=== PATIENT | male | born 1975 | race Two or more races ===

== ENCOUNTER 2017-07-13 10:05 | Inpatient (IN) | payer OTHER ==
[~2017-07-13] VITALS: Ht 182.9 cm; Wt 109.8 kg
[~2017-07-13 10:05] MED LIST: ATOR20TA58 PO; HYDR-2758 PO; ONDA4TAB10 SL; OXYC1TAB7 PO
[2017-07-13] MEDS ORDERED: IV NORMAL SALINE 1000ML BAG 1,000 ML IV SCH (10:24)
[2017-07-13] MEDS ORDERED: IBUPROFEN 800 MG TABLET. PO ONE (10:30)
[2017-07-13] MEDS ORDERED: ONDANSETRON PF 4 MG/2 ML VIAL. IV ONE (10:30)
[2017-07-13] MEDS ORDERED: MORPHINE SULFATE 10 MG/ML VIAL. IV ONE (10:30)
[2017-07-13] MEDS: IV NORMAL SALINE 500ML BAG 500 ML IV PRN (10:54)
[2017-07-13 11:06] LABS: BASO # 0.1 x10^3/uL (0.0-0.2); BASO % 1 % (0-3); EOS % 0 % (0-3); HEMATOCRIT 33.3 % (39.0-53.0); HEMOGLOBIN 11.8 g/dL (13.0-17.5); LYMPH # 3.3 x10^3/uL (1.0-4.8); LYMPH % 17 % (24-48); MEAN CORPUSCULAR HEMOGLOBIN 31 pg (25-35); MEAN CORPUSCULAR HGB CONC 36 g/dL (31-37); MEAN CORPUSCULAR VOLUME 86 fL (79-100); MONO % 12 % (0-9); NEUT % 71 % (31-73); PLATELET COUNT 312 x10^3/uL (140-400); RED BLOOD COUNT 3.88 x10^6/uL (4.30-5.70); RED CELL DISTRIBUTION WIDTH 12.8 % (11.5-14.5); WHITE BLOOD COUNT 19.6 x10^3/uL (4.0-11.0)
--- NOTE | 2017-07-13 11:09 | PHYS DOC ---
Past Medical History Past Medical History: High Cholesterol Past Surgical History: Appendectomy Additional Information: 3 CIGS/ DAY Alcohol Use: Occasionally Drug Use: None Adult General Chief Complaint Chief Complaint: ABDOMINAL PAIN HPI HPI Patient is a 41 year old male with history of high cholesterol who presents today complaining of a fever and increased abdominal pain since his appendectomy on Sunday this week. Patient state he was discharged from the hospital on Sunday with Oxycodone. He states since yesterday which is he has had increased RLQ abdominal pain with nothing exacerbating or making the pain better. Patient states he also started having a fever of 101 yesterday. states they called the PCP as well as the general surgeon who did the procedure and they were told come to the ED today. Patient denies any vomiting. PCP Dr. Meade Surgeon: Dr. Mcintosh Review of Systems Review of Systems Constitutional: fever Eyes: Denies change in visual acuity, redness, or eye pain [] HENT: Denies nasal congestion or sore throat [] Respiratory: Denies cough or shortness of breath [] Cardiovascular: No additional information not addressed in HPI [] GI: RLQ abdominal pain, denies nausea, vomiting, bloody stools or diarrhea [] : Denies dysuria or hematuria [] Musculoskeletal: Denies back pain or joint pain [] Integument: Denies rash or skin lesions [] Neurologic: Denies headache, focal weakness or sensory changes [] Endocrine: Denies polyuria or polydipsia [] Current Medications Current Medications Current Medications Medications (Trade) Dose Ordered Sig/Lana Start Time Stop Time Status Last Admin Dose Admin Acetaminophen (Tylenol) 1,000 mg 1X ONCE 07/13/17 12:30 07/13/17 12:31 DC 07/13/17 12:27 1,000 MG Fentanyl Citrate (Fentanyl 2ml Vial) 50 mcg 1X ONCE 07/13/17 11:30 07/13/17 11:31 DC 07/13/17 11:27 50 MCG Ibuprofen (Motrin) 800 mg 1X ONCE 07/13/17 10:30 07/13/17 10:31 DC 07/13/17 10:54 800 MG Info (Do NOT chart on this entry -- for MONITORING) 1 each PRN DAILY PRN 07/13/17 13:15 07/15/17 13:14 Morphine Sulfate 5 mg 1X ONCE 07/13/17 10:30 07/13/17 10:59 DC Ondansetron HCl (Zofran) 4 mg 1X ONCE 07/13/17 10:30 07/13/17 10:31 DC 07/13/17 10:54 4 MG Sodium Chloride 500 ml @ 1,000 mls/hr PRN Q30MIN PRN 07/13/17 10:30 07/13/17 10:54 1,000 MLS/HR Allergies Allergies Allergies Coded Allergies Type Severity Reaction Last Updated Verified No Known Drug Allergies 07/09/17 No Physical Exam Physical Exam Constitutional: Well developed, well nourished, no acute distress, non-toxic appearance. [] HENT: Normocephalic, atraumatic, bilateral external ears normal, oropharynx moist, no oral exudates, nose normal. [] Eyes: PERRLA, EOMI, conjunctiva normal, no discharge. [] Neck: Normal range of motion, no tenderness, supple, no stridor. [] Cardiovascular:Heart rate regular rhythm, no murmur [] Lungs & Thorax: Bilateral breath sounds clear to auscultation [] Abdomen: Surgical incisions noted on the umbilicus, mid lower abdomen, and right lower quadrant with the bruises consistent with laparoscopy appendectomy. No signs of infection over incision sites, tenderness on palpation of the right lower quadrant. Bowel sounds normal, soft, no masses, no pulsatile masses. [] Skin: Warm, dry, no erythema, no rash. [] Back: No tenderness, no CVA tenderness. [] Extremities: No tenderness, no cyanosis, no clubbing, ROM intact, no edema. [] Neurologic: Alert and oriented X 3, normal motor function, normal sensory function, no focal deficits noted. [] Psychologic: Affect normal, judgement normal, mood normal. [] Current Patient Data Vital Signs Vital Signs Date Time Temp Pulse Resp B/P (MAP) Pulse Ox O2 Delivery O2 Flow Rate FiO2 07/13/17 13:00 98.6 88 20 123/75 (91) 98 Room Air 98.6 Lab Values Laboratory Tests Test 07/13/17 10:34 07/13/17 10:48 Urine Collection Type Unknown Urine Color Yellow Urine Clarity Clear Urine pH 6.0 Urine Specific [place] 1.020 Urine Protein Negative mg/dL (NEG-TRACE) Urine Glucose (UA) Negative mg/dL (NEG) Urine Ketones (Stick) Negative mg/dL (NEG) Urine Blood Negative (NEG) Urine Nitrite Negative (NEG) Urine Bilirubin Negative (NEG) Urine Urobilinogen Dipstick 0.2 mg/dL (0.2 mg/dL) Urine Leukocyte Esterase Negative (NEG) Urine RBC Rare /HPF (0-2) Urine WBC Rare /HPF (0-4) Urine Squamous Epithelial Cells None /LPF Urine Bacteria Few /HPF (0-FEW) Urine Mucus Slight /LPF Urine Opiates Screen Pos (NEG) Urine Methadone Screen Neg (NEG) Urine Barbiturates Neg (NEG) Urine Phencyclidine Screen Neg (NEG) Urine Amphetamine/Methamphetamine Neg (NEG) Urine Benzodiazepines Screen Neg (NEG) Urine Cocaine Screen Neg (NEG) Urine Cannabinoids Screen Neg (NEG) Urine Ethyl Alcohol Neg (NEG) White Blood Count 19.6 x10^3/uL (4.0-11.0) H Red Blood Count 3.88 x10^6/uL (4.30-5.70) L Hemoglobin 11.8 g/dL (13.0-17.5) L Hematocrit 33.3 % (39.0-53.0) L Mean Corpuscular Volume 86 fL (79-100) Mean Corpuscular Hemoglobin 31 pg (25-35) Mean Corpuscular Hemoglobin Concent 36 g/dL (31-37) Red Cell Distribution Width 12.8 % (11.5-14.5) Platelet Count 312 x10^3/uL (140-400) Neutrophils (%) (Auto) 71 % (31-73) Lymphocytes (%) (Auto) 17 % (24-48) L Monocytes (%) (Auto) 12 % (0-9) H Eosinophils (%) (Auto) 0 % (0-3) Basophils (%) (Auto) 1 % (0-3) Neutrophils # (Auto) 13.9 x10^3uL (1.8-7.7) H Lymphocytes # (Auto) 3.3 x10^3/uL (1.0-4.8) Monocytes # (Auto) 2.3 x10^3/uL (0.0-1.1) H Eosinophils # (Auto) 0.1 x10^3/uL (0.0-0.7) Basophils # (Auto) 0.1 x10^3/uL (0.0-0.2) Prothrombin Time 15.0 SEC (11.7-14.0) H Prothrombin Time INR 1.3 (0.8-1.1) H PTT 37 SEC (24-38) Sodium Level 135 mmol/L (136-145) L Potassium Level 3.8 mmol/L (3.5-5.1) Chloride Level 96 mmol/L (98-107) L Carbon Dioxide Level 25 mmol/L (21-32) Anion Gap 14 (6-14) Blood Urea Nitrogen 13 mg/dL (8-26) Creatinine 1.0 mg/dL (0.7-1.3) Estimated GFR (Cockcroft-Gault) 82.8 BUN/Creatinine Ratio 13 (6-20) Glucose Level 127 mg/dL (70-99) H Lactic Acid Level 1.5 mmol/L (0.4-2.0) Calcium Level 8.6 mg/dL (8.5-10.1) Total Bilirubin 0.9 mg/dL (0.2-1.0) Aspartate Amino Transferase (AST) 30 U/L (15-37) Alanine Aminotransferase (ALT) 65 U/L (16-63) H Alkaline Phosphatase 51 U/L (46-116) Total Protein 7.3 g/dL (6.4-8.2) Albumin 3.6 g/dL (3.4-5.0) Albumin/Globulin Ratio 1.0 (1.0-1.7) Procalcitonin 0.66 ng/mL (0.00-0.10) H Ethyl Alcohol Level < 10 mg/dL (0-10) Laboratory Tests 07/13/17 10:48 Laboratory Tests 07/13/17 10:48 EKG EKG [] Radiology/Procedures Radiology/Procedures PROCEDURE: CHEST AP ONLY Chest radiograph 07/13/2017 12:59 PM Indication: Fever, postop appendectomy Comparison: None available Technique: Single portable upright frontal view of the chest is provided. Findings: Cardiomediastinal silhouette is within normal limits. Bandlike density in the left and right midlung is felt to represent subsegmental atelectasis. No pulmonary vascular congestion. No pleural effusions or pneumothorax. The lungs are clear. Osseous structures are normal. Impression: Bilateral midlung bandlike densities are favored to represent subsegmental atelectasis and/or scarring. DICTATED and SIGNED BY: AURORA REES MD DATE: 07/13/17 1113 CC: JUAN A MEADE MD; AJITH CRUZ APRN ~ []PROCEDURE: CT ABD PELV W/ IV CONTRST ONLY CT abdomen/pelvis with contrast 07/13/2017 Indication: Recent appendectomy with abdominal pain and fever Comparison: CT abdomen/pelvis 07/09/2017 Technique: Multiple axial CT images of the abdomen and pelvis were obtained after the administration of 75 mL of Omnipaque 300 intravenously. Coronal and sagittal reformats are provided. Findings: There is right basilar subsegmental atelectasis left greater than right. Heart size is within normal limits. Diffuse hypoattenuation of the hepatic parenchyma suggestive of hepatic steatosis. Spleen, bilateral adrenal glands, gallbladder, pancreas and kidneys are within normal limits. Abdominal aorta is normal in course and caliber. There are no enlarged lymph nodes in the abdomen or pelvis. Small and large bowel are normal in caliber. There is moderate amount of complex hyperdense fluid identified in the right paracolic gutter as well as in the dependent portions of the pelvis suspicious for blood products. There is no free intraperitoneal air. The urinary bladder is within normal limits. Impression: Status post appendectomy with moderate complex fluid within the right paracolic gutter and dependent portions of the pelvis which likely represent blood products given the high attenuation. Findings were discussed with Dr. Cruz on 07/13/2017 at 1:[address] Rees. PQRS Compliance Statement: One or more of the following individualized dose reduction techniques were utilized for this examination: 1. Automated exposure control 2. Adjustment of the mA and/or kV according to patient size 3. Use of iterative reconstruction technique DICTATED and SIGNED BY: AURORA REES MD DATE: 07/13/17 1338 CC: JUAN A MEADE MD; AJITH CRUZ APRN ~ Course & Med Decision Making Course & Med Decision Making Pertinent Labs and Imaging studies reviewed. (See chart for details) This is a 41-year-old male patient presenting to the ED today for fever and increased right lower quadrant abdominal pain post appendectomy 5 days ago. Patient was discharged from the hospital 2 days ago. Temperature on arrival to the ED was 99.8, heart rate 117, respiration 20, blood pressure 153/75, O2 sats 98% on room air. We started him on the sepsis protocol. CBC with a WBC of 19.6 with a left shift. Normal lactate, procalcitonin was 0.66. Patient's temperature actually went up after receiving Motrin in the ED. Temperature was 101.3. Blood pressure went down to 112/59. He continued to receive IV fluids per sepsis protocol. 13:[address] Meade who accepted patient for admission. He requested I&D consult. Start patient on Zosyn and get CT of abdomen which was already ordered. 13:[address] Mcintosh who will f/u with patient Spoke with Dr. Connors who will F/u with patient and start him on Fluconazole. Spoke with Dr. Mcintosh after CT results were back and he requested IR radiologist consult 14:26 Spoke with IR and he will put a drain in. Patient was started on Zosyn, fluconazole, and Flagyl in the ED. He was admitted in stable condition. Dragon Disclaimer Dragon Disclaimer This electronic medical record was generated, in whole or in part, using a voice recognition dictation system. Departure Departure Impression: Primary Impression: Fever Additional Impressions: Right lower quadrant abdominal pain Tachycardia Disposition: 09 ADMITTED INPATIENT Condition: STABLE Referrals: JUAN A MEADE MD (PCP) Problem Qualifiers Primary Impression: Fever Fever type: unspecified Qualified Codes: R50.9 - Fever, unspecified MUTUNGA,AJITH TYP[employer]ETTERS PRINTER Jul 13, 2017 11:09
[2017-07-13 11:16] LABS: BARBITURATES NEG (NEG); BENZODIAZEPINES NEG (NEG); CANNABINOIDS NEG (NEG); COCAINE NEG (NEG); METHADONE NEG (NEG); OPIATES POS (NEG); PHENCYCLIDINE NEG (NEG)
[2017-07-13 11:16] LABS: INR 1.3 (0.8-1.1)
--- NOTE | 2017-07-13 11:17 | RAD ---
Chest radiograph 07/13/2017 12:59 PM Indication: Fever, postop appendectomy Comparison: None available Technique: Single portable upright frontal view of the chest is provided. Findings: Cardiomediastinal silhouette is within normal limits. Bandlike density in the left and right midlung is felt to represent subsegmental atelectasis. No pulmonary vascular congestion. No pleural effusions or pneumothorax. The lungs are clear. Osseous structures are normal. Impression: Bilateral midlung bandlike densities are favored to represent subsegmental atelectasis and/or scarring.
[2017-07-13 11:30] LABS: CALCIUM 8.6 mg/dL (8.5-10.1); GFR 82.8; POTASSIUM 3.8 mmol/L (3.5-5.1)
[2017-07-13] MEDS ORDERED: fentaNYL PF VIAL 100 MCG/2 ML VIAL IV ONE (11:30)
[2017-07-13 11:31] LABS: ALBUMIN 3.6 g/dL (3.4-5.0); TOTAL BILIRUBIN 0.9 mg/dL (0.2-1.0); TOTAL PROTEIN 7.3 g/dL (6.4-8.2)
[2017-07-13 11:46] LABS: BILIRUBIN,URINE NEGATIVE (NEG); GLUCOSE,URINE NEGATIVE (NEG); NITRITE,URINE NEGATIVE (NEG); PROTEIN,URINE NEGATIVE (NEG-TRACE); UROBILINOGEN,URINE 0.2 mg/dL (0.2 mg/dL)
[2017-07-13 11:47] LABS: BACTERIA,URINE FEW /HPF (0-FEW); RBC,URINE RARE /HPF (0-2); WBC,URINE RARE /HPF (0-4)
[2017-07-13] MEDS ORDERED: ACETAMINOPHEN 500 MG TABLET PO ONE ×2 (12:30→12:45)
[2017-07-13] MEDS ORDERED: CONTRAST GIVEN MC PRN (13:15)
[2017-07-13] MEDS ORDERED: IOHEXOL 300 MG/ML 75 ML VIAL IV ONE (13:30)
--- NOTE | 2017-07-13 13:50 | RAD ---
CT abdomen/pelvis with contrast 07/13/2017 Indication: Recent appendectomy with abdominal pain and fever Comparison: CT abdomen/pelvis 07/09/2017 Technique: Multiple axial CT images of the abdomen and pelvis were obtained after the administration of 75 mL of Omnipaque 300 intravenously. Coronal and sagittal reformats are provided. Findings: There is right basilar subsegmental atelectasis left greater than right. Heart size is within normal limits. Diffuse hypoattenuation of the hepatic parenchyma suggestive of hepatic steatosis. Spleen, bilateral adrenal glands, gallbladder, pancreas and kidneys are within normal limits. Abdominal aorta is normal in course and caliber. There are no enlarged lymph nodes in the abdomen or pelvis. Small and large bowel are normal in caliber. There is moderate amount of complex hyperdense fluid identified in the right paracolic gutter as well as in the dependent portions of the pelvis suspicious for blood products. There is no free intraperitoneal air. The urinary bladder is within normal limits. Impression: Status post appendectomy with moderate complex fluid within the right paracolic gutter and dependent portions of the pelvis which likely represent blood products given the high attenuation. Findings were discussed with Dr. Rothman on 07/13/2017 at 1:[address] Acosta. PQRS Compliance Statement: One or more of the following individualized dose reduction techniques were utilized for this examination: 1. Automated exposure control 2. Adjustment of the mA and/or kV according to patient size 3. Use of iterative reconstruction technique
[2017-07-13] MEDS ORDERED: PIPERACILLIN/TAZOBACTAM 4.5 GM in IV NORMAL SALINE 100ML 100 ML IV ONE (15:00)
[2017-07-13] MEDS ORDERED: IV NORMAL SALINE 1000ML BAG 1,000 ML IV ONE (15:15)
[2017-07-13] MEDS ORDERED: IBUPROFEN 800 MG TABLET. PO PRN (15:15)
[2017-07-13] MEDS: fentaNYL PF VIAL 100 MCG/2 ML VIAL IV PRN ×2 (15:20→17:25)
[2017-07-13] MEDS: ONDANSETRON PF 4 MG/2 ML VIAL. IV PRN ×2 (15:20→19:39)
[2017-07-13] MEDS ORDERED: LIDOCAINE 1% / SOD BICARB 8.4% 20 ML VIAL. IJ ONE ×2 (15:21→16:30)
[2017-07-13] MEDS ORDERED: MIDAZOLAM HCL/PF 2 MG/2 ML VIAL. ONE (15:36)
[2017-07-13 15:45] VITALS: BP 136/79
--- NOTE | 2017-07-13 15:56 | PDOC ---
BRIEF OPERATIVE NOTE Pre-Op Diagnosis Fever, abdominal pain s/p appendectomy Post-Op Diagnosis RLQ hematoma Procedure Performed CT aspiration of intraperitoneal periappendiceal fluid collection Surgeon Kelley Anesthesia Type: Conscious Sedation Specimens Obtained 1cc coagulated blood with no néstor infection Findings Coagulated post-operative periappendiceal hematoma Complications No immediate Additional Remarks Specimen sent for microbiological analysis VIKA QUINTANILLA MD Jul 13, 2017 15:56
--- NOTE | 2017-07-13 15:56 | PDOC ---
MODERATE SEDATION ASSESSMENT RISKS/ALTERNATIVES Risks/Alternatives Risks and alternatives of this type of sedation and procedure discussed with: RISK/ALTERNATIVES: Patient H & P ON CHART H & P H & P on chart and reviewed for co-morbid conditions and appropriate labs. H&P ON CHART: Yes STATUS PREG STATUS ASSESSED: Yes MEDS/ALLERGIES REVIEWED Meds/Allergies Reviewed Medications and Allergies including time and route of recently administered narcotics and sedatives. MEDS/ALLERGIES REVIEWED: Yes ASA RATING ASA RATING: II AIRWAY ASSESSMENT Airway Assessment Airway patency, oral function limitations, presence of caps, crowns, dentures, partials, and ability to extend neck assessed. AIRWAY ASSESSMENT: Yes MALLAMPATI SCORE MALLAMPATI SCORE: II PRE-SEDATION ASSESSMENT PRE-SEDATION ASSESSMENT: Yes VIKA QUINTANILLA MD Jul 13, 2017 15:56
[2017-07-13 16:10] VITALS: BP 140/85
--- NOTE | 2017-07-13 16:58 | RAD ---
Procedure: CT-guided aspiration of a right lower quadrant abdominal fluid collection Clinical Indication: 41-year-old male status post appendectomy, with periappendiceal fluid collection. This collection is not organized, and is hyperdense suggestive of postoperative hematoma. Sedation: Conscious sedation was administered for 7 minutes. The patient was monitored by a qualified independent observer throughout the time of sedation. Please refer to the medical record for exact doses of medications utilized to achieve moderate sedation. Antibiotics: None Contrast: None Sterility: The procedure was performed in its entirety using appropriate elements of sterile technique. Consent: The procedure was explained in its entirety to the patient or the patients designated marketing sales representative by a member of the treatment team, including a discussion of the risks, benefits and commonly accepted alternatives to the procedure, as well as the expected consequences of no therapy whatsoever. Discussion of the risks included, but was not limited to, those that are most frequent and those that are rare but possibly severe or life-threatening, as well as the possibility of unforeseen complications. Technique and Findings: Following informed consent, the patient was prepped and draped in usual sterile fashion. Preliminary CT scan of the area of interest was performed. 1% lidocaine was used to achieve local anesthesia over the area of interest. A small dermatotomy was made. Under periodic CT surveillance, an 18-gauge needle was advanced into the fluid collection and no aspirate could be achieved. The needle was then manipulated under suction into several areas within the fluid collection, and eventually 1 cc of coagulated bloody fluid was aspirated. This was sent for microbiologic analysis. No gross infection was evident. Hemostasis was achieved with manual compression following removal of the needle. Complications: No immediate Impression: 1. CT-guided aspiration of the right lower quadrant yielding 1 cc of coagulated blood. Imaging findings and aspiration findings are grossly consistent with bland postoperative hematoma. Drain placement is not indicated. Specimen was sent for microbiologic analysis however. PQRS Compliance Statement: One or more of the following individualized dose reduction techniques were utilized for this examination: 1. Automated exposure control 2. Adjustment of the mA and/or kV according to patient size 3. Use of iterative reconstruction technique
[2017-07-13] MEDS: FLUCONAZOLE 400MG/200ML PREMIX 200 ML IV SCH (17:26)
[2017-07-13] MEDS ORDERED: DOCU-109 PO (18:38)
[2017-07-13] MEDS ORDERED: POLY255P PO (18:38)
[2017-07-13 19:30] VITALS: BP 150/85
[2017-07-13] MEDS ORDERED: HYDROmorphone 2 MG/ML VIAL IV PRN (19:30)
[2017-07-13] MEDS: HYDROmorphone 2 MG/ML VIAL IV PRN ×2 (19:33→21:37)
[2017-07-13] MEDS: ACETAMINOPHEN 325 MG TABLET. PO PRN (21:33)
[2017-07-13] MEDS: PIPERACILLIN/TAZOBACTAM 4.5 GM in IV NORMAL SALINE 100ML 100 ML IV SCH (21:33)
[2017-07-13 23:30] VITALS: BP 127/81
[2017-07-14] VITALS (11 sets, daily range): BP systolic 101–184; BP diastolic 60–89
--- NOTE | 2017-07-14 00:37 | ACF ---
Admission Forms Criteria ABDOMINAL PAIN Clinical Indications for Admission to Inpatient Care ( upper [place]/check or initial the applicable condition/criteria): Admission is indicated for ANY ONE of the following (1)(2)(3)(4)(5)(6): [ ]I. Surgery needed that cannot be performed on ambulatory basis [ ]II. Peritoneal signs present (eg, rebound tenderness, rigidity) [ ]III. Evaluation requires patient to not eat or drink for extended period ( eg, more than 24 hours). [X]IV. Inpatient admission required[B] rather than observation care (see Abdominal Pain: Observation Care guideline as appropriate) because of ANY ONE of the following(7)(8)(9): [ ] a) Hemodynamic instability [X]b) Severe pain requiring acute inpatient management [ ]c) Identification of etiology or finding that requires inpatient care (eg, aortic dissection, free air,bowel ischemia)(10) [ ]d) Absent bowel sounds with complete ileus (11) [ ]e) Signs of intestinal obstruction[C] [ ]f) Suspected toxic megacolon [ ]g) Severe electrolyte abnormalities requiring inpatient care [ ]h) High fever or infection requiring inpatient admission as indicated by ANY ONE of the following (12)(13): [ ]i) Appropriate outpatient or observation care antimicrobial treatment unavailable, not effective, or not feasible [ ]ii) Documented bacteremia [ ]iii) Temperature greater than 104.9 degrees F (40.5 degrees C) (oral) [ ]iv) Temperature greater than 103.1 degrees F (39.5 degrees C) ( oral) or less than 96.8 degrees F (36 degrees C) (rectal) that does not respond to all emergency treatment measures [ ]i) IV fluid required rather than oral rehydration to replace significant ongoing (eg, for greater than 24 hours) losses (greater than 3 L/m2 per day)(14)(15) [ ]j) Percutaneous or open drainage (eg, abscess, biliary tract) procedures [ ]k) Parenteral nutrition regimen that must be implemented on inpatient basis [ ]l) Other condition, treatment, or monitoring requiring inpatient admission Extended stay beyond goal length of stay may be needed for (1)(3)(4)(10)(16): [ ]a) Surgery (e.g., colectomy, revascularization procedure) [ ]b) Persistent abdominal pain with suspected intra-abdominal process [ ]c) Diagnosed condition requiring continued stay (e.g., pancreatitis, complicated diverticulitis) The original [facility] content created by [facility] has been revised. The portions of the content which have been revised are identified through the use of italic text, and [facility] has neither reviewed nor approved the modified material.All other unmodified content is copyright [facility]. Please see references footnoted in the original [facility] edition 2015 Admission Criteria Met?: Yes DIMITRIS MOURA Jul 14, 2017 00:37
[2017-07-14] MEDS: HYDROmorphone 2 MG/ML VIAL IV PRN ×4 (00:48→12:41)
[2017-07-14] MEDS: ACETAMINOPHEN 325 MG TABLET. PO PRN (04:01)
[2017-07-14 04:19] LABS: BASO # 0.1 x10^3/uL (0.0-0.2); BASO % 0 % (0-3); EOS % 0 % (0-3); HEMATOCRIT 33.1 % (39.0-53.0); LYMPH # 2.3 x10^3/uL (1.0-4.8); LYMPH % 8 % (24-48); MEAN CORPUSCULAR HEMOGLOBIN 29 pg (25-35); MEAN CORPUSCULAR HGB CONC 33 g/dL (31-37); MEAN CORPUSCULAR VOLUME 89 fL (79-100); MONO % 8 % (0-9); NEUT % 83 % (31-73); PLATELET COUNT 273 x10^3/uL (140-400); RED BLOOD COUNT 3.74 x10^6/uL (4.30-5.70); RED CELL DISTRIBUTION WIDTH 13.1 % (11.5-14.5); WHITE BLOOD COUNT 27.3 x10^3/uL (4.0-11.0)
[2017-07-14 05:04] LABS: CALCIUM 8.4 mg/dL (8.5-10.1); CREATININE 1.2 mg/dL (0.7-1.3); GFR 67.1; POTASSIUM 4.1 mmol/L (3.5-5.1)
[2017-07-14] MEDS: PIPERACILLIN/TAZOBACTAM 4.5 GM in IV NORMAL SALINE 100ML 100 ML IV SCH ×2 (08:09→12:41)
[2017-07-14] MEDS: ONDANSETRON PF 4 MG/2 ML VIAL. IV PRN ×3 (08:21→18:25)
--- NOTE | 2017-07-14 08:28 | PDOC ---
SURGICAL PROGRESS NOTE Subjective Patient complains of lower pelvic pressure and difficulty urinating. Vital Signs Vital Signs Date Time Temp Pulse Resp B/P (MAP) Pulse Ox O2 Delivery O2 Flow Rate FiO2 07/14/17 08:09 18 94 07/14/17 07:00 99.5 147 134/89 (104) Room Air 99.5 I&O Intake and Output 07/14/17 07:00 Intake Total 1800 ml Output Total 0 ml Balance 1800 ml Intake Oral 700 ml IV Total 1100 ml Output Urine Total 0 ml # Voids 1 PATIENT HAS A GIVENS: No General: Alert, Oriented X3, Cooperative, moderate distress Lungs: Clear to auscultation Abdomen: Soft, Other (TTP lower abd, several areas of eccymosis of the abdomen and left arm) Labs Laboratory Tests Test 07/13/17 10:34 07/13/17 10:48 07/13/17 17:20 07/14/17 03:34 Urine Collection Type Unknown Urine Color Yellow Urine Clarity Clear Urine pH 6.0 Urine Specific [place] 1.020 Urine Protein Negative mg/dL (NEG-TRACE) Urine Glucose (UA) Negative mg/dL (NEG) Urine Ketones (Stick) Negative mg/dL (NEG) Urine Blood Negative (NEG) Urine Nitrite Negative (NEG) Urine Bilirubin Negative (NEG) Urine Urobilinogen Dipstick 0.2 mg/dL (0.2 mg/dL) Urine Leukocyte Esterase Negative (NEG) Urine RBC Rare /HPF (0-2) Urine WBC Rare /HPF (0-4) Urine Squamous Epithelial Cells None /LPF Urine Bacteria Few /HPF (0-FEW) Urine Mucus Slight /LPF Urine Opiates Screen Pos (NEG) Urine Methadone Screen Neg (NEG) Urine Barbiturates Neg (NEG) Urine Phencyclidine Screen Neg (NEG) Urine Amphetamine/Methamphetamine Neg (NEG) Urine Benzodiazepines Screen Neg (NEG) Urine Cocaine Screen Neg (NEG) Urine Cannabinoids Screen Neg (NEG) Urine Ethyl Alcohol Neg (NEG) White Blood Count 19.6 x10^3/uL (4.0-11.0) 27.3 x10^3/uL (4.0-11.0) Red Blood Count 3.88 x10^6/uL (4.30-5.70) 3.74 x10^6/uL (4.30-5.70) Hemoglobin 11.8 g/dL (13.0-17.5) 11.0 g/dL (13.0-17.5) Hematocrit 33.3 % (39.0-53.0) 33.1 % (39.0-53.0) Mean Corpuscular Volume 86 fL (79-100) 89 fL (79-100) Mean Corpuscular Hemoglobin 31 pg (25-35) 29 pg (25-35) Mean Corpuscular Hemoglobin Concent 36 g/dL (31-37) 33 g/dL (31-37) Red Cell Distribution Width 12.8 % (11.5-14.5) 13.1 % (11.5-14.5) Platelet Count 312 x10^3/uL (140-400) 273 x10^3/uL (140-400) Neutrophils (%) (Auto) 71 % (31-73) 83 % (31-73) Lymphocytes (%) (Auto) 17 % (24-48) 8 % (24-48) Monocytes (%) (Auto) 12 % (0-9) 8 % (0-9) Eosinophils (%) (Auto) 0 % (0-3) 0 % (0-3) Basophils (%) (Auto) 1 % (0-3) 0 % (0-3) Neutrophils # (Auto) 13.9 x10^3uL (1.8-7.7) 22.6 x10^3uL (1.8-7.7) Lymphocytes # (Auto) 3.3 x10^3/uL (1.0-4.8) 2.3 x10^3/uL (1.0-4.8) Monocytes # (Auto) 2.3 x10^3/uL (0.0-1.1) 2.3 x10^3/uL (0.0-1.1) Eosinophils # (Auto) 0.1 x10^3/uL (0.0-0.7) 0.1 x10^3/uL (0.0-0.7) Basophils # (Auto) 0.1 x10^3/uL (0.0-0.2) 0.1 x10^3/uL (0.0-0.2) Prothrombin Time 15.0 SEC (11.7-14.0) Prothromb Time International Ratio 1.3 (0.8-1.1) Activated Partial Thromboplast Time 37 SEC (24-38) Sodium Level 135 mmol/L (136-145) 133 mmol/L (136-145) Potassium Level 3.8 mmol/L (3.5-5.1) 4.1 mmol/L (3.5-5.1) Chloride Level 96 mmol/L (98-107) 97 mmol/L (98-107) Carbon Dioxide Level 25 mmol/L (21-32) 28 mmol/L (21-32) Anion Gap 14 (6-14) 8 (6-14) Blood Urea Nitrogen 13 mg/dL (8-26) 12 mg/dL (8-26) Creatinine 1.0 mg/dL (0.7-1.3) 1.2 mg/dL (0.7-1.3) Estimated GFR (Cockcroft-Gault) 82.8 67.1 BUN/Creatinine Ratio 13 (6-20) Glucose Level 127 mg/dL (70-99) 144 mg/dL (70-99) Lactic Acid Level 1.5 mmol/L (0.4-2.0) 1.6 mmol/L (0.4-2.0) Calcium Level 8.6 mg/dL (8.5-10.1) 8.4 mg/dL (8.5-10.1) Total Bilirubin 0.9 mg/dL (0.2-1.0) Aspartate Amino Transf (AST/SGOT) 30 U/L (15-37) Alanine Aminotransferase (ALT/SGPT) 65 U/L (16-63) Alkaline Phosphatase 51 U/L (46-116) Total Protein 7.3 g/dL (6.4-8.2) Albumin 3.6 g/dL (3.4-5.0) Albumin/Globulin Ratio 1.0 (1.0-1.7) Procalcitonin 0.66 ng/mL (0.00-0.10) Ethyl Alcohol Level < 10 mg/dL (0-10) Laboratory Tests Test 07/13/17 10:34 07/13/17 10:48 07/13/17 17:20 07/14/17 03:34 Urine Collection Type Unknown Urine Color Yellow Urine Clarity Clear Urine pH 6.0 Urine Specific [place] 1.020 Urine Protein Negative mg/dL (NEG-TRACE) Urine Glucose (UA) Negative mg/dL (NEG) Urine Ketones (Stick) Negative mg/dL (NEG) Urine Blood Negative (NEG) Urine Nitrite Negative (NEG) Urine Bilirubin Negative (NEG) Urine Urobilinogen Dipstick 0.2 mg/dL (0.2 mg/dL) Urine Leukocyte Esterase Negative (NEG) Urine RBC Rare /HPF (0-2) Urine WBC Rare /HPF (0-4) Urine Squamous Epithelial Cells None /LPF Urine Bacteria Few /HPF (0-FEW) Urine Mucus Slight /LPF Urine Opiates Screen Pos (NEG) Urine Methadone Screen Neg (NEG) Urine Barbiturates Neg (NEG) Urine Phencyclidine Screen Neg (NEG) Urine Amphetamine/Methamphetamine Neg (NEG) Urine Benzodiazepines Screen Neg (NEG) Urine Cocaine Screen Neg (NEG) Urine Cannabinoids Screen Neg (NEG) Urine Ethyl Alcohol Neg (NEG) White Blood Count 19.6 x10^3/uL (4.0-11.0) 27.3 x10^3/uL (4.0-11.0) Red Blood Count 3.88 x10^6/uL (4.30-5.70) 3.74 x10^6/uL (4.30-5.70) Hemoglobin 11.8 g/dL (13.0-17.5) 11.0 g/dL (13.0-17.5) Hematocrit 33.3 % (39.0-53.0) 33.1 % (39.0-53.0) Mean Corpuscular Volume 86 fL (79-100) 89 fL (79-100) Mean Corpuscular Hemoglobin 31 pg (25-35) 29 pg (25-35) Mean Corpuscular Hemoglobin Concent 36 g/dL (31-37) 33 g/dL (31-37) Red Cell Distribution Width 12.8 % (11.5-14.5) 13.1 % (11.5-14.5) Platelet Count 312 x10^3/uL (140-400) 273 x10^3/uL (140-400) Neutrophils (%) (Auto) 71 % (31-73) 83 % (31-73) Lymphocytes (%) (Auto) 17 % (24-48) 8 % (24-48) Monocytes (%) (Auto) 12 % (0-9) 8 % (0-9) Eosinophils (%) (Auto) 0 % (0-3) 0 % (0-3) Basophils (%) (Auto) 1 % (0-3) 0 % (0-3) Neutrophils # (Auto) 13.9 x10^3uL (1.8-7.7) 22.6 x10^3uL (1.8-7.7) Lymphocytes # (Auto) 3.3 x10^3/uL (1.0-4.8) 2.3 x10^3/uL (1.0-4.8) Monocytes # (Auto) 2.3 x10^3/uL (0.0-1.1) 2.3 x10^3/uL (0.0-1.1) Eosinophils # (Auto) 0.1 x10^3/uL (0.0-0.7) 0.1 x10^3/uL (0.0-0.7) Basophils # (Auto) 0.1 x10^3/uL (0.0-0.2) 0.1 x10^3/uL (0.0-0.2) Prothrombin Time 15.0 SEC (11.7-14.0) Prothromb Time International Ratio 1.3 (0.8-1.1) Activated Partial Thromboplast Time 37 SEC (24-38) Sodium Level 135 mmol/L (136-145) 133 mmol/L (136-145) Potassium Level 3.8 mmol/L (3.5-5.1) 4.1 mmol/L (3.5-5.1) Chloride Level 96 mmol/L (98-107) 97 mmol/L (98-107) Carbon Dioxide Level 25 mmol/L (21-32) 28 mmol/L (21-32) Anion Gap 14 (6-14) 8 (6-14) Blood Urea Nitrogen 13 mg/dL (8-26) 12 mg/dL (8-26) Creatinine 1.0 mg/dL (0.7-1.3) 1.2 mg/dL (0.7-1.3) Estimated GFR (Cockcroft-Gault) 82.8 67.1 BUN/Creatinine Ratio 13 (6-20) Glucose Level 127 mg/dL (70-99) 144 mg/dL (70-99) Lactic Acid Level 1.5 mmol/L (0.4-2.0) 1.6 mmol/L (0.4-2.0) Calcium Level 8.6 mg/dL (8.5-10.1) 8.4 mg/dL (8.5-10.1) Total Bilirubin 0.9 mg/dL (0.2-1.0) Aspartate Amino Transf (AST/SGOT) 30 U/L (15-37) Alanine Aminotransferase (ALT/SGPT) 65 U/L (16-63) Alkaline Phosphatase 51 U/L (46-116) Total Protein 7.3 g/dL (6.4-8.2) Albumin 3.6 g/dL (3.4-5.0) Albumin/Globulin Ratio 1.0 (1.0-1.7) Procalcitonin 0.66 ng/mL (0.00-0.10) Ethyl Alcohol Level < 10 mg/dL (0-10) Problem List Problems Medical Problems: (1) Fever Status: Acute (2) Right lower quadrant abdominal pain Status: Acute Assessment/Plan S/P L/S Appendectomy returned with fever and elevated wbc s/p aspiration of abdominal fluid Urinary retention-givens cath. Excessive bruising will check coags, Hgb stable Increase IVF Elevated wbc continue abx if not improving by tomorrow repeat CT Problems: JO ANN JUAREZ MD Jul 14, 2017 08:28
[2017-07-14] MEDS: IV DEXTROSE 5%-LACT RINGERS 1,000 ML IV SCH ×3 (09:46→22:08)
[2017-07-14 09:51] LABS: INR 1.6 (0.8-1.1); PROTHROMBIN TIME PATIENT 17.8 SEC (11.7-14.0)
--- NOTE | 2017-07-14 10:54 | PDOC ---
Infectious Disease Note ROS ROS Vital Sign Vital Signs Vital Signs Date Time Temp Pulse Resp B/P (MAP) Pulse Ox O2 Delivery O2 Flow Rate FiO2 07/14/17 08:39 16 94 07/14/17 07:00 99.5 147 134/89 (104) Room Air 99.5 Labs Lab Laboratory Tests Test 07/13/17 10:34 07/13/17 10:48 07/13/17 17:20 07/14/17 03:34 Urine Collection Type Unknown Urine Color Yellow Urine Clarity Clear Urine pH 6.0 Urine Specific [place] 1.020 Urine Protein Negative mg/dL (NEG-TRACE) Urine Glucose (UA) Negative mg/dL (NEG) Urine Ketones (Stick) Negative mg/dL (NEG) Urine Blood Negative (NEG) Urine Nitrite Negative (NEG) Urine Bilirubin Negative (NEG) Urine Urobilinogen Dipstick 0.2 mg/dL (0.2 mg/dL) Urine Leukocyte Esterase Negative (NEG) Urine RBC Rare /HPF (0-2) Urine WBC Rare /HPF (0-4) Urine Squamous Epithelial Cells None /LPF Urine Bacteria Few /HPF (0-FEW) Urine Mucus Slight /LPF Urine Opiates Screen Pos (NEG) Urine Methadone Screen Neg (NEG) Urine Barbiturates Neg (NEG) Urine Phencyclidine Screen Neg (NEG) Urine Amphetamine/Methamphetamine Neg (NEG) Urine Benzodiazepines Screen Neg (NEG) Urine Cocaine Screen Neg (NEG) Urine Cannabinoids Screen Neg (NEG) Urine Ethyl Alcohol Neg (NEG) White Blood Count 19.6 x10^3/uL (4.0-11.0) 27.3 x10^3/uL (4.0-11.0) Red Blood Count 3.88 x10^6/uL (4.30-5.70) 3.74 x10^6/uL (4.30-5.70) Hemoglobin 11.8 g/dL (13.0-17.5) 11.0 g/dL (13.0-17.5) Hematocrit 33.3 % (39.0-53.0) 33.1 % (39.0-53.0) Mean Corpuscular Volume 86 fL (79-100) 89 fL (79-100) Mean Corpuscular Hemoglobin 31 pg (25-35) 29 pg (25-35) Mean Corpuscular Hemoglobin Concent 36 g/dL (31-37) 33 g/dL (31-37) Red Cell Distribution Width 12.8 % (11.5-14.5) 13.1 % (11.5-14.5) Platelet Count 312 x10^3/uL (140-400) 273 x10^3/uL (140-400) Neutrophils (%) (Auto) 71 % (31-73) 83 % (31-73) Lymphocytes (%) (Auto) 17 % (24-48) 8 % (24-48) Monocytes (%) (Auto) 12 % (0-9) 8 % (0-9) Eosinophils (%) (Auto) 0 % (0-3) 0 % (0-3) Basophils (%) (Auto) 1 % (0-3) 0 % (0-3) Neutrophils # (Auto) 13.9 x10^3uL (1.8-7.7) 22.6 x10^3uL (1.8-7.7) Lymphocytes # (Auto) 3.3 x10^3/uL (1.0-4.8) 2.3 x10^3/uL (1.0-4.8) Monocytes # (Auto) 2.3 x10^3/uL (0.0-1.1) 2.3 x10^3/uL (0.0-1.1) Eosinophils # (Auto) 0.1 x10^3/uL (0.0-0.7) 0.1 x10^3/uL (0.0-0.7) Basophils # (Auto) 0.1 x10^3/uL (0.0-0.2) 0.1 x10^3/uL (0.0-0.2) Prothrombin Time 15.0 SEC (11.7-14.0) Prothromb Time International Ratio 1.3 (0.8-1.1) Activated Partial Thromboplast Time 37 SEC (24-38) Sodium Level 135 mmol/L (136-145) 133 mmol/L (136-145) Potassium Level 3.8 mmol/L (3.5-5.1) 4.1 mmol/L (3.5-5.1) Chloride Level 96 mmol/L (98-107) 97 mmol/L (98-107) Carbon Dioxide Level 25 mmol/L (21-32) 28 mmol/L (21-32) Anion Gap 14 (6-14) 8 (6-14) Blood Urea Nitrogen 13 mg/dL (8-26) 12 mg/dL (8-26) Creatinine 1.0 mg/dL (0.7-1.3) 1.2 mg/dL (0.7-1.3) Estimated GFR (Cockcroft-Gault) 82.8 67.1 BUN/Creatinine Ratio 13 (6-20) Glucose Level 127 mg/dL (70-99) 144 mg/dL (70-99) Lactic Acid Level 1.5 mmol/L (0.4-2.0) 1.6 mmol/L (0.4-2.0) Calcium Level 8.6 mg/dL (8.5-10.1) 8.4 mg/dL (8.5-10.1) Total Bilirubin 0.9 mg/dL (0.2-1.0) Aspartate Amino Transf (AST/SGOT) 30 U/L (15-37) Alanine Aminotransferase (ALT/SGPT) 65 U/L (16-63) Alkaline Phosphatase 51 U/L (46-116) Total Protein 7.3 g/dL (6.4-8.2) Albumin 3.6 g/dL (3.4-5.0) Albumin/Globulin Ratio 1.0 (1.0-1.7) Procalcitonin 0.66 ng/mL (0.00-0.10) Ethyl Alcohol Level < 10 mg/dL (0-10) Test 07/14/17 09:35 Prothrombin Time 17.8 SEC (11.7-14.0) Prothromb Time International Ratio 1.6 (0.8-1.1) Activated Partial Thromboplast Time 44 SEC (24-38) Objective Assessment Fever Leukocytosis RLQ complex fluid collection, s/p aspiration, coag blood, 07/13. s/p lap appy, 07/09 Urinary retention Plan Plan of Care Zosyn, Flagyl and fluconazole added per Dr. Connors, 07/13 f/u cultures Monitor labs May need repeat CT abd/pelvis with increasing WBCs, surgery following Thank you [id number] Attending Co-Sign The patient was seen and interviewed as well as examined at the bedside. The chart was reviewed. The case was discussed. Agree with the plan of care. CAROL PEARSON APRN Jul 14, 2017 10:54 ZHANG MORALES MD Jul 14, 2017 10:58
--- NOTE | 2017-07-14 12:15 | PDOC ---
Provider Note Provider Note Pt seen.H&P dictated. #[id number] JUAN A MEADE MD Jul 14, 2017 12:15
--- NOTE | 2017-07-14 12:52 | HP ---
ADMIT DATE: 07/13/2017 PATIENT LOCATION: [facility]. REASON FOR ADMISSION TO THE HOSPITAL: Abdominal pain, fever, leukocytosis, recent laparoscopic appendectomy for acute appendicitis 5 days ago. HISTORY OF PRESENT ILLNESS: The patient is a 41-year-old male. The patient was admitted 5 days ago for abdominal pain, was found to have acute appendicitis. The patient underwent laparoscopic appendectomy and his white count was elevated at that time after he went home on Sunday. His white count was coming down and he was able to tolerate diet, was discharged. He was having fever yesterday, was recommended to come to the hospital. His white count was elevated to 19,000. CT scan of the abdomen and pelvis shows fluid in the pelvic gutter and the patient was admitted for antibiotics. For further investigation, surgery and ID was consulted. PAST MEDICAL HISTORY: History of hypertension, as mentioned was admitted 5 days ago with acute appendicitis, had laparoscopic appendectomy, was on IV antibiotics for 48 hours. PERSONAL HISTORY: Cigars 3 a day. Social alcohol. Denies any street drugs. FAMILY HISTORY: Hypertension. Allergies :noted Meds : reviewed REVIEW OF SYMPTOMS: Complains of abdominal discomfort and fever. Denies nausea. Denies any diarrhea or blood in the stool. Rest of the 14-system was reviewed and negative. PHYSICAL EXAMINATION: VITAL SIGNS: The patient has a fever of 102 at admission, pulse 95, respirations 18, oxygen 97 on room air. HEENT: Head is atraumatic. Pupils equal. Oral cavity: No congestion. NECK: Supple. Thyroid not enlarged. JVD not elevated. CHEST: Symmetrical. ABDOMEN: There are scars of recent laparoscopic surgery, soft, nontender. EXTERNAL GENITALIA: No Reyes. RECTAL: Deferred. EXTREMITIES: No calf tenderness or edema. LABORATORY DATA: Shows a white count of 19, went up to 27; hemoglobin 12, platelets 312. INR is 1.6. Electrolytes show sodium 135, potassium 3.8, chloride 96, bicarbonate 25, BUN 13, creatinine 1.0. Glucose 127. Lactic acid 1.5. LFTs were normal. Urine was negative. Blood cultures were done. Had a CT scan of the abdomen and pelvis, which shows moderate complex fluid in the right paracolic gutter and interventional radiology was consulted. They had aspirated 1 mL of coagulated bloody fluid. Did not notice any abscess. FINAL IMPRESSION: 1. Fever. 2. Free fluid in the paracolic gutter. 3. Status post recent laparoscopic appendectomy 5 days ago. PLAN: At this time, was admitted to the hospital, hydrate with IV fluids. Cultures, IV antibiotics. The patient had a CT-guided aspiration of the fluid, sent for cultures. ID was consulted, was started on Diflucan, Flagyl and Zosyn and see how the patient's condition improves and surgery was consulted. DVT prophylaxis with SCDs. Hold off on Lovenox. The patient may need laparotomy down the road. JUAN A MEADE MD DR: JOSUE/nato JOB#: [id number] / [id number] NEREYDA
[2017-07-14] MEDS ORDERED: BISACODYL 10 MG SUPP.RECT. PR PRN (13:00)
[2017-07-14] MEDS ORDERED: CONTRAST GIVEN MC PRN (14:45)
[2017-07-14] MEDS ORDERED: IOHEXOL 240 MG/ML 50ML VIAL. PO ONE (14:45)
[2017-07-14] MEDS ORDERED: IOHEXOL 300 MG/ML 75 ML VIAL IV ONE (14:45)
[2017-07-14] MEDS: POLYETHYLENE GLYCOL 3350 17 GM PACKET. PO SCH (16:48)
--- NOTE | 2017-07-14 16:48 | RAD ---
Indication: Chronic abdominal pain. Recent appendectomy. Abdominal pain and fever. Technique: Axial images and coronal and sagittal reformatted images are provided. 75 mL of intravenous Omnipaque 300 was administered without complication. Small amount of oral contrast was ingested, total dose could not be ingested. Comparison is from one day earlier. One or more of the following individualized dose reduction techniques were utilized for this examination: 1. Automated exposure control 2. Adjustment of the mA and/or kV according to patient size 3. Use of iterative reconstruction technique Findings: There is atelectasis or less likely infiltrate in the lung bases bilaterally. There is no pleural effusion. The heart is not enlarged. There is fatty infiltration of the liver. Gallbladder is unremarkable. Spleen is not enlarged. Pancreas is fatty replaced. There is no adrenal mass. Kidneys are symmetrically perfused. Aorta is normal caliber. Kidneys are symmetrically perfused. Since the prior study the patient has developed dilated small bowel loops with air-fluid levels. There is also fluid in the proximal colon. Colon is not dilated. There are clips in the right lower quadrant. There is hyperdense apparent organized fluid in the right lower quadrant extending down into the pelvis. This is likely a postoperative hematoma. It has increased in size from prior study, 9.5 x 7.0 cm compared to 8.0 x 6.0 cm on prior. It is more heterogeneous appearance on today's exam. The amount of free fluid down in the pelvis is probably stable. Reyes catheter is noted in the bladder. Hyperdense pelvic fluid is noted. Bony structures are intact. Impression: 1. Increased size of the right lower quadrant presumed hematoma secondary to recent appendectomy. 2. Free fluid in the pelvis likely representing hemoperitoneum is similar to prior. 3. Interval development of dilated small bowel loops with air-fluid levels. Air-fluid levels and fluid noted in the proximal colon as well, proximal colon is not dilated. Ileus is favored over an obstruction.
[2017-07-14] MEDS: IV NORMAL SALINE 500ML BAG 500 ML IV PRN (16:51)
[2017-07-14] MEDS: FLUCONAZOLE 400MG/200ML PREMIX 200 ML IV SCH (17:01)
[2017-07-14] MEDS ORDERED: PHYTONADIONE (VIT K1) IV 10 MG in IV NORMAL SALINE 50ML 50 ML IV ONE (18:15)
--- NOTE | 2017-07-14 18:25 | PDOC ---
SURGICAL PROGRESS NOTE Subjective Patient transfered to ICU due to increased pain and fevers with tachycardia. He complains of nausea and abdominal distention. He has passed some flatus and small bm. Vital Signs Vital Signs Date Time Temp Pulse Resp B/P (MAP) Pulse Ox O2 Delivery O2 Flow Rate FiO2 07/14/17 17:00 119 16 152/73 (99) 93 Room Air 07/14/17 16:15 100.8 100.8 I&O Intake and Output 07/14/17 07:00 Intake Total 1800 ml Output Total 0 ml Balance 1800 ml Intake Oral 700 ml IV Total 1100 ml Output Urine Total 0 ml # Voids 1 PATIENT HAS A ELAM: Yes General: Alert, Oriented X3, Cooperative, moderate distress Lungs: Clear to auscultation Heart: Other (tachy rate 110's) Abdomen: Other (hypoactive bs mildly distended diffusley tender) Extremities: No edema Neuro: Normal speech Psych/Mental Status: Mental status NL Labs Laboratory Tests Test 07/13/17 10:34 07/13/17 10:48 07/13/17 17:20 07/14/17 03:34 Urine Collection Type Unknown Urine Color Yellow Urine Clarity Clear Urine pH 6.0 Urine Specific [place] 1.020 Urine Protein Negative mg/dL (NEG-TRACE) Urine Glucose (UA) Negative mg/dL (NEG) Urine Ketones (Stick) Negative mg/dL (NEG) Urine Blood Negative (NEG) Urine Nitrite Negative (NEG) Urine Bilirubin Negative (NEG) Urine Urobilinogen Dipstick 0.2 mg/dL (0.2 mg/dL) Urine Leukocyte Esterase Negative (NEG) Urine RBC Rare /HPF (0-2) Urine WBC Rare /HPF (0-4) Urine Squamous Epithelial Cells None /LPF Urine Bacteria Few /HPF (0-FEW) Urine Mucus Slight /LPF Urine Opiates Screen Pos (NEG) Urine Methadone Screen Neg (NEG) Urine Barbiturates Neg (NEG) Urine Phencyclidine Screen Neg (NEG) Urine Amphetamine/Methamphetamine Neg (NEG) Urine Benzodiazepines Screen Neg (NEG) Urine Cocaine Screen Neg (NEG) Urine Cannabinoids Screen Neg (NEG) Urine Ethyl Alcohol Neg (NEG) White Blood Count 19.6 x10^3/uL (4.0-11.0) 27.3 x10^3/uL (4.0-11.0) Red Blood Count 3.88 x10^6/uL (4.30-5.70) 3.74 x10^6/uL (4.30-5.70) Hemoglobin 11.8 g/dL (13.0-17.5) 11.0 g/dL (13.0-17.5) Hematocrit 33.3 % (39.0-53.0) 33.1 % (39.0-53.0) Mean Corpuscular Volume 86 fL (79-100) 89 fL (79-100) Mean Corpuscular Hemoglobin 31 pg (25-35) 29 pg (25-35) Mean Corpuscular Hemoglobin Concent 36 g/dL (31-37) 33 g/dL (31-37) Red Cell Distribution Width 12.8 % (11.5-14.5) 13.1 % (11.5-14.5) Platelet Count 312 x10^3/uL (140-400) 273 x10^3/uL (140-400) Neutrophils (%) (Auto) 71 % (31-73) 83 % (31-73) Lymphocytes (%) (Auto) 17 % (24-48) 8 % (24-48) Monocytes (%) (Auto) 12 % (0-9) 8 % (0-9) Eosinophils (%) (Auto) 0 % (0-3) 0 % (0-3) Basophils (%) (Auto) 1 % (0-3) 0 % (0-3) Neutrophils # (Auto) 13.9 x10^3uL (1.8-7.7) 22.6 x10^3uL (1.8-7.7) Lymphocytes # (Auto) 3.3 x10^3/uL (1.0-4.8) 2.3 x10^3/uL (1.0-4.8) Monocytes # (Auto) 2.3 x10^3/uL (0.0-1.1) 2.3 x10^3/uL (0.0-1.1) Eosinophils # (Auto) 0.1 x10^3/uL (0.0-0.7) 0.1 x10^3/uL (0.0-0.7) Basophils # (Auto) 0.1 x10^3/uL (0.0-0.2) 0.1 x10^3/uL (0.0-0.2) Prothrombin Time 15.0 SEC (11.7-14.0) Prothromb Time International Ratio 1.3 (0.8-1.1) Activated Partial Thromboplast Time 37 SEC (24-38) Sodium Level 135 mmol/L (136-145) 133 mmol/L (136-145) Potassium Level 3.8 mmol/L (3.5-5.1) 4.1 mmol/L (3.5-5.1) Chloride Level 96 mmol/L (98-107) 97 mmol/L (98-107) Carbon Dioxide Level 25 mmol/L (21-32) 28 mmol/L (21-32) Anion Gap 14 (6-14) 8 (6-14) Blood Urea Nitrogen 13 mg/dL (8-26) 12 mg/dL (8-26) Creatinine 1.0 mg/dL (0.7-1.3) 1.2 mg/dL (0.7-1.3) Estimated GFR (Cockcroft-Gault) 82.8 67.1 BUN/Creatinine Ratio 13 (6-20) Glucose Level 127 mg/dL (70-99) 144 mg/dL (70-99) Lactic Acid Level 1.5 mmol/L (0.4-2.0) 1.6 mmol/L (0.4-2.0) Calcium Level 8.6 mg/dL (8.5-10.1) 8.4 mg/dL (8.5-10.1) Total Bilirubin 0.9 mg/dL (0.2-1.0) Aspartate Amino Transf (AST/SGOT) 30 U/L (15-37) Alanine Aminotransferase (ALT/SGPT) 65 U/L (16-63) Alkaline Phosphatase 51 U/L (46-116) Total Protein 7.3 g/dL (6.4-8.2) Albumin 3.6 g/dL (3.4-5.0) Albumin/Globulin Ratio 1.0 (1.0-1.7) Procalcitonin 0.66 ng/mL (0.00-0.10) Ethyl Alcohol Level < 10 mg/dL (0-10) Test 07/14/17 09:35 07/14/17 17:00 Prothrombin Time 17.8 SEC (11.7-14.0) Prothromb Time International Ratio 1.6 (0.8-1.1) Activated Partial Thromboplast Time 44 SEC (24-38) Lactic Acid Level 1.6 mmol/L (0.4-2.0) Laboratory Tests Test 07/14/17 03:34 07/14/17 09:35 07/14/17 17:00 White Blood Count 27.3 x10^3/uL (4.0-11.0) Red Blood Count 3.74 x10^6/uL (4.30-5.70) Hemoglobin 11.0 g/dL (13.0-17.5) Hematocrit 33.1 % (39.0-53.0) Mean Corpuscular Volume 89 fL (79-100) Mean Corpuscular Hemoglobin 29 pg (25-35) Mean Corpuscular Hemoglobin Concent 33 g/dL (31-37) Red Cell Distribution Width 13.1 % (11.5-14.5) Platelet Count 273 x10^3/uL (140-400) Neutrophils (%) (Auto) 83 % (31-73) Lymphocytes (%) (Auto) 8 % (24-48) Monocytes (%) (Auto) 8 % (0-9) Eosinophils (%) (Auto) 0 % (0-3) Basophils (%) (Auto) 0 % (0-3) Neutrophils # (Auto) 22.6 x10^3uL (1.8-7.7) Lymphocytes # (Auto) 2.3 x10^3/uL (1.0-4.8) Monocytes # (Auto) 2.3 x10^3/uL (0.0-1.1) Eosinophils # (Auto) 0.1 x10^3/uL (0.0-0.7) Basophils # (Auto) 0.1 x10^3/uL (0.0-0.2) Sodium Level 133 mmol/L (136-145) Potassium Level 4.1 mmol/L (3.5-5.1) Chloride Level 97 mmol/L (98-107) Carbon Dioxide Level 28 mmol/L (21-32) Anion Gap 8 (6-14) Blood Urea Nitrogen 12 mg/dL (8-26) Creatinine 1.2 mg/dL (0.7-1.3) Estimated GFR (Cockcroft-Gault) 67.1 Glucose Level 144 mg/dL (70-99) Calcium Level 8.4 mg/dL (8.5-10.1) Prothrombin Time 17.8 SEC (11.7-14.0) Prothromb Time International Ratio 1.6 (0.8-1.1) Activated Partial Thromboplast Time 44 SEC (24-38) Lactic Acid Level 1.6 mmol/L (0.4-2.0) Problem List Problems Medical Problems: (1) Fever Status: Acute (2) Right lower quadrant abdominal pain Status: Acute Assessment/Plan CT of the abd showing continued hematoma RLQ slightly larger then yesterday, small amount of pelvic fluid Elevated wbc and INR 1.6, unknown coagulopathy Hgb stable 11 Patient to receive Vit K cross for FFP Plan DX L/S with evacuation of hematoma and drain placement Discussed plan with patient and his who are agreeable to proceed with surgery. Problems: JO ANN JUAREZ MD Jul 14, 2017 18:25
[2017-07-14] MEDS ORDERED: ONDANSETRON PF 4 MG/2 ML VIAL. ONE (19:13)
[2017-07-14] MEDS ORDERED: MIDAZOLAM HCL/PF 2 MG/2 ML VIAL. ONE (19:13)
[2017-07-14] MEDS ORDERED: DEXAMETHASONE SOD PHOS 20 MG/5 ML VIAL. ONE (19:13)
[2017-07-14] MEDS ORDERED: LIDOCAINE 2% PF Vial for OR 5 ML VIAL. ONE (19:13)
[2017-07-14] MEDS ORDERED: fentaNYL PF VIAL 100 MCG/2 ML VIAL ONE ×2 (19:13→20:27)
[2017-07-14] MEDS ORDERED: PROPOFOL 20 ML IV ONE (19:13)
[2017-07-14 19:18] LABS: BASO % 0 % (0-3); EOS % 0 % (0-3); HEMATOCRIT 32.5 % (39.0-53.0); HEMOGLOBIN 10.8 g/dL (13.0-17.5); LYMPH # 1.1 x10^3/uL (1.0-4.8); LYMPH % 4 % (24-48); MEAN CORPUSCULAR HEMOGLOBIN 29 pg (25-35); MEAN CORPUSCULAR HGB CONC 33 g/dL (31-37); MEAN CORPUSCULAR VOLUME 88 fL (79-100); MONO % 9 % (0-9); NEUT % 87 % (31-73); PLATELET COUNT 277 x10^3/uL (140-400); RED BLOOD COUNT 3.69 x10^6/uL (4.30-5.70); RED CELL DISTRIBUTION WIDTH 12.9 % (11.5-14.5); WHITE BLOOD COUNT 27.9 x10^3/uL (4.0-11.0)
[2017-07-14 19:29] LABS: CALCIUM 8.4 mg/dL (8.5-10.1); GFR 82.8; POTASSIUM 3.4 mmol/L (3.5-5.1)
[2017-07-14 19:30] LABS: INR 1.5 (0.8-1.1); PROTHROMBIN TIME PATIENT 17.5 SEC (11.7-14.0)
[2017-07-14] MEDS ORDERED: BUPIVAC MPF-EPI 0.5%-1:200000 30 ML VIAL. ONE (19:32)
[2017-07-14 19:33] LABS: ALBUMIN 2.7 g/dL (3.4-5.0); DIRECT BILIRUBIN 0.6 mg/dL (0.0-0.2); TOTAL BILIRUBIN 1.6 mg/dL (0.2-1.0); TOTAL PROTEIN 6.3 g/dL (6.4-8.2)
--- NOTE | 2017-07-14 20:08 | CONS ---
DATE OF CONSULTATION: 07/13/2017 This is Nghia Luna, nurse practitioner, dictating for Dr. Broderick Toledo, infectious disease. REFERRED BY: Jessica Rothman APRN. REASON FOR CONSULTATION: Fever, status post appendectomy. HISTORY OF PRESENT ILLNESS: This patient is a 41-year-old male who presented to the emergency room with worsening right lower quadrant pain following a laparoscopic appendectomy on 07/09/2017, performed by Dr. Mcintosh. Symptoms worsened 24 hours after discharge home and relieved by pain medication. He experienced fevers, chills, sweats and nausea. His initial white blood cell count was 19,600 and now is up to 27,300. Procalcitonin level 0.66 and lactic acid was 1.5. A CT scan of the abdomen and pelvis with contrast showed moderate complex fluid within the right paracolic gutter and dependent portions of the pelvis, likely representing blood products given the high attenuation. No free intraperitoneal air noted. The patient underwent a CT-guided aspiration, which yielded 1 mL of coagulated blood. Culture pending. He was started on piperacillin/tazobactam and metronidazole in the ER. Dr. Connors was notified and added fluconazole. The patient continues to complain of right lower quadrant pain as well as nausea off and on and fevers. He has not had a bowel movement since prior to surgery more than 5 days ago. He reports having difficulty urinating. He feels the need to urinate, but cannot. Denies headache, nasal/sinus congestion or sore throat. Denies cough, shortness of air or chest discomfort. Denies muscle aches, joint pains or rash. PAST MEDICAL HISTORY: High cholesterol. PAST SURGICAL HISTORY: Laparoscopic appendectomy on 07/09/2017. FAMILY HISTORY: Positive for hypertension. SOCIAL HISTORY: The patient is . He is a smoker. He drinks alcohol on occasion. ALLERGIES: No known drug allergies. MEDICATIONS: Piperacillin/tazobactam, metronidazole, fluconazole. Other medications are available and have been reviewed on the JAN. REVIEW OF SYSTEMS: Per HPI. Otherwise, all other review of systems are negative. PHYSICAL EXAMINATION: GENERAL: male, propped up in bed, somewhat tense. VITAL SIGNS: Temperature is 99.5, T-max 102.4, blood pressure 134/89, heart rate 147, respiratory rate 16, pulse oximetry is 94% on room air. Weight is 245 pounds, BMI 33.2. HEENT: Pupils equally round. Normal conjunctivae. Oral mucosa is pink and dry. NECK: Supple. LUNGS: Clear. HEART: Normal S1 and S2. ABDOMEN: Mildly distended. Bowel sounds present, soft, mild diffuse tenderness. Localized right sided bruising noted. EXTREMITIES: No gross edema or cyanosis. SKIN: Without rash. NEUROLOGIC: Alert and oriented times 3. No focal deficits appreciated. LABORATORY DATA: Today's WBC 27,300; hemoglobin 11; platelet count 273,000. Sodium 133, potassium 4.1, creatinine 1.2, BUN 12, glucose 144. Repeat lactic acid 1.6. Total bilirubin 0.9, AST 30, ALT 65, albumin . Procalcitonin 0.66. Urine toxicology positive for opiates. Urinalysis unremarkable for infection. INR 1.6. IMAGING STUDIES: Abdominal/pelvis CT per HPI. Chest x-ray shows bilateral mid lung band-like densities favoring subsegmental atelectasis and/or scarring. IMPRESSION: 1. Fever. 2. Leukocytosis. 3. Right lower quadrant complex fluid collection representing hematoma, status post aspiration on July 13 following laparoscopic appendectomy. 4. Urinary retention. PLAN: Continue piperacillin/tazobactam, metronidazole, and fluconazole. An indwelling Reyes catheter has been ordered. Monitor laboratory values. We will follow up on cultures. The patient may need repeat abdominal/pelvis CT scan with increasing white blood cell count. Thank you, Jessica Rothman APRN, for asking us to participate in this patient's care. Should you have further questions or concerns, please call. BRODERICK TOLEDO MD DR: NOHEMI/nato JOB#: [id number] / [id number]
[2017-07-14 20:17] LABS: PLT ESTIMATE ADEQUATE (ADEQUATE)
[2017-07-14] MEDS ORDERED: GLYCOPYRROLATE 1 MG/5 ML VIAL. ONE (20:22)
[2017-07-14] MEDS ORDERED: NEOSTIGMINE METHYLSULFATE 5 MG/5 ML SYRINGE. ONE (20:22)
[2017-07-14] MEDS ORDERED: NALOXONE 0.4 MG/ML VIAL. IV PRN (20:45)
--- NOTE | 2017-07-14 20:49 | PDOC4 ---
Operative Note Operative Note Date: 07/14/2017 Preoperative diagnosis: Intra-abdominal hematoma status post laparoscopic appendectomy Postoperative diagnosis: Same Procedure: Diagnostic laparoscopy with evacuation of hematoma and right lower quadrant drain placement Surgeon: Arnaldo Specimen: Intra-abdominal hematoma for culture Dictation: Patient is a 41-year-old male who had a laparoscopic appendectomy approximately 1 week ago returned to the hospital with worsening abdominal pain fever CT scan showed right lower quadrant fluid collection likely hematoma aspiration performed by radiology. He should continue to worsen and became febrile and tachycardic and hypotensive. Procedure of diagnostic laparoscopy with evacuation of intra-abdominal hematoma was explained to the patient detail all risks benefits were also discussed including bleeding infection injury to intra-abdominal contents possibly necessitating further or open operations was also discussed. Patient seemed understanding gave both verbal and written consent had procedure performed. Patient was taken to the operating room placed in the supine position general anesthesia was initiated once patient was asleep and intubated his abdomen was prepped and draped in usual sterile fashion using ChloraPrep. The previous incision at the umbilicus was injected with quarter percent Marcaine with epinephrine and the suture was cut allowing access to the fascial suture which was also cut and a final meter port was placed directly into the intra-abdominal cavity a pneumoperitoneum was then achieved. 5 mm camera was placed within the abdomen was noted there were some adhesions of the omentum to the anterior abdominal wall low in the pelvis as well as [place] of dark blood in the right lower quadrant. A 5 mm port was then placed through the previous incision in the right mid abdomen using suction registration manager the right lower quadrant hematoma was evacuated 500 mL of blood was evacuated no active bleeding was noted. The right lower quadrant and pelvis were then irrigated with normal saline 3000ml. Prior to irrigation a culture of the blood was taken. Another 5 mm port was placed under direct visualization in the right lower quadrant through this 5 OmegaPort a 15 Frisian drain was placed in the right lower quadrant was positioned in the pelvis and along the right gutter. At this point the pneumoperitoneum was reduced all ports removed the fascial defect of the umbilicus closed [id number] 0 Vicryl suture and the skin was reapproximate all port sites 4 subcuticular Monocryl the drain was sewn in place with a 2-0 silk stitch and connected to a BEVERLY drain. Estimated blood loss 10 mL. The patient was awakened and extubated in the operating room and taken to recovery in stable condition all sponge instrument and needle counts listed as correct. JO ANN JUAREZ MD Jul 14, 2017 20:49
[2017-07-14] MEDS ORDERED: SEVOFLURANE > 120 MINUTES. IH ONE (20:59)
[2017-07-14] MEDS ORDERED: PHENYLEPHRINE in 0.9% NACL PF 1 MG/10 ML DISP.SYRIN. IV ONE (20:59)
[2017-07-14] MEDS: IV NORMAL SALINE 1000ML BAG 1,000 ML IV SCH (22:09)
--- NOTE | 2017-07-14 22:11 | RAD ---
CHEST AP ONLY, KUB Clinical indications: ICU patient. Post surgery central line placement. Comparison image sent. Recent laparoscopic surgery. NG tube placement. Chest x-ray: COMPARISON: July 13, 2017. Findings: A right IJ central line has been placed and the tip is seen within the lower SVC at the junction with the right atrium. No pneumothorax is seen. Bilateral platelike atelectasis is again evident and is unchanged. No progressive lung consolidation or new pulmonary edema or pleural effusion is seen. The heart size, pulmonary vasculature, mediastinum and both edgardo are stable. KUB: NG tube has been placed The tip of the NG tube is seen within the gastric cardia. The more proximal port of the NG tube is seen within the distal esophagus.Therefore the tip of the NG tube should be advanced 8 cm. There is mild dilatation of small bowel loops centrally which could represent postoperative functional ileus but a small bowel obstruction is a possibility as well if there are clinical findings of such. IMPRESSION: Placement of right IJ central line without pneumothorax. Stable bilateral platelike atelectasis. Placement of NG tube. The tip is located at the level of gastric cardia and therefore the NG tube may be further advanced by 8 cm. Mild dilatation of central small bowel loops which may represent postoperative ileus but a bowel obstruction is possible if there are clinical findings of such. Electronically signed by: Ciaran Cortez MD (07/14/2017 10:08 PM) [id number]
[2017-07-14 22:13] LABS: BASO # 0.1 x10^3/uL (0.0-0.2); BASO % 0 % (0-3); EOS % 0 % (0-3); HEMATOCRIT 29.9 % (39.0-53.0); LYMPH # 0.8 x10^3/uL (1.0-4.8); LYMPH % 4 % (24-48); MEAN CORPUSCULAR HEMOGLOBIN 30 pg (25-35); MEAN CORPUSCULAR HGB CONC 33 g/dL (31-37); MEAN CORPUSCULAR VOLUME 89 fL (79-100); MONO % 6 % (0-9); NEUT % 90 % (31-73); PLATELET COUNT 252 x10^3/uL (140-400); RED BLOOD COUNT 3.38 x10^6/uL (4.30-5.70); RED CELL DISTRIBUTION WIDTH 12.8 % (11.5-14.5); WHITE BLOOD COUNT 20.5 x10^3/uL (4.0-11.0)
[2017-07-14] MEDS: PROMETHAZINE 12.5 MG in IV NORMAL SALINE 50ML 50 ML IV PRN (22:18)
[2017-07-14 22:26] LABS: INR 1.4 (0.8-1.1); PROTHROMBIN TIME PATIENT 16.6 SEC (11.7-14.0)
[2017-07-14] MEDS ORDERED: ALBUMIN HUMAN 25% 100 ML IV ONE (22:30)
[2017-07-14] MEDS ORDERED: POTASSIUM CHLORIDE 20MEQ 50 ML IV ONE (22:30)
[2017-07-14 22:37] LABS: CALCIUM 8.2 mg/dL (8.5-10.1); CREATININE 1.1 mg/dL (0.7-1.3); GFR 74.1; MAGNESIUM 1.6 mg/dL (1.8-2.4); PHOSPHORUS 2.2 mg/dL (2.6-4.7); POTASSIUM 3.7 mmol/L (3.5-5.1)
[2017-07-14] MEDS ORDERED: CALCIUM CHLORIDE 1,000 MG in IV NORMAL SALINE 50ML 50 ML IV ONE (23:00)
[2017-07-15] VITALS (24 sets, daily range): BP systolic 134–188; BP diastolic 45–99
[2017-07-15] MEDS: hydrALAZINE 20 MG/ML VIAL. IVP PRN ×3 (00:12→19:56)
[2017-07-15] MEDS: PIPERACILLIN/TAZOBACTAM 4.5 GM in IV NORMAL SALINE 100ML 100 ML IV SCH ×4 (00:14→22:22)
[2017-07-15] MEDS ORDERED: ALBUMIN HUMAN 5% 500 ML IV ONE (00:30)
[2017-07-15] MEDS ORDERED: SODIUM PHOSPHATE 20 MMOL in IV DEXTROSE 5% 250 ML IV ONE (01:30)
[2017-07-15 05:22] LABS: MAGNESIUM 1.6 mg/dL (1.8-2.4); PHOSPHORUS 2.5 mg/dL (2.6-4.7)
[2017-07-15 05:23] LABS: CALCIUM 8.5 mg/dL (8.5-10.1); CREATININE 1.2 mg/dL (0.7-1.3); DIRECT BILIRUBIN 0.5 mg/dL (0.0-0.2); GFR 67.1; POTASSIUM 3.5 mmol/L (3.5-5.1); TOTAL BILIRUBIN 1.5 mg/dL (0.2-1.0); TOTAL PROTEIN 6.8 g/dL (6.4-8.2)
[2017-07-15 05:28] LABS: BASO % 0 % (0-3); EOS % 0 % (0-3); HEMATOCRIT 26.4 % (39.0-53.0); HEMOGLOBIN 9.2 g/dL (13.0-17.5); LYMPH # 0.6 x10^3/uL (1.0-4.8); LYMPH % 2 % (24-48); MEAN CORPUSCULAR HEMOGLOBIN 30 pg (25-35); MEAN CORPUSCULAR HGB CONC 35 g/dL (31-37); MEAN CORPUSCULAR VOLUME 86 fL (79-100); MONO % 7 % (0-9); NEUT % 91 % (31-73); PLATELET COUNT 231 x10^3/uL (140-400); RED BLOOD COUNT 3.08 x10^6/uL (4.30-5.70); RED CELL DISTRIBUTION WIDTH 12.8 % (11.5-14.5); WHITE BLOOD COUNT 25.5 x10^3/uL (4.0-11.0)
[2017-07-15 05:35] LABS: INR 1.5 (0.8-1.1); PROTHROMBIN TIME PATIENT 17.2 SEC (11.7-14.0)
[2017-07-15] MEDS: IV DEXTROSE 5%-LACT RINGERS 1,000 ML IV SCH ×3 (05:37→19:56)
[2017-07-15] MEDS ORDERED: MAGNESIUM SULFATE 2GM 50 ML IV ONE ×2 (07:30→13:00)
[2017-07-15] MEDS: POLYETHYLENE GLYCOL 3350 17 GM PACKET. PO SCH (08:04)
--- NOTE | 2017-07-15 08:08 | PDOC ---
Infectious Disease Note Subjective Subjective Transferred to ICU last night due to increase abdominal pain and fevers s/p evacuation of hematoma and drain placement Fever Tmax 101.5 + small BM yesterday NGT in place, no further vomiting says he had an 'rough night' but is now more comfortable and finally able to sleep ROS ROS Vital Sign Vital Signs Vital Signs Date Time Temp Pulse Resp B/P (MAP) Pulse Ox O2 Delivery O2 Flow Rate FiO2 07/15/17 07:00 95 16 154/74 (100) 99 Room Air 07/15/17 06:00 98.0 98.0 Physical Exam PHYSICAL EXAM GENERAL: Sleeping, HEENT: Oral mucosa pink and dry. LUNGS: Clear. HEART: Normal S1 and S2. ABDOMEN: Mildly distended. Bowel sounds hypoactive, soft, localized right sided bruising and BEVERLY drain intact : Reyes EXTREMITIES: BLE trace edema, LE hose SKIN: Without rash. RIJ (07/14). clean Labs Lab Laboratory Tests Test 07/14/17 09:35 07/14/17 17:00 07/14/17 19:00 07/14/17 21:45 Prothrombin Time 17.8 SEC (11.7-14.0) 17.5 SEC (11.7-14.0) Prothromb Time International Ratio 1.6 (0.8-1.1) 1.5 (0.8-1.1) Activated Partial Thromboplast Time 44 SEC (24-38) Lactic Acid Level 1.6 mmol/L (0.4-2.0) 2.1 mmol/L (0.4-2.0) White Blood Count 27.9 x10^3/uL (4.0-11.0) Red Blood Count 3.69 x10^6/uL (4.30-5.70) Hemoglobin 10.8 g/dL (13.0-17.5) Hematocrit 32.5 % (39.0-53.0) Mean Corpuscular Volume 88 fL (79-100) Mean Corpuscular Hemoglobin 29 pg (25-35) Mean Corpuscular Hemoglobin Concent 33 g/dL (31-37) Red Cell Distribution Width 12.9 % (11.5-14.5) Platelet Count 277 x10^3/uL (140-400) Neutrophils (%) (Auto) 87 % (31-73) Lymphocytes (%) (Auto) 4 % (24-48) Monocytes (%) (Auto) 9 % (0-9) Eosinophils (%) (Auto) 0 % (0-3) Basophils (%) (Auto) 0 % (0-3) Neutrophils # (Auto) 24.2 x10^3uL (1.8-7.7) Lymphocytes # (Auto) 1.1 x10^3/uL (1.0-4.8) Monocytes # (Auto) 2.4 x10^3/uL (0.0-1.1) Eosinophils # (Auto) 0.0 x10^3/uL (0.0-0.7) Basophils # (Auto) 0.0 x10^3/uL (0.0-0.2) Segmented Neutrophils % 79 % (35-66) Band Neutrophils % 4 % (0-9) Lymphocytes % 7 % (24-48) Monocytes % 10 % (0-10) Platelet Estimate Adequate (ADEQUATE) Sodium Level 130 mmol/L (136-145) Potassium Level 3.4 mmol/L (3.5-5.1) Chloride Level 95 mmol/L (98-107) Carbon Dioxide Level 24 mmol/L (21-32) Anion Gap 11 (6-14) Blood Urea Nitrogen 10 mg/dL (8-26) Creatinine 1.0 mg/dL (0.7-1.3) Estimated GFR (Cockcroft-Gault) 82.8 Glucose Level 166 mg/dL (70-99) Calcium Level 8.4 mg/dL (8.5-10.1) Total Bilirubin 1.6 mg/dL (0.2-1.0) Direct Bilirubin 0.6 mg/dL (0.0-0.2) Aspartate Amino Transf (AST/SGOT) 22 U/L (15-37) Alanine Aminotransferase (ALT/SGPT) 48 U/L (16-63) Alkaline Phosphatase 49 U/L (46-116) Total Protein 6.3 g/dL (6.4-8.2) Albumin 2.7 g/dL (3.4-5.0) Test 07/14/17 22:00 07/15/17 05:00 White Blood Count 20.5 x10^3/uL (4.0-11.0) 25.5 x10^3/uL (4.0-11.0) Red Blood Count 3.38 x10^6/uL (4.30-5.70) 3.08 x10^6/uL (4.30-5.70) Hemoglobin 10.0 g/dL (13.0-17.5) 9.2 g/dL (13.0-17.5) Hematocrit 29.9 % (39.0-53.0) 26.4 % (39.0-53.0) Mean Corpuscular Volume 89 fL (79-100) 86 fL (79-100) Mean Corpuscular Hemoglobin 30 pg (25-35) 30 pg (25-35) Mean Corpuscular Hemoglobin Concent 33 g/dL (31-37) 35 g/dL (31-37) Red Cell Distribution Width 12.8 % (11.5-14.5) 12.8 % (11.5-14.5) Platelet Count 252 x10^3/uL (140-400) 231 x10^3/uL (140-400) Neutrophils (%) (Auto) 90 % (31-73) 91 % (31-73) Lymphocytes (%) (Auto) 4 % (24-48) 2 % (24-48) Monocytes (%) (Auto) 6 % (0-9) 7 % (0-9) Eosinophils (%) (Auto) 0 % (0-3) 0 % (0-3) Basophils (%) (Auto) 0 % (0-3) 0 % (0-3) Neutrophils # (Auto) 18.5 x10^3uL (1.8-7.7) 23.1 x10^3uL (1.8-7.7) Lymphocytes # (Auto) 0.8 x10^3/uL (1.0-4.8) 0.6 x10^3/uL (1.0-4.8) Monocytes # (Auto) 1.2 x10^3/uL (0.0-1.1) 1.8 x10^3/uL (0.0-1.1) Eosinophils # (Auto) 0.0 x10^3/uL (0.0-0.7) 0.0 x10^3/uL (0.0-0.7) Basophils # (Auto) 0.1 x10^3/uL (0.0-0.2) 0.0 x10^3/uL (0.0-0.2) Prothrombin Time 16.6 SEC (11.7-14.0) 17.2 SEC (11.7-14.0) Prothromb Time International Ratio 1.4 (0.8-1.1) 1.5 (0.8-1.1) Activated Partial Thromboplast Time 44 SEC (24-38) Sodium Level 130 mmol/L (136-145) 130 mmol/L (136-145) Potassium Level 3.7 mmol/L (3.5-5.1) 3.5 mmol/L (3.5-5.1) Chloride Level 95 mmol/L (98-107) 96 mmol/L (98-107) Carbon Dioxide Level 23 mmol/L (21-32) 23 mmol/L (21-32) Anion Gap 12 (6-14) 11 (6-14) Blood Urea Nitrogen 11 mg/dL (8-26) 10 mg/dL (8-26) Creatinine 1.1 mg/dL (0.7-1.3) 1.2 mg/dL (0.7-1.3) Estimated GFR (Cockcroft-Gault) 74.1 67.1 Glucose Level 190 mg/dL (70-99) 244 mg/dL (70-99) Lactic Acid Level 1.8 mmol/L (0.4-2.0) 1.2 mmol/L (0.4-2.0) Calcium Level 8.2 mg/dL (8.5-10.1) 8.5 mg/dL (8.5-10.1) Phosphorus Level 2.2 mg/dL (2.6-4.7) 2.5 mg/dL (2.6-4.7) Magnesium Level 1.6 mg/dL (1.8-2.4) 1.6 mg/dL (1.8-2.4) Total Bilirubin 1.5 mg/dL (0.2-1.0) Direct Bilirubin 0.5 mg/dL (0.0-0.2) Aspartate Amino Transf (AST/SGOT) 17 U/L (15-37) Alanine Aminotransferase (ALT/SGPT) 37 U/L (16-63) Alkaline Phosphatase 37 U/L (46-116) Total Protein 6.8 g/dL (6.4-8.2) Albumin 3.0 g/dL (3.4-5.0) IMPRESSION: Placement of right IJ central line without pneumothorax. Stable bilateral platelike atelectasis. Placement of NG tube. The tip is located at the level of gastric cardia and therefore the NG tube may be further advanced by 8 cm. Mild dilatation of central small bowel loops which may represent postoperative ileus but a bowel obstruction is possible if there are clinical findings of such. Micro BLOOD CULTURE Preliminary NO GROWTH AFTER 1 DAY Objective Assessment Fever Leukocytosis RLQ complex fluid collection, s/p aspiration, coag blood, 07/13. s/p diagnostic lap w/ evacuation of hematoma and RLQ drain placement, 07/14 s/p lap appy, 07/09 Urinary retention s/p indwelling Reyes Ileus Plan Plan of Care Zosyn, Flagyl and fluconazole f/u cultures Monitor labs D/w and RN Attending Co-Sign The patient was seen and interviewed as well as examined at the bedside. The chart was reviewed. The case was discussed. Agree with the plan of care. d/c CAROL Kinsey APRN Jul 15, 2017 08:08 ZHANG MORALES MD Jul 15, 2017 10:41
--- NOTE | 2017-07-15 11:11 | PDOC ---
SURGICAL PROGRESS NOTE Subjective Feeling much better today, no nausea. Has not passed flatus Vital Signs Vital Signs Date Time Temp Pulse Resp B/P (MAP) Pulse Ox O2 Delivery O2 Flow Rate FiO2 07/15/17 11:00 99 17 166/73 (104) 95 Room Air 07/15/17 08:00 98.6 98.6 I&O Intake and Output 07/15/17 07:00 Intake Total 5615.9 ml Output Total 5850 ml Balance -234.1 ml Intake Oral 1180 ml IV Total 3995.9 ml Blood Product 440 ml Output Urine Total 4925 ml Gastric Drainage Total 600 ml Emesis 200 ml Drainage Total 125 ml PATIENT HAS A ELAM: Yes General: Alert, Oriented X3, Cooperative, mild distress Lungs: Clear to auscultation, Normal air movement Heart: Regular rate, No murmurs Abdomen: Soft, Other (mildly tender at umbilicus) Labs Laboratory Tests Test 07/13/17 17:20 07/14/17 03:34 07/14/17 09:35 07/14/17 17:00 Lactic Acid Level 1.6 mmol/L (0.4-2.0) 1.6 mmol/L (0.4-2.0) White Blood Count 27.3 x10^3/uL (4.0-11.0) Red Blood Count 3.74 x10^6/uL (4.30-5.70) Hemoglobin 11.0 g/dL (13.0-17.5) Hematocrit 33.1 % (39.0-53.0) Mean Corpuscular Volume 89 fL (79-100) Mean Corpuscular Hemoglobin 29 pg (25-35) Mean Corpuscular Hemoglobin Concent 33 g/dL (31-37) Red Cell Distribution Width 13.1 % (11.5-14.5) Platelet Count 273 x10^3/uL (140-400) Neutrophils (%) (Auto) 83 % (31-73) Lymphocytes (%) (Auto) 8 % (24-48) Monocytes (%) (Auto) 8 % (0-9) Eosinophils (%) (Auto) 0 % (0-3) Basophils (%) (Auto) 0 % (0-3) Neutrophils # (Auto) 22.6 x10^3uL (1.8-7.7) Lymphocytes # (Auto) 2.3 x10^3/uL (1.0-4.8) Monocytes # (Auto) 2.3 x10^3/uL (0.0-1.1) Eosinophils # (Auto) 0.1 x10^3/uL (0.0-0.7) Basophils # (Auto) 0.1 x10^3/uL (0.0-0.2) Sodium Level 133 mmol/L (136-145) Potassium Level 4.1 mmol/L (3.5-5.1) Chloride Level 97 mmol/L (98-107) Carbon Dioxide Level 28 mmol/L (21-32) Anion Gap 8 (6-14) Blood Urea Nitrogen 12 mg/dL (8-26) Creatinine 1.2 mg/dL (0.7-1.3) Estimated GFR (Cockcroft-Gault) 67.1 Glucose Level 144 mg/dL (70-99) Calcium Level 8.4 mg/dL (8.5-10.1) Prothrombin Time 17.8 SEC (11.7-14.0) Prothromb Time International Ratio 1.6 (0.8-1.1) Activated Partial Thromboplast Time 44 SEC (24-38) Test 07/14/17 19:00 07/14/17 21:45 07/14/17 22:00 07/15/17 05:00 White Blood Count 27.9 x10^3/uL (4.0-11.0) 20.5 x10^3/uL (4.0-11.0) 25.5 x10^3/uL (4.0-11.0) Red Blood Count 3.69 x10^6/uL (4.30-5.70) 3.38 x10^6/uL (4.30-5.70) 3.08 x10^6/uL (4.30-5.70) Hemoglobin 10.8 g/dL (13.0-17.5) 10.0 g/dL (13.0-17.5) 9.2 g/dL (13.0-17.5) Hematocrit 32.5 % (39.0-53.0) 29.9 % (39.0-53.0) 26.4 % (39.0-53.0) Mean Corpuscular Volume 88 fL (79-100) 89 fL (79-100) 86 fL (79-100) Mean Corpuscular Hemoglobin 29 pg (25-35) 30 pg (25-35) 30 pg (25-35) Mean Corpuscular Hemoglobin Concent 33 g/dL (31-37) 33 g/dL (31-37) 35 g/dL (31-37) Red Cell Distribution Width 12.9 % (11.5-14.5) 12.8 % (11.5-14.5) 12.8 % (11.5-14.5) Platelet Count 277 x10^3/uL (140-400) 252 x10^3/uL (140-400) 231 x10^3/uL (140-400) Neutrophils (%) (Auto) 87 % (31-73) 90 % (31-73) 91 % (31-73) Lymphocytes (%) (Auto) 4 % (24-48) 4 % (24-48) 2 % (24-48) Monocytes (%) (Auto) 9 % (0-9) 6 % (0-9) 7 % (0-9) Eosinophils (%) (Auto) 0 % (0-3) 0 % (0-3) 0 % (0-3) Basophils (%) (Auto) 0 % (0-3) 0 % (0-3) 0 % (0-3) Neutrophils # (Auto) 24.2 x10^3uL (1.8-7.7) 18.5 x10^3uL (1.8-7.7) 23.1 x10^3uL (1.8-7.7) Lymphocytes # (Auto) 1.1 x10^3/uL (1.0-4.8) 0.8 x10^3/uL (1.0-4.8) 0.6 x10^3/uL (1.0-4.8) Monocytes # (Auto) 2.4 x10^3/uL (0.0-1.1) 1.2 x10^3/uL (0.0-1.1) 1.8 x10^3/uL (0.0-1.1) Eosinophils # (Auto) 0.0 x10^3/uL (0.0-0.7) 0.0 x10^3/uL (0.0-0.7) 0.0 x10^3/uL (0.0-0.7) Basophils # (Auto) 0.0 x10^3/uL (0.0-0.2) 0.1 x10^3/uL (0.0-0.2) 0.0 x10^3/uL (0.0-0.2) Segmented Neutrophils % 79 % (35-66) Band Neutrophils % 4 % (0-9) Lymphocytes % 7 % (24-48) Monocytes % 10 % (0-10) Platelet Estimate Adequate (ADEQUATE) Prothrombin Time 17.5 SEC (11.7-14.0) 16.6 SEC (11.7-14.0) 17.2 SEC (11.7-14.0) Prothromb Time International Ratio 1.5 (0.8-1.1) 1.4 (0.8-1.1) 1.5 (0.8-1.1) Sodium Level 130 mmol/L (136-145) 130 mmol/L (136-145) 130 mmol/L (136-145) Potassium Level 3.4 mmol/L (3.5-5.1) 3.7 mmol/L (3.5-5.1) 3.5 mmol/L (3.5-5.1) Chloride Level 95 mmol/L (98-107) 95 mmol/L (98-107) 96 mmol/L (98-107) Carbon Dioxide Level 24 mmol/L (21-32) 23 mmol/L (21-32) 23 mmol/L (21-32) Anion Gap 11 (6-14) 12 (6-14) 11 (6-14) Blood Urea Nitrogen 10 mg/dL (8-26) 11 mg/dL (8-26) 10 mg/dL (8-26) Creatinine 1.0 mg/dL (0.7-1.3) 1.1 mg/dL (0.7-1.3) 1.2 mg/dL (0.7-1.3) Estimated GFR (Cockcroft-Gault) 82.8 74.1 67.1 Glucose Level 166 mg/dL (70-99) 190 mg/dL (70-99) 244 mg/dL (70-99) Calcium Level 8.4 mg/dL (8.5-10.1) 8.2 mg/dL (8.5-10.1) 8.5 mg/dL (8.5-10.1) Total Bilirubin 1.6 mg/dL (0.2-1.0) 1.5 mg/dL (0.2-1.0) Direct Bilirubin 0.6 mg/dL (0.0-0.2) 0.5 mg/dL (0.0-0.2) Aspartate Amino Transf (AST/SGOT) 22 U/L (15-37) 17 U/L (15-37) Alanine Aminotransferase (ALT/SGPT) 48 U/L (16-63) 37 U/L (16-63) Alkaline Phosphatase 49 U/L (46-116) 37 U/L (46-116) Total Protein 6.3 g/dL (6.4-8.2) 6.8 g/dL (6.4-8.2) Albumin 2.7 g/dL (3.4-5.0) 3.0 g/dL (3.4-5.0) Lactic Acid Level 2.1 mmol/L (0.4-2.0) 1.8 mmol/L (0.4-2.0) 1.2 mmol/L (0.4-2.0) Activated Partial Thromboplast Time 44 SEC (24-38) Phosphorus Level 2.2 mg/dL (2.6-4.7) 2.5 mg/dL (2.6-4.7) Magnesium Level 1.6 mg/dL (1.8-2.4) 1.6 mg/dL (1.8-2.4) Laboratory Tests Test 07/14/17 17:00 07/14/17 19:00 07/14/17 21:45 07/14/17 22:00 Lactic Acid Level 1.6 mmol/L (0.4-2.0) 2.1 mmol/L (0.4-2.0) 1.8 mmol/L (0.4-2.0) White Blood Count 27.9 x10^3/uL (4.0-11.0) 20.5 x10^3/uL (4.0-11.0) Red Blood Count 3.69 x10^6/uL (4.30-5.70) 3.38 x10^6/uL (4.30-5.70) Hemoglobin 10.8 g/dL (13.0-17.5) 10.0 g/dL (13.0-17.5) Hematocrit 32.5 % (39.0-53.0) 29.9 % (39.0-53.0) Mean Corpuscular Volume 88 fL (79-100) 89 fL (79-100) Mean Corpuscular Hemoglobin 29 pg (25-35) 30 pg (25-35) Mean Corpuscular Hemoglobin Concent 33 g/dL (31-37) 33 g/dL (31-37) Red Cell Distribution Width 12.9 % (11.5-14.5) 12.8 % (11.5-14.5) Platelet Count 277 x10^3/uL (140-400) 252 x10^3/uL (140-400) Neutrophils (%) (Auto) 87 % (31-73) 90 % (31-73) Lymphocytes (%) (Auto) 4 % (24-48) 4 % (24-48) Monocytes (%) (Auto) 9 % (0-9) 6 % (0-9) Eosinophils (%) (Auto) 0 % (0-3) 0 % (0-3) Basophils (%) (Auto) 0 % (0-3) 0 % (0-3) Neutrophils # (Auto) 24.2 x10^3uL (1.8-7.7) 18.5 x10^3uL (1.8-7.7) Lymphocytes # (Auto) 1.1 x10^3/uL (1.0-4.8) 0.8 x10^3/uL (1.0-4.8) Monocytes # (Auto) 2.4 x10^3/uL (0.0-1.1) 1.2 x10^3/uL (0.0-1.1) Eosinophils # (Auto) 0.0 x10^3/uL (0.0-0.7) 0.0 x10^3/uL (0.0-0.7) Basophils # (Auto) 0.0 x10^3/uL (0.0-0.2) 0.1 x10^3/uL (0.0-0.2) Segmented Neutrophils % 79 % (35-66) Band Neutrophils % 4 % (0-9) Lymphocytes % 7 % (24-48) Monocytes % 10 % (0-10) Platelet Estimate Adequate (ADEQUATE) Prothrombin Time 17.5 SEC (11.7-14.0) 16.6 SEC (11.7-14.0) Prothromb Time International Ratio 1.5 (0.8-1.1) 1.4 (0.8-1.1) Sodium Level 130 mmol/L (136-145) 130 mmol/L (136-145) Potassium Level 3.4 mmol/L (3.5-5.1) 3.7 mmol/L (3.5-5.1) Chloride Level 95 mmol/L (98-107) 95 mmol/L (98-107) Carbon Dioxide Level 24 mmol/L (21-32) 23 mmol/L (21-32) Anion Gap 11 (6-14) 12 (6-14) Blood Urea Nitrogen 10 mg/dL (8-26) 11 mg/dL (8-26) Creatinine 1.0 mg/dL (0.7-1.3) 1.1 mg/dL (0.7-1.3) Estimated GFR (Cockcroft-Gault) 82.8 74.1 Glucose Level 166 mg/dL (70-99) 190 mg/dL (70-99) Calcium Level 8.4 mg/dL (8.5-10.1) 8.2 mg/dL (8.5-10.1) Total Bilirubin 1.6 mg/dL (0.2-1.0) Direct Bilirubin 0.6 mg/dL (0.0-0.2) Aspartate Amino Transf (AST/SGOT) 22 U/L (15-37) Alanine Aminotransferase (ALT/SGPT) 48 U/L (16-63) Alkaline Phosphatase 49 U/L (46-116) Total Protein 6.3 g/dL (6.4-8.2) Albumin 2.7 g/dL (3.4-5.0) Activated Partial Thromboplast Time 44 SEC (24-38) Phosphorus Level 2.2 mg/dL (2.6-4.7) Magnesium Level 1.6 mg/dL (1.8-2.4) Test 07/15/17 05:00 White Blood Count 25.5 x10^3/uL (4.0-11.0) Red Blood Count 3.08 x10^6/uL (4.30-5.70) Hemoglobin 9.2 g/dL (13.0-17.5) Hematocrit 26.4 % (39.0-53.0) Mean Corpuscular Volume 86 fL (79-100) Mean Corpuscular Hemoglobin 30 pg (25-35) Mean Corpuscular Hemoglobin Concent 35 g/dL (31-37) Red Cell Distribution Width 12.8 % (11.5-14.5) Platelet Count 231 x10^3/uL (140-400) Neutrophils (%) (Auto) 91 % (31-73) Lymphocytes (%) (Auto) 2 % (24-48) Monocytes (%) (Auto) 7 % (0-9) Eosinophils (%) (Auto) 0 % (0-3) Basophils (%) (Auto) 0 % (0-3) Neutrophils # (Auto) 23.1 x10^3uL (1.8-7.7) Lymphocytes # (Auto) 0.6 x10^3/uL (1.0-4.8) Monocytes # (Auto) 1.8 x10^3/uL (0.0-1.1) Eosinophils # (Auto) 0.0 x10^3/uL (0.0-0.7) Basophils # (Auto) 0.0 x10^3/uL (0.0-0.2) Prothrombin Time 17.2 SEC (11.7-14.0) Prothromb Time International Ratio 1.5 (0.8-1.1) Sodium Level 130 mmol/L (136-145) Potassium Level 3.5 mmol/L (3.5-5.1) Chloride Level 96 mmol/L (98-107) Carbon Dioxide Level 23 mmol/L (21-32) Anion Gap 11 (6-14) Blood Urea Nitrogen 10 mg/dL (8-26) Creatinine 1.2 mg/dL (0.7-1.3) Estimated GFR (Cockcroft-Gault) 67.1 Glucose Level 244 mg/dL (70-99) Lactic Acid Level 1.2 mmol/L (0.4-2.0) Calcium Level 8.5 mg/dL (8.5-10.1) Phosphorus Level 2.5 mg/dL (2.6-4.7) Magnesium Level 1.6 mg/dL (1.8-2.4) Total Bilirubin 1.5 mg/dL (0.2-1.0) Direct Bilirubin 0.5 mg/dL (0.0-0.2) Aspartate Amino Transf (AST/SGOT) 17 U/L (15-37) Alanine Aminotransferase (ALT/SGPT) 37 U/L (16-63) Alkaline Phosphatase 37 U/L (46-116) Total Protein 6.8 g/dL (6.4-8.2) Albumin 3.0 g/dL (3.4-5.0) Problem List Problems Medical Problems: (1) Fever Status: Acute (2) Right lower quadrant abdominal pain Status: Acute Assessment/Plan S/P Dx L/S with evacuation of hematoma Feeling better today Afebrile but elevated wbc Continue abx, work on pulmonary toilet Awaiting return of bowel function Problems: JO ANN JUAREZ MD Jul 15, 2017 11:11
--- NOTE | 2017-07-15 13:31 | PDOC ---
PROGRESS NOTES Subjective Subjective pt was seen in ICU ,moved to ICU due to worsening abd pain Objective Objective Vital Signs Date Time Temp Pulse Resp B/P (MAP) Pulse Ox O2 Delivery O2 Flow Rate FiO2 07/15/17 12:00 Room Air 07/15/17 12:00 92 07/15/17 12:00 98.2 18 96 98.2 Intake and Output 07/15/17 07:00 Intake Total 5615.9 ml Output Total 5850 ml Balance -234.1 ml Intake Oral 1180 ml IV Total 3995.9 ml Blood Product 440 ml Output Urine Total 4925 ml Gastric Drainage Total 600 ml Emesis 200 ml Drainage Total 125 ml Physical Exam Abdomen: Soft, Other (mildly tender at umbilicus) Heart: Regular rate, No murmurs Extremities: No edema General: Alert, Oriented X3, Cooperative, mild distress Lungs: Clear to auscultation, Normal air movement Neuro: Normal speech Psych/Mental Status: Mental status NL Diagnosis Problem List Problems Medical Problems: (1) Fever Status: Acute (2) Right lower quadrant abdominal pain Status: Acute Assessment Assessment Problems Medical Problems: (1) Fever Status: Acute (2) Right lower quadrant abdominal pain Status: Acute FINAL IMPRESSION: 1. Fever. 2. Free fluid in the paracolic gutter. 3. Status post recent laparoscopic appendectomy 5 days ago. PLAN: Pt was taken to OR Operative Note Date: 07/14/2017 Preoperative diagnosis: Intra-abdominal hematoma status post laparoscopic appendectomy Postoperative diagnosis: Same Procedure: Diagnostic laparoscopy with evacuation of hematoma and right lower quadrant drain placement Surgeon: Arnaldo Specimen: Intra-abdominal hematoma for culture iv fluids iv antibiotics NGT dvt prevention At this time, was admitted to the hospital, hydrate with IV fluids. Cultures, IV antibiotics. The patient had a CT-guided aspiration of the fluid, sent for cultures. ID was consulted, was started on Diflucan, Flagyl and Zosyn and see how the patient's condition improves and surgery was consulted. DVT prophylaxis with SCDs. Hold off on Lovenox. The patient may need laparotomy down the road. Problems: Plan Plan of Care Problems Medical Problems: (1) Fever Status: Acute (2) Right lower quadrant abdominal pain Status: Acute Comment Review of Relevant I have reviewed the following items jersey (where applicable) has been applied. Labs Laboratory Tests Test 07/14/17 17:00 07/14/17 19:00 07/14/17 21:45 07/14/17 22:00 Lactic Acid Level 1.6 mmol/L (0.4-2.0) 2.1 mmol/L (0.4-2.0) 1.8 mmol/L (0.4-2.0) White Blood Count 27.9 x10^3/uL (4.0-11.0) 20.5 x10^3/uL (4.0-11.0) Red Blood Count 3.69 x10^6/uL (4.30-5.70) 3.38 x10^6/uL (4.30-5.70) Hemoglobin 10.8 g/dL (13.0-17.5) 10.0 g/dL (13.0-17.5) Hematocrit 32.5 % (39.0-53.0) 29.9 % (39.0-53.0) Mean Corpuscular Volume 88 fL (79-100) 89 fL (79-100) Mean Corpuscular Hemoglobin 29 pg (25-35) 30 pg (25-35) Mean Corpuscular Hemoglobin Concent 33 g/dL (31-37) 33 g/dL (31-37) Red Cell Distribution Width 12.9 % (11.5-14.5) 12.8 % (11.5-14.5) Platelet Count 277 x10^3/uL (140-400) 252 x10^3/uL (140-400) Neutrophils (%) (Auto) 87 % (31-73) 90 % (31-73) Lymphocytes (%) (Auto) 4 % (24-48) 4 % (24-48) Monocytes (%) (Auto) 9 % (0-9) 6 % (0-9) Eosinophils (%) (Auto) 0 % (0-3) 0 % (0-3) Basophils (%) (Auto) 0 % (0-3) 0 % (0-3) Neutrophils # (Auto) 24.2 x10^3uL (1.8-7.7) 18.5 x10^3uL (1.8-7.7) Lymphocytes # (Auto) 1.1 x10^3/uL (1.0-4.8) 0.8 x10^3/uL (1.0-4.8) Monocytes # (Auto) 2.4 x10^3/uL (0.0-1.1) 1.2 x10^3/uL (0.0-1.1) Eosinophils # (Auto) 0.0 x10^3/uL (0.0-0.7) 0.0 x10^3/uL (0.0-0.7) Basophils # (Auto) 0.0 x10^3/uL (0.0-0.2) 0.1 x10^3/uL (0.0-0.2) Segmented Neutrophils % 79 % (35-66) Band Neutrophils % 4 % (0-9) Lymphocytes % 7 % (24-48) Monocytes % 10 % (0-10) Platelet Estimate Adequate (ADEQUATE) Prothrombin Time 17.5 SEC (11.7-14.0) 16.6 SEC (11.7-14.0) Prothromb Time International Ratio 1.5 (0.8-1.1) 1.4 (0.8-1.1) Sodium Level 130 mmol/L (136-145) 130 mmol/L (136-145) Potassium Level 3.4 mmol/L (3.5-5.1) 3.7 mmol/L (3.5-5.1) Chloride Level 95 mmol/L (98-107) 95 mmol/L (98-107) Carbon Dioxide Level 24 mmol/L (21-32) 23 mmol/L (21-32) Anion Gap 11 (6-14) 12 (6-14) Blood Urea Nitrogen 10 mg/dL (8-26) 11 mg/dL (8-26) Creatinine 1.0 mg/dL (0.7-1.3) 1.1 mg/dL (0.7-1.3) Estimated GFR (Cockcroft-Gault) 82.8 74.1 Glucose Level 166 mg/dL (70-99) 190 mg/dL (70-99) Calcium Level 8.4 mg/dL (8.5-10.1) 8.2 mg/dL (8.5-10.1) Total Bilirubin 1.6 mg/dL (0.2-1.0) Direct Bilirubin 0.6 mg/dL (0.0-0.2) Aspartate Amino Transf (AST/SGOT) 22 U/L (15-37) Alanine Aminotransferase (ALT/SGPT) 48 U/L (16-63) Alkaline Phosphatase 49 U/L (46-116) Total Protein 6.3 g/dL (6.4-8.2) Albumin 2.7 g/dL (3.4-5.0) Activated Partial Thromboplast Time 44 SEC (24-38) Phosphorus Level 2.2 mg/dL (2.6-4.7) Magnesium Level 1.6 mg/dL (1.8-2.4) Test 07/15/17 05:00 White Blood Count 25.5 x10^3/uL (4.0-11.0) Red Blood Count 3.08 x10^6/uL (4.30-5.70) Hemoglobin 9.2 g/dL (13.0-17.5) Hematocrit 26.4 % (39.0-53.0) Mean Corpuscular Volume 86 fL (79-100) Mean Corpuscular Hemoglobin 30 pg (25-35) Mean Corpuscular Hemoglobin Concent 35 g/dL (31-37) Red Cell Distribution Width 12.8 % (11.5-14.5) Platelet Count 231 x10^3/uL (140-400) Neutrophils (%) (Auto) 91 % (31-73) Lymphocytes (%) (Auto) 2 % (24-48) Monocytes (%) (Auto) 7 % (0-9) Eosinophils (%) (Auto) 0 % (0-3) Basophils (%) (Auto) 0 % (0-3) Neutrophils # (Auto) 23.1 x10^3uL (1.8-7.7) Lymphocytes # (Auto) 0.6 x10^3/uL (1.0-4.8) Monocytes # (Auto) 1.8 x10^3/uL (0.0-1.1) Eosinophils # (Auto) 0.0 x10^3/uL (0.0-0.7) Basophils # (Auto) 0.0 x10^3/uL (0.0-0.2) Prothrombin Time 17.2 SEC (11.7-14.0) Prothromb Time International Ratio 1.5 (0.8-1.1) Sodium Level 130 mmol/L (136-145) Potassium Level 3.5 mmol/L (3.5-5.1) Chloride Level 96 mmol/L (98-107) Carbon Dioxide Level 23 mmol/L (21-32) Anion Gap 11 (6-14) Blood Urea Nitrogen 10 mg/dL (8-26) Creatinine 1.2 mg/dL (0.7-1.3) Estimated GFR (Cockcroft-Gault) 67.1 Glucose Level 244 mg/dL (70-99) Lactic Acid Level 1.2 mmol/L (0.4-2.0) Calcium Level 8.5 mg/dL (8.5-10.1) Phosphorus Level 2.5 mg/dL (2.6-4.7) Magnesium Level 1.6 mg/dL (1.8-2.4) Total Bilirubin 1.5 mg/dL (0.2-1.0) Direct Bilirubin 0.5 mg/dL (0.0-0.2) Aspartate Amino Transf (AST/SGOT) 17 U/L (15-37) Alanine Aminotransferase (ALT/SGPT) 37 U/L (16-63) Alkaline Phosphatase 37 U/L (46-116) Total Protein 6.8 g/dL (6.4-8.2) Albumin 3.0 g/dL (3.4-5.0) Microbiology 07/13/17 Blood Culture - Preliminary, Resulted NO GROWTH AFTER 2 DAYS 07/14/17 Gram Stain - Final, Complete Medications Current Medications Albumin Human 100 ml @ 100 mls/hr 1X ONCE IV Last administered on 07/14/17 23:37; Start 07/14/17 at 22:30; Stop 07/14/17 at 23:29; Status DC Albumin Human 500 ml @ 125 mls/hr 1X ONCE IV Last administered on 07/15/17 00:17; Start 07/15/17 at 00:30; Stop 07/15/17 at 04:29; Status DC Bupivacaine HCl/ Epinephrine Bitart (Sensorcain-Mpf Epi 0.5%-[id number]) 30 ml STK -MED ONCE .ROUTE Last administered on 07/14/17 20:00; Start 07/14/17 at 19:32 ; Stop 07/14/17 at 19:33; Status DC Calcium Chloride 1000 mg/Sodium Chloride 60 ml @ 120 mls/hr 1X ONCE IV Last administered on 07/15/17 00:40; Start 07/14/17 at 23:00; Stop 07/14/17 at 23:29 ; Status DC Dexamethasone Sodium Phosphate (Decadron) 20 mg STK-MED ONCE .ROUTE ; Start at 19:13; Stop 07/14/17 at 19:14; Status DC Fentanyl Citrate 30 ml @ 0 mls/hr CONT PRN PRN IV PROTOCOL; Start 07/14/17 at 20:45; Stop 07/14/17 at 22:30; Status DC Fentanyl Citrate (Fentanyl 2ml Vial) 100 mcg STK-MED ONCE .ROUTE ; Start at 19:13; Stop 07/14/17 at 19:14; Status DC Fentanyl Citrate (Fentanyl 2ml Vial) 100 mcg STK-MED ONCE .ROUTE ; Start at 20:27; Stop 07/14/17 at 20:28; Status DC Glycopyrrolate (Robinul) 1 mg STK-MED ONCE .ROUTE ; Start 07/14/17 at 20:22; Stop 07/14/17 at 20:23; Status DC Hydralazine HCl (Apresoline) 10 mg PRN Q6HRS PRN IVP ELEVATED BP, SEE COMMENTS Last administered on 07/15/17 10:43; Start 07/15/17 at 00:15 Hydromorphone HCl 30 ml @ 0 mls/hr CONT PRN PRN IV PROTOCOL Last administered on 07/14/17 22:06; Start 07/14/17 at 22:00 Info (Do NOT chart on this entry -- for MONITORING) 1 each PRN DAILY PRN MC SEE COMMENTS; Start 07/14/17 at 14:45; Stop 07/16/17 at 14:44 Iohexol (Omnipaque 240 Mg/ml) 50 ml 1X ONCE PO Last administered on 07/14/17 14:45; Start 07/14/17 at 14:45; Stop 07/14/17 at 14:46; Status DC Iohexol (Omnipaque 300 Mg/ml) 75 ml 1X ONCE IV Last administered on 07/14/17 15:39; Start 07/14/17 at 14:45; Stop 07/14/17 at 14:46; Status DC Lidocaine HCl (Lidocaine Pf 2% Vial) 5 ml STK-MED ONCE .ROUTE ; Start 07/14/17 at 19:13; Stop 07/14/17 at 19:14; Status DC Magnesium Sulfate/ Dextrose 50 ml @ 25 mls/hr 1X ONCE IV Last administered on 07/15/17 08:04; Start 07/15/17 at 07:30; Stop 07/15/17 at 09:29; Status DC Magnesium Sulfate/ Dextrose 50 ml @ 25 mls/hr 1X ONCE IV ; Start 07/15/17 at 13 :00; Stop 07/15/17 at 14:59 Midazolam HCl (Versed) 2 mg STK-MED ONCE .ROUTE ; Start 07/14/17 at 19:13; Stop 07/14/17 at 19:14; Status DC Naloxone HCl (Narcan) 0.4 mg PRN Q2MIN PRN IV SEE INSTRUCTIONS; Start 07/14/17 at 20:45 Neostigmine Methylsulfate 5 mg STK-MED ONCE .ROUTE ; Start 07/14/17 at 20:22; Stop 07/14/17 at 20:23; Status DC Ondansetron HCl (Zofran) 4 mg STK-MED ONCE .ROUTE ; Start 07/14/17 at 19:13; Stop 07/14/17 at 19:14; Status DC Phenylephrine HCl 1 mg STK-MED ONCE IV ; Start 07/14/17 at 20:59; Stop 07/14/17 at 21:00; Status DC Phytonadione 10 mg/Sodium Chloride 51 ml @ 102 mls/hr 1X ONCE IV Last administered on 07/14/17 18:25; Start 07/14/17 at 18:15; Stop 07/14/17 at 18:44 ; Status DC Polyethylene Glycol (miraLAX PACKET) 17 gm DAILY PO Last administered on 16:48; Start 07/14/17 at 15:00 Potassium Chloride 50 ml @ 50 mls/hr 1X ONCE IV Last administered on 22:19; Start 07/14/17 at 22:30; Stop 07/14/17 at 23:29; Status DC Promethazine HCl 12.5 mg/Sodium Chloride 50.5 ml @ 151.5 mls/ hr PRN Q6HRS PRN IV NAUSEA/VOMITING Last administered on 07/14/17 22:18; Start 07/14/17 at 21:45 Propofol 20 ml @ As Directed STK-MED ONCE IV ; Start 07/14/17 at 19:13; Stop at 19:14; Status DC Sevoflurane (Ultane) 90 ml STK-MED ONCE IH ; Start 07/14/17 at 20:59; Stop 07/14 at 21:00; Status DC Sodium Chloride 1,000 ml @ 25 mls/hr Q24H IV Last administered on 07/14/17 22 :09; Start 07/14/17 at 20:37 Sodium Phosphate 20 mmol/Dextrose 256.6667 ml @ 64.167 m... 1X ONCE IV Last administered on 07/15/17 01:43; Start 07/15/17 at 01:30; Stop 07/15/17 at 05:29 ; Status DC Vitals/I & O Vital Sign - Last 24 Hours 07/14/17 07/14/17 07/14/17 07/14/17 15:00 16:15 17:00 18:00 Temp 101.5 100.8 101.5 100.8 Pulse 117 126 119 122 Resp 22 16 16 16 B/P (MAP) 120/85 (97) 165/66 (99) 152/73 (99) 141/73 (95) Pulse Ox 92 92 93 93 O2 Delivery Room Air Room Air Room Air Room Air 07/14/17 07/14/17 07/14/17 07/14/17 19:00 19:00 21:00 22:00 Temp 100.0 99.1 100.0 99.1 Pulse 123 108 120 Resp 23 25 22 B/P (MAP) 146/80 (102) 101/81 (88) 184/66 (105) Pulse Ox 93 98 98 O2 Delivery Room Air Room Air Room Air Room Air 07/14/17 07/14/17 07/14/17 07/14/17 22:00 22:06 22:36 23:00 Temp 101.0 101.0 Pulse 120 118 Resp 22 18 22 20 B/P (MAP) 183/79 (113) 154/60 (91) Pulse Ox 98 99 100 O2 Delivery Room Air Room Air Room Air 07/15/17 07/15/17 07/15/17 07/15/17 00:00 00:00 00:00 00:00 Pulse 120 120 119 Resp 19 20 B/P (MAP) 182/76 (111) 172/70 (104) 185/68 (107) Pulse Ox 98 98 O2 Delivery Room Air Room Air Room Air 07/15/17 07/15/17 07/15/17 07/15/17 00:12 01:00 02:00 03:00 Temp 100.7 100.7 100.7 100.7 100.7 100.7 Pulse 118 124 124 118 Resp 20 18 20 B/P (MAP) 169/62 157/86 (109) 134/82 (99) 143/64 (90) Pulse Ox 97 98 97 O2 Delivery Room Air Room Air Room Air 07/15/17 07/15/17 07/15/17 07/15/17 04:00 04:00 04:00 05:00 Temp 100.4 100.4 Pulse 112 111 108 Resp 22 16 B/P (MAP) 156/62 (93) 150/70 (96) 150/82 (104) Pulse Ox 94 95 O2 Delivery Room Air Room Air Room Air 07/15/17 07/15/17 07/15/17 07/15/17 05:00 05:00 06:00 07:00 Temp 98.0 98.0 Pulse 106 108 98 95 Resp 16 21 16 B/P (MAP) 142/70 (94) 150/82 (104) 149/80 (103) 154/74 (100) Pulse Ox 93 95 99 O2 Delivery Room Air Room Air Room Air 07/15/17 07/15/17 07/15/17 07/15/17 08:00 08:00 08:00 09:00 Temp 98.6 98.6 Pulse 90 102 90 Resp 18 19 B/P (MAP) 163/78 (106) 163/45 (84) Pulse Ox 100 98 O2 Delivery Room Air Room Air Room Air 07/15/17 07/15/17 07/15/17 07/15/17 10:00 10:43 11:00 12:00 Temp 98.2 98.2 Pulse 99 99 99 92 Resp 16 17 18 B/P (MAP) 173/66 (101) 194/83 166/73 (104) 174/65 (101) Pulse Ox 100 95 96 O2 Delivery Room Air Room Air Room Air 07/15/17 07/15/17 12:00 12:00 Pulse 92 B/P (MAP) O2 Delivery Room Air Intake and Output 07/14/17 07/14/17 07/15/17 15:00 23:00 07:00 Intake Total 1000 ml 1771 ml 2844.9 ml Output Total 800 ml 2550 ml 2500 ml Balance 200 ml -779 ml 344.9 ml JUAN A MEADE MD Jul 15, 2017 13:31
[2017-07-15 14:19] LABS: HEMATOCRIT 29.6 % (39.0-53.0); HEMOGLOBIN 9.9 g/dL (13.0-17.5); RED BLOOD COUNT 3.36 x10^6/uL (4.30-5.70); RED CELL DISTRIBUTION WIDTH 12.9 % (11.5-14.5); WHITE BLOOD COUNT 27.6 x10^3/uL (4.0-11.0)
[2017-07-15 14:31] LABS: CALCIUM 8.5 mg/dL (8.5-10.1); GFR 82.8; MAGNESIUM 2.2 mg/dL (1.8-2.4); PHOSPHORUS 1.9 mg/dL (2.6-4.7); POTASSIUM 3.6 mmol/L (3.5-5.1)
[2017-07-15] MEDS: ONDANSETRON PF 4 MG/2 ML VIAL. IV PRN (15:55)
[2017-07-15] MEDS: FLUCONAZOLE 400MG/200ML PREMIX 200 ML IV SCH (15:56)
[2017-07-15] MEDS: PROMETHAZINE 12.5 MG in IV NORMAL SALINE 50ML 50 ML IV PRN (19:57)
[2017-07-15] MEDS: IV NORMAL SALINE 1000ML BAG 1,000 ML IV SCH (22:23)
[2017-07-16] VITALS (23 sets, daily range): BP systolic 134–170; BP diastolic 62–87
[2017-07-16] MEDS: IV DEXTROSE 5%-LACT RINGERS 1,000 ML IV SCH ×4 (02:48→21:49)
[2017-07-16] MEDS: ONDANSETRON PF 4 MG/2 ML VIAL. IV PRN ×2 (02:49→09:24)
[2017-07-16] MEDS: PROMETHAZINE 12.5 MG in IV NORMAL SALINE 50ML 50 ML IV PRN ×2 (03:28→20:28)
[2017-07-16 05:17] LABS: BASO % 0 % (0-3); EOS % 0 % (0-3); HEMATOCRIT 26.7 % (39.0-53.0); HEMOGLOBIN 9.4 g/dL (13.0-17.5); LYMPH # 1.2 x10^3/uL (1.0-4.8); LYMPH % 5 % (24-48); MEAN CORPUSCULAR HEMOGLOBIN 30 pg (25-35); MEAN CORPUSCULAR HGB CONC 35 g/dL (31-37); MEAN CORPUSCULAR VOLUME 85 fL (79-100); MONO % 10 % (0-9); NEUT % 85 % (31-73); PLATELET COUNT 319 x10^3/uL (140-400); RED BLOOD COUNT 3.12 x10^6/uL (4.30-5.70); RED CELL DISTRIBUTION WIDTH 12.8 % (11.5-14.5)
[2017-07-16] MEDS: PIPERACILLIN/TAZOBACTAM 4.5 GM in IV NORMAL SALINE 100ML 100 ML IV SCH ×3 (05:31→21:49)
[2017-07-16 05:57] LABS: CALCIUM 8.5 mg/dL (8.5-10.1); CREATININE 0.9 mg/dL (0.7-1.3); GFR 93.5; POTASSIUM 3.6 mmol/L (3.5-5.1)
[2017-07-16] MEDS: hydrALAZINE 20 MG/ML VIAL. IVP PRN ×2 (06:20→22:15)
--- NOTE | 2017-07-16 08:39 | PDOC ---
Infectious Disease Note Subjective Subjective c/o nausea, ROS ROS GEN: Denies fevers, chills, sweats HEENT: Denies blurred vision, sore throat CV: Denies chest pain RESP: Denies shortness of air, cough GI: Denies n/v/d NEURO: Denies confusion, dizziness MSK: Denies weakness, joint pain/swelling Vital Sign Vital Signs Vital Signs Date Time Temp Pulse Resp B/P (MAP) Pulse Ox O2 Delivery O2 Flow Rate FiO2 07/16/17 06:20 97 158/78 07/16/17 06:00 20 100 Room Air 07/16/17 05:00 98.6 98.6 Physical Exam PHYSICAL EXAM GENERAL: NAD, Alert HEENT: PERRL, OC/OP NECK: Supple, no JVD, no LN LUNGS: Clear HEART: S1S2, no gallop, no murmur ABD: Soft, NT, no organomegaly, no rebound EXT: No edema, no cyanosis [employer]ER: Alert, 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, no focal neurologic deficit SKIN: No rash IV: ok Labs Lab Laboratory Tests Test 07/15/17 14:05 07/16/17 05:00 White Blood Count 27.6 x10^3/uL (4.0-11.0) 23.0 x10^3/uL (4.0-11.0) Red Blood Count 3.36 x10^6/uL (4.30-5.70) 3.12 x10^6/uL (4.30-5.70) Hemoglobin 9.9 g/dL (13.0-17.5) 9.4 g/dL (13.0-17.5) Hematocrit 29.6 % (39.0-53.0) 26.7 % (39.0-53.0) Mean Corpuscular Volume 88 fL (79-100) 85 fL (79-100) Mean Corpuscular Hemoglobin 29 pg (25-35) 30 pg (25-35) Mean Corpuscular Hemoglobin Concent 33 g/dL (31-37) 35 g/dL (31-37) Red Cell Distribution Width 12.9 % (11.5-14.5) 12.8 % (11.5-14.5) Platelet Count 293 x10^3/uL (140-400) 319 x10^3/uL (140-400) Sodium Level 131 mmol/L (136-145) 132 mmol/L (136-145) Potassium Level 3.6 mmol/L (3.5-5.1) 3.6 mmol/L (3.5-5.1) Chloride Level 96 mmol/L (98-107) 98 mmol/L (98-107) Carbon Dioxide Level 26 mmol/L (21-32) 24 mmol/L (21-32) Anion Gap 9 (6-14) 10 (6-14) Blood Urea Nitrogen 10 mg/dL (8-26) 14 mg/dL (8-26) Creatinine 1.0 mg/dL (0.7-1.3) 0.9 mg/dL (0.7-1.3) Estimated GFR (Cockcroft-Gault) 82.8 93.5 Glucose Level 210 mg/dL (70-99) 183 mg/dL (70-99) Calcium Level 8.5 mg/dL (8.5-10.1) 8.5 mg/dL (8.5-10.1) Phosphorus Level 1.9 mg/dL (2.6-4.7) Magnesium Level 2.2 mg/dL (1.8-2.4) Neutrophils (%) (Auto) 85 % (31-73) Lymphocytes (%) (Auto) 5 % (24-48) Monocytes (%) (Auto) 10 % (0-9) Eosinophils (%) (Auto) 0 % (0-3) Basophils (%) (Auto) 0 % (0-3) Neutrophils # (Auto) 19.5 x10^3uL (1.8-7.7) Lymphocytes # (Auto) 1.2 x10^3/uL (1.0-4.8) Monocytes # (Auto) 2.2 x10^3/uL (0.0-1.1) Eosinophils # (Auto) 0.0 x10^3/uL (0.0-0.7) Basophils # (Auto) 0.0 x10^3/uL (0.0-0.2) Objective Assessment Fever Leukocytosis RLQ complex fluid collection, s/p aspiration, coag blood, 07/13. s/p diagnostic lap w/ evacuation of hematoma and RLQ drain placement, 07/14 ,, culture + with G neg ara s/p lap appy, 07/09 Urinary retention s/p indwelling Reyes Ileus Plan Plan of Care Zosyn, and fluconazole f/u cultures Monitor labs D/w JARED MORALES,ZHANG Clemente MD Jul 16, 2017 08:39
[2017-07-16] MEDS: POLYETHYLENE GLYCOL 3350 17 GM PACKET. PO SCH (09:00)
[2017-07-16 10:05] LABS: INR 1.4 (0.8-1.1)
--- NOTE | 2017-07-16 11:12 | PDOC ---
FAMILIA STOVALL [employer]ELOPMENT 07/16/17 1112: SURGICAL PROGRESS NOTE Subjective persistent nausea minimal flatus pain improving Vital Signs Vital Signs Date Time Temp Pulse Resp B/P (MAP) Pulse Ox O2 Delivery O2 Flow Rate FiO2 07/16/17 06:20 97 158/78 07/16/17 06:00 20 100 Room Air 07/16/17 05:00 98.6 98.6 I&O Intake and Output 07/16/17 07:00 Intake Total 1901.0 ml Output Total 3705 ml Balance -1804.0 ml IV Total 1901.0 ml Output Urine Total 3465 ml Emesis 200 ml Drainage Total 40 ml # Bowel Movements 1 General: Alert, Oriented X3, Cooperative, No acute distress Abdomen: Soft, Other (RLQ ecchymosis, dressings dry, chioma bloody ) Labs Laboratory Tests Test 07/14/17 16:20 07/14/17 17:00 07/14/17 19:00 07/14/17 21:45 Nasal Screen MRSA (PCR) Negative (Negative) Lactic Acid Level 1.6 mmol/L (0.4-2.0) 2.1 mmol/L (0.4-2.0) White Blood Count 27.9 x10^3/uL (4.0-11.0) Red Blood Count 3.69 x10^6/uL (4.30-5.70) Hemoglobin 10.8 g/dL (13.0-17.5) Hematocrit 32.5 % (39.0-53.0) Mean Corpuscular Volume 88 fL (79-100) Mean Corpuscular Hemoglobin 29 pg (25-35) Mean Corpuscular Hemoglobin Concent 33 g/dL (31-37) Red Cell Distribution Width 12.9 % (11.5-14.5) Platelet Count 277 x10^3/uL (140-400) Neutrophils (%) (Auto) 87 % (31-73) Lymphocytes (%) (Auto) 4 % (24-48) Monocytes (%) (Auto) 9 % (0-9) Eosinophils (%) (Auto) 0 % (0-3) Basophils (%) (Auto) 0 % (0-3) Neutrophils # (Auto) 24.2 x10^3uL (1.8-7.7) Lymphocytes # (Auto) 1.1 x10^3/uL (1.0-4.8) Monocytes # (Auto) 2.4 x10^3/uL (0.0-1.1) Eosinophils # (Auto) 0.0 x10^3/uL (0.0-0.7) Basophils # (Auto) 0.0 x10^3/uL (0.0-0.2) Segmented Neutrophils % 79 % (35-66) Band Neutrophils % 4 % (0-9) Lymphocytes % 7 % (24-48) Monocytes % 10 % (0-10) Platelet Estimate Adequate (ADEQUATE) Prothrombin Time 17.5 SEC (11.7-14.0) Prothromb Time International Ratio 1.5 (0.8-1.1) Sodium Level 130 mmol/L (136-145) Potassium Level 3.4 mmol/L (3.5-5.1) Chloride Level 95 mmol/L (98-107) Carbon Dioxide Level 24 mmol/L (21-32) Anion Gap 11 (6-14) Blood Urea Nitrogen 10 mg/dL (8-26) Creatinine 1.0 mg/dL (0.7-1.3) Estimated GFR (Cockcroft-Gault) 82.8 Glucose Level 166 mg/dL (70-99) Calcium Level 8.4 mg/dL (8.5-10.1) Total Bilirubin 1.6 mg/dL (0.2-1.0) Direct Bilirubin 0.6 mg/dL (0.0-0.2) Aspartate Amino Transf (AST/SGOT) 22 U/L (15-37) Alanine Aminotransferase (ALT/SGPT) 48 U/L (16-63) Alkaline Phosphatase 49 U/L (46-116) Total Protein 6.3 g/dL (6.4-8.2) Albumin 2.7 g/dL (3.4-5.0) Test 07/14/17 22:00 07/15/17 05:00 07/15/17 14:05 07/16/17 05:00 White Blood Count 20.5 x10^3/uL (4.0-11.0) 25.5 x10^3/uL (4.0-11.0) 27.6 x10^3/uL (4.0-11.0) 23.0 x10^3/uL (4.0-11.0) Red Blood Count 3.38 x10^6/uL (4.30-5.70) 3.08 x10^6/uL (4.30-5.70) 3.36 x10^6/uL (4.30-5.70) 3.12 x10^6/uL (4.30-5.70) Hemoglobin 10.0 g/dL (13.0-17.5) 9.2 g/dL (13.0-17.5) 9.9 g/dL (13.0-17.5) 9.4 g/dL (13.0-17.5) Hematocrit 29.9 % (39.0-53.0) 26.4 % (39.0-53.0) 29.6 % (39.0-53.0) 26.7 % (39.0-53.0) Mean Corpuscular Volume 89 fL (79-100) 86 fL (79-100) 88 fL (79-100) 85 fL ( 79-100) Mean Corpuscular Hemoglobin 30 pg (25-35) 30 pg (25-35) 29 pg (25-35) 30 pg ( 25-35) Mean Corpuscular Hemoglobin Concent 33 g/dL (31-37) 35 g/dL (31-37) 33 g/dL (31-37) 35 g/dL (31-37) Red Cell Distribution Width 12.8 % (11.5-14.5) 12.8 % (11.5-14.5) 12.9 % (11.5-14.5) 12.8 % (11.5-14.5) Platelet Count 252 x10^3/uL (140-400) 231 x10^3/uL (140-400) 293 x10^3/uL (140-400) 319 x10^3/uL (140-400) Neutrophils (%) (Auto) 90 % (31-73) 91 % (31-73) 85 % (31-73) Lymphocytes (%) (Auto) 4 % (24-48) 2 % (24-48) 5 % (24-48) Monocytes (%) (Auto) 6 % (0-9) 7 % (0-9) 10 % (0-9) Eosinophils (%) (Auto) 0 % (0-3) 0 % (0-3) 0 % (0-3) Basophils (%) (Auto) 0 % (0-3) 0 % (0-3) 0 % (0-3) Neutrophils # (Auto) 18.5 x10^3uL (1.8-7.7) 23.1 x10^3uL (1.8-7.7) 19.5 x10^3uL (1.8-7.7) Lymphocytes # (Auto) 0.8 x10^3/uL (1.0-4.8) 0.6 x10^3/uL (1.0-4.8) 1.2 x10^3/uL (1.0-4.8) Monocytes # (Auto) 1.2 x10^3/uL (0.0-1.1) 1.8 x10^3/uL (0.0-1.1) 2.2 x10^3/uL (0.0-1.1) Eosinophils # (Auto) 0.0 x10^3/uL (0.0-0.7) 0.0 x10^3/uL (0.0-0.7) 0.0 x10^3/uL (0.0-0.7) Basophils # (Auto) 0.1 x10^3/uL (0.0-0.2) 0.0 x10^3/uL (0.0-0.2) 0.0 x10^3/uL (0.0-0.2) Prothrombin Time 16.6 SEC (11.7-14.0) 17.2 SEC (11.7-14.0) Prothromb Time International Ratio 1.4 (0.8-1.1) 1.5 (0.8-1.1) Activated Partial Thromboplast Time 44 SEC (24-38) Sodium Level 130 mmol/L (136-145) 130 mmol/L (136-145) 131 mmol/L (136-145) 132 mmol/L (136-145) Potassium Level 3.7 mmol/L (3.5-5.1) 3.5 mmol/L (3.5-5.1) 3.6 mmol/L (3.5-5.1) 3.6 mmol/L (3.5-5.1) Chloride Level 95 mmol/L (98-107) 96 mmol/L (98-107) 96 mmol/L (98-107) 98 mmol/L (98-107) Carbon Dioxide Level 23 mmol/L (21-32) 23 mmol/L (21-32) 26 mmol/L (21-32) 24 mmol/L (21-32) Anion Gap 12 (6-14) 11 (6-14) 9 (6-14) 10 (6-14) Blood Urea Nitrogen 11 mg/dL (8-26) 10 mg/dL (8-26) 10 mg/dL (8-26) 14 mg/dL (8-26) Creatinine 1.1 mg/dL (0.7-1.3) 1.2 mg/dL (0.7-1.3) 1.0 mg/dL (0.7-1.3) 0.9 mg/dL (0.7-1.3) Estimated GFR (Cockcroft-Gault) 74.1 67.1 82.8 93.5 Glucose Level 190 mg/dL (70-99) 244 mg/dL (70-99) 210 mg/dL (70-99) 183 mg/dL (70-99) Lactic Acid Level 1.8 mmol/L (0.4-2.0) 1.2 mmol/L (0.4-2.0) Calcium Level 8.2 mg/dL (8.5-10.1) 8.5 mg/dL (8.5-10.1) 8.5 mg/dL (8.5-10.1) 8.5 mg/dL (8.5-10.1) Phosphorus Level 2.2 mg/dL (2.6-4.7) 2.5 mg/dL (2.6-4.7) 1.9 mg/dL (2.6-4.7) Magnesium Level 1.6 mg/dL (1.8-2.4) 1.6 mg/dL (1.8-2.4) 2.2 mg/dL (1.8-2.4) Total Bilirubin 1.5 mg/dL (0.2-1.0) Direct Bilirubin 0.5 mg/dL (0.0-0.2) Aspartate Amino Transf (AST/SGOT) 17 U/L (15-37) Alanine Aminotransferase (ALT/SGPT) 37 U/L (16-63) Alkaline Phosphatase 37 U/L (46-116) Total Protein 6.8 g/dL (6.4-8.2) Albumin 3.0 g/dL (3.4-5.0) Test 07/16/17 09:40 Prothrombin Time 16.0 SEC (11.7-14.0) Prothromb Time International Ratio 1.4 (0.8-1.1) Laboratory Tests Test 07/15/17 14:05 07/16/17 05:00 07/16/17 09:40 White Blood Count 27.6 x10^3/uL (4.0-11.0) 23.0 x10^3/uL (4.0-11.0) Red Blood Count 3.36 x10^6/uL (4.30-5.70) 3.12 x10^6/uL (4.30-5.70) Hemoglobin 9.9 g/dL (13.0-17.5) 9.4 g/dL (13.0-17.5) Hematocrit 29.6 % (39.0-53.0) 26.7 % (39.0-53.0) Mean Corpuscular Volume 88 fL (79-100) 85 fL (79-100) Mean Corpuscular Hemoglobin 29 pg (25-35) 30 pg (25-35) Mean Corpuscular Hemoglobin Concent 33 g/dL (31-37) 35 g/dL (31-37) Red Cell Distribution Width 12.9 % (11.5-14.5) 12.8 % (11.5-14.5) Platelet Count 293 x10^3/uL (140-400) 319 x10^3/uL (140-400) Sodium Level 131 mmol/L (136-145) 132 mmol/L (136-145) Potassium Level 3.6 mmol/L (3.5-5.1) 3.6 mmol/L (3.5-5.1) Chloride Level 96 mmol/L (98-107) 98 mmol/L (98-107) Carbon Dioxide Level 26 mmol/L (21-32) 24 mmol/L (21-32) Anion Gap 9 (6-14) 10 (6-14) Blood Urea Nitrogen 10 mg/dL (8-26) 14 mg/dL (8-26) Creatinine 1.0 mg/dL (0.7-1.3) 0.9 mg/dL (0.7-1.3) Estimated GFR (Cockcroft-Gault) 82.8 93.5 Glucose Level 210 mg/dL (70-99) 183 mg/dL (70-99) Calcium Level 8.5 mg/dL (8.5-10.1) 8.5 mg/dL (8.5-10.1) Phosphorus Level 1.9 mg/dL (2.6-4.7) Magnesium Level 2.2 mg/dL (1.8-2.4) Neutrophils (%) (Auto) 85 % (31-73) Lymphocytes (%) (Auto) 5 % (24-48) Monocytes (%) (Auto) 10 % (0-9) Eosinophils (%) (Auto) 0 % (0-3) Basophils (%) (Auto) 0 % (0-3) Neutrophils # (Auto) 19.5 x10^3uL (1.8-7.7) Lymphocytes # (Auto) 1.2 x10^3/uL (1.0-4.8) Monocytes # (Auto) 2.2 x10^3/uL (0.0-1.1) Eosinophils # (Auto) 0.0 x10^3/uL (0.0-0.7) Basophils # (Auto) 0.0 x10^3/uL (0.0-0.2) Prothrombin Time 16.0 SEC (11.7-14.0) Prothromb Time International Ratio 1.4 (0.8-1.1) Problem List Problems Medical Problems: (1) Fever Status: Acute (2) Right lower quadrant abdominal pain Status: Acute Assessment/Plan s/p dx lap, evacuation of hematoma await improved bowel function Problems: JO ANN JUAREZ MD 07/16/17 1145: SURGICAL PROGRESS NOTE Assessment/Plan Cultures showing Gm- rods. Slowly improving, continue abx, bowel rest as we wait for return of bowel function. Agree with Narciso's assessment and plan. Problems: FAMILIA STOVALL [employer] Jul 16, 2017 11:12 JO ANN JUAREZ MD Jul 16, 2017 11:45
[2017-07-16] MEDS: PROCHLORPERAZINE 10 MG/2 ML VIAL. IV PRN ×2 (11:36→19:50)
[2017-07-16] MEDS ORDERED: KETOROLAC 15 MG/ML VIAL. IV ONE (12:00)
[2017-07-16] MEDS ORDERED: PHYTONADIONE 10 MG/ML AMPUL. SQ ONE (12:30)
[2017-07-16] MEDS ORDERED: diphenhydrAMINE 50 MG/ML VIAL IVP ONE (13:15)
--- NOTE | 2017-07-16 13:26 | PDOC ---
PROGRESS NOTES Subjective Subjective seen in ICU ,lot of nausea Objective Objective Vital Signs Date Time Temp Pulse Resp B/P (MAP) Pulse Ox O2 Delivery O2 Flow Rate FiO2 07/16/17 06:20 97 158/78 07/16/17 06:00 20 100 Room Air 07/16/17 05:00 98.6 98.6 Intake and Output 07/16/17 06:59 Intake Total 1901.0 ml Output Total 3705 ml Balance -1804.0 ml IV Total 1901.0 ml Output Urine Total 3465 ml Emesis 200 ml Drainage Total 40 ml # Bowel Movements 1 Physical Exam Abdomen: Soft, Other (RLQ ecchymosis, dressings dry, chioma bloody ) Heart: Regular rate, No murmurs Extremities: No edema General: Alert, Oriented X3, Cooperative, No acute distress Lungs: Clear to auscultation, Normal air movement Neuro: Normal speech Psych/Mental Status: Mental status NL COMMENT givens, drain rt lower abdomen Diagnosis Problem List Problems Medical Problems: (1) Fever Status: Acute (2) Right lower quadrant abdominal pain Status: Acute Assessment Assessment Problems Medical Problems: (1) Fever Status: Acute (2) Right lower quadrant abdominal pain Status: Acute FINAL IMPRESSION: 1. Fever. 2. Free fluid in the paracolic gutter. 3. Status post recent laparoscopic appendectomy 5 days ago. PLAN: Pt was taken to OR Operative Note Date: 07/14/2017 Preoperative diagnosis: Intra-abdominal hematoma status post laparoscopic appendectomy Postoperative diagnosis: Same Procedure: Diagnostic laparoscopy with evacuation of hematoma and right lower quadrant drain placement Surgeon: Arnaldo Specimen: Intra-abdominal hematoma for culture iv fluids iv antibiotics, gram neg from fluid aspiration NGT came out dvt prevention, scd hematology consult appreciated At this time, was admitted to the hospital, hydrate with IV fluids. Cultures, IV antibiotics. The patient had a CT-guided aspiration of the fluid, sent for cultures. ID was consulted, was started on Diflucan, Flagyl and Zosyn and see how the patient's condition improves and surgery was consulted. DVT prophylaxis with SCDs. Hold off on Lovenox. The patient may need laparotomy down the road. Problems: Plan Plan of Care Problems Medical Problems: (1) Fever Status: Acute (2) Right lower quadrant abdominal pain Status: Acute Comment Review of Relevant I have reviewed the following items jersey (where applicable) has been applied. Labs Laboratory Tests Test 07/15/17 14:05 07/16/17 05:00 07/16/17 09:40 White Blood Count 27.6 x10^3/uL (4.0-11.0) 23.0 x10^3/uL (4.0-11.0) Red Blood Count 3.36 x10^6/uL (4.30-5.70) 3.12 x10^6/uL (4.30-5.70) Hemoglobin 9.9 g/dL (13.0-17.5) 9.4 g/dL (13.0-17.5) Hematocrit 29.6 % (39.0-53.0) 26.7 % (39.0-53.0) Mean Corpuscular Volume 88 fL (79-100) 85 fL (79-100) Mean Corpuscular Hemoglobin 29 pg (25-35) 30 pg (25-35) Mean Corpuscular Hemoglobin Concent 33 g/dL (31-37) 35 g/dL (31-37) Red Cell Distribution Width 12.9 % (11.5-14.5) 12.8 % (11.5-14.5) Platelet Count 293 x10^3/uL (140-400) 319 x10^3/uL (140-400) Sodium Level 131 mmol/L (136-145) 132 mmol/L (136-145) Potassium Level 3.6 mmol/L (3.5-5.1) 3.6 mmol/L (3.5-5.1) Chloride Level 96 mmol/L (98-107) 98 mmol/L (98-107) Carbon Dioxide Level 26 mmol/L (21-32) 24 mmol/L (21-32) Anion Gap 9 (6-14) 10 (6-14) Blood Urea Nitrogen 10 mg/dL (8-26) 14 mg/dL (8-26) Creatinine 1.0 mg/dL (0.7-1.3) 0.9 mg/dL (0.7-1.3) Estimated GFR (Cockcroft-Gault) 82.8 93.5 Glucose Level 210 mg/dL (70-99) 183 mg/dL (70-99) Calcium Level 8.5 mg/dL (8.5-10.1) 8.5 mg/dL (8.5-10.1) Phosphorus Level 1.9 mg/dL (2.6-4.7) Magnesium Level 2.2 mg/dL (1.8-2.4) Neutrophils (%) (Auto) 85 % (31-73) Lymphocytes (%) (Auto) 5 % (24-48) Monocytes (%) (Auto) 10 % (0-9) Eosinophils (%) (Auto) 0 % (0-3) Basophils (%) (Auto) 0 % (0-3) Neutrophils # (Auto) 19.5 x10^3uL (1.8-7.7) Lymphocytes # (Auto) 1.2 x10^3/uL (1.0-4.8) Monocytes # (Auto) 2.2 x10^3/uL (0.0-1.1) Eosinophils # (Auto) 0.0 x10^3/uL (0.0-0.7) Basophils # (Auto) 0.0 x10^3/uL (0.0-0.2) Prothrombin Time 16.0 SEC (11.7-14.0) Prothromb Time International Ratio 1.4 (0.8-1.1) Microbiology 07/13/17 Blood Culture - Preliminary, Resulted NO GROWTH AFTER 3 DAYS 07/14/17 Anaerobic/Aerobic Culture, Resulted Pending 07/14/17 Anaerobic Culture Result 1 (ASH), Resulted Pending 07/14/17 Aerobic Culture - Preliminary, Resulted 07/14/17 Aerobic Culture Result 1 (ASH) - Preliminary, Resulted Medications Current Medications Diphenhydramine HCl (Benadryl) 25 mg 1X ONCE IVP ; Start 07/16/17 at 13:15; Stop 07/16/17 at 13:16; Status DC Fentanyl Citrate (Fentanyl 2ml Vial) 25 mcg PRN Q3HRS PRN IV PAIN; Start at 11:30 Fentanyl Citrate (Fentanyl 2ml Vial) 50 mcg PRN Q3HRS PRN IV PAIN; Start at 11:30 Ketorolac Tromethamine (Toradol) 15 mg 1X ONCE IV Last administered on t 12:09; Start 07/16/17 at 12:00; Stop 07/16/17 at 12:01; Status DC Lorazepam (Ativan) 0.25 mg PRN Q6HRS PRN IV ANXIETY / AGITATION Last administered on 07/15/17 21:50; Start 07/15/17 at 21:45 Phytonadione (Vitamin K Ampule) 10 mg 1X ONCE SQ ; Start 07/16/17 at 12:30; Stop 07/16/17 at 12:31; Status DC Prochlorperazine Edisylate (Compazine) 5 mg PRN Q6HRS PRN IV NAUSEA/VOMITING Last administered on 07/16/17t 11:36; Start 07/16/17 at 11:30 Vitals/I & O Vital Sign - Last 24 Hours 07/15/17 07/15/17 07/15/17 07/15/17 14:00 15:00 16:00 16:00 Temp 98.8 98.8 Pulse 105 97 88 Resp 18 B/P (MAP) 154/80 (104) 157/76 (103) 168/99 (122) Pulse Ox 99 98 99 O2 Delivery Room Air Room Air Room Air Room Air 07/15/17 07/15/17 07/15/17 07/15/17 17:00 18:00 19:00 19:56 Temp 98.7 98.7 Pulse 95 95 90 100 Resp 16 B/P (MAP) 151/77 (101) 162/82 (108) 159/59 (92) 159/59 Pulse Ox 99 100 100 O2 Delivery Room Air Room Air Room Air 07/15/17 07/15/17 07/15/17 07/15/17 20:00 20:00 21:00 22:00 Pulse 96 98 98 Resp B/P (MAP) 147/72 (97) 188/74 (112) 185/68 (107) Pulse Ox 100 99 99 O2 Delivery Room Air Room Air Room Air Room Air 07/15/17 07/15/17 07/16/17 07/16/17 23:00 23:10 00:00 00:00 Temp 98.6 98.6 Pulse 92 92 Resp 20 B/P (MAP) 152/68 (96) 147/73 (97) Pulse Ox 96 96 O2 Delivery Room Air Room Air Room Air 07/16/17 07/16/17 07/16/17 07/16/17 01:00 02:00 03:00 04:00 Pulse 100 93 108 98 Resp 18 18 20 20 B/P (MAP) 158/72 (100) 151/67 (95) 151/74 (99) 155/62 (93) Pulse Ox 96 100 99 99 O2 Delivery Room Air Room Air Room Air Room Air 07/16/17 07/16/17 07/16/17 07/16/17 04:00 05:00 06:00 06:20 Temp 98.6 98.6 Pulse 97 105 97 Resp 20 20 B/P (MAP) 158/78 (104) 149/80 (103) 158/78 Pulse Ox 100 100 O2 Delivery Room Air Room Air Room Air Intake and Output 07/15/17 07/15/17 07/16/17 14:59 22:59 06:59 Intake Total 200 ml 1300.5 ml 400.5 ml Output Total 1425 ml 1120 ml 1160 ml Balance -1225 ml 180.5 ml -759.5 ml JUAN A MEADE MD Jul 16, 2017 13:26
[2017-07-16] MEDS: FLUCONAZOLE 400MG/200ML PREMIX 200 ML IV SCH (18:05)
[2017-07-16] MEDS: fentaNYL PF VIAL 100 MCG/2 ML VIAL IV PRN ×2 (18:17→21:16)
--- NOTE | 2017-07-16 18:43 | CONS ---
DATE OF CONSULTATION: 07/16/2017 REQUESTING PHYSICIAN: Mary Onofre MD. REASON FOR CONSULTATION: Coagulopathy. HISTORY OF PRESENT ILLNESS: The patient is a 41-year-old gentleman who [facility] with complaints of a 12-hour history of right lower quadrant abdominal pain. CT scan revealed acute appendicitis without abscess. He underwent laparoscopic appendectomy by Dr. Oli Mcintosh on 07/09/2017. He was subsequently discharged home. He again presented on 07/13/2017 with complaints of worsening abdominal pain and fever. CT scan revealed right lower quadrant fluid collection, likely thought to be hematoma. He underwent diagnostic laparoscopy with evacuation of hematoma and right lower quadrant drain placement by Dr. Oli Mcintosh on 07/14/2017. His laboratory data from 07/13/2017 revealed mild evaluation of PT at 15.0 with INR of 1.3 and hence I was consulted for coagulopathy. He has had dental extraction in the past which was not associated with any bleeding complications. He denies any bleeding tendencies. No history of nosebleeds or gum bleeding. No hematemesis, melena, hematochezia, no hemoptysis or hematuria. No history of easy bruisability. PAST MEDICAL HISTORY: Hypertension, history of laparoscopic appendectomy and subsequent hematoma evacuation. SOCIAL HISTORY: He smokes 3 cigarettes a day. He drinks alcohol on the weekends. FAMILY HISTORY: Positive for hypertension. REVIEW OF SYSTEMS: A 14-point review of system was performed. Pertinent positives are mentioned in the history of present illness. Rest of the system review is negative. PHYSICAL EXAMINATION: GENERAL APPEARANCE: The patient is a 41-year-old gentleman who is in no acute cardiorespiratory distress. VITAL SIGNS: Blood pressure 134/75, temperature of 100.1. HEENT: Head is atraumatic, normocephalic. Eyes: No icterus. NECK: Supple. CHEST: Bilaterally symmetrical. No crepitations or rhonchi heard. HEART: S1, S2 normal. ABDOMEN: Soft. Postoperative dressing is in place and a drain is also in place in the right lower quadrant. CENTRAL NERVOUS SYSTEM: No focal neurological deficits. LYMPHATICS: No lymphadenopathy. SKIN: No rashes. PSYCHOLOGIC: Mood and affect are appropriate. MUSCULOSKELETAL: No joint effusions. LABORATORY DATA: On 07/13/2017, PT was 15 with an INR of 1.3. PTT 37. On 07/14/2017, INR was 1.6 with PTT of 44. CBC from 07/16/2017 revealed a WBC of 23, hemoglobin 9.4, platelet count 319. Liver function tests from 07/15/2017 reveals a total bilirubin of 1.5, direct bilirubin 0.5, AST 17, ALT 37, alkaline phosphatase 37, total protein of 6.8 and albumin 3.0. IMPRESSION AND PLAN: 1. Elevated PT with a normal PTT on 07/13/2017. INR was only mildly elevated at 1.3. With his albumin level being only 2.7 on 07/14/2017, the etiology of elevated protime is most likely vitamin K deficiency from poor nutrition postoperatively. He does have history of drinking alcohol; however, the liver function tests were normal on 07/09/2017. Hence, it is unlikely that this is contributing to elevated protime and PTT. There was no baseline protime available from 07/09/2017 and hence I am unable to ascertain whether if he has a baseline coagulopathy or if the coagulopathy occurred postoperatively. It is reassuring that the coagulopathy is only mild with the highest INR being 1.6 on 07/14/2017. He did receive vitamin K and FFP. INR improved to 1.4 on 07/16/2017. I will proceed with another dose of vitamin K 10 mg subcutaneously today. Continue to monitor for bleeding. I discussed in detail with the patient and his . I discussed with Dr. Onofre and with Dr. Oli Mcintosh. I would continue to monitor for bleeding. 2. Elevated liver function tests with elevated bilirubin of 1.6 on 07/14/2017, which is new. He has had a CT scan of the abdomen and pelvis on 07/14/2017, which revealed evidence of right lower quadrant hematoma. There is also evidence of fatty infiltration of the liver, which may be contributing to elevated liver function tests and possibly the mild coagulopathy. 3. Leukocytosis, reactive. Continue to monitor. 4. Anemia postoperative and also due to hematoma. Continue to monitor. LIZBETH HOSKINS MD DR: LILLIAN/nato JOB#: [id number] / [id number] NEREYDA
[2017-07-17] VITALS (14 sets, daily range): BP systolic 119–158; BP diastolic 55–93
[2017-07-17] MEDS: fentaNYL PF VIAL 100 MCG/2 ML VIAL IV PRN ×8 (00:06→20:26)
[2017-07-17] MEDS: PROCHLORPERAZINE 10 MG/2 ML VIAL. IV PRN ×3 (03:24→17:20)
[2017-07-17] MEDS: PIPERACILLIN/TAZOBACTAM 4.5 GM in IV NORMAL SALINE 100ML 100 ML IV SCH (05:42)
[2017-07-17] MEDS: ONDANSETRON PF 4 MG/2 ML VIAL. IV PRN ×4 (05:51→22:00)
[2017-07-17 06:14] LABS: BASO # 0.1 x10^3/uL (0.0-0.2); BASO % 1 % (0-3); EOS % 0 % (0-3); HEMATOCRIT 29.9 % (39.0-53.0); HEMOGLOBIN 9.9 g/dL (13.0-17.5); LYMPH # 1.8 x10^3/uL (1.0-4.8); LYMPH % 10 % (24-48); MEAN CORPUSCULAR HEMOGLOBIN 29 pg (25-35); MEAN CORPUSCULAR HGB CONC 33 g/dL (31-37); MEAN CORPUSCULAR VOLUME 88 fL (79-100); MONO % 13 % (0-9); NEUT % 76 % (31-73); PLATELET COUNT 396 x10^3/uL (140-400); RED BLOOD COUNT 3.38 x10^6/uL (4.30-5.70); RED CELL DISTRIBUTION WIDTH 13.9 % (11.5-14.5); WHITE BLOOD COUNT 18.6 x10^3/uL (4.0-11.0)
[2017-07-17] MEDS: IV DEXTROSE 5%-LACT RINGERS 1,000 ML IV SCH ×4 (06:19→22:37)
[2017-07-17 06:27] LABS: ALBUMIN 2.5 g/dL (3.4-5.0); CALCIUM 7.9 mg/dL (8.5-10.1); DIRECT BILIRUBIN 0.7 mg/dL (0.0-0.2); GFR 82.8; POTASSIUM 3.3 mmol/L (3.5-5.1); TOTAL BILIRUBIN 1.6 mg/dL (0.2-1.0); TOTAL PROTEIN 6.7 g/dL (6.4-8.2)
[2017-07-17 06:28] LABS: INR 1.2 (0.8-1.1); PROTHROMBIN TIME PATIENT 14.7 SEC (11.7-14.0)
[2017-07-17] MEDS: POLYETHYLENE GLYCOL 3350 17 GM PACKET. PO SCH (07:23)
[2017-07-17 07:39] LABS: PLT ESTIMATE ADEQUATE (ADEQUATE)
--- NOTE | 2017-07-17 08:24 | PDOC ---
Infectious Disease Note Subjective Subjective feeling better ROS ROS GEN: Denies fevers, chills, sweats HEENT: Denies blurred vision, sore throat CV: Denies chest pain RESP: Denies shortness of air, cough GI: Denies n/v/d NEURO: Denies confusion, dizziness MSK: Denies weakness, joint pain/swelling Vital Sign Vital Signs Vital Signs Date Time Temp Pulse Resp B/P (MAP) Pulse Ox O2 Delivery O2 Flow Rate FiO2 07/17/17 07:57 24 100 Room Air 07/17/17 06:00 111 140/62 (88) 07/17/17 04:00 99.4 99.4 Physical Exam PHYSICAL EXAM GENERAL: NAD, Alert HEENT: PERRL, OC/OP NECK: Supple, no JVD, no LN LUNGS: Clear HEART: S1S2, no gallop, no murmur ABD: Soft, NT, no organomegaly, no rebound EXT: No edema, no cyanosis STRAIGHT EDGER: Alert, 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, no focal neurologic deficit SKIN: No rash IV: ok Labs Lab Laboratory Tests Test 07/16/17 09:40 07/17/17 05:57 Prothrombin Time 16.0 SEC (11.7-14.0) 14.7 SEC (11.7-14.0) Prothromb Time International Ratio 1.4 (0.8-1.1) 1.2 (0.8-1.1) White Blood Count 18.6 x10^3/uL (4.0-11.0) Red Blood Count 3.38 x10^6/uL (4.30-5.70) Hemoglobin 9.9 g/dL (13.0-17.5) Hematocrit 29.9 % (39.0-53.0) Mean Corpuscular Volume 88 fL (79-100) Mean Corpuscular Hemoglobin 29 pg (25-35) Mean Corpuscular Hemoglobin Concent 33 g/dL (31-37) Red Cell Distribution Width 13.9 % (11.5-14.5) Platelet Count 396 x10^3/uL (140-400) Neutrophils (%) (Auto) 76 % (31-73) Lymphocytes (%) (Auto) 10 % (24-48) Monocytes (%) (Auto) 13 % (0-9) Eosinophils (%) (Auto) 0 % (0-3) Basophils (%) (Auto) 1 % (0-3) Neutrophils # (Auto) 14.2 x10^3uL (1.8-7.7) Lymphocytes # (Auto) 1.8 x10^3/uL (1.0-4.8) Monocytes # (Auto) 2.5 x10^3/uL (0.0-1.1) Eosinophils # (Auto) 0.1 x10^3/uL (0.0-0.7) Basophils # (Auto) 0.1 x10^3/uL (0.0-0.2) Segmented Neutrophils % 75 % (35-66) Band Neutrophils % 1 % (0-9) Lymphocytes % 10 % (24-48) Monocytes % 14 % (0-10) Platelet Estimate Adequate (ADEQUATE) Sodium Level 131 mmol/L (136-145) Potassium Level 3.3 mmol/L (3.5-5.1) Chloride Level 98 mmol/L (98-107) Carbon Dioxide Level 24 mmol/L (21-32) Anion Gap 9 (6-14) Blood Urea Nitrogen 11 mg/dL (8-26) Creatinine 1.0 mg/dL (0.7-1.3) Estimated GFR (Cockcroft-Gault) 82.8 Glucose Level 157 mg/dL (70-99) Calcium Level 7.9 mg/dL (8.5-10.1) Total Bilirubin 1.6 mg/dL (0.2-1.0) Direct Bilirubin 0.7 mg/dL (0.0-0.2) Aspartate Amino Transf (AST/SGOT) 47 U/L (15-37) Alanine Aminotransferase (ALT/SGPT) 60 U/L (16-63) Alkaline Phosphatase 55 U/L (46-116) Total Protein 6.7 g/dL (6.4-8.2) Albumin 2.5 g/dL (3.4-5.0) Micro ANAEROBIC-AEROBIC CULTURE Preliminary Preliminary report ANAEROBIC RES 1 Preliminary Comment No anaerobes recovered in 48 hours. Performed at: [address] [id number] [employer] Attendant: Tara Jarrell MD, Phone: [phone] AEROBIC CULT Final Final report AEROBIC RES 1 Final Escherichia coli Heavy growth ANTIMICROBIAL SUSCEPTIBILITY Final Comment S = Susceptible; I = Intermediate; R = Resistant P = Positive; N = Negative MICS are expressed in micrograms per mL Antibiotic RSLT#1 RSLT#2 RSLT#3 RSLT#4 Amoxicillin/Clavulanic Acid S Ampicillin R Cefepime S Ceftriaxone S Cefuroxime S Ciprofloxacin R Ertapenem S Gentamicin S Imipenem S Levofloxacin R Piperacillin R Tetracycline R CONTINUED ON NEXT PAGE RUN DATE: 07/16/17 PAGE 2 RUN TIME: [address] [facility] [address] [place] [address] Jostin Ley M.D., Train Gate Attendant SPEC: [id number] PATIENT: SARBJIT ZAVALA [id number] ( Continued) Procedure Result ANTIMICROBIAL SUSCEPTIBILITY Final (continued) Tobramycin S Trimethoprim/Sulfa S Performed at: [address] [id number] [employer] Attendant: Tara Jarrell MD, Phone: [phone] Objective Assessment Fever Leukocytosis RLQ complex fluid collection, s/p aspiration, coag blood, 07/13. s/p diagnostic lap w/ evacuation of hematoma and RLQ drain placement, 07/14 ,, culture + with G neg ara s/p lap appy, 07/09 Urinary retention s/p indwelling Reyes Ileus Plan Plan of Care meropenem and fluconazole f/u cultures Monitor labs D/w ZHANG ZAMUDIO MD Jul 17, 2017 08:24
--- NOTE | 2017-07-17 09:05 | PDOC ---
PROGRESS NOTES Subjective Subjective c/c - f/u of Coagulopathy ROS - no abd pain Objective Objective Vital Signs Date Time Temp Pulse Resp B/P (MAP) Pulse Ox O2 Delivery O2 Flow Rate FiO2 07/17/17 08:00 Room Air 07/17/17 07:57 24 100 07/17/17 06:00 111 140/62 (88) 07/17/17 04:00 99.4 99.4 Intake and Output 07/17/17 06:59 Intake Total 4215.67 ml Output Total 2465 ml Balance 1750.67 ml IV Total 4215.67 ml Output Urine Total 2430 ml Drainage Total 35 ml # Bowel Movements 7 Physical Exam Heart: Normal S1, Normal S2 General: Alert, Oriented X3 Lungs: Clear to auscultation Neuro: Normal speech Psych/Mental Status: Mental status NL Assessment Assessment Problems Medical Problems: (1) Fever Status: Acute (2) Right lower quadrant abdominal pain Status: Acute IMPRESSION AND PLAN: 1. Coagulopathy - Elevated PT with a normal PTT on 07/13/2017. INR was only mildly elevated at 1.3. With his albumin level being only 2.7 on 07/14/2017, the etiology of elevated protime is most likely vitamin K deficiency from poor nutrition postoperatively and fatty liver disease. s/p vitamin K and FFP. INR improved to 1.4 on 07/16/2017. s/p another dose of vitamin K 10 mg subcutaneously 07/16/17. INR better at 1.2 on 07/17/17 Continue to monitor for bleeding. 2. Elevated liver function tests with elevated bilirubin of 1.6 on 07/14/2017, which is new. He has had a CT scan of the abdomen and pelvis on 07/14/2017, which revealed evidence of right lower quadrant hematoma. There is also evidence of fatty infiltration of the liver, which may be contributing to elevated liver function tests and possibly the mild coagulopathy. 3. Leukocytosis, reactive. Continue to monitor. 4. Anemia postoperative and also due to hematoma. Continue to monitor. Comment Review of Relevant I have reviewed the following items jersey (where applicable) has been applied. Labs Laboratory Tests Test 07/15/17 14:05 07/16/17 05:00 07/16/17 09:40 07/17/17 05:57 White Blood Count 27.6 x10^3/uL (4.0-11.0) 23.0 x10^3/uL (4.0-11.0) 18.6 x10^3/uL (4.0-11.0) Red Blood Count 3.36 x10^6/uL (4.30-5.70) 3.12 x10^6/uL (4.30-5.70) 3.38 x10^6/uL (4.30-5.70) Hemoglobin 9.9 g/dL (13.0-17.5) 9.4 g/dL (13.0-17.5) 9.9 g/dL (13.0-17.5) Hematocrit 29.6 % (39.0-53.0) 26.7 % (39.0-53.0) 29.9 % (39.0-53.0) Mean Corpuscular Volume 88 fL (79-100) 85 fL (79-100) 88 fL (79-100) Mean Corpuscular Hemoglobin 29 pg (25-35) 30 pg (25-35) 29 pg (25-35) Mean Corpuscular Hemoglobin Concent 33 g/dL (31-37) 35 g/dL (31-37) 33 g/dL (31-37) Red Cell Distribution Width 12.9 % (11.5-14.5) 12.8 % (11.5-14.5) 13.9 % (11.5-14.5) Platelet Count 293 x10^3/uL (140-400) 319 x10^3/uL (140-400) 396 x10^3/uL (140-400) Sodium Level 131 mmol/L (136-145) 132 mmol/L (136-145) 131 mmol/L (136-145) Potassium Level 3.6 mmol/L (3.5-5.1) 3.6 mmol/L (3.5-5.1) 3.3 mmol/L (3.5-5.1) Chloride Level 96 mmol/L (98-107) 98 mmol/L (98-107) 98 mmol/L (98-107) Carbon Dioxide Level 26 mmol/L (21-32) 24 mmol/L (21-32) 24 mmol/L (21-32) Anion Gap 9 (6-14) 10 (6-14) 9 (6-14) Blood Urea Nitrogen 10 mg/dL (8-26) 14 mg/dL (8-26) 11 mg/dL (8-26) Creatinine 1.0 mg/dL (0.7-1.3) 0.9 mg/dL (0.7-1.3) 1.0 mg/dL (0.7-1.3) Estimated GFR (Cockcroft-Gault) 82.8 93.5 82.8 Glucose Level 210 mg/dL (70-99) 183 mg/dL (70-99) 157 mg/dL (70-99) Calcium Level 8.5 mg/dL (8.5-10.1) 8.5 mg/dL (8.5-10.1) 7.9 mg/dL (8.5-10.1) Phosphorus Level 1.9 mg/dL (2.6-4.7) Magnesium Level 2.2 mg/dL (1.8-2.4) Neutrophils (%) (Auto) 85 % (31-73) 76 % (31-73) Lymphocytes (%) (Auto) 5 % (24-48) 10 % (24-48) Monocytes (%) (Auto) 10 % (0-9) 13 % (0-9) Eosinophils (%) (Auto) 0 % (0-3) 0 % (0-3) Basophils (%) (Auto) 0 % (0-3) 1 % (0-3) Neutrophils # (Auto) 19.5 x10^3uL (1.8-7.7) 14.2 x10^3uL (1.8-7.7) Lymphocytes # (Auto) 1.2 x10^3/uL (1.0-4.8) 1.8 x10^3/uL (1.0-4.8) Monocytes # (Auto) 2.2 x10^3/uL (0.0-1.1) 2.5 x10^3/uL (0.0-1.1) Eosinophils # (Auto) 0.0 x10^3/uL (0.0-0.7) 0.1 x10^3/uL (0.0-0.7) Basophils # (Auto) 0.0 x10^3/uL (0.0-0.2) 0.1 x10^3/uL (0.0-0.2) Prothrombin Time 16.0 SEC (11.7-14.0) 14.7 SEC (11.7-14.0) Prothromb Time International Ratio 1.4 (0.8-1.1) 1.2 (0.8-1.1) Segmented Neutrophils % 75 % (35-66) Band Neutrophils % 1 % (0-9) Lymphocytes % 10 % (24-48) Monocytes % 14 % (0-10) Platelet Estimate Adequate (ADEQUATE) Total Bilirubin 1.6 mg/dL (0.2-1.0) Direct Bilirubin 0.7 mg/dL (0.0-0.2) Aspartate Amino Transf (AST/SGOT) 47 U/L (15-37) Alanine Aminotransferase (ALT/SGPT) 60 U/L (16-63) Alkaline Phosphatase 55 U/L (46-116) Total Protein 6.7 g/dL (6.4-8.2) Albumin 2.5 g/dL (3.4-5.0) Laboratory Tests Test 07/16/17 09:40 07/17/17 05:57 Prothrombin Time 16.0 SEC (11.7-14.0) 14.7 SEC (11.7-14.0) Prothromb Time International Ratio 1.4 (0.8-1.1) 1.2 (0.8-1.1) White Blood Count 18.6 x10^3/uL (4.0-11.0) Red Blood Count 3.38 x10^6/uL (4.30-5.70) Hemoglobin 9.9 g/dL (13.0-17.5) Hematocrit 29.9 % (39.0-53.0) Mean Corpuscular Volume 88 fL (79-100) Mean Corpuscular Hemoglobin 29 pg (25-35) Mean Corpuscular Hemoglobin Concent 33 g/dL (31-37) Red Cell Distribution Width 13.9 % (11.5-14.5) Platelet Count 396 x10^3/uL (140-400) Neutrophils (%) (Auto) 76 % (31-73) Lymphocytes (%) (Auto) 10 % (24-48) Monocytes (%) (Auto) 13 % (0-9) Eosinophils (%) (Auto) 0 % (0-3) Basophils (%) (Auto) 1 % (0-3) Neutrophils # (Auto) 14.2 x10^3uL (1.8-7.7) Lymphocytes # (Auto) 1.8 x10^3/uL (1.0-4.8) Monocytes # (Auto) 2.5 x10^3/uL (0.0-1.1) Eosinophils # (Auto) 0.1 x10^3/uL (0.0-0.7) Basophils # (Auto) 0.1 x10^3/uL (0.0-0.2) Segmented Neutrophils % 75 % (35-66) Band Neutrophils % 1 % (0-9) Lymphocytes % 10 % (24-48) Monocytes % 14 % (0-10) Platelet Estimate Adequate (ADEQUATE) Sodium Level 131 mmol/L (136-145) Potassium Level 3.3 mmol/L (3.5-5.1) Chloride Level 98 mmol/L (98-107) Carbon Dioxide Level 24 mmol/L (21-32) Anion Gap 9 (6-14) Blood Urea Nitrogen 11 mg/dL (8-26) Creatinine 1.0 mg/dL (0.7-1.3) Estimated GFR (Cockcroft-Gault) 82.8 Glucose Level 157 mg/dL (70-99) Calcium Level 7.9 mg/dL (8.5-10.1) Total Bilirubin 1.6 mg/dL (0.2-1.0) Direct Bilirubin 0.7 mg/dL (0.0-0.2) Aspartate Amino Transf (AST/SGOT) 47 U/L (15-37) Alanine Aminotransferase (ALT/SGPT) 60 U/L (16-63) Alkaline Phosphatase 55 U/L (46-116) Total Protein 6.7 g/dL (6.4-8.2) Albumin 2.5 g/dL (3.4-5.0) Microbiology 07/13/17 Blood Culture - Preliminary, Resulted NO GROWTH AFTER 3 DAYS 07/14/17 Anaerobic/Aerobic Culture, Resulted Pending 07/14/17 Anaerobic Culture Result 1 (ASH), Resulted Pending 07/14/17 Aerobic Culture - Preliminary, Resulted 07/14/17 Aerobic Culture Result 1 (ASH) - Preliminary, Resulted Medications Current Medications Sodium Chloride 2,460 ml @ 410 mls/hr Q6H IV Last administered on 07/13/17 10 :53; Start 07/13/17 at 10:24; Stop 07/13/17 at 16:23; Status DC Sodium Chloride 500 ml @ 1,000 mls/hr PRN Q30MIN PRN IV SEE COMMENTS Last administered on 07/14/17 16:51; Start 07/13/17 at 10:30 Ibuprofen (Motrin) 800 mg 1X ONCE PO Last administered on 07/13/17 10:54; Start 07/13/17 at 10:30; Stop 07/13/17 at 10:31; Status DC Ondansetron HCl (Zofran) 4 mg 1X ONCE IV Last administered on 07/13/17 10:54 ; Start 07/13/17 at 10:30; Stop 07/13/17 at 10:31; Status DC Morphine Sulfate 5 mg 1X ONCE IV ; Start 07/13/17 at 10:30; Stop 07/13/17 at 10 :59; Status DC Fentanyl Citrate (Fentanyl 2ml Vial) 50 mcg 1X ONCE IV Last administered on 11:27; Start 07/13/17 at 11:30; Stop 07/13/17 at 11:31; Status DC Acetaminophen (Tylenol) 1,000 mg 1X ONCE PO ; Start 07/13/17 at 12:45; Stop at 12:46; Status DC Acetaminophen (Tylenol) 1,000 mg 1X ONCE PO Last administered on 07/13/17 12: 27; Start 07/13/17 at 12:30; Stop 07/13/17 at 12:31; Status DC Iohexol (Omnipaque 300 Mg/ml) 75 ml 1X ONCE IV Last administered on 07/13/17 13:07; Start 07/13/17 at 13:30; Stop 07/13/17 at 13:31; Status DC Info (Do NOT chart on this entry -- for MONITORING) 1 each PRN DAILY PRN MC SEE COMMENTS; Start 07/13/17 at 13:15; Stop 07/14/17 at 16:29; Status DC Piperacillin Sod/ Tazobactam Sod 4.5 gm/Sodium Chloride 100 ml @ 200 mls/hr Q8HRS IV Last administered on 07/17/17 05:42; Start 07/13/17 at 22:00; Stop at 08:22; Status DC Piperacillin Sod/ Tazobactam Sod 4.5 gm/Sodium Chloride 100 ml @ 200 mls/hr 1X ONCE IV Last administered on 07/13/17 14:22; Start 07/13/17 at 15:00; Stop 07/13/17 at 15:29; Status DC Metronidazole 100 ml @ 100 mls/hr Q8HRS IV Last administered on 07/15/17 05: 38; Start 07/13/17 at 22:00; Stop 07/15/17 at 10:42; Status DC Fluconazole/ Sodium Chloride 200 ml @ 100 mls/hr Q24H IV Last administered on 07/16/17 18:05; Start 07/13/17 at 17:00 Metronidazole 100 ml @ 100 mls/hr 1X ONCE IV ; Start 07/13/17 at 14:45; Stop 07/13/17 at 15:44; Status DC Ondansetron HCl (Zofran) 4 mg PRN Q8HRS PRN IV NAUSEA/VOMITING Last administered on 07/14/17 08:21; Start 07/13/17 at 15:15; Stop 07/14/17 at 12:54 ; Status DC Fentanyl Citrate (Fentanyl 2ml Vial) 50 mcg PRN Q2HR PRN IV PAIN Last administered on 07/13/17 17:25; Start 07/13/17 at 15:15; Stop 07/14/17 at 15:14 ; Status DC Acetaminophen (Tylenol) 650 mg PRN Q4HRS PRN PO FEVER Last administered on 07/14 04:01; Start 07/13/17 at 15:15; Stop 07/14/17 at 15:14; Status DC Sodium Chloride 1,000 ml @ 125 mls/hr 1X ONCE IV ; Start 07/13/17 at 15:15; Stop 07/13/17 at 23:14; Status DC Ibuprofen (Motrin) 800 mg PRN Q6HRS PRN PO INFLAMMATION; Start 07/13/17 at 15: 15; Stop 07/14/17 at 20:41; Status DC Lidocaine/Sodium Bicarbonate (Buffered Lidocaine 1%) 20 ml STK-MED ONCE IJ ; Start 07/13/17 at 15:21; Stop 07/13/17 at 15:22; Status DC Midazolam HCl (Versed) 2 mg STK-MED ONCE .ROUTE ; Start 07/13/17 at 15:36; Stop 07/13/17 at 15:37; Status DC Lidocaine/Sodium Bicarbonate (Buffered Lidocaine 1%) 20 ml 1X ONCE IJ Last administered on 07/13/17 16:24; Start 07/13/17 at 16:30; Stop 07/13/17 at 16:31 ; Status DC Hydromorphone HCl (Dilaudid) 2 mg PRN Q2HR PRN IV PAIN SEVERE Last administered on 07/14/17 12:41; Start 07/13/17 at 19:30; Stop 07/14/17 at 16:30 ; Status DC Hydromorphone HCl (Dilaudid) 2 mg PRN Q1HR PRN IV PAIN SEVERE; Start 07/13/17 at 19:30; Stop 07/15/17 at 21:42; Status DC Dextrose/Lactated Ringer's 1,000 ml @ 150 mls/hr Q6H40M IV Last administered on 07/17/17 06:19; Start 07/14/17 at 09:00 Ondansetron HCl (Zofran) 8 mg PRN Q6HRS PRN IV NAUSEA/VOMITING Last administered on 07/17/17 05:51; Start 07/14/17 at 13:00 Bisacodyl (Dulcolax Supp) 10 mg PRN DAILY PRN [place] CONSTIPATION Last administered on 07/14/17 13:31; Start 07/14/17 at 13:00 Polyethylene Glycol (miraLAX PACKET) 17 gm DAILY PO Last administered on 16:48; Start 07/14/17 at 15:00 Iohexol (Omnipaque 300 Mg/ml) 75 ml 1X ONCE IV Last administered on 07/14/17 15:39; Start 07/14/17 at 14:45; Stop 07/14/17 at 14:46; Status DC Iohexol (Omnipaque 240 Mg/ml) 50 ml 1X ONCE PO Last administered on 07/14/17 14:45; Start 07/14/17 at 14:45; Stop 07/14/17 at 14:46; Status DC Info (Do NOT chart on this entry -- for MONITORING) 1 each PRN DAILY PRN MC SEE COMMENTS; Start 07/14/17 at 14:45; Stop 07/16/17 at 14:44; Status DC Phytonadione 10 mg/Sodium Chloride 51 ml @ 102 mls/hr 1X ONCE IV Last administered on 07/14/17t 18:25; Start 07/14/17 at 18:15; Stop 07/14/17 at 18:44 ; Status DC Dexamethasone Sodium Phosphate (Decadron) 20 mg STK-MED ONCE .ROUTE ; Start at 19:13; Stop 07/14/17 at 19:14; Status DC Ondansetron HCl (Zofran) 4 mg STK-MED ONCE .ROUTE ; Start 07/14/17 at 19:13; Stop 07/14/17 at 19:14; Status DC Propofol 20 ml @ As Directed STK-MED ONCE IV ; Start 07/14/17 at 19:13; Stop at 19:14; Status DC Lidocaine HCl (Lidocaine Pf 2% Vial) 5 ml STK-MED ONCE .ROUTE ; Start 07/14/17 at 19:13; Stop 07/14/17 at 19:14; Status DC Midazolam HCl (Versed) 2 mg STK-MED ONCE .ROUTE ; Start 07/14/17 at 19:13; Stop 07/14/17 at 19:14; Status DC Fentanyl Citrate (Fentanyl 2ml Vial) 100 mcg STK-MED ONCE .ROUTE ; Start at 19:13; Stop 07/14/17 at 19:14; Status DC Bupivacaine HCl/ Epinephrine Bitart (Sensorcain-Mpf Epi 0.5%-[id number]) 30 ml STK -MED ONCE .ROUTE Last administered on 07/14/17t 20:00; Start 07/14/17 at 19:32 ; Stop 07/14/17 at 19:33; Status DC Glycopyrrolate (Robinul) 1 mg STK-MED ONCE .ROUTE ; Start 07/14/17 at 20:22; Stop 07/14/17 at 20:23; Status DC Neostigmine Methylsulfate 5 mg STK-MED ONCE .ROUTE ; Start 07/14/17 at 20:22; Stop 07/14/17 at 20:23; Status DC Fentanyl Citrate (Fentanyl 2ml Vial) 100 mcg STK-MED ONCE .ROUTE ; Start at 20:27; Stop 07/14/17 at 20:28; Status DC Fentanyl Citrate 30 ml @ 0 mls/hr CONT PRN PRN IV PROTOCOL; Start 07/14/17 at 20:45; Stop 07/14/17 at 22:30; Status DC Naloxone HCl (Narcan) 0.4 mg PRN Q2MIN PRN IV SEE INSTRUCTIONS; Start 07/14/17 at 20:45 Sodium Chloride 1,000 ml @ 25 mls/hr Q24H IV Last administered on 07/15/17 22 :23; Start 07/14/17 at 20:37; Stop 07/16/17 at 18:03; Status DC Sevoflurane (Ultane) 90 ml STK-MED ONCE IH ; Start 07/14/17 at 20:59; Stop 07/14 at 21:00; Status DC Phenylephrine HCl 1 mg STK-MED ONCE IV ; Start 07/14/17 at 20:59; Stop 07/14/17 at 21:00; Status DC Promethazine HCl 12.5 mg/Sodium Chloride 50.5 ml @ 151.5 mls/ hr PRN Q6HRS PRN IV NAUSEA/VOMITING Last administered on 07/16/17 20:28; Start 07/14/17 at 21:45 Hydromorphone HCl 30 ml @ 0 mls/hr CONT PRN PRN IV PROTOCOL Last administered on 07/15/17 23:10; Start 07/14/17 at 22:00; Stop 07/17/17 at 06:45; Status DC Albumin Human 100 ml @ 100 mls/hr 1X ONCE IV Last administered on 07/14/17 23:37; Start 07/14/17 at 22:30; Stop 07/14/17 at 23:29; Status DC Potassium Chloride 50 ml @ 50 mls/hr 1X ONCE IV Last administered on 22:19; Start 07/14/17 at 22:30; Stop 07/14/17 at 23:29; Status DC Calcium Chloride 1000 mg/Sodium Chloride 60 ml @ 120 mls/hr 1X ONCE IV Last administered on 07/15/17 00:40; Start 07/14/17 at 23:00; Stop 07/14/17 at 23:29 ; Status DC Hydralazine HCl (Apresoline) 10 mg PRN Q6HRS PRN IVP ELEVATED BP, SEE COMMENTS Last administered on 07/16/17 22:15; Start 07/15/17 at 00:15 Albumin Human 500 ml @ 125 mls/hr 1X ONCE IV Last administered on 07/15/17 00:17; Start 07/15/17 at 00:30; Stop 07/15/17 at 04:29; Status DC Sodium Phosphate 20 mmol/Dextrose 256.6667 ml @ 64.167 m... 1X ONCE IV Last administered on 07/15/17 01:43; Start 07/15/17 at 01:30; Stop 07/15/17 at 05:29 ; Status DC Magnesium Sulfate/ Dextrose 50 ml @ 25 mls/hr 1X ONCE IV Last administered on 07/15/17 08:04; Start 07/15/17 at 07:30; Stop 07/15/17 at 09:29; Status DC Magnesium Sulfate/ Dextrose 50 ml @ 25 mls/hr 1X ONCE IV ; Start 07/15/17 at 13 :00; Stop 07/15/17 at 14:59; Status DC Lorazepam (Ativan) 0.25 mg PRN Q6HRS PRN IV ANXIETY / AGITATION Last administered on 07/15/17 21:50; Start 07/15/17 at 21:45 Prochlorperazine Edisylate (Compazine) 5 mg PRN Q6HRS PRN IV NAUSEA/VOMITING Last administered on 07/17/17 03:24; Start 07/16/17 at 11:30 Fentanyl Citrate (Fentanyl 2ml Vial) 25 mcg PRN Q3HRS PRN IV PAIN Last administered on 07/17/17 07:26; Start 07/16/17 at 11:30 Fentanyl Citrate (Fentanyl 2ml Vial) 50 mcg PRN Q3HRS PRN IV PAIN Last administered on 07/17/17 00:06; Start 07/16/17 at 11:30 Ketorolac Tromethamine (Toradol) 15 mg 1X ONCE IV Last administered on 12:09; Start 07/16/17 at 12:00; Stop 07/16/17 at 12:01; Status DC Phytonadione (Vitamin K Ampule) 10 mg 1X ONCE SQ Last administered on t 16:38; Start 07/16/17 at 12:30; Stop 07/16/17 at 12:31; Status DC Diphenhydramine HCl (Benadryl) 25 mg 1X ONCE IVP Last administered on t 13:53; Start 07/16/17 at 13:15; Stop 07/16/17 at 13:16; Status DC Acetaminophen (Tylenol) 650 mg PRN Q8HRS PRN PO FEVER; Start 07/16/17 at 20:15 Meropenem 500 mg/ Sodium Chloride 50 ml @ 100 mls/hr Q8HRS IV ; Start 07/17/17 at 14:00 Active Scripts Active Oxycodone-Acetaminophen 5-325 (Oxycodone Hcl/Acetaminophen) 1 Each Tablet 1 Tab PO PRN Q4HRS PRN Reported Colace (Docusate Sodium) 100 Mg Capsule 100 Cap PO BID Polyethylene Glycol 3350 255 Gm Powder 17 Gm PO DAILY Atorvastatin Calcium 20 Mg Tablet 20 Mg PO HS Vitals/I & O Vital Sign - Last 24 Hours 07/16/17 07/16/17 07/16/17 07/16/17 10:00 11:00 12:00 12:00 Temp 100.1 100.1 Pulse 106 102 120 Resp 22 B/P (MAP) 164/77 (106) 160/84 (109) 145/63 (90) Pulse Ox 100 100 100 O2 Delivery Room Air Room Air Room Air Room Air 07/16/17 07/16/17 07/16/17 07/16/17 13:00 14:00 15:00 16:00 Pulse 110 92 90 Resp 24 18 B/P (MAP) 134/75 (94) 142/68 (92) 152/80 (104) Pulse Ox 100 100 100 O2 Delivery Room Air Room Air Room Air Room Air 07/16/17 07/16/17 07/16/17 07/16/17 16:00 17:00 18:00 18:17 Temp 99.4 99.4 Pulse 90 100 100 Resp 19 24 22 20 B/P (MAP) 148/74 (98) 160/82 (108) 157/67 (97) Pulse Ox 100 100 100 100 O2 Delivery Room Air Room Air Room Air Room Air 07/16/17 07/16/17 07/16/17 07/16/17 19:00 20:00 20:00 21:00 Temp 100.3 100.3 Pulse 101 116 108 Resp 26 B/P (MAP) 160/82 (108) 152/85 (107) Pulse Ox 100 100 100 O2 Delivery Room Air Room Air Room Air Room Air 07/16/17 07/16/17 07/16/17 07/16/17 21:16 22:00 22:15 23:00 Pulse 102 102 110 Resp 22 B/P (MAP) 170/87 (114) 170/87 162/84 (110) Pulse Ox 100 100 100 O2 Delivery Room Air Room Air Room Air 07/17/17 07/17/17 07/17/17 07/17/17 00:00 00:00 00:06 01:00 Temp 100.6 100.6 Pulse 114 118 Resp 07 17 B/P (MAP) 158/77 (104) 138/74 (95) Pulse Ox 100 100 100 O2 Delivery Room Air Room Air Room Air Room Air 07/17/17 07/17/17 07/17/17 07/17/17 02:00 03:00 03:08 03:18 Pulse 122 110 Resp 25 B/P (MAP) 123/64 (83) 125/79 (94) Pulse Ox 100 100 100 100 O2 Delivery Room Air Room Air Room Air Room Air 07/17/17 07/17/17 07/17/17 07/17/17 04:00 04:00 05:00 06:00 Temp 99.4 99.4 Pulse 110 111 111 Resp 24 2 B/P (MAP) 119/73 (88) 139/77 (97) 140/62 (88) Pulse Ox 100 100 100 O2 Delivery Room Air Room Air Room Air Room Air 07/17/17 07/17/17 07/17/17 07:26 07:57 08:00 Resp 26 24 Pulse Ox 100 100 O2 Delivery Room Air Room Air Room Air Intake and Output 07/16/17 07/16/17 07/17/17 14:59 22:59 06:59 Intake Total 62.79 ml 1971.88 ml 2181 ml Output Total 10 ml 1640 ml 815 ml Balance 52.79 ml 331.88 ml 1366 ml LIZBETH HOSKINS MD Jul 17, 2017 09:05
--- NOTE | 2017-07-17 10:03 | PDOC ---
PROGRESS NOTES Subjective Subjective pt doing well, want to eat Objective Objective Vital Signs Date Time Temp Pulse Resp B/P (MAP) Pulse Ox O2 Delivery O2 Flow Rate FiO2 07/17/17 08:00 Room Air 07/17/17 07:57 24 100 07/17/17 06:00 111 140/62 (88) 07/17/17 04:00 99.4 99.4 Intake and Output 07/17/17 07:00 Intake Total 4215.67 ml Output Total 2465 ml Balance 1750.67 ml IV Total 4215.67 ml Output Urine Total 2430 ml Drainage Total 35 ml # Bowel Movements 7 Physical Exam Abdomen: Soft, Other (RLQ ecchymosis, dressings dry, chioma bloody ) Heart: Normal S1, Normal S2 Extremities: No edema General: Alert, Oriented X3 Lungs: Clear to auscultation Neuro: Normal speech Psych/Mental Status: Mental status NL COMMENT givens, drain rt lower abdomen Diagnosis Problem List Problems Medical Problems: (1) Fever Status: Acute (2) Right lower quadrant abdominal pain Status: Acute Assessment Assessment Problems Medical Problems: (1) Fever Status: Acute (2) Right lower quadrant abdominal pain Status: Acute FINAL IMPRESSION: 1. Fever. 2. Free fluid in the paracolic gutter.hematoma ? 3. Status post recent laparoscopic appendectomy 5 days ago. PLAN: wbc trending down to 18 E Coli in para colic fluid resistant to Zosyn, spoke with ID ,iv antibiotics changed. transfer out of ICU. start on diet today? Pt was taken to OR Operative Note Date: 07/14/2017 Preoperative diagnosis: Intra-abdominal hematoma status post laparoscopic appendectomy Postoperative diagnosis: Same Procedure: Diagnostic laparoscopy with evacuation of hematoma and right lower quadrant drain placement Surgeon: Arnaldo Specimen: Intra-abdominal hematoma for culture iv fluids iv antibiotics, gram neg from fluid aspiration NGT came out dvt prevention, scd hematology consult appreciated Problems: Plan Plan of Care Problems Medical Problems: (1) Fever Status: Acute (2) Right lower quadrant abdominal pain Status: Acute Comment Review of Relevant I have reviewed the following items jersey (where applicable) has been applied. Labs Laboratory Tests Test 07/17/17 05:57 07/17/17 08:59 White Blood Count 18.6 x10^3/uL (4.0-11.0) Red Blood Count 3.38 x10^6/uL (4.30-5.70) Hemoglobin 9.9 g/dL (13.0-17.5) Hematocrit 29.9 % (39.0-53.0) Mean Corpuscular Volume 88 fL (79-100) Mean Corpuscular Hemoglobin 29 pg (25-35) Mean Corpuscular Hemoglobin Concent 33 g/dL (31-37) Red Cell Distribution Width 13.9 % (11.5-14.5) Platelet Count 396 x10^3/uL (140-400) Neutrophils (%) (Auto) 76 % (31-73) Lymphocytes (%) (Auto) 10 % (24-48) Monocytes (%) (Auto) 13 % (0-9) Eosinophils (%) (Auto) 0 % (0-3) Basophils (%) (Auto) 1 % (0-3) Neutrophils # (Auto) 14.2 x10^3uL (1.8-7.7) Lymphocytes # (Auto) 1.8 x10^3/uL (1.0-4.8) Monocytes # (Auto) 2.5 x10^3/uL (0.0-1.1) Eosinophils # (Auto) 0.1 x10^3/uL (0.0-0.7) Basophils # (Auto) 0.1 x10^3/uL (0.0-0.2) Segmented Neutrophils % 75 % (35-66) Band Neutrophils % 1 % (0-9) Lymphocytes % 10 % (24-48) Monocytes % 14 % (0-10) Platelet Estimate Adequate (ADEQUATE) Prothrombin Time 14.7 SEC (11.7-14.0) Prothromb Time International Ratio 1.2 (0.8-1.1) Sodium Level 131 mmol/L (136-145) Potassium Level 3.3 mmol/L (3.5-5.1) Chloride Level 98 mmol/L (98-107) Carbon Dioxide Level 24 mmol/L (21-32) Anion Gap 9 (6-14) Blood Urea Nitrogen 11 mg/dL (8-26) Creatinine 1.0 mg/dL (0.7-1.3) Estimated GFR (Cockcroft-Gault) 82.8 Glucose Level 157 mg/dL (70-99) Calcium Level 7.9 mg/dL (8.5-10.1) Total Bilirubin 1.6 mg/dL (0.2-1.0) Direct Bilirubin 0.7 mg/dL (0.0-0.2) Aspartate Amino Transf (AST/SGOT) 47 U/L (15-37) Alanine Aminotransferase (ALT/SGPT) 60 U/L (16-63) Alkaline Phosphatase 55 U/L (46-116) Total Protein 6.7 g/dL (6.4-8.2) Albumin 2.5 g/dL (3.4-5.0) Phosphorus Level 2.1 mg/dL (2.6-4.7) Microbiology 07/13/17 Blood Culture - Preliminary, Resulted NO GROWTH AFTER 3 DAYS 07/14/17 Anaerobic/Aerobic Culture, Resulted Pending 07/14/17 Anaerobic Culture Result 1 (ASH), Resulted Pending 07/14/17 Aerobic Culture - Preliminary, Resulted 07/14/17 Aerobic Culture Result 1 (ASH) - Preliminary, Resulted Medications Current Medications Acetaminophen (Tylenol) 650 mg PRN Q8HRS PRN PO FEVER; Start 07/16/17 at 20:15 Diphenhydramine HCl (Benadryl) 25 mg 1X ONCE IVP Last administered on 13:53; Start 07/16/17 at 13:15; Stop 07/16/17 at 13:16; Status DC Fentanyl Citrate (Fentanyl 2ml Vial) 25 mcg PRN Q3HRS PRN IV PAIN Last administered on 07/17/17 07:26; Start 07/16/17 at 11:30 Fentanyl Citrate (Fentanyl 2ml Vial) 50 mcg PRN Q3HRS PRN IV PAIN Last administered on 07/17/17 00:06; Start 07/16/17 at 11:30 Ketorolac Tromethamine (Toradol) 15 mg 1X ONCE IV Last administered on 12:09; Start 07/16/17 at 12:00; Stop 07/16/17 at 12:01; Status DC Meropenem 500 mg/ Sodium Chloride 50 ml @ 100 mls/hr Q8HRS IV ; Start 07/17/17 at 14:00 Phytonadione (Vitamin K Ampule) 10 mg 1X ONCE SQ Last administered on 16:38; Start 07/16/17 at 12:30; Stop 07/16/17 at 12:31; Status DC Prochlorperazine Edisylate (Compazine) 5 mg PRN Q6HRS PRN IV NAUSEA/VOMITING Last administered on 07/17/17t 03:24; Start 07/16/17 at 11:30 Vitals/I & O Vital Sign - Last 24 Hours 07/16/17 07/16/17 07/16/17 07/16/17 10:00 11:00 12:00 12:00 Temp 100.1 100.1 Pulse 106 102 120 Resp B/P (MAP) 164/77 (106) 160/84 (109) 145/63 (90) Pulse Ox 100 100 100 O2 Delivery Room Air Room Air Room Air Room Air 07/16/17 07/16/17 07/16/17 07/16/17 13:00 14:00 15:00 16:00 Pulse 110 92 90 Resp 18 B/P (MAP) 134/75 (94) 142/68 (92) 152/80 (104) Pulse Ox 100 100 100 O2 Delivery Room Air Room Air Room Air Room Air 07/16/17 07/16/17 07/16/17 07/16/17 16:00 17:00 18:00 18:17 Temp 99.4 99.4 Pulse 90 100 100 Resp 20 B/P (MAP) 148/74 (98) 160/82 (108) 157/67 (97) Pulse Ox 100 100 100 100 O2 Delivery Room Air Room Air Room Air Room Air 07/16/17 07/16/17 07/16/17 07/16/17 19:00 20:00 20:00 21:00 Temp 100.3 100.3 Pulse 101 116 108 Resp B/P (MAP) 160/82 (108) 152/85 (107) Pulse Ox 100 100 100 O2 Delivery Room Air Room Air Room Air Room Air 07/16/17 07/16/17 07/16/17 07/16/17 21:16 22:00 22:15 23:00 Pulse 102 102 110 Resp B/P (MAP) 170/87 (114) 170/87 162/84 (110) Pulse Ox 100 100 100 O2 Delivery Room Air Room Air Room Air 07/17/17 07/17/17 07/17/17 07/17/17 00:00 00:00 00:06 01:00 Temp 100.6 100.6 Pulse 114 118 Resp 8 22 B/P (MAP) 158/77 (104) 138/74 (95) Pulse Ox 100 100 100 O2 Delivery Room Air Room Air Room Air Room Air 07/17/17 07/17/17 07/17/17 07/17/17 02:00 03:00 03:08 03:18 Pulse 122 110 Resp 25 24 25 B/P (MAP) 123/64 (83) 125/79 (94) Pulse Ox 100 100 100 100 O2 Delivery Room Air Room Air Room Air Room Air 07/17/17 07/17/17 07/17/17 07/17/17 04:00 04:00 05:00 06:00 Temp 99.4 99.4 Pulse 110 111 111 Resp 20 24 2 B/P (MAP) 119/73 (88) 139/77 (97) 140/62 (88) Pulse Ox 100 100 100 O2 Delivery Room Air Room Air Room Air Room Air 07/17/17 07/17/17 07/17/17 07:26 07:57 08:00 Resp 26 24 Pulse Ox 100 100 O2 Delivery Room Air Room Air Room Air Intake and Output 07/16/17 07/16/17 07/17/17 15:00 23:00 07:00 Intake Total 62.79 ml 1971.88 ml 2181 ml Output Total 10 ml 1640 ml 815 ml Balance 52.79 ml 331.88 ml 1366 ml JUAN A MEADE MD Jul 17, 2017 10:03
[2017-07-17] MEDS ORDERED: POTASSIUM CHLORIDE 20MEQ 50 ML IV SCH (10:30)
--- NOTE | 2017-07-17 11:09 | PDOC ---
SURGICAL PROGRESS NOTE Subjective Feeling better. Minimal flatus positive BM today. Nausea is improved Vital Signs Vital Signs Date Time Temp Pulse Resp B/P (MAP) Pulse Ox O2 Delivery O2 Flow Rate FiO2 07/17/17 10:02 25 100 Room Air 07/17/17 10:00 114 138/72 (94) 07/17/17 08:00 98.7 98.7 I&O Intake and Output 07/17/17 07:00 Intake Total 4215.67 ml Output Total 2465 ml Balance 1750.67 ml IV Total 4215.67 ml Output Urine Total 2430 ml Drainage Total 35 ml # Bowel Movements 7 PATIENT HAS A ELAM: Yes General: Alert, Oriented X3, Cooperative, mild distress Abdomen: Normal bowel sounds, Soft, No tenderness Labs Laboratory Tests Test 07/15/17 14:05 07/16/17 05:00 07/16/17 09:40 07/17/17 05:57 White Blood Count 27.6 x10^3/uL (4.0-11.0) 23.0 x10^3/uL (4.0-11.0) 18.6 x10^3/uL (4.0-11.0) Red Blood Count 3.36 x10^6/uL (4.30-5.70) 3.12 x10^6/uL (4.30-5.70) 3.38 x10^6/uL (4.30-5.70) Hemoglobin 9.9 g/dL (13.0-17.5) 9.4 g/dL (13.0-17.5) 9.9 g/dL (13.0-17.5) Hematocrit 29.6 % (39.0-53.0) 26.7 % (39.0-53.0) 29.9 % (39.0-53.0) Mean Corpuscular Volume 88 fL (79-100) 85 fL (79-100) 88 fL (79-100) Mean Corpuscular Hemoglobin 29 pg (25-35) 30 pg (25-35) 29 pg (25-35) Mean Corpuscular Hemoglobin Concent 33 g/dL (31-37) 35 g/dL (31-37) 33 g/dL (31-37) Red Cell Distribution Width 12.9 % (11.5-14.5) 12.8 % (11.5-14.5) 13.9 % (11.5-14.5) Platelet Count 293 x10^3/uL (140-400) 319 x10^3/uL (140-400) 396 x10^3/uL (140-400) Sodium Level 131 mmol/L (136-145) 132 mmol/L (136-145) 131 mmol/L (136-145) Potassium Level 3.6 mmol/L (3.5-5.1) 3.6 mmol/L (3.5-5.1) 3.3 mmol/L (3.5-5.1) Chloride Level 96 mmol/L (98-107) 98 mmol/L (98-107) 98 mmol/L (98-107) Carbon Dioxide Level 26 mmol/L (21-32) 24 mmol/L (21-32) 24 mmol/L (21-32) Anion Gap 9 (6-14) 10 (6-14) 9 (6-14) Blood Urea Nitrogen 10 mg/dL (8-26) 14 mg/dL (8-26) 11 mg/dL (8-26) Creatinine 1.0 mg/dL (0.7-1.3) 0.9 mg/dL (0.7-1.3) 1.0 mg/dL (0.7-1.3) Estimated GFR (Cockcroft-Gault) 82.8 93.5 82.8 Glucose Level 210 mg/dL (70-99) 183 mg/dL (70-99) 157 mg/dL (70-99) Calcium Level 8.5 mg/dL (8.5-10.1) 8.5 mg/dL (8.5-10.1) 7.9 mg/dL (8.5-10.1) Phosphorus Level 1.9 mg/dL (2.6-4.7) Magnesium Level 2.2 mg/dL (1.8-2.4) Neutrophils (%) (Auto) 85 % (31-73) 76 % (31-73) Lymphocytes (%) (Auto) 5 % (24-48) 10 % (24-48) Monocytes (%) (Auto) 10 % (0-9) 13 % (0-9) Eosinophils (%) (Auto) 0 % (0-3) 0 % (0-3) Basophils (%) (Auto) 0 % (0-3) 1 % (0-3) Neutrophils # (Auto) 19.5 x10^3uL (1.8-7.7) 14.2 x10^3uL (1.8-7.7) Lymphocytes # (Auto) 1.2 x10^3/uL (1.0-4.8) 1.8 x10^3/uL (1.0-4.8) Monocytes # (Auto) 2.2 x10^3/uL (0.0-1.1) 2.5 x10^3/uL (0.0-1.1) Eosinophils # (Auto) 0.0 x10^3/uL (0.0-0.7) 0.1 x10^3/uL (0.0-0.7) Basophils # (Auto) 0.0 x10^3/uL (0.0-0.2) 0.1 x10^3/uL (0.0-0.2) Prothrombin Time 16.0 SEC (11.7-14.0) 14.7 SEC (11.7-14.0) Prothromb Time International Ratio 1.4 (0.8-1.1) 1.2 (0.8-1.1) Segmented Neutrophils % 75 % (35-66) Band Neutrophils % 1 % (0-9) Lymphocytes % 10 % (24-48) Monocytes % 14 % (0-10) Platelet Estimate Adequate (ADEQUATE) Total Bilirubin 1.6 mg/dL (0.2-1.0) Direct Bilirubin 0.7 mg/dL (0.0-0.2) Aspartate Amino Transf (AST/SGOT) 47 U/L (15-37) Alanine Aminotransferase (ALT/SGPT) 60 U/L (16-63) Alkaline Phosphatase 55 U/L (46-116) Total Protein 6.7 g/dL (6.4-8.2) Albumin 2.5 g/dL (3.4-5.0) Test 07/17/17 08:59 Phosphorus Level 2.1 mg/dL (2.6-4.7) Laboratory Tests Test 07/17/17 05:57 07/17/17 08:59 White Blood Count 18.6 x10^3/uL (4.0-11.0) Red Blood Count 3.38 x10^6/uL (4.30-5.70) Hemoglobin 9.9 g/dL (13.0-17.5) Hematocrit 29.9 % (39.0-53.0) Mean Corpuscular Volume 88 fL (79-100) Mean Corpuscular Hemoglobin 29 pg (25-35) Mean Corpuscular Hemoglobin Concent 33 g/dL (31-37) Red Cell Distribution Width 13.9 % (11.5-14.5) Platelet Count 396 x10^3/uL (140-400) Neutrophils (%) (Auto) 76 % (31-73) Lymphocytes (%) (Auto) 10 % (24-48) Monocytes (%) (Auto) 13 % (0-9) Eosinophils (%) (Auto) 0 % (0-3) Basophils (%) (Auto) 1 % (0-3) Neutrophils # (Auto) 14.2 x10^3uL (1.8-7.7) Lymphocytes # (Auto) 1.8 x10^3/uL (1.0-4.8) Monocytes # (Auto) 2.5 x10^3/uL (0.0-1.1) Eosinophils # (Auto) 0.1 x10^3/uL (0.0-0.7) Basophils # (Auto) 0.1 x10^3/uL (0.0-0.2) Segmented Neutrophils % 75 % (35-66) Band Neutrophils % 1 % (0-9) Lymphocytes % 10 % (24-48) Monocytes % 14 % (0-10) Platelet Estimate Adequate (ADEQUATE) Prothrombin Time 14.7 SEC (11.7-14.0) Prothromb Time International Ratio 1.2 (0.8-1.1) Sodium Level 131 mmol/L (136-145) Potassium Level 3.3 mmol/L (3.5-5.1) Chloride Level 98 mmol/L (98-107) Carbon Dioxide Level 24 mmol/L (21-32) Anion Gap 9 (6-14) Blood Urea Nitrogen 11 mg/dL (8-26) Creatinine 1.0 mg/dL (0.7-1.3) Estimated GFR (Cockcroft-Gault) 82.8 Glucose Level 157 mg/dL (70-99) Calcium Level 7.9 mg/dL (8.5-10.1) Total Bilirubin 1.6 mg/dL (0.2-1.0) Direct Bilirubin 0.7 mg/dL (0.0-0.2) Aspartate Amino Transf (AST/SGOT) 47 U/L (15-37) Alanine Aminotransferase (ALT/SGPT) 60 U/L (16-63) Alkaline Phosphatase 55 U/L (46-116) Total Protein 6.7 g/dL (6.4-8.2) Albumin 2.5 g/dL (3.4-5.0) Phosphorus Level 2.1 mg/dL (2.6-4.7) Problem List Problems Medical Problems: (1) Fever Status: Acute (2) Right lower quadrant abdominal pain Status: Acute Assessment/Plan S/P L/S drainage of infected hematoma wbc trending down, abx changed per ID Start clears Transfer out of ICU D/C tosha Problems: JO ANN JUAREZ MD Jul 17, 2017 11:09
[2017-07-17] MEDS: POTASSIUM PHOSPHATE DIBASIC 10 MMOL in IV NORMAL SALINE 100ML 100 ML IV SCH ×3 (11:17→14:36)
[2017-07-17] MEDS: MEROPENEM 500 MG in IV NORMAL SALINE 50ML 50 ML IV SCH ×2 (14:36→22:26)
[2017-07-17] MEDS: FLUCONAZOLE 400MG/200ML PREMIX 200 ML IV SCH (15:54)
[2017-07-17] MEDS ORDERED: fentaNYL PF VIAL 100 MCG/2 ML VIAL IV PRN (22:30)
[2017-07-18] VITALS (7 sets, daily range): BP systolic 133–162; BP diastolic 72–93
[2017-07-18] MEDS: PROCHLORPERAZINE 10 MG/2 ML VIAL. IV PRN ×3 (00:24→18:46)
[2017-07-18] MEDS: fentaNYL PF VIAL 100 MCG/2 ML VIAL IV PRN ×5 (00:28→21:42)
[2017-07-18] MEDS: PROMETHAZINE 12.5 MG in IV NORMAL SALINE 50ML 50 ML IV PRN ×2 (02:50→12:00)
[2017-07-18] MEDS: ACETAMINOPHEN 325 MG TABLET. PO PRN (03:46)
[2017-07-18 05:18] LABS: BASO # 0.1 x10^3/uL (0.0-0.2); BASO % 0 % (0-3); EOS % 1 % (0-3); HEMATOCRIT 28.7 % (39.0-53.0); HEMOGLOBIN 9.5 g/dL (13.0-17.5); LYMPH # 1.7 x10^3/uL (1.0-4.8); LYMPH % 6 % (24-48); MEAN CORPUSCULAR HEMOGLOBIN 29 pg (25-35); MEAN CORPUSCULAR HGB CONC 33 g/dL (31-37); MEAN CORPUSCULAR VOLUME 88 fL (79-100); MONO % 9 % (0-9); NEUT % 84 % (31-73); PLATELET COUNT 378 x10^3/uL (140-400); RED BLOOD COUNT 3.26 x10^6/uL (4.30-5.70); RED CELL DISTRIBUTION WIDTH 13.5 % (11.5-14.5); WHITE BLOOD COUNT 27.2 x10^3/uL (4.0-11.0)
[2017-07-18] MEDS: IV DEXTROSE 5%-LACT RINGERS 1,000 ML IV SCH ×3 (05:42→14:11)
[2017-07-18] MEDS: MEROPENEM 500 MG in IV NORMAL SALINE 50ML 50 ML IV SCH ×3 (05:44→21:42)
[2017-07-18 05:59] LABS: CALCIUM 8.4 mg/dL (8.5-10.1); GFR 82.8; POTASSIUM 3.3 mmol/L (3.5-5.1)
[2017-07-18] MEDS: ONDANSETRON PF 4 MG/2 ML VIAL. IV PRN ×3 (06:44→21:42)
[2017-07-18] MEDS: POLYETHYLENE GLYCOL 3350 17 GM PACKET. PO SCH (09:00)
--- NOTE | 2017-07-18 09:06 | PDOC ---
Infectious Disease Note Subjective Subjective feeling better, vomited once today ROS ROS GEN: Denies fevers, chills, sweats HEENT: Denies blurred vision, sore throat CV: Denies chest pain RESP: Denies shortness of air, cough NEURO: Denies confusion, dizziness MSK: Denies weakness, joint pain/swelling Vital Sign Vital Signs Vital Signs Date Time Temp Pulse Resp B/P (MAP) Pulse Ox O2 Delivery O2 Flow Rate FiO2 07/18/17 07:15 18 96 Room Air 07/18/17 07:00 98.1 107 140/79 (99) 98.1 Physical Exam PHYSICAL EXAM GENERAL: NAD, Alert HEENT: PERRL, OC/OP NECK: Supple, no JVD, no LN LUNGS: Clear HEART: S1S2, no gallop, no murmur ABD: Soft, NT, no organomegaly, no rebound EXT: No edema, no cyanosis MOLD PRESSER: Alert, 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, no focal neurologic deficit SKIN: No rash IV: ok Labs Lab Laboratory Tests Test 07/18/17 05:00 White Blood Count 27.2 x10^3/uL (4.0-11.0) Red Blood Count 3.26 x10^6/uL (4.30-5.70) Hemoglobin 9.5 g/dL (13.0-17.5) Hematocrit 28.7 % (39.0-53.0) Mean Corpuscular Volume 88 fL (79-100) Mean Corpuscular Hemoglobin 29 pg (25-35) Mean Corpuscular Hemoglobin Concent 33 g/dL (31-37) Red Cell Distribution Width 13.5 % (11.5-14.5) Platelet Count 378 x10^3/uL (140-400) Neutrophils (%) (Auto) 84 % (31-73) Lymphocytes (%) (Auto) 6 % (24-48) Monocytes (%) (Auto) 9 % (0-9) Eosinophils (%) (Auto) 1 % (0-3) Basophils (%) (Auto) 0 % (0-3) Neutrophils # (Auto) 22.9 x10^3uL (1.8-7.7) Lymphocytes # (Auto) 1.7 x10^3/uL (1.0-4.8) Monocytes # (Auto) 2.3 x10^3/uL (0.0-1.1) Eosinophils # (Auto) 0.3 x10^3/uL (0.0-0.7) Basophils # (Auto) 0.1 x10^3/uL (0.0-0.2) Sodium Level 132 mmol/L (136-145) Potassium Level 3.3 mmol/L (3.5-5.1) Chloride Level 97 mmol/L (98-107) Carbon Dioxide Level 25 mmol/L (21-32) Anion Gap 10 (6-14) Blood Urea Nitrogen 12 mg/dL (8-26) Creatinine 1.0 mg/dL (0.7-1.3) Estimated GFR (Cockcroft-Gault) 82.8 Glucose Level 147 mg/dL (70-99) Calcium Level 8.4 mg/dL (8.5-10.1) Micro ANAEROBIC-AEROBIC CULTURE Preliminary Preliminary report ANAEROBIC RES 1 Preliminary Comment No anaerobes recovered in 48 hours. Performed at: [address] [id number] Actuarial [employer] Teacher: Tara Jarrell MD, Phone: [phone] AEROBIC CULT Final Final report AEROBIC RES 1 Final Escherichia coli Heavy growth ANTIMICROBIAL SUSCEPTIBILITY Final Comment S = Susceptible; I = Intermediate; R = Resistant P = Positive; N = Negative MICS are expressed in micrograms per mL Antibiotic RSLT#1 RSLT#2 RSLT#3 RSLT#4 Amoxicillin/Clavulanic Acid S Ampicillin R Cefepime S Ceftriaxone S Cefuroxime S Ciprofloxacin R Ertapenem S Gentamicin S Imipenem S Levofloxacin R Piperacillin R Tetracycline R CONTINUED ON NEXT PAGE RUN DATE: 07/16/17 PAGE 2 RUN TIME: 1211 [facility] [address] [place] [address] Jostin Ley M.D., Orthotic Finish Grinding Technician SPEC: [id number] PATIENT: SARBJIT ZAVALA [id number] ( Continued) Procedure Result ANTIMICROBIAL SUSCEPTIBILITY Final (continued) Tobramycin S Trimethoprim/Sulfa S Performed at: [address] [id number] Actuarial [employer] Teacher: Tara Jarrell MD, Phone: [phone] Objective Assessment Fever Leukocytosis RLQ complex fluid collection, s/p aspiration, coag blood, 07/13. s/p diagnostic lap w/ evacuation of hematoma and RLQ drain placement, 07/14 ,, culture + with e coli s/p lap appy, 07/09 Urinary retention s/p indwelling Reyes Ileus Plan Plan of Care meropenem and fluconazole f/u cultures Monitor labs repeat ct abd D/w ZHANG ZAMUDIO MD Jul 18, 2017 09:06
[2017-07-18] MEDS ORDERED: IOHEXOL 300 MG/ML 75 ML VIAL IV ONE (09:30)
[2017-07-18] MEDS ORDERED: IOHEXOL 240 MG/ML 50ML VIAL. PO ONE (09:30)
[2017-07-18] MEDS ORDERED: CONTRAST GIVEN MC PRN (09:45)
--- NOTE | 2017-07-18 10:12 | PDOC ---
PROGRESS NOTES Subjective Subjective fever ,nausea not feeling well today Objective Objective Vital Signs Date Time Temp Pulse Resp B/P (MAP) Pulse Ox O2 Delivery O2 Flow Rate FiO2 07/18/17 07:15 18 96 Room Air 07/18/17 07:00 98.1 107 140/79 (99) 98.1 Intake and Output 07/18/17 07:00 Intake Total 160 ml Output Total 30 ml Balance 130 ml Intake Oral 160 ml Other 30 ml # Voids 5 # Bowel Movements 2 Physical Exam Abdomen: Normal bowel sounds, Soft, No tenderness Heart: Normal S1, Normal S2 Extremities: No edema General: Alert, Oriented X3, Cooperative, mild distress Lungs: Clear to auscultation Neuro: Normal speech Psych/Mental Status: Mental status NL COMMENT drain rt lower abdomen Diagnosis Problem List Problems Medical Problems: (1) Fever Status: Acute (2) Right lower quadrant abdominal pain Status: Acute Assessment Assessment Problems Medical Problems: (1) Fever Status: Acute (2) Right lower quadrant abdominal pain Status: Acute FINAL IMPRESSION: 1. Fever.r/o abscess 2. Free fluid in the paracolic gutter.hematoma ? vs abscess 3. Status post recent laparoscopic appendectomy last week 07/09/17 PLAN: wbc trending up now to 27 E Coli in para colic fluid resistant to Zosyn, spoke with ID ,iv antibiotics changed.Meropenum transferred out of ICU. CT scan today, due to fever and benita wbc spoke with ID Pt was taken to OR on 07/14/17 Operative Note Date: 07/14/2017 Preoperative diagnosis: Intra-abdominal hematoma status post laparoscopic appendectomy Postoperative diagnosis: Same Procedure: Diagnostic laparoscopy with evacuation of hematoma and right lower quadrant drain placement Surgeon: Arnaldo Specimen: Intra-abdominal hematoma for culture iv fluids iv antibiotics, gram neg from fluid aspiration dvt prevention, scd, hematology consult appreciated Problems: Plan Plan of Care Problems Medical Problems: (1) Fever Status: Acute (2) Right lower quadrant abdominal pain Status: Acute Comment Review of Relevant I have reviewed the following items jersey (where applicable) has been applied. Labs Laboratory Tests Test 07/18/17 05:00 White Blood Count 27.2 x10^3/uL (4.0-11.0) Red Blood Count 3.26 x10^6/uL (4.30-5.70) Hemoglobin 9.5 g/dL (13.0-17.5) Hematocrit 28.7 % (39.0-53.0) Mean Corpuscular Volume 88 fL (79-100) Mean Corpuscular Hemoglobin 29 pg (25-35) Mean Corpuscular Hemoglobin Concent 33 g/dL (31-37) Red Cell Distribution Width 13.5 % (11.5-14.5) Platelet Count 378 x10^3/uL (140-400) Neutrophils (%) (Auto) 84 % (31-73) Lymphocytes (%) (Auto) 6 % (24-48) Monocytes (%) (Auto) 9 % (0-9) Eosinophils (%) (Auto) 1 % (0-3) Basophils (%) (Auto) 0 % (0-3) Neutrophils # (Auto) 22.9 x10^3uL (1.8-7.7) Lymphocytes # (Auto) 1.7 x10^3/uL (1.0-4.8) Monocytes # (Auto) 2.3 x10^3/uL (0.0-1.1) Eosinophils # (Auto) 0.3 x10^3/uL (0.0-0.7) Basophils # (Auto) 0.1 x10^3/uL (0.0-0.2) Sodium Level 132 mmol/L (136-145) Potassium Level 3.3 mmol/L (3.5-5.1) Chloride Level 97 mmol/L (98-107) Carbon Dioxide Level 25 mmol/L (21-32) Anion Gap 10 (6-14) Blood Urea Nitrogen 12 mg/dL (8-26) Creatinine 1.0 mg/dL (0.7-1.3) Estimated GFR (Cockcroft-Gault) 82.8 Glucose Level 147 mg/dL (70-99) Calcium Level 8.4 mg/dL (8.5-10.1) Microbiology 07/13/17 Blood Culture - Preliminary, Resulted NO GROWTH AFTER 4 DAYS 07/14/17 Anaerobic/Aerobic Culture, Resulted Pending 07/14/17 Anaerobic Culture Result 1 (ASH), Resulted Pending 07/14/17 Aerobic Culture - Final, Resulted 07/14/17 Aerobic Culture Result 1 (ASH) - Final, Resulted Medications Current Medications Fentanyl Citrate (Fentanyl 2ml Vial) 25 mcg PRN Q2HRS PRN IV MODERATE PAIN; Start 07/17/17 at 22:30 Fentanyl Citrate (Fentanyl 2ml Vial) 50 mcg PRN Q2HRS PRN IV SEVERE PAIN Last administered on 07/18/17 06:45; Start 07/17/17 at 22:30 Info (Do NOT chart on this entry -- for MONITORING) 1 each PRN DAILY PRN MC SEE COMMENTS; Start 07/18/17 at 09:45; Stop 07/20/17 at 09:44 Iohexol (Omnipaque 240 Mg/ml) 30 ml 1X ONCE PO ; Start 07/18/17 at 09:30; Stop 07/18/17 at 09:33; Status DC Iohexol (Omnipaque 300 Mg/ml) 75 ml 1X ONCE IV ; Start 07/18/17 at 09:30; Stop 07/18/17 at 09:33; Status DC Meropenem 500 mg/ Sodium Chloride 50 ml @ 100 mls/hr Q8HRS IV Last administered on 07/18/17 05:44; Start 07/17/17 at 14:00 Potassium Phosphate 10 mmol/ Sodium Chloride 103.3333 ml @ 51.667 m... Q2H IV Last administered on 07/17/17 14:36; Start 07/17/17 at 10:30; Stop 07/17/17 at 16:29; Status DC Potassium Chloride 50 ml @ 50 mls/hr Q1H IV ; Start 07/17/17 at 10:30; Stop at 12:29; Status Cancel Potassium Chloride 50 ml @ 50 mls/hr Q1H IV ; Start 07/18/17 at 10:00; Stop at 11:59 Vitals/I & O Vital Sign - Last 24 Hours 07/17/17 07/17/17 07/17/17 07/17/17 12:00 12:00 13:01 15:52 Temp 98.9 98.9 Pulse 120 Resp 20 24 B/P (MAP) 138/71 (93) Pulse Ox 100 100 O2 Delivery Room Air Room Air Room Air Room Air 07/17/17 07/17/17 07/17/17 07/17/17 16:18 17:20 20:00 20:00 Temp 98.8 98.4 98.8 98.4 Pulse 116 127 Resp 18 18 B/P (MAP) 151/85 (107) 152/93 (112) Pulse Ox 95 95 96 O2 Delivery Room Air Room Air Room Air Room Air 07/17/17 07/17/17 07/18/17 07/18/17 20:26 20:56 00:00 00:28 Temp 97.9 97.9 Pulse 119 Resp 18 18 18 20 B/P (MAP) 162/81 (108) Pulse Ox 96 99 96 96 O2 Delivery Room Air Room Air Room Air Room Air 07/18/17 07/18/17 07/18/17 07/18/17 02:39 03:03 06:45 07:00 Temp 100.4 98.1 100.4 98.1 Pulse 129 107 Resp 20 20 18 20 B/P (MAP) 133/72 (92) 140/79 (99) Pulse Ox 99 99 99 96 O2 Delivery Room Air Room Air Room Air Room Air 07/18/17 07:15 Resp 18 Pulse Ox 96 O2 Delivery Room Air Intake and Output 07/17/17 07/17/17 07/18/17 15:00 23:00 07:00 Intake Total 160 ml Output Total 30 ml Balance 160 ml -30 ml JUAN A MEADE MD Jul 18, 2017 10:12
[2017-07-18] MEDS ORDERED: ONDANSETRON PF 4 MG/2 ML VIAL. IV STA (10:26)
--- NOTE | 2017-07-18 10:37 | PDOC ---
SURGICAL PROGRESS NOTE Subjective Feeling a little better this morning. Had rough night with fever and N/V. Also, having watery diarrhea. Vital Signs Vital Signs Date Time Temp Pulse Resp B/P (MAP) Pulse Ox O2 Delivery O2 Flow Rate FiO2 07/18/17 07:15 18 96 Room Air 07/18/17 07:00 98.1 107 140/79 (99) 98.1 I&O Intake and Output 07/18/17 07:00 Intake Total 160 ml Output Total 30 ml Balance 130 ml Intake Oral 160 ml Other 30 ml # Voids 5 # Bowel Movements 2 PATIENT HAS A ELAM: No General: Alert, Oriented X3, Cooperative, mild distress Abdomen: Normal bowel sounds, Soft, Other (BEVERLY drain intact with dark bloody drainage, Mildly ttp RLQ) Labs Laboratory Tests Test 07/17/17 05:57 07/17/17 08:59 07/18/17 05:00 White Blood Count 18.6 x10^3/uL (4.0-11.0) 27.2 x10^3/uL (4.0-11.0) Red Blood Count 3.38 x10^6/uL (4.30-5.70) 3.26 x10^6/uL (4.30-5.70) Hemoglobin 9.9 g/dL (13.0-17.5) 9.5 g/dL (13.0-17.5) Hematocrit 29.9 % (39.0-53.0) 28.7 % (39.0-53.0) Mean Corpuscular Volume 88 fL (79-100) 88 fL (79-100) Mean Corpuscular Hemoglobin 29 pg (25-35) 29 pg (25-35) Mean Corpuscular Hemoglobin Concent 33 g/dL (31-37) 33 g/dL (31-37) Red Cell Distribution Width 13.9 % (11.5-14.5) 13.5 % (11.5-14.5) Platelet Count 396 x10^3/uL (140-400) 378 x10^3/uL (140-400) Neutrophils (%) (Auto) 76 % (31-73) 84 % (31-73) Lymphocytes (%) (Auto) 10 % (24-48) 6 % (24-48) Monocytes (%) (Auto) 13 % (0-9) 9 % (0-9) Eosinophils (%) (Auto) 0 % (0-3) 1 % (0-3) Basophils (%) (Auto) 1 % (0-3) 0 % (0-3) Neutrophils # (Auto) 14.2 x10^3uL (1.8-7.7) 22.9 x10^3uL (1.8-7.7) Lymphocytes # (Auto) 1.8 x10^3/uL (1.0-4.8) 1.7 x10^3/uL (1.0-4.8) Monocytes # (Auto) 2.5 x10^3/uL (0.0-1.1) 2.3 x10^3/uL (0.0-1.1) Eosinophils # (Auto) 0.1 x10^3/uL (0.0-0.7) 0.3 x10^3/uL (0.0-0.7) Basophils # (Auto) 0.1 x10^3/uL (0.0-0.2) 0.1 x10^3/uL (0.0-0.2) Segmented Neutrophils % 75 % (35-66) Band Neutrophils % 1 % (0-9) Lymphocytes % 10 % (24-48) Monocytes % 14 % (0-10) Platelet Estimate Adequate (ADEQUATE) Prothrombin Time 14.7 SEC (11.7-14.0) Prothromb Time International Ratio 1.2 (0.8-1.1) Sodium Level 131 mmol/L (136-145) 132 mmol/L (136-145) Potassium Level 3.3 mmol/L (3.5-5.1) 3.3 mmol/L (3.5-5.1) Chloride Level 98 mmol/L (98-107) 97 mmol/L (98-107) Carbon Dioxide Level 24 mmol/L (21-32) 25 mmol/L (21-32) Anion Gap 9 (6-14) 10 (6-14) Blood Urea Nitrogen 11 mg/dL (8-26) 12 mg/dL (8-26) Creatinine 1.0 mg/dL (0.7-1.3) 1.0 mg/dL (0.7-1.3) Estimated GFR (Cockcroft-Gault) 82.8 82.8 Glucose Level 157 mg/dL (70-99) 147 mg/dL (70-99) Calcium Level 7.9 mg/dL (8.5-10.1) 8.4 mg/dL (8.5-10.1) Total Bilirubin 1.6 mg/dL (0.2-1.0) Direct Bilirubin 0.7 mg/dL (0.0-0.2) Aspartate Amino Transf (AST/SGOT) 47 U/L (15-37) Alanine Aminotransferase (ALT/SGPT) 60 U/L (16-63) Alkaline Phosphatase 55 U/L (46-116) Total Protein 6.7 g/dL (6.4-8.2) Albumin 2.5 g/dL (3.4-5.0) Phosphorus Level 2.1 mg/dL (2.6-4.7) Laboratory Tests Test 07/18/17 05:00 White Blood Count 27.2 x10^3/uL (4.0-11.0) Red Blood Count 3.26 x10^6/uL (4.30-5.70) Hemoglobin 9.5 g/dL (13.0-17.5) Hematocrit 28.7 % (39.0-53.0) Mean Corpuscular Volume 88 fL (79-100) Mean Corpuscular Hemoglobin 29 pg (25-35) Mean Corpuscular Hemoglobin Concent 33 g/dL (31-37) Red Cell Distribution Width 13.5 % (11.5-14.5) Platelet Count 378 x10^3/uL (140-400) Neutrophils (%) (Auto) 84 % (31-73) Lymphocytes (%) (Auto) 6 % (24-48) Monocytes (%) (Auto) 9 % (0-9) Eosinophils (%) (Auto) 1 % (0-3) Basophils (%) (Auto) 0 % (0-3) Neutrophils # (Auto) 22.9 x10^3uL (1.8-7.7) Lymphocytes # (Auto) 1.7 x10^3/uL (1.0-4.8) Monocytes # (Auto) 2.3 x10^3/uL (0.0-1.1) Eosinophils # (Auto) 0.3 x10^3/uL (0.0-0.7) Basophils # (Auto) 0.1 x10^3/uL (0.0-0.2) Sodium Level 132 mmol/L (136-145) Potassium Level 3.3 mmol/L (3.5-5.1) Chloride Level 97 mmol/L (98-107) Carbon Dioxide Level 25 mmol/L (21-32) Anion Gap 10 (6-14) Blood Urea Nitrogen 12 mg/dL (8-26) Creatinine 1.0 mg/dL (0.7-1.3) Estimated GFR (Cockcroft-Gault) 82.8 Glucose Level 147 mg/dL (70-99) Calcium Level 8.4 mg/dL (8.5-10.1) Problem List Problems Medical Problems: (1) Fever Status: Acute (2) Right lower quadrant abdominal pain Status: Acute Assessment/Plan S/P L/S Appendectomy 10 days ago returned with infected hematoma S/P L/S evacuation of hematoma and drain placement E Coli cultured resistent to several abx now on imepenum Watery diarrhea will obtain stool sample for C.Dif Bowel function slow to return CT of abd pending Will follow closely Problems: JO ANN JUAREZ MD Jul 18, 2017 10:37
[2017-07-18] MEDS: POTASSIUM CHLORIDE 20MEQ 50 ML IV SCH ×2 (10:58→11:00)
--- NOTE | 2017-07-18 13:23 | PDOC ---
PROGRESS NOTES Subjective Subjective c/c - f/u of Coagulopathy Objective Objective Vital Signs Date Time Temp Pulse Resp B/P (MAP) Pulse Ox O2 Delivery O2 Flow Rate FiO2 07/18/17 11:05 98.1 105 20 142/80 (100) 96 Room Air 98.1 Intake and Output 07/18/17 07:00 Intake Total 160 ml Output Total 30 ml Balance 130 ml Intake Oral 160 ml Other 30 ml # Voids 5 # Bowel Movements 2 Physical Exam General: Alert, Oriented X3 Neuro: Normal speech Psych/Mental Status: Mental status NL Assessment Assessment Problems Medical Problems: (1) Fever Status: Acute (2) Right lower quadrant abdominal pain Status: Acute IMPRESSION AND PLAN: 1. Coagulopathy - Elevated PT with a normal PTT on 07/13/2017. INR was only mildly elevated at 1.3. With his albumin level being only 2.7 on 07/14/2017, the etiology of elevated protime is most likely vitamin K deficiency from poor nutrition postoperatively and fatty liver disease. s/p vitamin K and FFP. INR improved to 1.4 on 07/16/2017. s/p another dose of vitamin K 10 mg subcutaneously 07/16/17. INR better at 1.2 on 07/17/17 Continue to monitor for bleeding. Hb stable 9.5 2. Elevated liver function tests with elevated bilirubin of 1.6 on 07/14/2017, which is new. He has had a CT scan of the abdomen and pelvis on 07/14/2017, which revealed evidence of right lower quadrant hematoma. There is also evidence of fatty infiltration of the liver, which may be contributing to elevated liver function tests and possibly the mild coagulopathy. 3. Leukocytosis, reactive. Continue to monitor. 4. Anemia postoperative and also due to hematoma. Continue to monitor. Comment Review of Relevant I have reviewed the following items jersey (where applicable) has been applied. Labs Laboratory Tests Test 07/17/17 05:57 07/17/17 08:59 07/18/17 05:00 White Blood Count 18.6 x10^3/uL (4.0-11.0) 27.2 x10^3/uL (4.0-11.0) Red Blood Count 3.38 x10^6/uL (4.30-5.70) 3.26 x10^6/uL (4.30-5.70) Hemoglobin 9.9 g/dL (13.0-17.5) 9.5 g/dL (13.0-17.5) Hematocrit 29.9 % (39.0-53.0) 28.7 % (39.0-53.0) Mean Corpuscular Volume 88 fL (79-100) 88 fL (79-100) Mean Corpuscular Hemoglobin 29 pg (25-35) 29 pg (25-35) Mean Corpuscular Hemoglobin Concent 33 g/dL (31-37) 33 g/dL (31-37) Red Cell Distribution Width 13.9 % (11.5-14.5) 13.5 % (11.5-14.5) Platelet Count 396 x10^3/uL (140-400) 378 x10^3/uL (140-400) Neutrophils (%) (Auto) 76 % (31-73) 84 % (31-73) Lymphocytes (%) (Auto) 10 % (24-48) 6 % (24-48) Monocytes (%) (Auto) 13 % (0-9) 9 % (0-9) Eosinophils (%) (Auto) 0 % (0-3) 1 % (0-3) Basophils (%) (Auto) 1 % (0-3) 0 % (0-3) Neutrophils # (Auto) 14.2 x10^3uL (1.8-7.7) 22.9 x10^3uL (1.8-7.7) Lymphocytes # (Auto) 1.8 x10^3/uL (1.0-4.8) 1.7 x10^3/uL (1.0-4.8) Monocytes # (Auto) 2.5 x10^3/uL (0.0-1.1) 2.3 x10^3/uL (0.0-1.1) Eosinophils # (Auto) 0.1 x10^3/uL (0.0-0.7) 0.3 x10^3/uL (0.0-0.7) Basophils # (Auto) 0.1 x10^3/uL (0.0-0.2) 0.1 x10^3/uL (0.0-0.2) Segmented Neutrophils % 75 % (35-66) Band Neutrophils % 1 % (0-9) Lymphocytes % 10 % (24-48) Monocytes % 14 % (0-10) Platelet Estimate Adequate (ADEQUATE) Prothrombin Time 14.7 SEC (11.7-14.0) Prothromb Time International Ratio 1.2 (0.8-1.1) Sodium Level 131 mmol/L (136-145) 132 mmol/L (136-145) Potassium Level 3.3 mmol/L (3.5-5.1) 3.3 mmol/L (3.5-5.1) Chloride Level 98 mmol/L (98-107) 97 mmol/L (98-107) Carbon Dioxide Level 24 mmol/L (21-32) 25 mmol/L (21-32) Anion Gap 9 (6-14) 10 (6-14) Blood Urea Nitrogen 11 mg/dL (8-26) 12 mg/dL (8-26) Creatinine 1.0 mg/dL (0.7-1.3) 1.0 mg/dL (0.7-1.3) Estimated GFR (Cockcroft-Gault) 82.8 82.8 Glucose Level 157 mg/dL (70-99) 147 mg/dL (70-99) Calcium Level 7.9 mg/dL (8.5-10.1) 8.4 mg/dL (8.5-10.1) Total Bilirubin 1.6 mg/dL (0.2-1.0) Direct Bilirubin 0.7 mg/dL (0.0-0.2) Aspartate Amino Transf (AST/SGOT) 47 U/L (15-37) Alanine Aminotransferase (ALT/SGPT) 60 U/L (16-63) Alkaline Phosphatase 55 U/L (46-116) Total Protein 6.7 g/dL (6.4-8.2) Albumin 2.5 g/dL (3.4-5.0) Phosphorus Level 2.1 mg/dL (2.6-4.7) Laboratory Tests Test 07/18/17 05:00 White Blood Count 27.2 x10^3/uL (4.0-11.0) Red Blood Count 3.26 x10^6/uL (4.30-5.70) Hemoglobin 9.5 g/dL (13.0-17.5) Hematocrit 28.7 % (39.0-53.0) Mean Corpuscular Volume 88 fL (79-100) Mean Corpuscular Hemoglobin 29 pg (25-35) Mean Corpuscular Hemoglobin Concent 33 g/dL (31-37) Red Cell Distribution Width 13.5 % (11.5-14.5) Platelet Count 378 x10^3/uL (140-400) Neutrophils (%) (Auto) 84 % (31-73) Lymphocytes (%) (Auto) 6 % (24-48) Monocytes (%) (Auto) 9 % (0-9) Eosinophils (%) (Auto) 1 % (0-3) Basophils (%) (Auto) 0 % (0-3) Neutrophils # (Auto) 22.9 x10^3uL (1.8-7.7) Lymphocytes # (Auto) 1.7 x10^3/uL (1.0-4.8) Monocytes # (Auto) 2.3 x10^3/uL (0.0-1.1) Eosinophils # (Auto) 0.3 x10^3/uL (0.0-0.7) Basophils # (Auto) 0.1 x10^3/uL (0.0-0.2) Sodium Level 132 mmol/L (136-145) Potassium Level 3.3 mmol/L (3.5-5.1) Chloride Level 97 mmol/L (98-107) Carbon Dioxide Level 25 mmol/L (21-32) Anion Gap 10 (6-14) Blood Urea Nitrogen 12 mg/dL (8-26) Creatinine 1.0 mg/dL (0.7-1.3) Estimated GFR (Cockcroft-Gault) 82.8 Glucose Level 147 mg/dL (70-99) Calcium Level 8.4 mg/dL (8.5-10.1) Microbiology 07/13/17 Blood Culture - Final, Complete NO GROWTH AFTER 5 DAYS 07/14/17 Anaerobic/Aerobic Culture - Final, Complete 07/14/17 Anaerobic Culture Result 1 (ASH) - Final, Complete 07/14/17 Aerobic Culture - Final, Complete 07/14/17 Aerobic Culture Result 1 (ASH) - Final, Complete Medications Current Medications Sodium Chloride 2,460 ml @ 410 mls/hr Q6H IV Last administered on 07/13/17t 10 :53; Start 07/13/17 at 10:24; Stop 07/13/17 at 16:23; Status DC Sodium Chloride 500 ml @ 1,000 mls/hr PRN Q30MIN PRN IV SEE COMMENTS Last administered on 07/14/17 16:51; Start 07/13/17 at 10:30 Ibuprofen (Motrin) 800 mg 1X ONCE PO Last administered on 07/13/17 10:54; Start 07/13/17 at 10:30; Stop 07/13/17 at 10:31; Status DC Ondansetron HCl (Zofran) 4 mg 1X ONCE IV Last administered on 07/13/17 10:54 ; Start 07/13/17 at 10:30; Stop 07/13/17 at 10:31; Status DC Morphine Sulfate 5 mg 1X ONCE IV ; Start 07/13/17 at 10:30; Stop 07/13/17 at 10 :59; Status DC Fentanyl Citrate (Fentanyl 2ml Vial) 50 mcg 1X ONCE IV Last administered on 11:27; Start 07/13/17 at 11:30; Stop 07/13/17 at 11:31; Status DC Acetaminophen (Tylenol) 1,000 mg 1X ONCE PO ; Start 07/13/17 at 12:45; Stop at 12:46; Status DC Acetaminophen (Tylenol) 1,000 mg 1X ONCE PO Last administered on 07/13/17 12: 27; Start 07/13/17 at 12:30; Stop 07/13/17 at 12:31; Status DC Iohexol (Omnipaque 300 Mg/ml) 75 ml 1X ONCE IV Last administered on 07/13/17 13:07; Start 07/13/17 at 13:30; Stop 07/13/17 at 13:31; Status DC Info (Do NOT chart on this entry -- for MONITORING) 1 each PRN DAILY PRN MC SEE COMMENTS; Start 07/13/17 at 13:15; Stop 07/14/17 at 16:29; Status DC Piperacillin Sod/ Tazobactam Sod 4.5 gm/Sodium Chloride 100 ml @ 200 mls/hr Q8HRS IV Last administered on 07/17/17 05:42; Start 07/13/17 at 22:00; Stop at 08:22; Status DC Piperacillin Sod/ Tazobactam Sod 4.5 gm/Sodium Chloride 100 ml @ 200 mls/hr 1X ONCE IV Last administered on 07/13/17 14:22; Start 07/13/17 at 15:00; Stop 07/13/17 at 15:29; Status DC Metronidazole 100 ml @ 100 mls/hr Q8HRS IV Last administered on 07/15/17 05: 38; Start 07/13/17 at 22:00; Stop 07/15/17 at 10:42; Status DC Fluconazole/ Sodium Chloride 200 ml @ 100 mls/hr Q24H IV Last administered on 07/17/17 15:54; Start 07/13/17 at 17:00 Metronidazole 100 ml @ 100 mls/hr 1X ONCE IV ; Start 07/13/17 at 14:45; Stop 07/13/17 at 15:44; Status DC Ondansetron HCl (Zofran) 4 mg PRN Q8HRS PRN IV NAUSEA/VOMITING Last administered on 07/14/17 08:21; Start 07/13/17 at 15:15; Stop 07/14/17 at 12:54 ; Status DC Fentanyl Citrate (Fentanyl 2ml Vial) 50 mcg PRN Q2HR PRN IV PAIN Last administered on 07/13/17 17:25; Start 07/13/17 at 15:15; Stop 07/14/17 at 15:14 ; Status DC Acetaminophen (Tylenol) 650 mg PRN Q4HRS PRN PO FEVER Last administered on 07/14 04:01; Start 07/13/17 at 15:15; Stop 07/14/17 at 15:14; Status DC Sodium Chloride 1,000 ml @ 125 mls/hr 1X ONCE IV ; Start 07/13/17 at 15:15; Stop 07/13/17 at 23:14; Status DC Ibuprofen (Motrin) 800 mg PRN Q6HRS PRN PO INFLAMMATION; Start 07/13/17 at 15: 15; Stop 07/14/17 at 20:41; Status DC Lidocaine/Sodium Bicarbonate (Buffered Lidocaine 1%) 20 ml STK-MED ONCE IJ ; Start 07/13/17 at 15:21; Stop 07/13/17 at 15:22; Status DC Midazolam HCl (Versed) 2 mg STK-MED ONCE .ROUTE ; Start 07/13/17 at 15:36; Stop 07/13/17 at 15:37; Status DC Lidocaine/Sodium Bicarbonate (Buffered Lidocaine 1%) 20 ml 1X ONCE IJ Last administered on 07/13/17 16:24; Start 07/13/17 at 16:30; Stop 07/13/17 at 16:31 ; Status DC Hydromorphone HCl (Dilaudid) 2 mg PRN Q2HR PRN IV PAIN SEVERE Last administered on 07/14/17 12:41; Start 07/13/17 at 19:30; Stop 07/14/17 at 16:30 ; Status DC Hydromorphone HCl (Dilaudid) 2 mg PRN Q1HR PRN IV PAIN SEVERE; Start 07/13/17 at 19:30; Stop 07/15/17 at 21:42; Status DC Dextrose/Lactated Ringer's 1,000 ml @ 150 mls/hr Q6H40M IV Last administered on 07/18/17 05:42; Start 07/14/17 at 09:00 Ondansetron HCl (Zofran) 8 mg PRN Q6HRS PRN IV NAUSEA/VOMITING Last administered on 07/18/17 06:44; Start 07/14/17 at 13:00 Bisacodyl (Dulcolax Supp) 10 mg PRN DAILY PRN [place] CONSTIPATION Last administered on 07/14/17 13:31; Start 07/14/17 at 13:00 Polyethylene Glycol (miraLAX PACKET) 17 gm DAILY PO Last administered on 16:48; Start 07/14/17 at 15:00 Iohexol (Omnipaque 300 Mg/ml) 75 ml 1X ONCE IV Last administered on 07/14/17 15:39; Start 07/14/17 at 14:45; Stop 07/14/17 at 14:46; Status DC Iohexol (Omnipaque 240 Mg/ml) 50 ml 1X ONCE PO Last administered on 07/14/17 14:45; Start 07/14/17 at 14:45; Stop 07/14/17 at 14:46; Status DC Info (Do NOT chart on this entry -- for MONITORING) 1 each PRN DAILY PRN MC SEE COMMENTS; Start 07/14/17 at 14:45; Stop 07/16/17 at 14:44; Status DC Phytonadione 10 mg/Sodium Chloride 51 ml @ 102 mls/hr 1X ONCE IV Last administered on 07/14/17 18:25; Start 07/14/17 at 18:15; Stop 07/14/17 at 18:44 ; Status DC Dexamethasone Sodium Phosphate (Decadron) 20 mg STK-MED ONCE .ROUTE ; Start at 19:13; Stop 07/14/17 at 19:14; Status DC Ondansetron HCl (Zofran) 4 mg STK-MED ONCE .ROUTE ; Start 07/14/17 at 19:13; Stop 07/14/17 at 19:14; Status DC Propofol 20 ml @ As Directed STK-MED ONCE IV ; Start 07/14/17 at 19:13; Stop at 19:14; Status DC Lidocaine HCl (Lidocaine Pf 2% Vial) 5 ml STK-MED ONCE .ROUTE ; Start 07/14/17 at 19:13; Stop 07/14/17 at 19:14; Status DC Midazolam HCl (Versed) 2 mg STK-MED ONCE .ROUTE ; Start 07/14/17 at 19:13; Stop 07/14/17 at 19:14; Status DC Fentanyl Citrate (Fentanyl 2ml Vial) 100 mcg STK-MED ONCE .ROUTE ; Start at 19:13; Stop 07/14/17 at 19:14; Status DC Bupivacaine HCl/ Epinephrine Bitart (Sensorcain-Mpf Epi 0.5%-1:619754) 30 ml STK -MED ONCE .ROUTE Last administered on 07/14/17 20:00; Start 07/14/17 at 19:32 ; Stop 07/14/17 at 19:33; Status DC Glycopyrrolate (Robinul) 1 mg STK-MED ONCE .ROUTE ; Start 07/14/17 at 20:22; Stop 07/14/17 at 20:23; Status DC Neostigmine Methylsulfate 5 mg STK-MED ONCE .ROUTE ; Start 07/14/17 at 20:22; Stop 07/14/17 at 20:23; Status DC Fentanyl Citrate (Fentanyl 2ml Vial) 100 mcg STK-MED ONCE .ROUTE ; Start at 20:27; Stop 07/14/17 at 20:28; Status DC Fentanyl Citrate 30 ml @ 0 mls/hr CONT PRN PRN IV PROTOCOL; Start 07/14/17 at 20:45; Stop 07/14/17 at 22:30; Status DC Naloxone HCl (Narcan) 0.4 mg PRN Q2MIN PRN IV SEE INSTRUCTIONS; Start 07/14/17 at 20:45 Sodium Chloride 1,000 ml @ 25 mls/hr Q24H IV Last administered on 07/15/17 22 :23; Start 07/14/17 at 20:37; Stop 07/16/17 at 18:03; Status DC Sevoflurane (Ultane) 90 ml STK-MED ONCE IH ; Start 07/14/17 at 20:59; Stop 07/14 at 21:00; Status DC Phenylephrine HCl 1 mg STK-MED ONCE IV ; Start 07/14/17 at 20:59; Stop 07/14/17 at 21:00; Status DC Promethazine HCl 12.5 mg/Sodium Chloride 50.5 ml @ 151.5 mls/ hr PRN Q6HRS PRN IV NAUSEA/VOMITING Last administered on 07/18/17 02:50; Start 07/14/17 at 21:45 Hydromorphone HCl 30 ml @ 0 mls/hr CONT PRN PRN IV PROTOCOL Last administered on 07/15/17 23:10; Start 07/14/17 at 22:00; Stop 07/17/17 at 06:45; Status DC Albumin Human 100 ml @ 100 mls/hr 1X ONCE IV Last administered on 07/14/17 23:37; Start 07/14/17 at 22:30; Stop 07/14/17 at 23:29; Status DC Potassium Chloride 50 ml @ 50 mls/hr 1X ONCE IV Last administered on 22:19; Start 07/14/17 at 22:30; Stop 07/14/17 at 23:29; Status DC Calcium Chloride 1000 mg/Sodium Chloride 60 ml @ 120 mls/hr 1X ONCE IV Last administered on 07/15/17 00:40; Start 07/14/17 at 23:00; Stop 07/14/17 at 23:29 ; Status DC Hydralazine HCl (Apresoline) 10 mg PRN Q6HRS PRN IVP ELEVATED BP, SEE COMMENTS Last administered on 07/16/17 22:15; Start 07/15/17 at 00:15 Albumin Human 500 ml @ 125 mls/hr 1X ONCE IV Last administered on 07/15/17 00:17; Start 07/15/17 at 00:30; Stop 07/15/17 at 04:29; Status DC Sodium Phosphate 20 mmol/Dextrose 256.6667 ml @ 64.167 m... 1X ONCE IV Last administered on 07/15/17 01:43; Start 07/15/17 at 01:30; Stop 07/15/17 at 05:29 ; Status DC Magnesium Sulfate/ Dextrose 50 ml @ 25 mls/hr 1X ONCE IV Last administered on 07/15/17 08:04; Start 07/15/17 at 07:30; Stop 07/15/17 at 09:29; Status DC Magnesium Sulfate/ Dextrose 50 ml @ 25 mls/hr 1X ONCE IV ; Start 07/15/17 at 13 :00; Stop 07/15/17 at 14:59; Status DC Lorazepam (Ativan) 0.25 mg PRN Q6HRS PRN IV ANXIETY / AGITATION Last administered on 07/18/17 10:49; Start 07/15/17 at 21:45 Prochlorperazine Edisylate (Compazine) 5 mg PRN Q6HRS PRN IV NAUSEA/VOMITING Last administered on 07/18/17 08:26; Start 07/16/17 at 11:30 Fentanyl Citrate (Fentanyl 2ml Vial) 25 mcg PRN Q3HRS PRN IV PAIN Last administered on 07/17/17 07:26; Start 07/16/17 at 11:30; Stop 07/17/17 at 21:01 ; Status DC Fentanyl Citrate (Fentanyl 2ml Vial) 50 mcg PRN Q3HRS PRN IV PAIN Last administered on 07/17/17 20:26; Start 07/16/17 at 11:30; Stop 07/17/17 at 21:01 ; Status DC Ketorolac Tromethamine (Toradol) 15 mg 1X ONCE IV Last administered on 12:09; Start 07/16/17 at 12:00; Stop 07/16/17 at 12:01; Status DC Phytonadione (Vitamin K Ampule) 10 mg 1X ONCE SQ Last administered on 16:38; Start 07/16/17 at 12:30; Stop 07/16/17 at 12:31; Status DC Diphenhydramine HCl (Benadryl) 25 mg 1X ONCE IVP Last administered on 13:53; Start 07/16/17 at 13:15; Stop 07/16/17 at 13:16; Status DC Acetaminophen (Tylenol) 650 mg PRN Q8HRS PRN PO FEVER Last administered on 07/18 03:46; Start 07/16/17 at 20:15 Meropenem 500 mg/ Sodium Chloride 50 ml @ 100 mls/hr Q8HRS IV Last administered on 07/18/17 05:44; Start 07/17/17 at 14:00 Potassium Chloride 50 ml @ 50 mls/hr Q1H IV ; Start 07/17/17 at 10:30; Stop at 12:29; Status Cancel Potassium Phosphate 10 mmol/ Sodium Chloride 103.3333 ml @ 51.667 m... Q2H IV Last administered on 07/17/17 14:36; Start 07/17/17 at 10:30; Stop 07/17/17 at 16:29; Status DC Fentanyl Citrate (Fentanyl 2ml Vial) 25 mcg PRN Q2HRS PRN IV MODERATE PAIN; Start 07/17/17 at 22:30 Fentanyl Citrate (Fentanyl 2ml Vial) 50 mcg PRN Q2HRS PRN IV SEVERE PAIN Last administered on 07/18/17 06:45; Start 07/17/17 at 22:30 Iohexol (Omnipaque 240 Mg/ml) 30 ml 1X ONCE PO Last administered on 07/18/17 12:13; Start 07/18/17 at 09:30; Stop 07/18/17 at 09:33; Status DC Iohexol (Omnipaque 300 Mg/ml) 75 ml 1X ONCE IV Last administered on 07/18/17 12:13; Start 07/18/17 at 09:30; Stop 07/18/17 at 09:33; Status DC Info (Do NOT chart on this entry -- for MONITORING) 1 each PRN DAILY PRN MC SEE COMMENTS; Start 07/18/17 at 09:45; Stop 07/20/17 at 09:44 Potassium Chloride 50 ml @ 50 mls/hr Q1H IV Last administered on 07/18/17 10: 58; Start 07/18/17 at 10:00; Stop 07/18/17 at 11:59; Status DC Ondansetron HCl (Zofran) 8 mg 1X STAT IV Last administered on 07/18/17t 10:50 ; Start 07/18/17 at 10:26; Stop 07/18/17 at 10:30; Status DC Active Scripts Active Oxycodone-Acetaminophen 5-325 (Oxycodone Hcl/Acetaminophen) 1 Each Tablet 1 Tab PO PRN Q4HRS PRN Reported Colace (Docusate Sodium) 100 Mg Capsule 100 Cap PO BID Polyethylene Glycol 3350 255 Gm Powder 17 Gm PO DAILY Atorvastatin Calcium 20 Mg Tablet 20 Mg PO HS Vitals/I & O Vital Sign - Last 24 Hours 07/17/17 07/17/17 07/17/17 07/17/17 15:52 16:18 17:20 20:00 Temp 98.8 98.8 Pulse 116 Resp 18 B/P (MAP) 151/85 (107) Pulse Ox 95 95 O2 Delivery Room Air Room Air Room Air Room Air 07/17/17 07/17/17 07/17/17 07/18/17 20:00 20:26 20:56 00:00 Temp 98.4 97.9 98.4 97.9 Pulse 127 119 Resp 18 18 18 18 B/P (MAP) 152/93 (112) 162/81 (108) Pulse Ox 96 96 99 96 O2 Delivery Room Air Room Air Room Air Room Air 07/18/17 07/18/17 07/18/17 07/18/17 00:28 02:39 03:03 06:45 Temp 100.4 100.4 Pulse 129 Resp 20 20 20 18 B/P (MAP) 133/72 (92) Pulse Ox 96 99 99 99 O2 Delivery Room Air Room Air Room Air Room Air 07/18/17 07/18/17 07/18/17 07:00 07:15 11:05 Temp 98.1 98.1 98.1 98.1 Pulse 107 105 Resp 20 18 20 B/P (MAP) 140/79 (99) 142/80 (100) Pulse Ox 96 96 96 O2 Delivery Room Air Room Air Room Air Intake and Output 07/17/17 07/17/17 07/18/17 15:00 23:00 07:00 Intake Total 160 ml Output Total 30 ml Balance 160 ml -30 ml LIZBETH HOSKINS MD Jul 18, 2017 13:23
--- NOTE | 2017-07-18 15:53 | RAD ---
CT abdomen/pelvis Indication: Leukocytosis. Recent appendicitis with appendectomy. Technique: CT abdomen/pelvis with 75 mL of IV Omnipaque 300 and 30 mL of Omnipaque 240 by mouth contrast Comparison: Previous study from 07/14/2017 Findings: Heart is normal in size. No pericardial effusion. Bibasilar atelectasis in the lungs. Liver is normal in morphology without focal hepatic lesion. Spleen within normal limits. No radiopaque gallstones. Pancreas show mild diffuse fatty atrophy without focal lesion. Adrenal glands show no focal lesion. No hydronephrosis. Diffuse dilated small bowel loops with air-fluid levels noted with transition point in the right hemiabdomen. Small amount of perihepatic fluid noted. There is right lower quadrant percutaneous drain with its tip in the right paracolic gutter. There is a 9.0 x 8.4 x 6.6 cm fluid collection within pelvis in the rectovesicular space with foci of nondependent air, previously measuring 7.7 x 8.0 x 5.4 cm. Significant distention of the stomach noted. No free intraperitoneal air or pneumatosis intestinalis. No retroperitoneal or pelvic adenopathy. Small mesenteric lymph nodes seen in the right lower quadrant likely reactive. Inflammatory changes seen in the mesentery. Appendectomy changes noted. Bladder is within normal limits. Small foci of air in the anterior aspect of the bladder may be secondary to recent instrumentation. Clinically correlate. No suspicious bony lesions. Impression: 1. Findings of small bowel obstruction with transition point most likely in the right hemiabdomen. 2. Slight interval increase in the size of a rectovesicular space fluid collection with foci of air. This is concerning for abscess. 3. Right percutaneous abscess drain with its tip in the right paracolic gutter. PQRS Compliance Statement: One or more of the following individualized dose reduction techniques were utilized for this examination: 1. Automated exposure control 2. Adjustment of the mA and/or kV according to patient size 3. Use of iterative reconstruction technique
[2017-07-18] MEDS: FLUCONAZOLE 400MG/200ML PREMIX 200 ML IV SCH (17:22)
[2017-07-19] VITALS (14 sets, daily range): BP systolic 125–170; BP diastolic 62–87
[2017-07-19] MEDS: IV DEXTROSE 5%-LACT RINGERS 1,000 ML IV SCH ×4 (02:20→22:29)
[2017-07-19] MEDS: ONDANSETRON PF 4 MG/2 ML VIAL. IV PRN ×2 (04:14→11:03)
[2017-07-19] MEDS: MEROPENEM 500 MG in IV NORMAL SALINE 50ML 50 ML IV SCH ×3 (06:00→22:03)
[2017-07-19 06:18] LABS: BASO # 0.1 x10^3/uL (0.0-0.2); BASO % 1 % (0-3); EOS % 3 % (0-3); HEMATOCRIT 25.7 % (39.0-53.0); HEMOGLOBIN 8.5 g/dL (13.0-17.5); LYMPH # 1.7 x10^3/uL (1.0-4.8); LYMPH % 10 % (24-48); MEAN CORPUSCULAR HEMOGLOBIN 29 pg (25-35); MEAN CORPUSCULAR HGB CONC 33 g/dL (31-37); MEAN CORPUSCULAR VOLUME 89 fL (79-100); MONO % 11 % (0-9); NEUT % 75 % (31-73); PLATELET COUNT 349 x10^3/uL (140-400); RED CELL DISTRIBUTION WIDTH 13.9 % (11.5-14.5); WHITE BLOOD COUNT 16.9 x10^3/uL (4.0-11.0)
[2017-07-19 06:45] LABS: CALCIUM 7.6 mg/dL (8.5-10.1); CREATININE 0.9 mg/dL (0.7-1.3); GFR 93.5; POTASSIUM 3.7 mmol/L (3.5-5.1)
[2017-07-19] MEDS: fentaNYL PF VIAL 100 MCG/2 ML VIAL IV PRN ×5 (08:31→21:09)
--- NOTE | 2017-07-19 08:31 | PDOC ---
SURGICAL PROGRESS NOTE Subjective Complains of alot of diarrhea. Less abdominal pain. No nausea currently. Vital Signs Vital Signs Date Time Temp Pulse Resp B/P (MAP) Pulse Ox O2 Delivery O2 Flow Rate FiO2 07/19/17 03:00 97.9 95 18 145/87 (106) 95 Room Air 97.9 I&O Intake and Output 07/19/17 07:00 Intake Total 300.5 ml Balance 300.5 ml Intake Oral 200 ml IV Total 100.5 ml # Voids 6 # Bowel Movements 7 PATIENT HAS A ELAM: No General: Alert, Oriented X3, Cooperative, mild distress Abdomen: Normal bowel sounds, Soft, Other (minimal lower abdominal TTP, BEVERLY drain with minimal bloody drainage) Neuro: Normal speech Psych/Mental Status: Mental status NL Labs Laboratory Tests Test 07/17/17 08:59 07/18/17 05:00 07/18/17 13:04 07/19/17 06:00 Phosphorus Level 2.1 mg/dL (2.6-4.7) White Blood Count 27.2 x10^3/uL (4.0-11.0) 16.9 x10^3/uL (4.0-11.0) Red Blood Count 3.26 x10^6/uL (4.30-5.70) 2.90 x10^6/uL (4.30-5.70) Hemoglobin 9.5 g/dL (13.0-17.5) 8.5 g/dL (13.0-17.5) Hematocrit 28.7 % (39.0-53.0) 25.7 % (39.0-53.0) Mean Corpuscular Volume 88 fL (79-100) 89 fL (79-100) Mean Corpuscular Hemoglobin 29 pg (25-35) 29 pg (25-35) Mean Corpuscular Hemoglobin Concent 33 g/dL (31-37) 33 g/dL (31-37) Red Cell Distribution Width 13.5 % (11.5-14.5) 13.9 % (11.5-14.5) Platelet Count 378 x10^3/uL (140-400) 349 x10^3/uL (140-400) Neutrophils (%) (Auto) 84 % (31-73) 75 % (31-73) Lymphocytes (%) (Auto) 6 % (24-48) 10 % (24-48) Monocytes (%) (Auto) 9 % (0-9) 11 % (0-9) Eosinophils (%) (Auto) 1 % (0-3) 3 % (0-3) Basophils (%) (Auto) 0 % (0-3) 1 % (0-3) Neutrophils # (Auto) 22.9 x10^3uL (1.8-7.7) 12.7 x10^3uL (1.8-7.7) Lymphocytes # (Auto) 1.7 x10^3/uL (1.0-4.8) 1.7 x10^3/uL (1.0-4.8) Monocytes # (Auto) 2.3 x10^3/uL (0.0-1.1) 1.9 x10^3/uL (0.0-1.1) Eosinophils # (Auto) 0.3 x10^3/uL (0.0-0.7) 0.4 x10^3/uL (0.0-0.7) Basophils # (Auto) 0.1 x10^3/uL (0.0-0.2) 0.1 x10^3/uL (0.0-0.2) Sodium Level 132 mmol/L (136-145) 134 mmol/L (136-145) Potassium Level 3.3 mmol/L (3.5-5.1) 3.7 mmol/L (3.5-5.1) Chloride Level 97 mmol/L (98-107) 101 mmol/L (98-107) Carbon Dioxide Level 25 mmol/L (21-32) 27 mmol/L (21-32) Anion Gap 10 (6-14) 6 (6-14) Blood Urea Nitrogen 12 mg/dL (8-26) 13 mg/dL (8-26) Creatinine 1.0 mg/dL (0.7-1.3) 0.9 mg/dL (0.7-1.3) Estimated GFR (Cockcroft-Gault) 82.8 93.5 Glucose Level 147 mg/dL (70-99) 140 mg/dL (70-99) Calcium Level 8.4 mg/dL (8.5-10.1) 7.6 mg/dL (8.5-10.1) Clostridium difficile Toxin (PCR) Positive (Negative) Laboratory Tests Test 07/18/17 13:04 07/19/17 06:00 Clostridium difficile Toxin (PCR) Positive (Negative) White Blood Count 16.9 x10^3/uL (4.0-11.0) Red Blood Count 2.90 x10^6/uL (4.30-5.70) Hemoglobin 8.5 g/dL (13.0-17.5) Hematocrit 25.7 % (39.0-53.0) Mean Corpuscular Volume 89 fL (79-100) Mean Corpuscular Hemoglobin 29 pg (25-35) Mean Corpuscular Hemoglobin Concent 33 g/dL (31-37) Red Cell Distribution Width 13.9 % (11.5-14.5) Platelet Count 349 x10^3/uL (140-400) Neutrophils (%) (Auto) 75 % (31-73) Lymphocytes (%) (Auto) 10 % (24-48) Monocytes (%) (Auto) 11 % (0-9) Eosinophils (%) (Auto) 3 % (0-3) Basophils (%) (Auto) 1 % (0-3) Neutrophils # (Auto) 12.7 x10^3uL (1.8-7.7) Lymphocytes # (Auto) 1.7 x10^3/uL (1.0-4.8) Monocytes # (Auto) 1.9 x10^3/uL (0.0-1.1) Eosinophils # (Auto) 0.4 x10^3/uL (0.0-0.7) Basophils # (Auto) 0.1 x10^3/uL (0.0-0.2) Sodium Level 134 mmol/L (136-145) Potassium Level 3.7 mmol/L (3.5-5.1) Chloride Level 101 mmol/L (98-107) Carbon Dioxide Level 27 mmol/L (21-32) Anion Gap 6 (6-14) Blood Urea Nitrogen 13 mg/dL (8-26) Creatinine 0.9 mg/dL (0.7-1.3) Estimated GFR (Cockcroft-Gault) 93.5 Glucose Level 140 mg/dL (70-99) Calcium Level 7.6 mg/dL (8.5-10.1) Problem List Problems Medical Problems: (1) Fever Status: Acute (2) Right lower quadrant abdominal pain Status: Acute Assessment/Plan S/P L/S appy and evacuation of abdominal hematoma C.Dif positive-tx per ID Pelvic fluid collection by CT will consult IR for draining fluid Start TPN today Continue supportive care. Problems: JO ANN JUAREZ MD Jul 19, 2017 08:31
[2017-07-19] MEDS: POLYETHYLENE GLYCOL 3350 17 GM PACKET. PO SCH (08:38)
--- NOTE | 2017-07-19 09:00 | PDOC ---
PROGRESS NOTES Subjective Subjective c/c - f/u of Coagulopathy ROS - no CP Objective Objective Vital Signs Date Time Temp Pulse Resp B/P (MAP) Pulse Ox O2 Delivery O2 Flow Rate FiO2 07/19/17 08:31 16 Room Air 07/19/17 07:00 97.9 102 125/71 (89) 96 97.9 Intake and Output 07/19/17 07:00 Intake Total 300.5 ml Balance 300.5 ml Intake Oral 200 ml IV Total 100.5 ml # Voids 6 # Bowel Movements 7 Physical Exam General: Alert, Oriented X3 Neuro: Normal speech Psych/Mental Status: Mental status NL Assessment Assessment Problems Medical Problems: (1) Fever Status: Acute (2) Right lower quadrant abdominal pain Status: Acute IMPRESSION AND PLAN: 1. Coagulopathy - Elevated PT with a normal PTT on 07/13/2017. INR was only mildly elevated at 1.3. With his albumin level being only 2.7 on 07/14/2017, the etiology of elevated protime is most likely vitamin K deficiency from poor nutrition postoperatively and fatty liver disease. s/p vitamin K and FFP. INR improved to 1.4 on 07/16/2017. s/p another dose of vitamin K 10 mg subcutaneously 07/16/17. INR better at 1.2 on 07/17/17 Continue to monitor for bleeding. Hb worse 8.5. Drain shows bloody drainage. 2. Elevated liver function tests with elevated bilirubin of 1.6 on 07/14/2017, which is new. He has had a CT scan of the abdomen and pelvis on 07/14/2017, which revealed evidence of right lower quadrant hematoma. There is also evidence of fatty infiltration of the liver, which may be contributing to elevated liver function tests and possibly the mild coagulopathy. 3. Leukocytosis, reactive. Continue to monitor. Better at 16.9 4. Anemia postoperative and also due to hematoma. Continue to monitor. I d/w RN Comment Review of Relevant I have reviewed the following items jersey (where applicable) has been applied. Labs Laboratory Tests Test 07/17/17 08:59 07/18/17 05:00 07/18/17 13:04 07/19/17 06:00 Phosphorus Level 2.1 mg/dL (2.6-4.7) White Blood Count 27.2 x10^3/uL (4.0-11.0) 16.9 x10^3/uL (4.0-11.0) Red Blood Count 3.26 x10^6/uL (4.30-5.70) 2.90 x10^6/uL (4.30-5.70) Hemoglobin 9.5 g/dL (13.0-17.5) 8.5 g/dL (13.0-17.5) Hematocrit 28.7 % (39.0-53.0) 25.7 % (39.0-53.0) Mean Corpuscular Volume 88 fL (79-100) 89 fL (79-100) Mean Corpuscular Hemoglobin 29 pg (25-35) 29 pg (25-35) Mean Corpuscular Hemoglobin Concent 33 g/dL (31-37) 33 g/dL (31-37) Red Cell Distribution Width 13.5 % (11.5-14.5) 13.9 % (11.5-14.5) Platelet Count 378 x10^3/uL (140-400) 349 x10^3/uL (140-400) Neutrophils (%) (Auto) 84 % (31-73) 75 % (31-73) Lymphocytes (%) (Auto) 6 % (24-48) 10 % (24-48) Monocytes (%) (Auto) 9 % (0-9) 11 % (0-9) Eosinophils (%) (Auto) 1 % (0-3) 3 % (0-3) Basophils (%) (Auto) 0 % (0-3) 1 % (0-3) Neutrophils # (Auto) 22.9 x10^3uL (1.8-7.7) 12.7 x10^3uL (1.8-7.7) Lymphocytes # (Auto) 1.7 x10^3/uL (1.0-4.8) 1.7 x10^3/uL (1.0-4.8) Monocytes # (Auto) 2.3 x10^3/uL (0.0-1.1) 1.9 x10^3/uL (0.0-1.1) Eosinophils # (Auto) 0.3 x10^3/uL (0.0-0.7) 0.4 x10^3/uL (0.0-0.7) Basophils # (Auto) 0.1 x10^3/uL (0.0-0.2) 0.1 x10^3/uL (0.0-0.2) Sodium Level 132 mmol/L (136-145) 134 mmol/L (136-145) Potassium Level 3.3 mmol/L (3.5-5.1) 3.7 mmol/L (3.5-5.1) Chloride Level 97 mmol/L (98-107) 101 mmol/L (98-107) Carbon Dioxide Level 25 mmol/L (21-32) 27 mmol/L (21-32) Anion Gap 10 (6-14) 6 (6-14) Blood Urea Nitrogen 12 mg/dL (8-26) 13 mg/dL (8-26) Creatinine 1.0 mg/dL (0.7-1.3) 0.9 mg/dL (0.7-1.3) Estimated GFR (Cockcroft-Gault) 82.8 93.5 Glucose Level 147 mg/dL (70-99) 140 mg/dL (70-99) Calcium Level 8.4 mg/dL (8.5-10.1) 7.6 mg/dL (8.5-10.1) Clostridium difficile Toxin (PCR) Positive (Negative) Laboratory Tests Test 07/18/17 13:04 07/19/17 06:00 Clostridium difficile Toxin (PCR) Positive (Negative) White Blood Count 16.9 x10^3/uL (4.0-11.0) Red Blood Count 2.90 x10^6/uL (4.30-5.70) Hemoglobin 8.5 g/dL (13.0-17.5) Hematocrit 25.7 % (39.0-53.0) Mean Corpuscular Volume 89 fL (79-100) Mean Corpuscular Hemoglobin 29 pg (25-35) Mean Corpuscular Hemoglobin Concent 33 g/dL (31-37) Red Cell Distribution Width 13.9 % (11.5-14.5) Platelet Count 349 x10^3/uL (140-400) Neutrophils (%) (Auto) 75 % (31-73) Lymphocytes (%) (Auto) 10 % (24-48) Monocytes (%) (Auto) 11 % (0-9) Eosinophils (%) (Auto) 3 % (0-3) Basophils (%) (Auto) 1 % (0-3) Neutrophils # (Auto) 12.7 x10^3uL (1.8-7.7) Lymphocytes # (Auto) 1.7 x10^3/uL (1.0-4.8) Monocytes # (Auto) 1.9 x10^3/uL (0.0-1.1) Eosinophils # (Auto) 0.4 x10^3/uL (0.0-0.7) Basophils # (Auto) 0.1 x10^3/uL (0.0-0.2) Sodium Level 134 mmol/L (136-145) Potassium Level 3.7 mmol/L (3.5-5.1) Chloride Level 101 mmol/L (98-107) Carbon Dioxide Level 27 mmol/L (21-32) Anion Gap 6 (6-14) Blood Urea Nitrogen 13 mg/dL (8-26) Creatinine 0.9 mg/dL (0.7-1.3) Estimated GFR (Cockcroft-Gault) 93.5 Glucose Level 140 mg/dL (70-99) Calcium Level 7.6 mg/dL (8.5-10.1) Microbiology 07/18/17 Blood Culture - Preliminary, Resulted NO GROWTH AFTER 1 DAY 07/14/17 Anaerobic/Aerobic Culture - Final, Complete 07/14/17 Anaerobic Culture Result 1 (ASH) - Final, Complete 07/14/17 Aerobic Culture - Final, Complete 07/14/17 Aerobic Culture Result 1 (ASH) - Final, Complete Medications Current Medications Sodium Chloride 2,460 ml @ 410 mls/hr Q6H IV Last administered on 07/13/17 10 :53; Start 07/13/17 at 10:24; Stop 07/13/17 at 16:23; Status DC Sodium Chloride 500 ml @ 1,000 mls/hr PRN Q30MIN PRN IV SEE COMMENTS Last administered on 07/14/17 16:51; Start 07/13/17 at 10:30 Ibuprofen (Motrin) 800 mg 1X ONCE PO Last administered on 07/13/17 10:54; Start 07/13/17 at 10:30; Stop 07/13/17 at 10:31; Status DC Ondansetron HCl (Zofran) 4 mg 1X ONCE IV Last administered on 07/13/17 10:54 ; Start 07/13/17 at 10:30; Stop 07/13/17 at 10:31; Status DC Morphine Sulfate 5 mg 1X ONCE IV ; Start 07/13/17 at 10:30; Stop 07/13/17 at 10 :59; Status DC Fentanyl Citrate (Fentanyl 2ml Vial) 50 mcg 1X ONCE IV Last administered on 11:27; Start 07/13/17 at 11:30; Stop 07/13/17 at 11:31; Status DC Acetaminophen (Tylenol) 1,000 mg 1X ONCE PO ; Start 07/13/17 at 12:45; Stop at 12:46; Status DC Acetaminophen (Tylenol) 1,000 mg 1X ONCE PO Last administered on 07/13/17 12: 27; Start 07/13/17 at 12:30; Stop 07/13/17 at 12:31; Status DC Iohexol (Omnipaque 300 Mg/ml) 75 ml 1X ONCE IV Last administered on 07/13/17 13:07; Start 07/13/17 at 13:30; Stop 07/13/17 at 13:31; Status DC Info (Do NOT chart on this entry -- for MONITORING) 1 each PRN DAILY PRN MC SEE COMMENTS; Start 07/13/17 at 13:15; Stop 07/14/17 at 16:29; Status DC Piperacillin Sod/ Tazobactam Sod 4.5 gm/Sodium Chloride 100 ml @ 200 mls/hr Q8HRS IV Last administered on 07/17/17 05:42; Start 07/13/17 at 22:00; Stop at 08:22; Status DC Piperacillin Sod/ Tazobactam Sod 4.5 gm/Sodium Chloride 100 ml @ 200 mls/hr 1X ONCE IV Last administered on 07/13/17 14:22; Start 07/13/17 at 15:00; Stop 07/13/17 at 15:29; Status DC Metronidazole 100 ml @ 100 mls/hr Q8HRS IV Last administered on 07/15/17 05: 38; Start 07/13/17 at 22:00; Stop 07/15/17 at 10:42; Status DC Fluconazole/ Sodium Chloride 200 ml @ 100 mls/hr Q24H IV Last administered on 07/18/17 17:22; Start 07/13/17 at 17:00 Metronidazole 100 ml @ 100 mls/hr 1X ONCE IV ; Start 07/13/17 at 14:45; Stop 07/13/17 at 15:44; Status DC Ondansetron HCl (Zofran) 4 mg PRN Q8HRS PRN IV NAUSEA/VOMITING Last administered on 07/14/17 08:21; Start 07/13/17 at 15:15; Stop 07/14/17 at 12:54 ; Status DC Fentanyl Citrate (Fentanyl 2ml Vial) 50 mcg PRN Q2HR PRN IV PAIN Last administered on 07/13/17 17:25; Start 07/13/17 at 15:15; Stop 07/14/17 at 15:14 ; Status DC Acetaminophen (Tylenol) 650 mg PRN Q4HRS PRN PO FEVER Last administered on 07/14 04:01; Start 07/13/17 at 15:15; Stop 07/14/17 at 15:14; Status DC Sodium Chloride 1,000 ml @ 125 mls/hr 1X ONCE IV ; Start 07/13/17 at 15:15; Stop 07/13/17 at 23:14; Status DC Ibuprofen (Motrin) 800 mg PRN Q6HRS PRN PO INFLAMMATION; Start 07/13/17 at 15: 15; Stop 07/14/17 at 20:41; Status DC Lidocaine/Sodium Bicarbonate (Buffered Lidocaine 1%) 20 ml STK-MED ONCE IJ ; Start 07/13/17 at 15:21; Stop 07/13/17 at 15:22; Status DC Midazolam HCl (Versed) 2 mg STK-MED ONCE .ROUTE ; Start 07/13/17 at 15:36; Stop 07/13/17 at 15:37; Status DC Lidocaine/Sodium Bicarbonate (Buffered Lidocaine 1%) 20 ml 1X ONCE IJ Last administered on 07/13/17 16:24; Start 07/13/17 at 16:30; Stop 07/13/17 at 16:31 ; Status DC Hydromorphone HCl (Dilaudid) 2 mg PRN Q2HR PRN IV PAIN SEVERE Last administered on 07/14/17 12:41; Start 07/13/17 at 19:30; Stop 07/14/17 at 16:30 ; Status DC Hydromorphone HCl (Dilaudid) 2 mg PRN Q1HR PRN IV PAIN SEVERE; Start 07/13/17 at 19:30; Stop 07/15/17 at 21:42; Status DC Dextrose/Lactated Ringer's 1,000 ml @ 150 mls/hr Q6H40M IV Last administered on 07/19/17 02:20; Start 07/14/17 at 09:00 Ondansetron HCl (Zofran) 8 mg PRN Q6HRS PRN IV NAUSEA/VOMITING Last administered on 07/19/17 04:14; Start 07/14/17 at 13:00 Bisacodyl (Dulcolax Supp) 10 mg PRN DAILY PRN [place] CONSTIPATION Last administered on 07/14/17 13:31; Start 07/14/17 at 13:00 Polyethylene Glycol (miraLAX PACKET) 17 gm DAILY PO Last administered on 16:48; Start 07/14/17 at 15:00 Iohexol (Omnipaque 300 Mg/ml) 75 ml 1X ONCE IV Last administered on 07/14/17 15:39; Start 07/14/17 at 14:45; Stop 07/14/17 at 14:46; Status DC Iohexol (Omnipaque 240 Mg/ml) 50 ml 1X ONCE PO Last administered on 07/14/17 14:45; Start 07/14/17 at 14:45; Stop 07/14/17 at 14:46; Status DC Info (Do NOT chart on this entry -- for MONITORING) 1 each PRN DAILY PRN MC SEE COMMENTS; Start 07/14/17 at 14:45; Stop 07/16/17 at 14:44; Status DC Phytonadione 10 mg/Sodium Chloride 51 ml @ 102 mls/hr 1X ONCE IV Last administered on 07/14/17 18:25; Start 07/14/17 at 18:15; Stop 07/14/17 at 18:44 ; Status DC Dexamethasone Sodium Phosphate (Decadron) 20 mg STK-MED ONCE .ROUTE ; Start at 19:13; Stop 07/14/17 at 19:14; Status DC Ondansetron HCl (Zofran) 4 mg STK-MED ONCE .ROUTE ; Start 07/14/17 at 19:13; Stop 07/14/17 at 19:14; Status DC Propofol 20 ml @ As Directed STK-MED ONCE IV ; Start 07/14/17 at 19:13; Stop at 19:14; Status DC Lidocaine HCl (Lidocaine Pf 2% Vial) 5 ml STK-MED ONCE .ROUTE ; Start 07/14/17 at 19:13; Stop 07/14/17 at 19:14; Status DC Midazolam HCl (Versed) 2 mg STK-MED ONCE .ROUTE ; Start 07/14/17 at 19:13; Stop 07/14/17 at 19:14; Status DC Fentanyl Citrate (Fentanyl 2ml Vial) 100 mcg STK-MED ONCE .ROUTE ; Start at 19:13; Stop 07/14/17 at 19:14; Status DC Bupivacaine HCl/ Epinephrine Bitart (Sensorcain-Mpf Epi 0.5%-[id number]) 30 ml STK -MED ONCE .ROUTE Last administered on 07/14/17t 20:00; Start 07/14/17 at 19:32 ; Stop 07/14/17 at 19:33; Status DC Glycopyrrolate (Robinul) 1 mg STK-MED ONCE .ROUTE ; Start 07/14/17 at 20:22; Stop 07/14/17 at 20:23; Status DC Neostigmine Methylsulfate 5 mg STK-MED ONCE .ROUTE ; Start 07/14/17 at 20:22; Stop 07/14/17 at 20:23; Status DC Fentanyl Citrate (Fentanyl 2ml Vial) 100 mcg STK-MED ONCE .ROUTE ; Start at 20:27; Stop 07/14/17 at 20:28; Status DC Fentanyl Citrate 30 ml @ 0 mls/hr CONT PRN PRN IV PROTOCOL; Start 07/14/17 at 20:45; Stop 07/14/17 at 22:30; Status DC Naloxone HCl (Narcan) 0.4 mg PRN Q2MIN PRN IV SEE INSTRUCTIONS; Start 07/14/17 at 20:45 Sodium Chloride 1,000 ml @ 25 mls/hr Q24H IV Last administered on 07/15/17t 22 :23; Start 07/14/17 at 20:37; Stop 07/16/17 at 18:03; Status DC Sevoflurane (Ultane) 90 ml STK-MED ONCE IH ; Start 07/14/17 at 20:59; Stop 07/14 at 21:00; Status DC Phenylephrine HCl 1 mg STK-MED ONCE IV ; Start 07/14/17 at 20:59; Stop 07/14/17 at 21:00; Status DC Promethazine HCl 12.5 mg/Sodium Chloride 50.5 ml @ 151.5 mls/ hr PRN Q6HRS PRN IV NAUSEA/VOMITING Last administered on 07/18/17 12:00; Start 07/14/17 at 21:45 Hydromorphone HCl 30 ml @ 0 mls/hr CONT PRN PRN IV PROTOCOL Last administered on 07/15/17 23:10; Start 07/14/17 at 22:00; Stop 07/17/17 at 06:45; Status DC Albumin Human 100 ml @ 100 mls/hr 1X ONCE IV Last administered on 07/14/17 23:37; Start 07/14/17 at 22:30; Stop 07/14/17 at 23:29; Status DC Potassium Chloride 50 ml @ 50 mls/hr 1X ONCE IV Last administered on 22:19; Start 07/14/17 at 22:30; Stop 07/14/17 at 23:29; Status DC Calcium Chloride 1000 mg/Sodium Chloride 60 ml @ 120 mls/hr 1X ONCE IV Last administered on 07/15/17 00:40; Start 07/14/17 at 23:00; Stop 07/14/17 at 23:29 ; Status DC Hydralazine HCl (Apresoline) 10 mg PRN Q6HRS PRN IVP ELEVATED BP, SEE COMMENTS Last administered on 07/16/17 22:15; Start 07/15/17 at 00:15 Albumin Human 500 ml @ 125 mls/hr 1X ONCE IV Last administered on 07/15/17 00:17; Start 07/15/17 at 00:30; Stop 07/15/17 at 04:29; Status DC Sodium Phosphate 20 mmol/Dextrose 256.6667 ml @ 64.167 m... 1X ONCE IV Last administered on 07/15/17 01:43; Start 07/15/17 at 01:30; Stop 07/15/17 at 05:29 ; Status DC Magnesium Sulfate/ Dextrose 50 ml @ 25 mls/hr 1X ONCE IV Last administered on 07/15/17 08:04; Start 07/15/17 at 07:30; Stop 07/15/17 at 09:29; Status DC Magnesium Sulfate/ Dextrose 50 ml @ 25 mls/hr 1X ONCE IV ; Start 07/15/17 at 13 :00; Stop 07/15/17 at 14:59; Status DC Lorazepam (Ativan) 0.25 mg PRN Q6HRS PRN IV ANXIETY / AGITATION Last administered on 07/19/17 04:14; Start 07/15/17 at 21:45 Prochlorperazine Edisylate (Compazine) 5 mg PRN Q6HRS PRN IV NAUSEA/VOMITING Last administered on 07/18/17 18:46; Start 07/16/17 at 11:30 Fentanyl Citrate (Fentanyl 2ml Vial) 25 mcg PRN Q3HRS PRN IV PAIN Last administered on 07/17/17 07:26; Start 07/16/17 at 11:30; Stop 07/17/17 at 21:01 ; Status DC Fentanyl Citrate (Fentanyl 2ml Vial) 50 mcg PRN Q3HRS PRN IV PAIN Last administered on 07/17/17 20:26; Start 07/16/17 at 11:30; Stop 07/17/17 at 21:01 ; Status DC Ketorolac Tromethamine (Toradol) 15 mg 1X ONCE IV Last administered on 12:09; Start 07/16/17 at 12:00; Stop 07/16/17 at 12:01; Status DC Phytonadione (Vitamin K Ampule) 10 mg 1X ONCE SQ Last administered on 16:38; Start 07/16/17 at 12:30; Stop 07/16/17 at 12:31; Status DC Diphenhydramine HCl (Benadryl) 25 mg 1X ONCE IVP Last administered on 13:53; Start 07/16/17 at 13:15; Stop 07/16/17 at 13:16; Status DC Acetaminophen (Tylenol) 650 mg PRN Q8HRS PRN PO FEVER Last administered on 07/18 03:46; Start 07/16/17 at 20:15 Meropenem 500 mg/ Sodium Chloride 50 ml @ 100 mls/hr Q8HRS IV Last administered on 07/19/17 06:00; Start 07/17/17 at 14:00 Potassium Chloride 50 ml @ 50 mls/hr Q1H IV ; Start 07/17/17 at 10:30; Stop at 12:29; Status Cancel Potassium Phosphate 10 mmol/ Sodium Chloride 103.3333 ml @ 51.667 m... Q2H IV Last administered on 07/17/17 14:36; Start 07/17/17 at 10:30; Stop 07/17/17 at 16:29; Status DC Fentanyl Citrate (Fentanyl 2ml Vial) 25 mcg PRN Q2HRS PRN IV MODERATE PAIN; Start 07/17/17 at 22:30 Fentanyl Citrate (Fentanyl 2ml Vial) 50 mcg PRN Q2HRS PRN IV SEVERE PAIN Last administered on 07/19/17 08:31; Start 07/17/17 at 22:30 Iohexol (Omnipaque 240 Mg/ml) 30 ml 1X ONCE PO Last administered on 07/18/17 12:13; Start 07/18/17 at 09:30; Stop 07/18/17 at 09:33; Status DC Iohexol (Omnipaque 300 Mg/ml) 75 ml 1X ONCE IV Last administered on 07/18/17 12:13; Start 07/18/17 at 09:30; Stop 07/18/17 at 09:33; Status DC Info (Do NOT chart on this entry -- for MONITORING) 1 each PRN DAILY PRN MC SEE COMMENTS; Start 07/18/17 at 09:45; Stop 07/20/17 at 09:44 Potassium Chloride 50 ml @ 50 mls/hr Q1H IV Last administered on 07/18/17 11: 00; Start 07/18/17 at 10:00; Stop 07/18/17 at 11:59; Status DC Ondansetron HCl (Zofran) 8 mg 1X STAT IV Last administered on 07/18/17 10:50 ; Start 07/18/17 at 10:26; Stop 07/18/17 at 10:30; Status DC Metronidazole 100 ml @ 100 mls/hr Q8HRS IV Last administered on 07/19/17t 05: 38; Start 07/18/17 at 22:30 Info 1 each PRN DAILY PRN MC SEE COMMENTS; Start 07/19/17 at 08:15 Active Scripts Active Oxycodone-Acetaminophen 5-325 (Oxycodone Hcl/Acetaminophen) 1 Each Tablet 1 Tab PO PRN Q4HRS PRN Reported Colace (Docusate Sodium) 100 Mg Capsule 100 Cap PO BID Polyethylene Glycol 3350 255 Gm Powder 17 Gm PO DAILY Atorvastatin Calcium 20 Mg Tablet 20 Mg PO HS Vitals/I & O Vital Sign - Last 24 Hours 07/18/17 07/18/17 07/18/17 07/18/17 11:05 14:12 15:00 19:00 Temp 98.1 97.9 98.8 98.1 97.9 98.8 Pulse 105 110 104 Resp 20 20 18 B/P (MAP) 142/80 (100) 136/81 (99) 145/80 (101) Pulse Ox 96 96 94 93 O2 Delivery Room Air Room Air Room Air Room Air 07/18/17 07/18/17 07/18/17 07/18/17 19:50 21:42 22:15 23:00 Temp 100.0 100.0 Pulse 100 Resp 16 18 B/P (MAP) 141/93 (109) Pulse Ox 93 93 95 O2 Delivery Room Air Room Air Room Air Room Air 07/19/17 07/19/17 07/19/17 03:00 07:00 08:31 Temp 97.9 97.9 97.9 97.9 Pulse 95 102 Resp 18 20 16 B/P (MAP) 145/87 (106) 125/71 (89) Pulse Ox 95 96 O2 Delivery Room Air Room Air Room Air Intake and Output 07/18/17 07/18/17 07/19/17 15:00 23:00 07:00 Intake Total 250.5 ml 50 ml Balance 250.5 ml 50 ml LIZBETH HOSKINS MD Jul 19, 2017 09:00
[2017-07-19 09:02] LABS: MAGNESIUM 1.9 mg/dL (1.8-2.4); PHOSPHORUS 3.1 mg/dL (2.6-4.7)
--- NOTE | 2017-07-19 09:10 | PDOC ---
Infectious Disease Note Subjective Subjective feeling better, diarrhea + ROS ROS GEN: Denies fevers, chills, sweats HEENT: Denies blurred vision, sore throat CV: Denies chest pain RESP: Denies shortness of air, cough NEURO: Denies confusion, dizziness MSK: Denies weakness, joint pain/swelling Vital Sign Vital Signs Vital Signs Date Time Temp Pulse Resp B/P (MAP) Pulse Ox O2 Delivery O2 Flow Rate FiO2 07/19/17 08:31 16 Room Air 07/19/17 03:00 97.9 95 145/87 (106) 95 97.9 Physical Exam PHYSICAL EXAM GENERAL: NAD, Alert HEENT: PERRL, OC/OP NECK: Supple, no JVD, no LN LUNGS: Clear HEART: S1S2, no gallop, no murmur ABD: Soft, NT, no organomegaly, no rebound EXT: No edema, no cyanosis 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, 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, no focal neurologic deficit SKIN: No rash IV: ok Labs Lab Laboratory Tests Test 07/18/17 13:04 07/19/17 06:00 Clostridium difficile Toxin (PCR) Positive (Negative) White Blood Count 16.9 x10^3/uL (4.0-11.0) Red Blood Count 2.90 x10^6/uL (4.30-5.70) Hemoglobin 8.5 g/dL (13.0-17.5) Hematocrit 25.7 % (39.0-53.0) Mean Corpuscular Volume 89 fL (79-100) Mean Corpuscular Hemoglobin 29 pg (25-35) Mean Corpuscular Hemoglobin Concent 33 g/dL (31-37) Red Cell Distribution Width 13.9 % (11.5-14.5) Platelet Count 349 x10^3/uL (140-400) Neutrophils (%) (Auto) 75 % (31-73) Lymphocytes (%) (Auto) 10 % (24-48) Monocytes (%) (Auto) 11 % (0-9) Eosinophils (%) (Auto) 3 % (0-3) Basophils (%) (Auto) 1 % (0-3) Neutrophils # (Auto) 12.7 x10^3uL (1.8-7.7) Lymphocytes # (Auto) 1.7 x10^3/uL (1.0-4.8) Monocytes # (Auto) 1.9 x10^3/uL (0.0-1.1) Eosinophils # (Auto) 0.4 x10^3/uL (0.0-0.7) Basophils # (Auto) 0.1 x10^3/uL (0.0-0.2) Sodium Level 134 mmol/L (136-145) Potassium Level 3.7 mmol/L (3.5-5.1) Chloride Level 101 mmol/L (98-107) Carbon Dioxide Level 27 mmol/L (21-32) Anion Gap 6 (6-14) Blood Urea Nitrogen 13 mg/dL (8-26) Creatinine 0.9 mg/dL (0.7-1.3) Estimated GFR (Cockcroft-Gault) 93.5 Glucose Level 140 mg/dL (70-99) Calcium Level 7.6 mg/dL (8.5-10.1) Phosphorus Level 3.1 mg/dL (2.6-4.7) Magnesium Level 1.9 mg/dL (1.8-2.4) Micro ANAEROBIC-AEROBIC CULTURE Preliminary Preliminary report ANAEROBIC RES 1 Preliminary Comment No anaerobes recovered in 48 hours. Performed at: [address] [id number] Information Technology Coordinator: Tara Jarrell MD, Phone: [phone] AEROBIC CULT Final Final report AEROBIC RES 1 Final Escherichia coli Heavy growth ANTIMICROBIAL SUSCEPTIBILITY Final Comment S = Susceptible; I = Intermediate; R = Resistant P = Positive; N = Negative MICS are expressed in micrograms per mL Antibiotic RSLT#1 RSLT#2 RSLT#3 RSLT#4 Amoxicillin/Clavulanic Acid S Ampicillin R Cefepime S Ceftriaxone S Cefuroxime S Ciprofloxacin R Ertapenem S Gentamicin S Imipenem S Levofloxacin R Piperacillin R Tetracycline R CONTINUED ON NEXT PAGE RUN DATE: 07/16/17 PAGE 2 RUN TIME: [address] [facility] [address] [place] [address] Jostin Ley M.D., Youth Counselor SPEC: [id number] PATIENT: SARBJIT ZAVALA [id number] ( Continued) Procedure Result ANTIMICROBIAL SUSCEPTIBILITY Final (continued) Tobramycin S Trimethoprim/Sulfa S Performed at: [facility] [address] [id number] Information Technology Coordinator: Tara Jarrell MD, Phone: [phone] Objective Assessment Fever Leukocytosis RLQ complex fluid collection, s/p aspiration, coag blood, 07/13. s/p diagnostic lap w/ evacuation of hematoma and RLQ drain placement, 07/14 ,, culture + with e coli s/p lap appy, 07/09 Urinary retention s/p indwelling Reyes C diff + Plan Plan of Care meropenem and fluconazole, po vanc f/u cultures Monitor labs D/w RN d/w dr Arnaldo MORALES,ZHANG Clemente MD Jul 19, 2017 09:10
--- NOTE | 2017-07-19 10:34 | PDOC ---
PROGRESS NOTES Subjective Subjective loose stools, multiple episodes Objective Objective Vital Signs Date Time Temp Pulse Resp B/P (MAP) Pulse Ox O2 Delivery O2 Flow Rate FiO2 07/19/17 08:31 16 Room Air 07/19/17 07:00 97.9 102 125/71 (89) 96 97.9 Intake and Output 07/19/17 06:59 Intake Total 300.5 ml Balance 300.5 ml Intake Oral 200 ml IV Total 100.5 ml # Voids 6 # Bowel Movements 7 Physical Exam Abdomen: Normal bowel sounds, Soft, Other (minimal lower abdominal TTP, BEVERLY drain with minimal bloody drainage) Heart: Normal S1, Normal S2 Extremities: No edema General: Alert, Oriented X3 Lungs: Clear to auscultation Neuro: Normal speech Psych/Mental Status: Mental status NL COMMENT drain rt lower abdomen Diagnosis Problem List Problems Medical Problems: (1) Fever Status: Acute (2) Right lower quadrant abdominal pain Status: Acute Assessment Assessment Problems Medical Problems: (1) Fever Status: Acute (2) Right lower quadrant abdominal pain Status: Acute FINAL IMPRESSION: C Diff colitis 1. Fever.r/o abscess 2. Free fluid in the paracolic gutter.hematoma ? vs abscess 3. Status post recent laparoscopic appendectomy last week 07/09/17 PLAN: spoke with ID po vancomycin for c diff. iv flagyl.added last night wbc trending down ,now 18 E Coli in para colic fluid resistant to Zosyn, spoke with ID ,iv antibiotics changed.Meropenum transferred out of ICU. IR consult for possible drain placement Pt was taken to OR on 07/14/17 Operative Note Date: 07/14/2017 Preoperative diagnosis: Intra-abdominal hematoma status post laparoscopic appendectomy Postoperative diagnosis: Same Procedure: Diagnostic laparoscopy with evacuation of hematoma and right lower quadrant drain placement Surgeon: Arnaldo Specimen: Intra-abdominal hematoma for culture iv fluids iv antibiotics, gram neg from fluid aspiration dvt prevention, scd, hematology consult appreciated Problems: Plan Plan of Care Problems Medical Problems: (1) Fever Status: Acute (2) Right lower quadrant abdominal pain Status: Acute Comment Review of Relevant I have reviewed the following items jersey (where applicable) has been applied. Labs Laboratory Tests Test 07/18/17 13:04 07/19/17 06:00 Clostridium difficile Toxin (PCR) Positive (Negative) White Blood Count 16.9 x10^3/uL (4.0-11.0) Red Blood Count 2.90 x10^6/uL (4.30-5.70) Hemoglobin 8.5 g/dL (13.0-17.5) Hematocrit 25.7 % (39.0-53.0) Mean Corpuscular Volume 89 fL (79-100) Mean Corpuscular Hemoglobin 29 pg (25-35) Mean Corpuscular Hemoglobin Concent 33 g/dL (31-37) Red Cell Distribution Width 13.9 % (11.5-14.5) Platelet Count 349 x10^3/uL (140-400) Neutrophils (%) (Auto) 75 % (31-73) Lymphocytes (%) (Auto) 10 % (24-48) Monocytes (%) (Auto) 11 % (0-9) Eosinophils (%) (Auto) 3 % (0-3) Basophils (%) (Auto) 1 % (0-3) Neutrophils # (Auto) 12.7 x10^3uL (1.8-7.7) Lymphocytes # (Auto) 1.7 x10^3/uL (1.0-4.8) Monocytes # (Auto) 1.9 x10^3/uL (0.0-1.1) Eosinophils # (Auto) 0.4 x10^3/uL (0.0-0.7) Basophils # (Auto) 0.1 x10^3/uL (0.0-0.2) Sodium Level 134 mmol/L (136-145) Potassium Level 3.7 mmol/L (3.5-5.1) Chloride Level 101 mmol/L (98-107) Carbon Dioxide Level 27 mmol/L (21-32) Anion Gap 6 (6-14) Blood Urea Nitrogen 13 mg/dL (8-26) Creatinine 0.9 mg/dL (0.7-1.3) Estimated GFR (Cockcroft-Gault) 93.5 Glucose Level 140 mg/dL (70-99) Calcium Level 7.6 mg/dL (8.5-10.1) Phosphorus Level 3.1 mg/dL (2.6-4.7) Magnesium Level 1.9 mg/dL (1.8-2.4) Microbiology 07/18/17 Blood Culture - Preliminary, Resulted NO GROWTH AFTER 1 DAY 07/14/17 Anaerobic/Aerobic Culture - Final, Complete 8/19/17 Anaerobic Culture Result 1 (ASH) - Final, Complete 07/14/17 Aerobic Culture - Final, Complete 07/14/17 Aerobic Culture Result 1 (ASH) - Final, Complete Medications Current Medications Info 1 each PRN DAILY PRN MC SEE COMMENTS; Start 07/19/17 at 08:15 Metronidazole 100 ml @ 100 mls/hr Q8HRS IV Last administered on 07/19/17t 05: 38; Start 07/18/17 at 22:30; Stop 07/19/17 at 09:11; Status DC Vancomycin HCl 125 mg [id number] PO ; Start 07/19/17 at 09:30 Vitals/I & O Vital Sign - Last 24 Hours 07/18/17 07/18/17 07/18/17 07/18/17 11:05 14:12 15:00 19:00 Temp 98.1 97.9 98.8 98.1 97.9 98.8 Pulse 105 110 104 Resp 20 20 18 B/P (MAP) 142/80 (100) 136/81 (99) 145/80 (101) Pulse Ox 96 96 94 93 O2 Delivery Room Air Room Air Room Air Room Air 07/18/17 07/18/17 07/18/17 07/18/17 19:50 21:42 22:15 23:00 Temp 100.0 100.0 Pulse 100 Resp 16 18 B/P (MAP) 141/93 (109) Pulse Ox 93 93 95 O2 Delivery Room Air Room Air Room Air Room Air 07/19/17 07/19/17 07/19/17 03:00 07:00 08:31 Temp 97.9 97.9 97.9 97.9 Pulse 95 102 Resp 18 20 16 B/P (MAP) 145/87 (106) 125/71 (89) Pulse Ox 95 96 O2 Delivery Room Air Room Air Room Air Intake and Output 07/18/17 07/18/17 07/19/17 14:59 22:59 06:59 Intake Total 250.5 ml 50 ml Balance 250.5 ml 50 ml JUAN A MEADE MD Jul 19, 2017 10:34
[2017-07-19] MEDS: VANCOMYCIN 125 MG/2.5 ML ORAL SOLUTION. PO SCH ×4 (11:11→21:08)
[2017-07-19] MEDS ORDERED: LIDOCAINE 1% / SOD BICARB 8.4% 20 ML VIAL. IJ ONE ×2 (12:57→14:15)
[2017-07-19] MEDS ORDERED: MIDAZOLAM HCL/PF 5 MG/5 ML VIAL. ONE (12:57)
[2017-07-19] MEDS ORDERED: fentaNYL PF VIAL 250 MCG/5 ML VIAL ONE (12:58)
[2017-07-19] MEDS ORDERED: fentaNYL PF VIAL 250 MCG/5 ML VIAL IV ONE (14:00)
[2017-07-19] MEDS ORDERED: MIDAZOLAM HCL/PF 5 MG/5 ML VIAL. IV ONE (14:15)
[2017-07-19] MEDS: TPN PER PHARMACY MC PRN (15:04)
--- NOTE | 2017-07-19 15:16 | RAD ---
CT-guided drainage of pelvic fluid collection Indication: Pelvic hematoma, possible infection/abscess Discussion: The risks and benefits of the procedure were discussed with the patient. Informed consent was obtained. A timeout procedure was performed. The patient was placed in the prone position on the CT scanner. Imaging of the pelvis was repeated confirming a fluid collection between the rectum and bladder consistent with the previously demonstrated hematoma. There is clinical concern for hematoma infection. Once an appropriate site for skin entry been selected 1% lidocaine without epinephrine was administered to the skin and subcutaneous tissues. A 17-gauge needle was advanced to this collection using a transgluteal approach on the left. A guidewire was advanced into the collection, over which, following dilatation, 10 Chinese drainage catheter was advanced to the collection. 300 cc of chronic appearing hematoma were aspirated, and the pigtail catheter left in place. Samples of this fluid were sent for Gram stain and culture per ordering physician request. The drain was secured and a sterile dressing was applied. No immediate complications were identified. Impression: Successful CT-guided drainage of pelvic fluid collection from a left transgluteal approach
[2017-07-19] MEDS: FLUCONAZOLE 400MG/200ML PREMIX 200 ML IV SCH (16:58)
[2017-07-19] MEDS: PROCHLORPERAZINE 10 MG/2 ML VIAL. IV PRN (17:11)
[2017-07-19] MEDS ORDERED: TOTAL PARENTERAL NUTRITION 1,424.9987 ML, AMINO ACIDS 10 % 60 GM, DEXTROSE 70 % IN WATE... IV SCH ×10 (22:00)
[2017-07-20] MEDS: fentaNYL PF VIAL 100 MCG/2 ML VIAL IV PRN ×8 (00:17→23:44)
[2017-07-20] MEDS: ACETAMINOPHEN 325 MG TABLET. PO PRN ×2 (00:17→21:20)
[2017-07-20] MEDS: IV DEXTROSE 5%-LACT RINGERS 1,000 ML IV SCH (02:57)
[2017-07-20 03:00] VITALS: BP 149/69
[2017-07-20] MEDS: MEROPENEM 500 MG in IV NORMAL SALINE 50ML 50 ML IV SCH ×3 (06:02→23:06)
[2017-07-20 06:25] LABS: BASO # 0.1 x10^3/uL (0.0-0.2); BASO % 1 % (0-3); EOS % 3 % (0-3); HEMOGLOBIN 8.8 g/dL (13.0-17.5); LYMPH # 2.5 x10^3/uL (1.0-4.8); LYMPH % 15 % (24-48); MEAN CORPUSCULAR HEMOGLOBIN 30 pg (25-35); MEAN CORPUSCULAR HGB CONC 34 g/dL (31-37); MEAN CORPUSCULAR VOLUME 89 fL (79-100); MONO % 11 % (0-9); NEUT % 70 % (31-73); PLATELET COUNT 414 x10^3/uL (140-400); RED BLOOD COUNT 2.92 x10^6/uL (4.30-5.70); RED CELL DISTRIBUTION WIDTH 13.7 % (11.5-14.5); WHITE BLOOD COUNT 16.5 x10^3/uL (4.0-11.0)
[2017-07-20 06:40] LABS: CALCIUM 7.8 mg/dL (8.5-10.1); CREATININE 0.8 mg/dL (0.7-1.3); GFR 107.1; POTASSIUM 3.3 mmol/L (3.5-5.1)
[2017-07-20 06:43] LABS: MAGNESIUM 1.7 mg/dL (1.8-2.4)
[2017-07-20 07:00] VITALS: BP 144/79
[2017-07-20] MEDS: POLYETHYLENE GLYCOL 3350 17 GM PACKET. PO SCH (08:02)
--- NOTE | 2017-07-20 08:41 | PDOC ---
PROGRESS NOTES Subjective Subjective c/c- f/u of Coagulopathy Objective Objective Vital Signs Date Time Temp Pulse Resp B/P (MAP) Pulse Ox O2 Delivery O2 Flow Rate FiO2 07/20/17 07:00 97.7 99 20 144/79 (100) 95 Room Air 97.7 07/19/17 13:55 2.0 Intake and Output 07/20/17 07:00 Intake Total 5171 ml Output Total 1810 ml Balance 3361 ml Intake Oral 1150 ml IV Total 4021 ml Output Urine Total 1025 ml Stool Total 355 ml Drainage Total 430 ml Physical Exam General: Alert, Oriented X3 Neuro: Normal gait, Normal speech Psych/Mental Status: Mental status NL Assessment Assessment Problems Medical Problems: (1) Fever Status: Acute (2) Right lower quadrant abdominal pain Status: Acute IMPRESSION AND PLAN: 1. Coagulopathy - Elevated PT with a normal PTT on 07/13/2017. INR was only mildly elevated at 1.3. With his albumin level being only 2.7 on 07/14/2017, the etiology of elevated protime is most likely vitamin K deficiency from poor nutrition postoperatively and fatty liver disease. s/p vitamin K and FFP. INR improved to 1.4 on 07/16/2017. s/p another dose of vitamin K 10 mg subcutaneously 07/16/17. INR better at 1.2 on 07/17/17 Continue to monitor for bleeding. Hb stable 8.8. Drain shows bloody drainage. 2. Elevated liver function tests with elevated bilirubin of 1.6 on 07/14/2017, which is new. He has had a CT scan of the abdomen and pelvis on 07/14/2017, which revealed evidence of right lower quadrant hematoma. There is also evidence of fatty infiltration of the liver, which may be contributing to elevated liver function tests and possibly the mild coagulopathy. 3. Leukocytosis, reactive. Continue to monitor. Better at 16.5 4. Anemia postoperative and also due to hematoma. Continue to monitor. Please call if needed. Comment Review of Relevant I have reviewed the following items jersey (where applicable) has been applied. Labs Laboratory Tests Test 07/18/17 13:04 07/19/17 06:00 07/20/17 06:00 Clostridium difficile Toxin (PCR) Positive (Negative) White Blood Count 16.9 x10^3/uL (4.0-11.0) 16.5 x10^3/uL (4.0-11.0) Red Blood Count 2.90 x10^6/uL (4.30-5.70) 2.92 x10^6/uL (4.30-5.70) Hemoglobin 8.5 g/dL (13.0-17.5) 8.8 g/dL (13.0-17.5) Hematocrit 25.7 % (39.0-53.0) 26.0 % (39.0-53.0) Mean Corpuscular Volume 89 fL (79-100) 89 fL (79-100) Mean Corpuscular Hemoglobin 29 pg (25-35) 30 pg (25-35) Mean Corpuscular Hemoglobin Concent 33 g/dL (31-37) 34 g/dL (31-37) Red Cell Distribution Width 13.9 % (11.5-14.5) 13.7 % (11.5-14.5) Platelet Count 349 x10^3/uL (140-400) 414 x10^3/uL (140-400) Neutrophils (%) (Auto) 75 % (31-73) 70 % (31-73) Lymphocytes (%) (Auto) 10 % (24-48) 15 % (24-48) Monocytes (%) (Auto) 11 % (0-9) 11 % (0-9) Eosinophils (%) (Auto) 3 % (0-3) 3 % (0-3) Basophils (%) (Auto) 1 % (0-3) 1 % (0-3) Neutrophils # (Auto) 12.7 x10^3uL (1.8-7.7) 11.6 x10^3uL (1.8-7.7) Lymphocytes # (Auto) 1.7 x10^3/uL (1.0-4.8) 2.5 x10^3/uL (1.0-4.8) Monocytes # (Auto) 1.9 x10^3/uL (0.0-1.1) 1.7 x10^3/uL (0.0-1.1) Eosinophils # (Auto) 0.4 x10^3/uL (0.0-0.7) 0.6 x10^3/uL (0.0-0.7) Basophils # (Auto) 0.1 x10^3/uL (0.0-0.2) 0.1 x10^3/uL (0.0-0.2) Sodium Level 134 mmol/L (136-145) 133 mmol/L (136-145) Potassium Level 3.7 mmol/L (3.5-5.1) 3.3 mmol/L (3.5-5.1) Chloride Level 101 mmol/L (98-107) 98 mmol/L (98-107) Carbon Dioxide Level 27 mmol/L (21-32) 26 mmol/L (21-32) Anion Gap 6 (6-14) 9 (6-14) Blood Urea Nitrogen 13 mg/dL (8-26) 7 mg/dL (8-26) Creatinine 0.9 mg/dL (0.7-1.3) 0.8 mg/dL (0.7-1.3) Estimated GFR (Cockcroft-Gault) 93.5 107.1 Glucose Level 140 mg/dL (70-99) 131 mg/dL (70-99) Calcium Level 7.6 mg/dL (8.5-10.1) 7.8 mg/dL (8.5-10.1) Phosphorus Level 3.1 mg/dL (2.6-4.7) 4.0 mg/dL (2.6-4.7) Magnesium Level 1.9 mg/dL (1.8-2.4) 1.7 mg/dL (1.8-2.4) Triglycerides Level 149 mg/dL (0-150) Laboratory Tests Test 07/20/17 06:00 White Blood Count 16.5 x10^3/uL (4.0-11.0) Red Blood Count 2.92 x10^6/uL (4.30-5.70) Hemoglobin 8.8 g/dL (13.0-17.5) Hematocrit 26.0 % (39.0-53.0) Mean Corpuscular Volume 89 fL (79-100) Mean Corpuscular Hemoglobin 30 pg (25-35) Mean Corpuscular Hemoglobin Concent 34 g/dL (31-37) Red Cell Distribution Width 13.7 % (11.5-14.5) Platelet Count 414 x10^3/uL (140-400) Neutrophils (%) (Auto) 70 % (31-73) Lymphocytes (%) (Auto) 15 % (24-48) Monocytes (%) (Auto) 11 % (0-9) Eosinophils (%) (Auto) 3 % (0-3) Basophils (%) (Auto) 1 % (0-3) Neutrophils # (Auto) 11.6 x10^3uL (1.8-7.7) Lymphocytes # (Auto) 2.5 x10^3/uL (1.0-4.8) Monocytes # (Auto) 1.7 x10^3/uL (0.0-1.1) Eosinophils # (Auto) 0.6 x10^3/uL (0.0-0.7) Basophils # (Auto) 0.1 x10^3/uL (0.0-0.2) Sodium Level 133 mmol/L (136-145) Potassium Level 3.3 mmol/L (3.5-5.1) Chloride Level 98 mmol/L (98-107) Carbon Dioxide Level 26 mmol/L (21-32) Anion Gap 9 (6-14) Blood Urea Nitrogen 7 mg/dL (8-26) Creatinine 0.8 mg/dL (0.7-1.3) Estimated GFR (Cockcroft-Gault) 107.1 Glucose Level 131 mg/dL (70-99) Calcium Level 7.8 mg/dL (8.5-10.1) Phosphorus Level 4.0 mg/dL (2.6-4.7) Magnesium Level 1.7 mg/dL (1.8-2.4) Triglycerides Level 149 mg/dL (0-150) Microbiology 07/18/17 Blood Culture - Preliminary, Resulted NO GROWTH AFTER 2 DAYS 07/19/17 Gram Stain - Final, Complete Medications Current Medications Sodium Chloride 2,460 ml @ 410 mls/hr Q6H IV Last administered on 07/13/17 10 :53; Start 07/13/17 at 10:24; Stop 07/13/17 at 16:23; Status DC Sodium Chloride 500 ml @ 1,000 mls/hr PRN Q30MIN PRN IV SEE COMMENTS Last administered on 07/14/17 16:51; Start 07/13/17 at 10:30 Ibuprofen (Motrin) 800 mg 1X ONCE PO Last administered on 07/13/17 10:54; Start 07/13/17 at 10:30; Stop 07/13/17 at 10:31; Status DC Ondansetron HCl (Zofran) 4 mg 1X ONCE IV Last administered on 07/13/17 10:54 ; Start 07/13/17 at 10:30; Stop 07/13/17 at 10:31; Status DC Morphine Sulfate 5 mg 1X ONCE IV ; Start 07/13/17 at 10:30; Stop 07/13/17 at 10 :59; Status DC Fentanyl Citrate (Fentanyl 2ml Vial) 50 mcg 1X ONCE IV Last administered on 11:27; Start 07/13/17 at 11:30; Stop 07/13/17 at 11:31; Status DC Acetaminophen (Tylenol) 1,000 mg 1X ONCE PO ; Start 07/13/17 at 12:45; Stop at 12:46; Status DC Acetaminophen (Tylenol) 1,000 mg 1X ONCE PO Last administered on 07/13/17 12: 27; Start 07/13/17 at 12:30; Stop 07/13/17 at 12:31; Status DC Iohexol (Omnipaque 300 Mg/ml) 75 ml 1X ONCE IV Last administered on 07/13/17 13:07; Start 07/13/17 at 13:30; Stop 07/13/17 at 13:31; Status DC Info (Do NOT chart on this entry -- for MONITORING) 1 each PRN DAILY PRN MC SEE COMMENTS; Start 07/13/17 at 13:15; Stop 07/14/17 at 16:29; Status DC Piperacillin Sod/ Tazobactam Sod 4.5 gm/Sodium Chloride 100 ml @ 200 mls/hr Q8HRS IV Last administered on 07/17/17 05:42; Start 07/13/17 at 22:00; Stop at 08:22; Status DC Piperacillin Sod/ Tazobactam Sod 4.5 gm/Sodium Chloride 100 ml @ 200 mls/hr 1X ONCE IV Last administered on 07/13/17 14:22; Start 07/13/17 at 15:00; Stop 07/13/17 at 15:29; Status DC Metronidazole 100 ml @ 100 mls/hr Q8HRS IV Last administered on 07/15/17 05: 38; Start 07/13/17 at 22:00; Stop 07/15/17 at 10:42; Status DC Fluconazole/ Sodium Chloride 200 ml @ 100 mls/hr Q24H IV Last administered on 07/19/17 16:58; Start 07/13/17 at 17:00 Metronidazole 100 ml @ 100 mls/hr 1X ONCE IV ; Start 07/13/17 at 14:45; Stop 07/13/17 at 15:44; Status DC Ondansetron HCl (Zofran) 4 mg PRN Q8HRS PRN IV NAUSEA/VOMITING Last administered on 07/14/17 08:21; Start 07/13/17 at 15:15; Stop 07/14/17 at 12:54 ; Status DC Fentanyl Citrate (Fentanyl 2ml Vial) 50 mcg PRN Q2HR PRN IV PAIN Last administered on 07/13/17 17:25; Start 07/13/17 at 15:15; Stop 07/14/17 at 15:14 ; Status DC Acetaminophen (Tylenol) 650 mg PRN Q4HRS PRN PO FEVER Last administered on 07/14 04:01; Start 07/13/17 at 15:15; Stop 07/14/17 at 15:14; Status DC Sodium Chloride 1,000 ml @ 125 mls/hr 1X ONCE IV ; Start 07/13/17 at 15:15; Stop 07/13/17 at 23:14; Status DC Ibuprofen (Motrin) 800 mg PRN Q6HRS PRN PO INFLAMMATION; Start 07/13/17 at 15: 15; Stop 07/14/17 at 20:41; Status DC Lidocaine/Sodium Bicarbonate (Buffered Lidocaine 1%) 20 ml STK-MED ONCE IJ ; Start 07/13/17 at 15:21; Stop 07/13/17 at 15:22; Status DC Midazolam HCl (Versed) 2 mg STK-MED ONCE .ROUTE ; Start 07/13/17 at 15:36; Stop 07/13/17 at 15:37; Status DC Lidocaine/Sodium Bicarbonate (Buffered Lidocaine 1%) 20 ml 1X ONCE IJ Last administered on 07/13/17 16:24; Start 07/13/17 at 16:30; Stop 07/13/17 at 16:31 ; Status DC Hydromorphone HCl (Dilaudid) 2 mg PRN Q2HR PRN IV PAIN SEVERE Last administered on 07/14/17 12:41; Start 07/13/17 at 19:30; Stop 07/14/17 at 16:30 ; Status DC Hydromorphone HCl (Dilaudid) 2 mg PRN Q1HR PRN IV PAIN SEVERE; Start 07/13/17 at 19:30; Stop 07/15/17 at 21:42; Status DC Dextrose/Lactated Ringer's 1,000 ml @ 150 mls/hr Q6H40M IV Last administered on 07/20/17 02:57; Start 07/14/17 at 09:00 Ondansetron HCl (Zofran) 8 mg PRN Q6HRS PRN IV NAUSEA/VOMITING Last administered on 07/19/17 11:03; Start 07/14/17 at 13:00 Bisacodyl (Dulcolax Supp) 10 mg PRN DAILY PRN PA CONSTIPATION Last administered on 07/14/17 13:31; Start 07/14/17 at 13:00 Polyethylene Glycol (miraLAX PACKET) 17 gm DAILY PO Last administered on 16:48; Start 07/14/17 at 15:00 Iohexol (Omnipaque 300 Mg/ml) 75 ml 1X ONCE IV Last administered on 07/14/17 15:39; Start 07/14/17 at 14:45; Stop 07/14/17 at 14:46; Status DC Iohexol (Omnipaque 240 Mg/ml) 50 ml 1X ONCE PO Last administered on 07/14/17 14:45; Start 07/14/17 at 14:45; Stop 07/14/17 at 14:46; Status DC Info (Do NOT chart on this entry -- for MONITORING) 1 each PRN DAILY PRN MC SEE COMMENTS; Start 07/14/17 at 14:45; Stop 07/16/17 at 14:44; Status DC Phytonadione 10 mg/Sodium Chloride 51 ml @ 102 mls/hr 1X ONCE IV Last administered on 07/14/17 18:25; Start 07/14/17 at 18:15; Stop 07/14/17 at 18:44 ; Status DC Dexamethasone Sodium Phosphate (Decadron) 20 mg STK-MED ONCE .ROUTE ; Start at 19:13; Stop 07/14/17 at 19:14; Status DC Ondansetron HCl (Zofran) 4 mg STK-MED ONCE .ROUTE ; Start 07/14/17 at 19:13; Stop 07/14/17 at 19:14; Status DC Propofol 20 ml @ As Directed STK-MED ONCE IV ; Start 07/14/17 at 19:13; Stop at 19:14; Status DC Lidocaine HCl (Lidocaine Pf 2% Vial) 5 ml STK-MED ONCE .ROUTE ; Start 07/14/17 at 19:13; Stop 07/14/17 at 19:14; Status DC Midazolam HCl (Versed) 2 mg STK-MED ONCE .ROUTE ; Start 07/14/17 at 19:13; Stop 07/14/17 at 19:14; Status DC Fentanyl Citrate (Fentanyl 2ml Vial) 100 mcg STK-MED ONCE .ROUTE ; Start at 19:13; Stop 07/14/17 at 19:14; Status DC Bupivacaine HCl/ Epinephrine Bitart (Sensorcain-Mpf Epi 0.5%-1:[id number]) 30 ml STK -MED ONCE .ROUTE Last administered on 07/14/17t 20:00; Start 07/14/17 at 19:32 ; Stop 07/14/17 at 19:33; Status DC Glycopyrrolate (Robinul) 1 mg STK-MED ONCE .ROUTE ; Start 07/14/17 at 20:22; Stop 07/14/17 at 20:23; Status DC Neostigmine Methylsulfate 5 mg STK-MED ONCE .ROUTE ; Start 07/14/17 at 20:22; Stop 07/14/17 at 20:23; Status DC Fentanyl Citrate (Fentanyl 2ml Vial) 100 mcg STK-MED ONCE .ROUTE ; Start at 20:27; Stop 07/14/17 at 20:28; Status DC Fentanyl Citrate 30 ml @ 0 mls/hr CONT PRN PRN IV PROTOCOL; Start 07/14/17 at 20:45; Stop 07/14/17 at 22:30; Status DC Naloxone HCl (Narcan) 0.4 mg PRN Q2MIN PRN IV SEE INSTRUCTIONS; Start 07/14/17 at 20:45 Sodium Chloride 1,000 ml @ 25 mls/hr Q24H IV Last administered on 07/15/17 22 :23; Start 07/14/17 at 20:37; Stop 07/16/17 at 18:03; Status DC Sevoflurane (Ultane) 90 ml STK-MED ONCE IH ; Start 07/14/17 at 20:59; Stop 07/14 at 21:00; Status DC Phenylephrine HCl 1 mg STK-MED ONCE IV ; Start 07/14/17 at 20:59; Stop 07/14/17 at 21:00; Status DC Promethazine HCl 12.5 mg/Sodium Chloride 50.5 ml @ 151.5 mls/ hr PRN Q6HRS PRN IV NAUSEA/VOMITING Last administered on 07/18/17 12:00; Start 07/14/17 at 21:45 Hydromorphone HCl 30 ml @ 0 mls/hr CONT PRN PRN IV PROTOCOL Last administered on 07/15/17 23:10; Start 07/14/17 at 22:00; Stop 07/17/17 at 06:45; Status DC Albumin Human 100 ml @ 100 mls/hr 1X ONCE IV Last administered on 07/14/17 23:37; Start 07/14/17 at 22:30; Stop 07/14/17 at 23:29; Status DC Potassium Chloride 50 ml @ 50 mls/hr 1X ONCE IV Last administered on 22:19; Start 07/14/17 at 22:30; Stop 07/14/17 at 23:29; Status DC Calcium Chloride 1000 mg/Sodium Chloride 60 ml @ 120 mls/hr 1X ONCE IV Last administered on 07/15/17 00:40; Start 07/14/17 at 23:00; Stop 07/14/17 at 23:29 ; Status DC Hydralazine HCl (Apresoline) 10 mg PRN Q6HRS PRN IVP ELEVATED BP, SEE COMMENTS Last administered on 07/16/17 22:15; Start 07/15/17 at 00:15 Albumin Human 500 ml @ 125 mls/hr 1X ONCE IV Last administered on 07/15/17 00:17; Start 07/15/17 at 00:30; Stop 07/15/17 at 04:29; Status DC Sodium Phosphate 20 mmol/Dextrose 256.6667 ml @ 64.167 m... 1X ONCE IV Last administered on 07/15/17 01:43; Start 07/15/17 at 01:30; Stop 07/15/17 at 05:29 ; Status DC Magnesium Sulfate/ Dextrose 50 ml @ 25 mls/hr 1X ONCE IV Last administered on 07/15/17 08:04; Start 07/15/17 at 07:30; Stop 07/15/17 at 09:29; Status DC Magnesium Sulfate/ Dextrose 50 ml @ 25 mls/hr 1X ONCE IV ; Start 07/15/17 at 13 :00; Stop 07/15/17 at 14:59; Status DC Lorazepam (Ativan) 0.25 mg PRN Q6HRS PRN IV ANXIETY / AGITATION Last administered on 07/19/17 22:07; Start 07/15/17 at 21:45 Prochlorperazine Edisylate (Compazine) 5 mg PRN Q6HRS PRN IV NAUSEA/VOMITING Last administered on 07/19/17 17:11; Start 07/16/17 at 11:30 Fentanyl Citrate (Fentanyl 2ml Vial) 25 mcg PRN Q3HRS PRN IV PAIN Last administered on 07/17/17 07:26; Start 07/16/17 at 11:30; Stop 07/17/17 at 21:01 ; Status DC Fentanyl Citrate (Fentanyl 2ml Vial) 50 mcg PRN Q3HRS PRN IV PAIN Last administered on 07/17/17 20:26; Start 07/16/17 at 11:30; Stop 07/17/17 at 21:01 ; Status DC Ketorolac Tromethamine (Toradol) 15 mg 1X ONCE IV Last administered on 12:09; Start 07/16/17 at 12:00; Stop 07/16/17 at 12:01; Status DC Phytonadione (Vitamin K Ampule) 10 mg 1X ONCE SQ Last administered on 16:38; Start 07/16/17 at 12:30; Stop 07/16/17 at 12:31; Status DC Diphenhydramine HCl (Benadryl) 25 mg 1X ONCE IVP Last administered on 13:53; Start 07/16/17 at 13:15; Stop 07/16/17 at 13:16; Status DC Acetaminophen (Tylenol) 650 mg PRN Q8HRS PRN PO FEVER Last administered on 07/20 00:17; Start 07/16/17 at 20:15 Meropenem 500 mg/ Sodium Chloride 50 ml @ 100 mls/hr Q8HRS IV Last administered on 07/20/17 06:02; Start 07/17/17 at 14:00 Potassium Chloride 50 ml @ 50 mls/hr Q1H IV ; Start 07/17/17 at 10:30; Stop at 12:29; Status Cancel Potassium Phosphate 10 mmol/ Sodium Chloride 103.3333 ml @ 51.667 m... Q2H IV Last administered on 07/17/17 14:36; Start 07/17/17 at 10:30; Stop 07/17/17 at 16:29; Status DC Fentanyl Citrate (Fentanyl 2ml Vial) 25 mcg PRN Q2HRS PRN IV MODERATE PAIN; Start 07/17/17 at 22:30 Fentanyl Citrate (Fentanyl 2ml Vial) 50 mcg PRN Q2HRS PRN IV SEVERE PAIN Last administered on 07/20/17 06:02; Start 07/17/17 at 22:30 Iohexol (Omnipaque 240 Mg/ml) 30 ml 1X ONCE PO Last administered on 07/18/17 12:13; Start 07/18/17 at 09:30; Stop 07/18/17 at 09:33; Status DC Iohexol (Omnipaque 300 Mg/ml) 75 ml 1X ONCE IV Last administered on 07/18/17 12:13; Start 07/18/17 at 09:30; Stop 07/18/17 at 09:33; Status DC Info (Do NOT chart on this entry -- for MONITORING) 1 each PRN DAILY PRN MC SEE COMMENTS; Start 07/18/17 at 09:45; Stop 07/20/17 at 09:44 Potassium Chloride 50 ml @ 50 mls/hr Q1H IV Last administered on 07/18/17 11: 00; Start 07/18/17 at 10:00; Stop 07/18/17 at 11:59; Status DC Ondansetron HCl (Zofran) 8 mg 1X STAT IV Last administered on 07/18/17 10:50 ; Start 07/18/17 at 10:26; Stop 07/18/17 at 10:30; Status DC Metronidazole 100 ml @ 100 mls/hr Q8HRS IV Last administered on 07/19/17 05: 38; Start 07/18/17 at 22:30; Stop 07/19/17 at 09:11; Status DC Info 1 each PRN DAILY PRN MC SEE COMMENTS Last administered on 07/19/17 15:04 ; Start 07/19/17 at 08:15 Vancomycin HCl 125 mg [id number] PO Last administered on 07/19/17 21:08; Start at 09:30 Lidocaine/Sodium Bicarbonate (Buffered Lidocaine 1%) 20 ml STK-MED ONCE IJ ; Start 07/19/17 at 12:57; Stop 07/19/17 at 12:58; Status DC Midazolam HCl (Versed) 5 mg STK-MED ONCE .ROUTE ; Start 07/19/17 at 12:57; Stop 07/19/17 at 12:58; Status DC Fentanyl Citrate (Fentanyl 5ml Vial) 250 mcg STK-MED ONCE .ROUTE ; Start at 12:58; Stop 07/19/17 at 12:59; Status DC Lidocaine/Sodium Bicarbonate (Buffered Lidocaine 1%) 20 ml 1X ONCE IJ Last administered on 07/19/17 14:06; Start 07/19/17 at 14:15; Stop 07/19/17 at 14:16 ; Status DC Midazolam HCl (Versed) 5 mg 1X ONCE IV Last administered on 07/19/17 14:07; Start 07/19/17 at 14:15; Stop 07/19/17 at 14:16; Status DC Fentanyl Citrate (Fentanyl 5ml Vial) 150 mcg 1X ONCE IV Last administered on 14:07; Start 07/19/17 at 14:00; Stop 07/19/17 at 14:11; Status DC Sodium Chloride 90 meq/Potassium Chloride 50 meq/ Potassium Phosphate 13.6 mmol/ Magnesium Sulfate 10 meq/ Calcium Gluconate 10 meq/ Multivitamins 10 ml/Chromium / Copper/Manganese/ Seleni/Zn 1 ml/ Total Parenteral Nutrition/Amino Acids/ Dextrose/ Fat Emulsion Intravenous 1,512 ml @ 63 mls/hr TPN CONT IV Last administered on 07/19/17t 22:08; Start 07/19/17 at 22:00; Stop 07/20/17 at 21:59 Active Scripts Active Oxycodone-Acetaminophen 5-325 (Oxycodone Hcl/Acetaminophen) 1 Each Tablet 1 Tab PO PRN Q4HRS PRN Reported Colace (Docusate Sodium) 100 Mg Capsule 100 Cap PO BID Polyethylene Glycol 3350 255 Gm Powder 17 Gm PO DAILY Atorvastatin Calcium 20 Mg Tablet 20 Mg PO HS Vitals/I & O Vital Sign - Last 24 Hours 07/19/17 07/19/17 07/19/17 07/19/17 11:00 11:04 13:25 13:30 Temp 98.8 98.8 Pulse 101 92 93 Resp 20 16 18 18 B/P (MAP) 150/76 (100) Pulse Ox 99 95 96 O2 Delivery Room Air Room Air Nasal Cannula Nasal Cannula O2 Flow Rate 2.0 2.0 07/19/17 07/19/17 07/19/17 07/19/17 13:35 13:40 13:45 13:50 Pulse 95 96 87 96 Resp 16 15 16 16 Pulse Ox 96 96 96 100 O2 Delivery Nasal Cannula Nasal Cannula Nasal Cannula Nasal Cannula O2 Flow Rate 2.0 2.0 2.0 2.0 07/19/17 07/19/17 07/19/17 07/19/17 13:55 13:59 14:07 14:37 Pulse 98 88 Resp 18 18 18 16 Pulse Ox 99 98 98 O2 Delivery Nasal Cannula Room Air Room Air Room Air O2 Flow Rate 2.0 07/19/17 07/19/17 07/19/17 07/19/17 15:00 15:44 17:36 19:00 Temp 97.5 100.2 97.5 100.2 Pulse 98 109 Resp 20 16 16 20 B/P (MAP) 158/82 (107) 145/74 (97) Pulse Ox 99 94 O2 Delivery Room Air Room Air Room Air Room Air 07/19/17 07/19/17 07/19/17 07/20/17 20:15 21:09 23:00 00:17 Temp 99.7 99.7 Pulse 102 Resp 20 20 20 B/P (MAP) 148/76 (100) Pulse Ox 94 94 94 O2 Delivery Room Air Room Air Room Air Room Air 807/20/17 07/20/17 07/20/17 03:00 03:02 06:02 06:32 Temp 98.1 98.1 Pulse 69 Resp 18 18 20 20 B/P (MAP) 149/69 (95) Pulse Ox 98 94 94 94 O2 Delivery Room Air Room Air Room Air Room Air 07/20/17 07:00 Temp 97.7 97.7 Pulse 99 Resp 20 B/P (MAP) 144/79 (100) Pulse Ox 95 O2 Delivery Room Air Intake and Output 07/19/17 07/19/17 07/20/17 15:00 23:00 07:00 Intake Total 1000 ml 550 ml 3621 ml Output Total 260 ml 1045 ml 505 ml Balance 740 ml -495 ml 3116 ml LIZBETH HOSKINS MD Jul 20, 2017 08:41
--- NOTE | 2017-07-20 08:57 | PDOC ---
SURGICAL PROGRESS NOTE Subjective Feeling better, less diarrhea. Vital Signs Vital Signs Date Time Temp Pulse Resp B/P (MAP) Pulse Ox O2 Delivery O2 Flow Rate FiO2 07/20/17 07:00 97.7 99 20 144/79 (100) 95 Room Air 97.7 07/19/17 13:55 2.0 I&O Intake and Output 07/20/17 07:00 Intake Total 5171 ml Output Total 1810 ml Balance 3361 ml Intake Oral 1150 ml IV Total 4021 ml Output Urine Total 1025 ml Stool Total 355 ml Drainage Total 430 ml PATIENT HAS A ELAM: No General: Alert, Oriented X3, Cooperative, mild distress Abdomen: Normal bowel sounds, Soft, No tenderness, Other (BEVERLY drains intact with bloody drainage.) Labs Laboratory Tests Test 07/18/17 13:04 07/19/17 06:00 07/20/17 06:00 Clostridium difficile Toxin (PCR) Positive (Negative) White Blood Count 16.9 x10^3/uL (4.0-11.0) 16.5 x10^3/uL (4.0-11.0) Red Blood Count 2.90 x10^6/uL (4.30-5.70) 2.92 x10^6/uL (4.30-5.70) Hemoglobin 8.5 g/dL (13.0-17.5) 8.8 g/dL (13.0-17.5) Hematocrit 25.7 % (39.0-53.0) 26.0 % (39.0-53.0) Mean Corpuscular Volume 89 fL (79-100) 89 fL (79-100) Mean Corpuscular Hemoglobin 29 pg (25-35) 30 pg (25-35) Mean Corpuscular Hemoglobin Concent 33 g/dL (31-37) 34 g/dL (31-37) Red Cell Distribution Width 13.9 % (11.5-14.5) 13.7 % (11.5-14.5) Platelet Count 349 x10^3/uL (140-400) 414 x10^3/uL (140-400) Neutrophils (%) (Auto) 75 % (31-73) 70 % (31-73) Lymphocytes (%) (Auto) 10 % (24-48) 15 % (24-48) Monocytes (%) (Auto) 11 % (0-9) 11 % (0-9) Eosinophils (%) (Auto) 3 % (0-3) 3 % (0-3) Basophils (%) (Auto) 1 % (0-3) 1 % (0-3) Neutrophils # (Auto) 12.7 x10^3uL (1.8-7.7) 11.6 x10^3uL (1.8-7.7) Lymphocytes # (Auto) 1.7 x10^3/uL (1.0-4.8) 2.5 x10^3/uL (1.0-4.8) Monocytes # (Auto) 1.9 x10^3/uL (0.0-1.1) 1.7 x10^3/uL (0.0-1.1) Eosinophils # (Auto) 0.4 x10^3/uL (0.0-0.7) 0.6 x10^3/uL (0.0-0.7) Basophils # (Auto) 0.1 x10^3/uL (0.0-0.2) 0.1 x10^3/uL (0.0-0.2) Sodium Level 134 mmol/L (136-145) 133 mmol/L (136-145) Potassium Level 3.7 mmol/L (3.5-5.1) 3.3 mmol/L (3.5-5.1) Chloride Level 101 mmol/L (98-107) 98 mmol/L (98-107) Carbon Dioxide Level 27 mmol/L (21-32) 26 mmol/L (21-32) Anion Gap 6 (6-14) 9 (6-14) Blood Urea Nitrogen 13 mg/dL (8-26) 7 mg/dL (8-26) Creatinine 0.9 mg/dL (0.7-1.3) 0.8 mg/dL (0.7-1.3) Estimated GFR (Cockcroft-Gault) 93.5 107.1 Glucose Level 140 mg/dL (70-99) 131 mg/dL (70-99) Calcium Level 7.6 mg/dL (8.5-10.1) 7.8 mg/dL (8.5-10.1) Phosphorus Level 3.1 mg/dL (2.6-4.7) 4.0 mg/dL (2.6-4.7) Magnesium Level 1.9 mg/dL (1.8-2.4) 1.7 mg/dL (1.8-2.4) Triglycerides Level 149 mg/dL (0-150) Laboratory Tests Test 07/20/17 06:00 White Blood Count 16.5 x10^3/uL (4.0-11.0) Red Blood Count 2.92 x10^6/uL (4.30-5.70) Hemoglobin 8.8 g/dL (13.0-17.5) Hematocrit 26.0 % (39.0-53.0) Mean Corpuscular Volume 89 fL (79-100) Mean Corpuscular Hemoglobin 30 pg (25-35) Mean Corpuscular Hemoglobin Concent 34 g/dL (31-37) Red Cell Distribution Width 13.7 % (11.5-14.5) Platelet Count 414 x10^3/uL (140-400) Neutrophils (%) (Auto) 70 % (31-73) Lymphocytes (%) (Auto) 15 % (24-48) Monocytes (%) (Auto) 11 % (0-9) Eosinophils (%) (Auto) 3 % (0-3) Basophils (%) (Auto) 1 % (0-3) Neutrophils # (Auto) 11.6 x10^3uL (1.8-7.7) Lymphocytes # (Auto) 2.5 x10^3/uL (1.0-4.8) Monocytes # (Auto) 1.7 x10^3/uL (0.0-1.1) Eosinophils # (Auto) 0.6 x10^3/uL (0.0-0.7) Basophils # (Auto) 0.1 x10^3/uL (0.0-0.2) Sodium Level 133 mmol/L (136-145) Potassium Level 3.3 mmol/L (3.5-5.1) Chloride Level 98 mmol/L (98-107) Carbon Dioxide Level 26 mmol/L (21-32) Anion Gap 9 (6-14) Blood Urea Nitrogen 7 mg/dL (8-26) Creatinine 0.8 mg/dL (0.7-1.3) Estimated GFR (Cockcroft-Gault) 107.1 Glucose Level 131 mg/dL (70-99) Calcium Level 7.8 mg/dL (8.5-10.1) Phosphorus Level 4.0 mg/dL (2.6-4.7) Magnesium Level 1.7 mg/dL (1.8-2.4) Triglycerides Level 149 mg/dL (0-150) Problem List Problems Medical Problems: (1) Fever Status: Acute (2) Right lower quadrant abdominal pain Status: Acute Assessment/Plan S/P L/S evacuation of abdominal hematoma and IR drainage of pelvic abscess Improving wbc 16.5 C.Dif colitis abx per ID Tolerating clear liquids on tpn Adv diet in AM stop tpn today. Problems: JO ANN JUAREZ MD Jul 20, 2017 08:57
--- NOTE | 2017-07-20 09:15 | PDOC ---
Infectious Disease Note Subjective Subjective feeling better, diarrhea improved ROS ROS GEN: Denies fevers, chills, sweats HEENT: Denies blurred vision, sore throat CV: Denies chest pain RESP: Denies shortness of air, cough GI: Denies n/v/d NEURO: Denies confusion, dizziness MSK: Denies weakness, joint pain/swelling Vital Sign Vital Signs Vital Signs Date Time Temp Pulse Resp B/P (MAP) Pulse Ox O2 Delivery O2 Flow Rate FiO2 07/20/17 07:00 97.7 99 20 144/79 (100) 95 Room Air 97.7 07/19/17 13:55 2.0 Physical Exam PHYSICAL EXAM GENERAL: NAD, Alert HEENT: PERRL, OC/OP NECK: Supple, no JVD, no LN LUNGS: Clear HEART: S1S2, no gallop, no murmur ABD: Soft, NT, no organomegaly, no rebound EXT: No edema, no cyanosis 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 PHYSICIAN: Alert, 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, no focal neurologic deficit SKIN: No rash IV: ok Labs Lab Laboratory Tests Test 07/20/17 06:00 White Blood Count 16.5 x10^3/uL (4.0-11.0) Red Blood Count 2.92 x10^6/uL (4.30-5.70) Hemoglobin 8.8 g/dL (13.0-17.5) Hematocrit 26.0 % (39.0-53.0) Mean Corpuscular Volume 89 fL (79-100) Mean Corpuscular Hemoglobin 30 pg (25-35) Mean Corpuscular Hemoglobin Concent 34 g/dL (31-37) Red Cell Distribution Width 13.7 % (11.5-14.5) Platelet Count 414 x10^3/uL (140-400) Neutrophils (%) (Auto) 70 % (31-73) Lymphocytes (%) (Auto) 15 % (24-48) Monocytes (%) (Auto) 11 % (0-9) Eosinophils (%) (Auto) 3 % (0-3) Basophils (%) (Auto) 1 % (0-3) Neutrophils # (Auto) 11.6 x10^3uL (1.8-7.7) Lymphocytes # (Auto) 2.5 x10^3/uL (1.0-4.8) Monocytes # (Auto) 1.7 x10^3/uL (0.0-1.1) Eosinophils # (Auto) 0.6 x10^3/uL (0.0-0.7) Basophils # (Auto) 0.1 x10^3/uL (0.0-0.2) Sodium Level 133 mmol/L (136-145) Potassium Level 3.3 mmol/L (3.5-5.1) Chloride Level 98 mmol/L (98-107) Carbon Dioxide Level 26 mmol/L (21-32) Anion Gap 9 (6-14) Blood Urea Nitrogen 7 mg/dL (8-26) Creatinine 0.8 mg/dL (0.7-1.3) Estimated GFR (Cockcroft-Gault) 107.1 Glucose Level 131 mg/dL (70-99) Calcium Level 7.8 mg/dL (8.5-10.1) Phosphorus Level 4.0 mg/dL (2.6-4.7) Magnesium Level 1.7 mg/dL (1.8-2.4) Triglycerides Level 149 mg/dL (0-150) Micro ANAEROBIC-AEROBIC CULTURE Preliminary Preliminary report ANAEROBIC RES 1 Preliminary Comment No anaerobes recovered in 48 hours. Performed at: [facility] [address] [place], [place] [id number] Rib Chopper: Tara Jarrell MD, Phone: [phone] AEROBIC CULT Final Final report AEROBIC RES 1 Final Escherichia coli Heavy growth ANTIMICROBIAL SUSCEPTIBILITY Final Comment S = Susceptible; I = Intermediate; R = Resistant P = Positive; N = Negative MICS are expressed in micrograms per mL Antibiotic RSLT#1 RSLT#2 RSLT#3 RSLT#4 Amoxicillin/Clavulanic Acid S Ampicillin R Cefepime S Ceftriaxone S Cefuroxime S Ciprofloxacin R Ertapenem S Gentamicin S Imipenem S Levofloxacin R Piperacillin R Tetracycline R CONTINUED ON NEXT PAGE RUN DATE: 07/16/17 PAGE 2 RUN TIME: 1211 [facility] [address] [place] [address] Jostin Ley M.D., Trust Operations Assistant SPEC: [id number] PATIENT: SARBJIT ZAVALA [id number] ( Continued) Procedure Result ANTIMICROBIAL SUSCEPTIBILITY Final (continued) Tobramycin S Trimethoprim/Sulfa S Performed at: [facility] [address] [id number] Rib Chopper: Tara Jarrell MD, Phone: [phone] Objective Assessment Fever Leukocytosis RLQ complex fluid collection, s/p aspiration, coag blood, 07/13. s/p diagnostic lap w/ evacuation of hematoma and RLQ drain placement, 07/14 ,, culture + with e coli s/p lap appy, 07/09 Urinary retention s/p indwelling Reyes C diff + Plan Plan of Care meropenem and fluconazole, po vanc f/u cultures Monitor labs D/w RN d/w dr Arnaldo MORALES,ZHANG Clemente MD Jul 20, 2017 09:15
[2017-07-20] MEDS: VANCOMYCIN 125 MG/2.5 ML ORAL SOLUTION. PO SCH ×4 (09:36→21:20)
[2017-07-20] MEDS: PROCHLORPERAZINE 10 MG/2 ML VIAL. IV PRN ×2 (09:47→18:26)
[2017-07-20 11:00] VITALS: BP 157/81
[2017-07-20] MEDS: ONDANSETRON PF 4 MG/2 ML VIAL. IV PRN ×2 (12:25→21:20)
[2017-07-20] MEDS ORDERED: MAGNESIUM SULFATE 2GM 50 ML IV ONE (13:00)
[2017-07-20] MEDS: TPN PER PHARMACY MC PRN ×2 (13:06→13:08)
[2017-07-20] MEDS: POTASSIUM CHLORIDE 20MEQ 50 ML IV SCH ×2 (14:01→15:09)
[2017-07-20 15:00] VITALS: BP 145/70
--- NOTE | 2017-07-20 15:45 | PDOC ---
PROGRESS NOTES Subjective Subjective sleeping this afternoon Objective Objective Vital Signs Date Time Temp Pulse Resp B/P (MAP) Pulse Ox O2 Delivery O2 Flow Rate FiO2 07/20/17 13:00 94 Room Air 2.0 07/20/17 11:00 98.8 108 20 157/81 (106) 98.8 Intake and Output 07/20/17 07:00 Intake Total 5171 ml Output Total 1810 ml Balance 3361 ml Intake Oral 1150 ml IV Total 4021 ml Output Urine Total 1025 ml Stool Total 355 ml Drainage Total 430 ml Physical Exam Abdomen: Normal bowel sounds, Soft, No tenderness, Other (BEVERLY drains intact with bloody drainage.) Heart: Normal S1, Normal S2 Extremities: No edema General: Alert, Oriented X3, Cooperative, mild distress Lungs: Clear to auscultation Neuro: Normal gait, Normal speech Psych/Mental Status: Mental status NL COMMENT drainslt+ rt lower abdomen Diagnosis Problem List Problems Medical Problems: (1) Fever Status: Acute (2) Right lower quadrant abdominal pain Status: Acute Assessment Assessment Problems Medical Problems: (1) Fever Status: Acute (2) Right lower quadrant abdominal pain Status: Acute FINAL IMPRESSION: C Diff colitis 1. Fever.r/o abscess 2. Free fluid in the paracolic gutter.hematoma ? vs abscess 3. Status post recent laparoscopic appendectomy last week 07/09/17 PLAN:IR placed drain yesterday for pelvic abscess po vancomycin for c diff. iv flagyl.added last night wbc trending down ,now 18 E Coli in para colic fluid resistant to Zosyn, spoke with ID ,iv antibiotics changed.Meropenum transferred out of ICU. IR consult for possible drain placement Pt was taken to OR on 07/14/17 Operative Note Date: 07/14/2017 Preoperative diagnosis: Intra-abdominal hematoma status post laparoscopic appendectomy Postoperative diagnosis: Same Procedure: Diagnostic laparoscopy with evacuation of hematoma and right lower quadrant drain placement Surgeon: Arnaldo Specimen: Intra-abdominal hematoma for culture iv fluids iv antibiotics, gram neg from fluid aspiration dvt prevention, scd, hematology consult appreciated Problems: Plan Plan of Care Problems Medical Problems: (1) Fever Status: Acute (2) Right lower quadrant abdominal pain Status: Acute Comment Review of Relevant I have reviewed the following items jersey (where applicable) has been applied. Labs Laboratory Tests Test 07/20/17 06:00 07/20/17 11:54 White Blood Count 16.5 x10^3/uL (4.0-11.0) Red Blood Count 2.92 x10^6/uL (4.30-5.70) Hemoglobin 8.8 g/dL (13.0-17.5) Hematocrit 26.0 % (39.0-53.0) Mean Corpuscular Volume 89 fL (79-100) Mean Corpuscular Hemoglobin 30 pg (25-35) Mean Corpuscular Hemoglobin Concent 34 g/dL (31-37) Red Cell Distribution Width 13.7 % (11.5-14.5) Platelet Count 414 x10^3/uL (140-400) Neutrophils (%) (Auto) 70 % (31-73) Lymphocytes (%) (Auto) 15 % (24-48) Monocytes (%) (Auto) 11 % (0-9) Eosinophils (%) (Auto) 3 % (0-3) Basophils (%) (Auto) 1 % (0-3) Neutrophils # (Auto) 11.6 x10^3uL (1.8-7.7) Lymphocytes # (Auto) 2.5 x10^3/uL (1.0-4.8) Monocytes # (Auto) 1.7 x10^3/uL (0.0-1.1) Eosinophils # (Auto) 0.6 x10^3/uL (0.0-0.7) Basophils # (Auto) 0.1 x10^3/uL (0.0-0.2) Sodium Level 133 mmol/L (136-145) Potassium Level 3.3 mmol/L (3.5-5.1) Chloride Level 98 mmol/L (98-107) Carbon Dioxide Level 26 mmol/L (21-32) Anion Gap 9 (6-14) Blood Urea Nitrogen 7 mg/dL (8-26) Creatinine 0.8 mg/dL (0.7-1.3) Estimated GFR (Cockcroft-Gault) 107.1 Glucose Level 131 mg/dL (70-99) Calcium Level 7.8 mg/dL (8.5-10.1) Phosphorus Level 4.0 mg/dL (2.6-4.7) Magnesium Level 1.7 mg/dL (1.8-2.4) Triglycerides Level 149 mg/dL (0-150) Glucose (Fingerstick) 133 mg/dL (70-99) Microbiology 07/18/17 Blood Culture - Preliminary, Resulted NO GROWTH AFTER 2 DAYS 07/19/17 Anaerobic/Aerobic Culture, Resulted Pending 07/19/17 Anaerobic Culture Result 1 (ASH), Resulted Pending 07/19/17 Aerobic Culture - Preliminary, Resulted 07/19/17 Aerobic Culture Result 1 (ASH) - Preliminary, Resulted Medications Current Medications Magnesium Sulfate/ Dextrose 50 ml @ 25 mls/hr 1X ONCE IV Last administered on 07/20/17 14:00; Start 07/20/17 at 13:00; Stop 07/20/17 at 14:59; Status DC Potassium Chloride 50 ml @ 50 mls/hr Q1H IV Last administered on 07/20/17 15: 09; Start 07/20/17 at 13:00; Stop 07/20/17 at 14:59; Status DC Sodium Chloride 90 meq/Potassium Chloride 50 meq/ Potassium Phosphate 13.6 mmol/ Magnesium Sulfate 10 meq/ Calcium Gluconate 10 meq/ Multivitamins 10 ml/Chromium / Copper/Manganese/ Seleni/Zn 1 ml/ Total Parenteral Nutrition/Amino Acids/ Dextrose/ Fat Emulsion Intravenous 1,512 ml @ 63 mls/hr TPN CONT IV Last administered on 07/19/17 22:08; Start 07/19/17 at 22:00; Stop 07/20/17 at 21:59 Sodium Chloride 90 meq/Potassium Chloride 70 meq/ Potassium Phosphate 13.6 mmol/ Magnesium Sulfate 12 meq/ Calcium Gluconate 10 meq/ Multivitamins 10 ml/Chromium / Copper/Manganese/ Seleni/Zn 1 ml/ Total Parenteral Nutrition/Amino Acids/ Dextrose/ Fat Emulsion Intravenous 1,512 ml @ 63 mls/hr TPN CONT IV ; Start at 22:00; Stop 07/21/17 at 21:59 Vitals/I & O Vital Sign - Last 24 Hours 07/19/17 07/19/17 07/19/17 07/19/17 15:44 17:36 19:00 20:15 Temp 100.2 100.2 Pulse 109 Resp 16 16 20 B/P (MAP) 145/74 (97) Pulse Ox 94 O2 Delivery Room Air Room Air Room Air Room Air 07/19/17 07/19/17 07/20/17 07/20/17 21:09 23:00 00:17 03:00 Temp 99.7 98.1 99.7 98.1 Pulse 102 69 Resp 20 20 20 18 B/P (MAP) 148/76 (100) 149/69 (95) Pulse Ox 94 94 94 98 O2 Delivery Room Air Room Air Room Air Room Air 07/20/17 07/20/17 07/20/17 07/20/17 03:02 06:02 06:32 07:00 Temp 97.7 97.7 Pulse 99 Resp 18 20 20 20 B/P (MAP) 144/79 (100) Pulse Ox 94 94 95 O2 Delivery Room Air Room Air Room Air 07/20/17 07/20/17 07/20/17 07/20/17 08:10 09:36 11:00 12:18 Temp 98.8 98.8 Pulse 108 Resp 20 B/P (MAP) 157/81 (106) Pulse Ox 94 O2 Delivery Room Air Room Air Room Air Room Air 07/20/17 13:00 Pulse Ox 94 O2 Delivery Room Air O2 Flow Rate 2.0 Intake and Output 07/19/17 07/19/17 07/20/17 15:00 23:00 07:00 Intake Total 1000 ml 550 ml 3621 ml Output Total 260 ml 1045 ml 505 ml Balance 740 ml -495 ml 3116 ml JUAN A MEADE MD Jul 20, 2017 15:45
[2017-07-20] MEDS: FLUCONAZOLE 400MG/200ML PREMIX 200 ML IV SCH (17:06)
[2017-07-20 19:00] VITALS: BP 142/72
[2017-07-20] MEDS ORDERED: [UNRECOGNIZED DRUG - OTHER] IV SCH ×10 (22:00)
[2017-07-20] MEDS ORDERED: DEXTROSE 70% IV SCH ×10 (22:00)
[2017-07-20] MEDS ORDERED: AMINO ACIDS IV SCH ×10 (22:00)
[2017-07-20] MEDS ORDERED: TOTAL PARENTERAL NUTRITION IV SCH ×10 (22:00)
[2017-07-20 23:00] VITALS: BP 134/73
[2017-07-21] MEDS: fentaNYL PF VIAL 100 MCG/2 ML VIAL IV PRN ×6 (02:36→22:39)
[2017-07-21 02:48] VITALS: BP 157/67
[2017-07-21 05:51] LABS: BASO # 0.2 x10^3/uL (0.0-0.2); BASO % 1 % (0-3); EOS % 2 % (0-3); HEMATOCRIT 27.6 % (39.0-53.0); HEMOGLOBIN 9.4 g/dL (13.0-17.5); LYMPH # 1.4 x10^3/uL (1.0-4.8); LYMPH % 6 % (24-48); MEAN CORPUSCULAR HEMOGLOBIN 30 pg (25-35); MEAN CORPUSCULAR HGB CONC 34 g/dL (31-37); MEAN CORPUSCULAR VOLUME 87 fL (79-100); MONO % 5 % (0-9); NEUT % 86 % (31-73); PLATELET COUNT 488 x10^3/uL (140-400); RED BLOOD COUNT 3.18 x10^6/uL (4.30-5.70); RED CELL DISTRIBUTION WIDTH 13.7 % (11.5-14.5); WHITE BLOOD COUNT 23.1 x10^3/uL (4.0-11.0)
[2017-07-21] MEDS: MEROPENEM 500 MG in IV NORMAL SALINE 50ML 50 ML IV SCH ×2 (06:10→13:10)
[2017-07-21 06:37] LABS: CALCIUM 7.7 mg/dL (8.5-10.1); CREATININE 0.9 mg/dL (0.7-1.3); GFR 93.5; POTASSIUM 3.6 mmol/L (3.5-5.1)
[2017-07-21 06:41] LABS: PHOSPHORUS 3.4 mg/dL (2.6-4.7)
[2017-07-21 07:00] VITALS: BP 137/75
[2017-07-21] MEDS: VANCOMYCIN 125 MG/2.5 ML ORAL SOLUTION. PO SCH ×4 (08:53→20:22)
--- NOTE | 2017-07-21 10:31 | PDOC ---
Infectious Disease Note Subjective Subjective Feeling well, hungry wants to eat Remains on TPN and clear liquid diet Low -grade fevers, Tmax 100.9 Loose green stools. Denies abdominal pain, cramping, bloating, or N/V ROS ROS GEN: Denies chills, sweats CV: Denies chest pain RESP: Denies shortness of air, cough Vital Sign Vital Signs Vital Signs Date Time Temp Pulse Resp B/P (MAP) Pulse Ox O2 Delivery O2 Flow Rate FiO2 07/21/17 07:50 Room Air 07/21/17 07:00 100.9 106 20 137/75 (95) 94 100.9 07/20/17 23:44 2.0 Physical Exam PHYSICAL EXAM GENERAL: Walking back to bed, relaxed appearance HEENT: OC/OP pink, dry NECK: Supple, no JVD, no LN LUNGS: Clear HEART: S1S2, no gallop, no murmur ABD: Soft, NT, + BS, RLQ & left gluteal BEVERLY drains, serosanguineous EXT: No edema, no cyanosis VEGETABLE FARMER: Alert, 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, no focal neurologic deficit SKIN: No rash RIJ. (07/14). clean Labs Lab Laboratory Tests Test 07/20/17 11:54 07/21/17 00:15 07/21/17 05:30 07/21/17 06:00 Glucose (Fingerstick) 133 mg/dL (70-99) 133 mg/dL (70-99) 151 mg/dL (70-99) White Blood Count 23.1 x10^3/uL (4.0-11.0) Red Blood Count 3.18 x10^6/uL (4.30-5.70) Hemoglobin 9.4 g/dL (13.0-17.5) Hematocrit 27.6 % (39.0-53.0) Mean Corpuscular Volume 87 fL (79-100) Mean Corpuscular Hemoglobin 30 pg (25-35) Mean Corpuscular Hemoglobin Concent 34 g/dL (31-37) Red Cell Distribution Width 13.7 % (11.5-14.5) Platelet Count 488 x10^3/uL (140-400) Neutrophils (%) (Auto) 86 % (31-73) Lymphocytes (%) (Auto) 6 % (24-48) Monocytes (%) (Auto) 5 % (0-9) Eosinophils (%) (Auto) 2 % (0-3) Basophils (%) (Auto) 1 % (0-3) Neutrophils # (Auto) 19.9 x10^3uL (1.8-7.7) Lymphocytes # (Auto) 1.4 x10^3/uL (1.0-4.8) Monocytes # (Auto) 1.1 x10^3/uL (0.0-1.1) Eosinophils # (Auto) 0.4 x10^3/uL (0.0-0.7) Basophils # (Auto) 0.2 x10^3/uL (0.0-0.2) Sodium Level 130 mmol/L (136-145) Potassium Level 3.6 mmol/L (3.5-5.1) Chloride Level 95 mmol/L (98-107) Carbon Dioxide Level 25 mmol/L (21-32) Anion Gap 10 (6-14) Blood Urea Nitrogen 8 mg/dL (8-26) Creatinine 0.9 mg/dL (0.7-1.3) Estimated GFR (Cockcroft-Gault) 93.5 Glucose Level 144 mg/dL (70-99) Calcium Level 7.7 mg/dL (8.5-10.1) Phosphorus Level 3.4 mg/dL (2.6-4.7) Magnesium Level 2.0 mg/dL (1.8-2.4) Micro 07/18.BLOOD CULTURE Preliminary NO GROWTH AFTER 3 DAYS 07/19. Abdomen abscess AEROBIC RES 1 Preliminary Gram negative rods Objective Assessment Fever Leukocytosis, increased RLQ complex fluid collection, s/p aspiration, coag blood, 07/13. E. coli -s/p diagnostic lap w/ evacuation of hematoma and RLQ drain placement, , Bacteroides and multiple GNR-no further work-up was done Increase pelvic fluid collection/abscess. s/p left gluteal drain, 07/19. GNR s/p lap appy, 07/09 Urinary retention s/p indwelling Reyes Ileus C. diff, 07/18 Plan Plan of Care D/c Meropenem. Begin rocephin/Flagyl given leukocytosis Cont fluconazole, po vanc Await GNR ID/susceptibilities Monitor WBC and temp Attending Co-Sign Attending Co-Sign The patient was seen and interviewed as well as examined at the bedside. The chart was reviewed. The case was discussed. Agree with the plan of care. CAROL PEARSON APRN Jul 21, 2017 10:31 CELENA CAR MD Jul 21, 2017 15:09
[2017-07-21] MEDS: ONDANSETRON PF 4 MG/2 ML VIAL. IV PRN ×2 (10:39→22:38)
[2017-07-21] MEDS: ACETAMINOPHEN 325 MG TABLET. PO PRN ×2 (10:51→20:22)
[2017-07-21 11:00] VITALS: BP 137/70
[2017-07-21] MEDS: TPN PER PHARMACY MC PRN (11:12)
--- NOTE | 2017-07-21 11:15 | PDOC ---
PROGRESS NOTES Subjective Subjective feels good able to tolerate liquid diet Objective Objective Vital Signs Date Time Temp Pulse Resp B/P (MAP) Pulse Ox O2 Delivery O2 Flow Rate FiO2 07/21/17 10:39 Room Air 07/21/17 07:00 100.9 106 20 137/75 (95) 94 100.9 07/20/17 23:44 2.0 Intake and Output 07/21/17 07:00 Intake Total 2907.5 ml Output Total 1250 ml Balance 1657.5 ml Intake Oral 1220 ml IV Total 1687.5 ml Output Urine Total 325 ml Stool Total 800 ml Drainage Total 125 ml # Voids 3 Physical Exam Abdomen: Normal bowel sounds, Soft, No tenderness, Other (BEVERLY drains intact with bloody drainage.) Heart: Normal S1, Normal S2 Extremities: No edema General: Alert, Oriented X3, Cooperative, mild distress Lungs: Clear to auscultation Neuro: Normal gait, Normal speech Psych/Mental Status: Mental status NL COMMENT drains lt+ rt lower abdomen Diagnosis Problem List Problems Medical Problems: (1) Fever Status: Acute (2) Right lower quadrant abdominal pain Status: Acute Assessment Assessment Problems Medical Problems: (1) Fever Status: Acute (2) Right lower quadrant abdominal pain Status: Acute FINAL IMPRESSION: C Diff colitis 1. Fever.r/o abscess pelvic 2. Free fluid in the paracolic gutter.hematoma ? vs abscess 3. Status post recent laparoscopic appendectomy last week ,07/09/17 PLAN:IR placed drain for pelvic abscess, 2 drains present po vancomycin for c diff. full liquid diet wbc trending up ,now 23 E Coli in para colic fluid resistant to Zosyn, spoke with ID ,iv antibiotics changed.Meropenum. tpn for nutrition Pt was taken to OR on 07/14/17 Operative Note Date: 07/14/2017 Preoperative diagnosis: Intra-abdominal hematoma status post laparoscopic appendectomy Postoperative diagnosis: Same Procedure: Diagnostic laparoscopy with evacuation of hematoma and right lower quadrant drain placement Surgeon: Arnaldo Specimen: Intra-abdominal hematoma for culture iv fluids iv antibiotics, gram neg from fluid aspiration dvt prevention, scd, hematology consult appreciated Problems: Plan Plan of Care Problems Medical Problems: (1) Fever Status: Acute (2) Right lower quadrant abdominal pain Status: Acute Comment Review of Relevant I have reviewed the following items jersey (where applicable) has been applied. Labs Laboratory Tests Test 07/20/17 11:54 07/21/17 00:15 07/21/17 05:30 07/21/17 06:00 Glucose (Fingerstick) 133 mg/dL (70-99) 133 mg/dL (70-99) 151 mg/dL (70-99) White Blood Count 23.1 x10^3/uL (4.0-11.0) Red Blood Count 3.18 x10^6/uL (4.30-5.70) Hemoglobin 9.4 g/dL (13.0-17.5) Hematocrit 27.6 % (39.0-53.0) Mean Corpuscular Volume 87 fL (79-100) Mean Corpuscular Hemoglobin 30 pg (25-35) Mean Corpuscular Hemoglobin Concent 34 g/dL (31-37) Red Cell Distribution Width 13.7 % (11.5-14.5) Platelet Count 488 x10^3/uL (140-400) Neutrophils (%) (Auto) 86 % (31-73) Lymphocytes (%) (Auto) 6 % (24-48) Monocytes (%) (Auto) 5 % (0-9) Eosinophils (%) (Auto) 2 % (0-3) Basophils (%) (Auto) 1 % (0-3) Neutrophils # (Auto) 19.9 x10^3uL (1.8-7.7) Lymphocytes # (Auto) 1.4 x10^3/uL (1.0-4.8) Monocytes # (Auto) 1.1 x10^3/uL (0.0-1.1) Eosinophils # (Auto) 0.4 x10^3/uL (0.0-0.7) Basophils # (Auto) 0.2 x10^3/uL (0.0-0.2) Sodium Level 130 mmol/L (136-145) Potassium Level 3.6 mmol/L (3.5-5.1) Chloride Level 95 mmol/L (98-107) Carbon Dioxide Level 25 mmol/L (21-32) Anion Gap 10 (6-14) Blood Urea Nitrogen 8 mg/dL (8-26) Creatinine 0.9 mg/dL (0.7-1.3) Estimated GFR (Cockcroft-Gault) 93.5 Glucose Level 144 mg/dL (70-99) Calcium Level 7.7 mg/dL (8.5-10.1) Phosphorus Level 3.4 mg/dL (2.6-4.7) Magnesium Level 2.0 mg/dL (1.8-2.4) Microbiology 07/18/17 Blood Culture - Preliminary, Resulted NO GROWTH AFTER 3 DAYS 07/19/17 Anaerobic/Aerobic Culture, Resulted Pending 07/19/17 Anaerobic Culture Result 1 (ASH), Resulted Pending 07/19/17 Aerobic Culture - Preliminary, Resulted 07/19/17 Aerobic Culture Result 1 (ASH) - Preliminary, Resulted Medications Current Medications Magnesium Sulfate/ Dextrose 50 ml @ 25 mls/hr 1X ONCE IV Last administered on 07/20/17 14:00; Start 07/20/17 at 13:00; Stop 07/20/17 at 14:59; Status DC Potassium Chloride 50 ml @ 50 mls/hr Q1H IV Last administered on 07/20/17 15: 09; Start 07/20/17 at 13:00; Stop 07/20/17 at 14:59; Status DC Sodium Chloride 90 meq/Potassium Chloride 70 meq/ Potassium Phosphate 13.6 mmol/ Magnesium Sulfate 12 meq/ Calcium Gluconate 10 meq/ Multivitamins 10 ml/Chromium / Copper/Manganese/ Seleni/Zn 1 ml/ Total Parenteral Nutrition/Amino Acids/ Dextrose/ Fat Emulsion Intravenous 1,512 ml @ 63 mls/hr TPN CONT IV Last administered on 07/20/17 23:06; Start 07/20/17 at 22:00; Stop 07/21/17 at 21:59 Vitals/I & O Vital Sign - Last 24 Hours 07/20/17 07/20/17 07/20/17 07/20/17 12:18 15:00 18:26 19:00 Temp 98.7 100.2 98.7 100.2 Pulse 102 85 Resp 20 18 B/P (MAP) 145/70 (95) 142/72 (95) Pulse Ox 95 95 O2 Delivery Room Air Room Air Room Air Room Air 07/20/17 07/20/17 07/20/17 07/20/17 19:30 20:30 21:20 23:00 Temp 99.3 99.3 Pulse 108 Resp 20 18 B/P (MAP) 134/73 (93) Pulse Ox 95 93 O2 Delivery Room Air Room Air Room Air O2 Flow Rate 2.0 07/20/17 07/21/17 07/21/17 07/21/17 23:44 02:36 02:48 03:10 Temp 96.6 96.6 Pulse 117 Resp 20 18 20 B/P (MAP) 157/67 (97) Pulse Ox 93 93 99 99 O2 Delivery Room Air Room Air Room Air O2 Flow Rate 2.0 07/21/17 07/21/17 07/21/17 07/21/17 06:11 07:00 07:50 07:50 Temp 100.9 100.9 Pulse 106 Resp 18 20 B/P (MAP) 137/75 (95) Pulse Ox 99 94 O2 Delivery Room Air Room Air Room Air Room Air 07/21/17 10:39 O2 Delivery Room Air Intake and Output 07/20/17 07/20/17 07/21/17 15:00 23:00 07:00 Intake Total 200 ml 620 ml 2087.5 ml Output Total 375 ml 875 ml Balance 200 ml 245 ml 1212.5 ml JUAN A MEADE MD Jul 21, 2017 11:15
--- NOTE | 2017-07-21 13:50 | PDOC ---
Provider Note Provider Note denies concerns today. +loose/liquid bm. less abd pain low grade temps abd soft nontender chioma dark bloody a/p pelvic abscess s/p drainage c diff colitis. cont abx, supportive care. DIXIE ZHENG MD Jul 21, 2017 13:50
[2017-07-21 15:00] VITALS: BP 128/70
[2017-07-21] MEDS: FLUCONAZOLE 400MG/200ML PREMIX 200 ML IV SCH (17:26)
[2017-07-21 19:15] VITALS: BP 127/76
[2017-07-21] MEDS ORDERED: [UNRECOGNIZED DRUG - OTHER] IV SCH ×10 (22:00)
[2017-07-21] MEDS ORDERED: AMINO ACIDS IV SCH ×10 (22:00)
[2017-07-21] MEDS ORDERED: TOTAL PARENTERAL NUTRITION IV SCH ×10 (22:00)
[2017-07-21] MEDS ORDERED: DEXTROSE 70% IV SCH ×10 (22:00)
[2017-07-21 23:30] VITALS: BP 123/73
[2017-07-22 03:15] VITALS: BP 126/75
[2017-07-22] MEDS: fentaNYL PF VIAL 100 MCG/2 ML VIAL IV PRN ×2 (04:02→08:17)
[2017-07-22 04:18] LABS: BASO # 0.1 x10^3/uL (0.0-0.2); BASO % 1 % (0-3); EOS % 2 % (0-3); HEMATOCRIT 27.1 % (39.0-53.0); HEMOGLOBIN 8.8 g/dL (13.0-17.5); LYMPH # 2.5 x10^3/uL (1.0-4.8); LYMPH % 14 % (24-48); MEAN CORPUSCULAR HEMOGLOBIN 29 pg (25-35); MEAN CORPUSCULAR HGB CONC 33 g/dL (31-37); MEAN CORPUSCULAR VOLUME 89 fL (79-100); MONO % 9 % (0-9); NEUT % 75 % (31-73); PLATELET COUNT 439 x10^3/uL (140-400); RED BLOOD COUNT 3.03 x10^6/uL (4.30-5.70); RED CELL DISTRIBUTION WIDTH 13.8 % (11.5-14.5)
[2017-07-22 04:28] LABS: PHOSPHORUS 4.4 mg/dL (2.6-4.7)
[2017-07-22 06:38] LABS: CALCIUM 7.6 mg/dL (8.5-10.1); CREATININE 0.7 mg/dL (0.7-1.3); GFR 124.9; POTASSIUM 4.1 mmol/L (3.5-5.1)
[2017-07-22 07:00] VITALS: BP 133/79
[2017-07-22] MEDS: VANCOMYCIN 125 MG/2.5 ML ORAL SOLUTION. PO SCH ×4 (08:04→20:22)
[2017-07-22] MEDS: ACETAMINOPHEN 325 MG TABLET. PO PRN (08:15)
--- NOTE | 2017-07-22 08:27 | PDOC ---
HOLDENRAMAKRISHNA STEM ROLLER 07/22/17 0827: IM PROGRESS NOTES- Subjective Subjective still with semi liquid green stools Objective Objective alert no distress Vitals Vital Signs Date Time Temp Pulse Resp B/P (MAP) Pulse Ox O2 Delivery O2 Flow Rate FiO2 07/22/17 04:32 20 96 Room Air 07/22/17 03:15 97.9 98 126/75 (92) 97.9 Input & Output Intake and Output 07/22/17 07:00 Intake Total 2455 ml Output Total 145 ml Balance 2310 ml Intake Oral 1940 ml IV Total 515 ml Output Urine Total 120 ml Drainage Total 25 ml # Voids 2 Physical Exam Physical Exam General appearance - alert, ill appearing, and in no distress Mental Status - alert, oriented to person, place, and time, affect appropriate to mood Head - normal Chest - clear to auscultation, no wheezes, rales or rhonchi, symmetric air entry Heart - S1 and S2 normal Abdomen - soft, + tender, BS +. ecchymosis RLQ from mos recent IR procedure, some bruising lower abdomen multiple areas Neurological - no acute focal neurological deficit noted Musculoskeletal - no muscular tenderness noted Extremities - no pedal edema Skin - warm and dry Labs Laboratory Tests Test 07/20/17 11:54 07/21/17 00:15 07/21/17 05:30 07/21/17 06:00 Glucose (Fingerstick) 133 mg/dL (70-99) 133 mg/dL (70-99) 151 mg/dL (70-99) White Blood Count 23.1 x10^3/uL (4.0-11.0) Red Blood Count 3.18 x10^6/uL (4.30-5.70) Hemoglobin 9.4 g/dL (13.0-17.5) Hematocrit 27.6 % (39.0-53.0) Mean Corpuscular Volume 87 fL (79-100) Mean Corpuscular Hemoglobin 30 pg (25-35) Mean Corpuscular Hemoglobin Concent 34 g/dL (31-37) Red Cell Distribution Width 13.7 % (11.5-14.5) Platelet Count 488 x10^3/uL (140-400) Neutrophils (%) (Auto) 86 % (31-73) Lymphocytes (%) (Auto) 6 % (24-48) Monocytes (%) (Auto) 5 % (0-9) Eosinophils (%) (Auto) 2 % (0-3) Basophils (%) (Auto) 1 % (0-3) Neutrophils # (Auto) 19.9 x10^3uL (1.8-7.7) Lymphocytes # (Auto) 1.4 x10^3/uL (1.0-4.8) Monocytes # (Auto) 1.1 x10^3/uL (0.0-1.1) Eosinophils # (Auto) 0.4 x10^3/uL (0.0-0.7) Basophils # (Auto) 0.2 x10^3/uL (0.0-0.2) Sodium Level 130 mmol/L (136-145) Potassium Level 3.6 mmol/L (3.5-5.1) Chloride Level 95 mmol/L (98-107) Carbon Dioxide Level 25 mmol/L (21-32) Anion Gap 10 (6-14) Blood Urea Nitrogen 8 mg/dL (8-26) Creatinine 0.9 mg/dL (0.7-1.3) Estimated GFR (Cockcroft-Gault) 93.5 Glucose Level 144 mg/dL (70-99) Calcium Level 7.7 mg/dL (8.5-10.1) Phosphorus Level 3.4 mg/dL (2.6-4.7) Magnesium Level 2.0 mg/dL (1.8-2.4) Test 07/21/17 12:05 07/21/17 18:20 07/21/17 23:57 07/22/17 04:00 Glucose (Fingerstick) 138 mg/dL (70-99) 106 mg/dL (70-99) 124 mg/dL (70-99) Sodium Level 132 mmol/L (136-145) Potassium Level 4.1 mmol/L (3.5-5.1) Chloride Level 99 mmol/L (98-107) Carbon Dioxide Level 25 mmol/L (21-32) Anion Gap 8 (6-14) Blood Urea Nitrogen 8 mg/dL (8-26) Creatinine 0.7 mg/dL (0.7-1.3) Estimated GFR (Cockcroft-Gault) 124.9 Glucose Level 120 mg/dL (70-99) Calcium Level 7.6 mg/dL (8.5-10.1) Test 07/22/17 04:10 07/22/17 05:39 White Blood Count 18.0 x10^3/uL (4.0-11.0) Red Blood Count 3.03 x10^6/uL (4.30-5.70) Hemoglobin 8.8 g/dL (13.0-17.5) Hematocrit 27.1 % (39.0-53.0) Mean Corpuscular Volume 89 fL (79-100) Mean Corpuscular Hemoglobin 29 pg (25-35) Mean Corpuscular Hemoglobin Concent 33 g/dL (31-37) Red Cell Distribution Width 13.8 % (11.5-14.5) Platelet Count 439 x10^3/uL (140-400) Neutrophils (%) (Auto) 75 % (31-73) Lymphocytes (%) (Auto) 14 % (24-48) Monocytes (%) (Auto) 9 % (0-9) Eosinophils (%) (Auto) 2 % (0-3) Basophils (%) (Auto) 1 % (0-3) Neutrophils # (Auto) 13.4 x10^3uL (1.8-7.7) Lymphocytes # (Auto) 2.5 x10^3/uL (1.0-4.8) Monocytes # (Auto) 1.7 x10^3/uL (0.0-1.1) Eosinophils # (Auto) 0.3 x10^3/uL (0.0-0.7) Basophils # (Auto) 0.1 x10^3/uL (0.0-0.2) Phosphorus Level 4.4 mg/dL (2.6-4.7) Magnesium Level 2.0 mg/dL (1.8-2.4) Glucose (Fingerstick) 139 mg/dL (70-99) Laboratory Tests Test 07/21/17 12:05 07/21/17 18:20 07/21/17 23:57 07/22/17 04:00 Glucose (Fingerstick) 138 mg/dL (70-99) 106 mg/dL (70-99) 124 mg/dL (70-99) Sodium Level 132 mmol/L (136-145) Potassium Level 4.1 mmol/L (3.5-5.1) Chloride Level 99 mmol/L (98-107) Carbon Dioxide Level 25 mmol/L (21-32) Anion Gap 8 (6-14) Blood Urea Nitrogen 8 mg/dL (8-26) Creatinine 0.7 mg/dL (0.7-1.3) Estimated GFR (Cockcroft-Gault) 124.9 Glucose Level 120 mg/dL (70-99) Calcium Level 7.6 mg/dL (8.5-10.1) Test 07/22/17 04:10 07/22/17 05:39 White Blood Count 18.0 x10^3/uL (4.0-11.0) Red Blood Count 3.03 x10^6/uL (4.30-5.70) Hemoglobin 8.8 g/dL (13.0-17.5) Hematocrit 27.1 % (39.0-53.0) Mean Corpuscular Volume 89 fL (79-100) Mean Corpuscular Hemoglobin 29 pg (25-35) Mean Corpuscular Hemoglobin Concent 33 g/dL (31-37) Red Cell Distribution Width 13.8 % (11.5-14.5) Platelet Count 439 x10^3/uL (140-400) Neutrophils (%) (Auto) 75 % (31-73) Lymphocytes (%) (Auto) 14 % (24-48) Monocytes (%) (Auto) 9 % (0-9) Eosinophils (%) (Auto) 2 % (0-3) Basophils (%) (Auto) 1 % (0-3) Neutrophils # (Auto) 13.4 x10^3uL (1.8-7.7) Lymphocytes # (Auto) 2.5 x10^3/uL (1.0-4.8) Monocytes # (Auto) 1.7 x10^3/uL (0.0-1.1) Eosinophils # (Auto) 0.3 x10^3/uL (0.0-0.7) Basophils # (Auto) 0.1 x10^3/uL (0.0-0.2) Phosphorus Level 4.4 mg/dL (2.6-4.7) Magnesium Level 2.0 mg/dL (1.8-2.4) Glucose (Fingerstick) 139 mg/dL (70-99) Meds Current Medications Ceftriaxone Sodium 1 gm/ Sodium Chloride 50 ml @ 100 mls/hr Q24H IV Last administered on 07/21/17 16:34; Start 07/21/17 at 17:00 Metronidazole 100 ml @ 100 mls/hr Q8HRS IV Last administered on 07/22/17 05: 38; Start 07/21/17 at 22:00 Sodium Chloride 90 meq/Potassium Chloride 70 meq/ Potassium Phosphate 13.6 mmol/ Magnesium Sulfate 12 meq/ Calcium Gluconate 10 meq/ Multivitamins 10 ml/Chromium / Copper/Manganese/ Seleni/Zn 1 ml/ Total Parenteral Nutrition/Amino Acids/ Dextrose/ Fat Emulsion Intravenous 1,400 ml @ 58.333 mls/ hr TPN CONT IV Last administered on 07/21/17 22:12; Start 07/21/17 at 22:00; Stop 07/22/17 at 21:59 Assessment Assessment Problems Medical Problems: (1) Fever Status: Acute (2) Right lower quadrant abdominal pain Status: Acute FINAL IMPRESSION: C Diff colitis 1. Fever.r/o abscess pelvic 2. Free fluid in the paracolic gutter.hematoma ? vs abscess 3. Status post recent laparoscopic appendectomy last week ,07/09/17 PLAN: Sepsis RLQ abscess s/p aspiration, 07/13. E. coli -s/p diagnostic lap w/ evacuation of hematoma and RLQ drain placement, , Bacteroides and multiple GNR-no further work-up was done s/p left gluteal drain per IR, 07/19. GNR s/p lap appy, 07/09 IV antibiotics Reyes for urinary retention Ileus C. diff oral vanc Anemia Admit 11.8 Hgb 8.8 WBC admit 19.6 today 18.0 Nutrition-full liquid diet +TPN BS 106-139 SSI no h/o DM -secondary to TPN placed drain for pelvic abscess, 2 drains present po vancomycin for c diff. full liquid diet wbc trending up ,now 23 E Coli in para colic fluid resistant to Zosyn, spoke with ID ,iv antibiotics changed.Meropenum. tpn for nutrition Pt was taken to OR on 07/14/17 Operative Note Date: 07/14/2017 Preoperative diagnosis: Intra-abdominal hematoma status post laparoscopic appendectomy Postoperative diagnosis: Same Procedure: Diagnostic laparoscopy with evacuation of hematoma and right lower quadrant drain placement Surgeon: Arnaldo Specimen: Intra-abdominal hematoma for culture iv fluids iv antibiotics, gram neg from fluid aspiration dvt prevention, scd, hematology consult appreciated Plan Plan For more details regarding further plans, please refer to the orders. NIMA ALBERT MD 07/22/17 0919: PROGRESS NOTES- Assessment Assessment D/w patient,family. Continue TPN.Check labs in AM. The patient was seen and examined by me. Chart reviewed and plan of care formulated. Discussed with, reviewed and agree with MILKING MACHINE MECHANIC's notes, plan of care and orders with modifications as necessary. For more details regarding further plans, please refer to the orders. RAMAKRISHNA HATCH APRN Jul 22, 2017 08:27 NIMA ALBERT MD Jul 22, 2017 09:19
--- NOTE | 2017-07-22 08:30 | PDOC ---
SURGICAL PROGRESS NOTE Subjective feeling ok wanting to go home Vital Signs Vital Signs Date Time Temp Pulse Resp B/P (MAP) Pulse Ox O2 Delivery O2 Flow Rate FiO2 07/22/17 08:17 Room Air 07/22/17 07:00 100.2 102 20 133/79 (97) 97 100.2 I&O Intake and Output 07/22/17 07:00 Intake Total 2455 ml Output Total 145 ml Balance 2310 ml Intake Oral 1940 ml IV Total 515 ml Output Urine Total 120 ml Drainage Total 25 ml # Voids 2 General: Alert, Oriented X3, Cooperative, No acute distress Abdomen: Soft, Other (some ecchymosis right abdomen, BEVERLY bloody) Labs Laboratory Tests Test 07/20/17 11:54 07/21/17 00:15 07/21/17 05:30 07/21/17 06:00 Glucose (Fingerstick) 133 mg/dL (70-99) 133 mg/dL (70-99) 151 mg/dL (70-99) White Blood Count 23.1 x10^3/uL (4.0-11.0) Red Blood Count 3.18 x10^6/uL (4.30-5.70) Hemoglobin 9.4 g/dL (13.0-17.5) Hematocrit 27.6 % (39.0-53.0) Mean Corpuscular Volume 87 fL (79-100) Mean Corpuscular Hemoglobin 30 pg (25-35) Mean Corpuscular Hemoglobin Concent 34 g/dL (31-37) Red Cell Distribution Width 13.7 % (11.5-14.5) Platelet Count 488 x10^3/uL (140-400) Neutrophils (%) (Auto) 86 % (31-73) Lymphocytes (%) (Auto) 6 % (24-48) Monocytes (%) (Auto) 5 % (0-9) Eosinophils (%) (Auto) 2 % (0-3) Basophils (%) (Auto) 1 % (0-3) Neutrophils # (Auto) 19.9 x10^3uL (1.8-7.7) Lymphocytes # (Auto) 1.4 x10^3/uL (1.0-4.8) Monocytes # (Auto) 1.1 x10^3/uL (0.0-1.1) Eosinophils # (Auto) 0.4 x10^3/uL (0.0-0.7) Basophils # (Auto) 0.2 x10^3/uL (0.0-0.2) Sodium Level 130 mmol/L (136-145) Potassium Level 3.6 mmol/L (3.5-5.1) Chloride Level 95 mmol/L (98-107) Carbon Dioxide Level 25 mmol/L (21-32) Anion Gap 10 (6-14) Blood Urea Nitrogen 8 mg/dL (8-26) Creatinine 0.9 mg/dL (0.7-1.3) Estimated GFR (Cockcroft-Gault) 93.5 Glucose Level 144 mg/dL (70-99) Calcium Level 7.7 mg/dL (8.5-10.1) Phosphorus Level 3.4 mg/dL (2.6-4.7) Magnesium Level 2.0 mg/dL (1.8-2.4) Test 07/21/17 12:05 07/21/17 18:20 07/21/17 23:57 07/22/17 04:00 Glucose (Fingerstick) 138 mg/dL (70-99) 106 mg/dL (70-99) 124 mg/dL (70-99) Sodium Level 132 mmol/L (136-145) Potassium Level 4.1 mmol/L (3.5-5.1) Chloride Level 99 mmol/L (98-107) Carbon Dioxide Level 25 mmol/L (21-32) Anion Gap 8 (6-14) Blood Urea Nitrogen 8 mg/dL (8-26) Creatinine 0.7 mg/dL (0.7-1.3) Estimated GFR (Cockcroft-Gault) 124.9 Glucose Level 120 mg/dL (70-99) Calcium Level 7.6 mg/dL (8.5-10.1) Test 07/22/17 04:10 07/22/17 05:39 White Blood Count 18.0 x10^3/uL (4.0-11.0) Red Blood Count 3.03 x10^6/uL (4.30-5.70) Hemoglobin 8.8 g/dL (13.0-17.5) Hematocrit 27.1 % (39.0-53.0) Mean Corpuscular Volume 89 fL (79-100) Mean Corpuscular Hemoglobin 29 pg (25-35) Mean Corpuscular Hemoglobin Concent 33 g/dL (31-37) Red Cell Distribution Width 13.8 % (11.5-14.5) Platelet Count 439 x10^3/uL (140-400) Neutrophils (%) (Auto) 75 % (31-73) Lymphocytes (%) (Auto) 14 % (24-48) Monocytes (%) (Auto) 9 % (0-9) Eosinophils (%) (Auto) 2 % (0-3) Basophils (%) (Auto) 1 % (0-3) Neutrophils # (Auto) 13.4 x10^3uL (1.8-7.7) Lymphocytes # (Auto) 2.5 x10^3/uL (1.0-4.8) Monocytes # (Auto) 1.7 x10^3/uL (0.0-1.1) Eosinophils # (Auto) 0.3 x10^3/uL (0.0-0.7) Basophils # (Auto) 0.1 x10^3/uL (0.0-0.2) Phosphorus Level 4.4 mg/dL (2.6-4.7) Magnesium Level 2.0 mg/dL (1.8-2.4) Glucose (Fingerstick) 139 mg/dL (70-99) Laboratory Tests Test 07/21/17 12:05 07/21/17 18:20 07/21/17 23:57 07/22/17 04:00 Glucose (Fingerstick) 138 mg/dL (70-99) 106 mg/dL (70-99) 124 mg/dL (70-99) Sodium Level 132 mmol/L (136-145) Potassium Level 4.1 mmol/L (3.5-5.1) Chloride Level 99 mmol/L (98-107) Carbon Dioxide Level 25 mmol/L (21-32) Anion Gap 8 (6-14) Blood Urea Nitrogen 8 mg/dL (8-26) Creatinine 0.7 mg/dL (0.7-1.3) Estimated GFR (Cockcroft-Gault) 124.9 Glucose Level 120 mg/dL (70-99) Calcium Level 7.6 mg/dL (8.5-10.1) Test 07/22/17 04:10 07/22/17 05:39 White Blood Count 18.0 x10^3/uL (4.0-11.0) Red Blood Count 3.03 x10^6/uL (4.30-5.70) Hemoglobin 8.8 g/dL (13.0-17.5) Hematocrit 27.1 % (39.0-53.0) Mean Corpuscular Volume 89 fL (79-100) Mean Corpuscular Hemoglobin 29 pg (25-35) Mean Corpuscular Hemoglobin Concent 33 g/dL (31-37) Red Cell Distribution Width 13.8 % (11.5-14.5) Platelet Count 439 x10^3/uL (140-400) Neutrophils (%) (Auto) 75 % (31-73) Lymphocytes (%) (Auto) 14 % (24-48) Monocytes (%) (Auto) 9 % (0-9) Eosinophils (%) (Auto) 2 % (0-3) Basophils (%) (Auto) 1 % (0-3) Neutrophils # (Auto) 13.4 x10^3uL (1.8-7.7) Lymphocytes # (Auto) 2.5 x10^3/uL (1.0-4.8) Monocytes # (Auto) 1.7 x10^3/uL (0.0-1.1) Eosinophils # (Auto) 0.3 x10^3/uL (0.0-0.7) Basophils # (Auto) 0.1 x10^3/uL (0.0-0.2) Phosphorus Level 4.4 mg/dL (2.6-4.7) Magnesium Level 2.0 mg/dL (1.8-2.4) Glucose (Fingerstick) 139 mg/dL (70-99) Problem List Problems Medical Problems: (1) Fever Status: Acute (2) Right lower quadrant abdominal pain Status: Acute Assessment/Plan s/p drainage, pelvic abscess cdiff continue drain Problems: FAMILIA STOVALL SOCIAL SCIENCE TEACHER Jul 22, 2017 08:30
--- NOTE | 2017-07-22 09:22 | PDOC ---
Infectious Disease Note Subjective Subjective Tolerating soft diet Remains on TPN Persistent low-grade fevers, Tmax 100.2 Less loose green stools. Denies abdominal pain, cramping, bloating, or N/V ROS ROS GEN: Denies chills, sweats HEENT: Denies sore throat CV: Denies chest pain RESP: Denies shortness of air, cough GI: Denies n/v Vital Sign Vital Signs Vital Signs Date Time Temp Pulse Resp B/P (MAP) Pulse Ox O2 Delivery O2 Flow Rate FiO2 07/22/17 08:17 Room Air 07/22/17 07:00 100.2 102 20 133/79 (97) 97 100.2 Physical Exam PHYSICAL EXAM GENERAL: Lying down, NAD HEENT: OC/OP pink, dry NECK: Supple, no JVD, no LN LUNGS: Clear HEART: S1S2, no gallop, no murmur ABD: Soft, NT, + BS, RLQ & left gluteal BEVERLY drains, serosanguineous EXT: No edema, no cyanosis ROTATING EQUIPMENT ENGINEER: Alert, 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, no focal neurologic deficit SKIN: No rash RIJ. (07/14). clean Labs Lab Laboratory Tests Test 07/21/17 12:05 07/21/17 18:20 07/21/17 23:57 07/22/17 04:00 Glucose (Fingerstick) 138 mg/dL (70-99) 106 mg/dL (70-99) 124 mg/dL (70-99) Sodium Level 132 mmol/L (136-145) Potassium Level 4.1 mmol/L (3.5-5.1) Chloride Level 99 mmol/L (98-107) Carbon Dioxide Level 25 mmol/L (21-32) Anion Gap 8 (6-14) Blood Urea Nitrogen 8 mg/dL (8-26) Creatinine 0.7 mg/dL (0.7-1.3) Estimated GFR (Cockcroft-Gault) 124.9 Glucose Level 120 mg/dL (70-99) Calcium Level 7.6 mg/dL (8.5-10.1) Test 07/22/17 04:10 07/22/17 05:39 White Blood Count 18.0 x10^3/uL (4.0-11.0) Red Blood Count 3.03 x10^6/uL (4.30-5.70) Hemoglobin 8.8 g/dL (13.0-17.5) Hematocrit 27.1 % (39.0-53.0) Mean Corpuscular Volume 89 fL (79-100) Mean Corpuscular Hemoglobin 29 pg (25-35) Mean Corpuscular Hemoglobin Concent 33 g/dL (31-37) Red Cell Distribution Width 13.8 % (11.5-14.5) Platelet Count 439 x10^3/uL (140-400) Neutrophils (%) (Auto) 75 % (31-73) Lymphocytes (%) (Auto) 14 % (24-48) Monocytes (%) (Auto) 9 % (0-9) Eosinophils (%) (Auto) 2 % (0-3) Basophils (%) (Auto) 1 % (0-3) Neutrophils # (Auto) 13.4 x10^3uL (1.8-7.7) Lymphocytes # (Auto) 2.5 x10^3/uL (1.0-4.8) Monocytes # (Auto) 1.7 x10^3/uL (0.0-1.1) Eosinophils # (Auto) 0.3 x10^3/uL (0.0-0.7) Basophils # (Auto) 0.1 x10^3/uL (0.0-0.2) Phosphorus Level 4.4 mg/dL (2.6-4.7) Magnesium Level 2.0 mg/dL (1.8-2.4) Glucose (Fingerstick) 139 mg/dL (70-99) Micro 07/18.BLOOD CULTURE Preliminary NO GROWTH AFTER 3 DAYS 07/19. Abdomen abscess AEROBIC RES 1 Preliminary Gram negative rods Objective Assessment Fever Leukocytosis, RLQ complex fluid collection, s/p aspiration, coag blood, 07/13. E. coli -s/p diagnostic lap w/ evacuation of hematoma and RLQ drain placement, , Bacteroides and multiple GNR-no further work-up was done Increase pelvic fluid collection/abscess. s/p left gluteal drain, 07/19. Ecoli/ GNR s/p lap appy, 07/09 Urinary retention s/p indwelling Reyes Ileus C. diff, 07/18 On TPN Plan Plan of Care Rocephin and Flagyl F/u ? second GNR 07/19 Cont fluconazole, po vanc Monitor WBC and temp PT/OT Attending Co-Sign Attending Co-Sign The patient was seen and interviewed as well as examined at the bedside. The chart was reviewed. The case was discussed. Agree with the plan of care. CAROL PEARSON APRN Jul 22, 2017 09:22 CELENA CAR MD Jul 22, 2017 14:41
[2017-07-22 11:00] VITALS: BP 116/70
[2017-07-22] MEDS: oxyCODONE/APAP 5/325 1 TAB TABLET PO PRN ×3 (11:02→20:22)
[2017-07-22] MEDS: TPN PER PHARMACY MC PRN (11:25)
[2017-07-22] MEDS: ONDANSETRON PF 4 MG/2 ML VIAL. IV PRN ×2 (14:31→20:23)
[2017-07-22 15:00] VITALS: BP 140/56
[2017-07-22] MEDS: FLUCONAZOLE 400MG/200ML PREMIX 200 ML IV SCH (17:03)
[2017-07-22] MEDS: PROCHLORPERAZINE 10 MG/2 ML VIAL. IV PRN (17:03)
[2017-07-22 19:00] VITALS: BP 139/76
[2017-07-22] MEDS ORDERED: TOTAL PARENTERAL NUTRITION IV SCH ×10 (22:00)
[2017-07-22] MEDS ORDERED: AMINO ACIDS IV SCH ×10 (22:00)
[2017-07-22] MEDS ORDERED: [UNRECOGNIZED DRUG - OTHER] IV SCH ×10 (22:00)
[2017-07-22] MEDS ORDERED: DEXTROSE 70% IV SCH ×10 (22:00)
[2017-07-22 23:00] VITALS: BP 142/81
[2017-07-23] MEDS: ONDANSETRON PF 4 MG/2 ML VIAL. IV PRN ×2 (02:26→17:25)
[2017-07-23] MEDS: oxyCODONE/APAP 5/325 1 TAB TABLET PO PRN ×5 (02:26→18:15)
[2017-07-23 02:43] LABS: BASO # 0.1 x10^3/uL (0.0-0.2); BASO % 1 % (0-3); EOS % 2 % (0-3); HEMATOCRIT 26.8 % (39.0-53.0); HEMOGLOBIN 8.8 g/dL (13.0-17.5); LYMPH % 19 % (24-48); MEAN CORPUSCULAR HEMOGLOBIN 30 pg (25-35); MEAN CORPUSCULAR HGB CONC 33 g/dL (31-37); MEAN CORPUSCULAR VOLUME 90 fL (79-100); MONO % 8 % (0-9); NEUT % 69 % (31-73); PLATELET COUNT 470 x10^3/uL (140-400); RED BLOOD COUNT 2.97 x10^6/uL (4.30-5.70); RED CELL DISTRIBUTION WIDTH 13.8 % (11.5-14.5); WHITE BLOOD COUNT 15.5 x10^3/uL (4.0-11.0)
[2017-07-23 02:53] LABS: ALBUMIN 2.3 g/dL (3.4-5.0); ALBUMIN/GLOBULIN RATIO 0.5 (1.0-1.7); CALCIUM 8.2 mg/dL (8.5-10.1); CREATININE 0.8 mg/dL (0.7-1.3); GFR 107.1; POTASSIUM 4.1 mmol/L (3.5-5.1); TOTAL BILIRUBIN 0.4 mg/dL (0.2-1.0); TOTAL PROTEIN 6.5 g/dL (6.4-8.2)
[2017-07-23 03:00] VITALS: BP 151/84
[2017-07-23 07:00] VITALS: BP 131/70
[2017-07-23] MEDS: VANCOMYCIN 125 MG/2.5 ML ORAL SOLUTION. PO SCH ×4 (07:58→20:35)
--- NOTE | 2017-07-23 08:31 | PDOC ---
SURGICAL PROGRESS NOTE Subjective Feeling ok, tolerating diet. Less BM's Vital Signs Vital Signs Date Time Temp Pulse Resp B/P (MAP) Pulse Ox O2 Delivery O2 Flow Rate FiO2 07/23/17 08:00 Room Air 07/23/17 07:00 97.7 89 20 131/70 (90) 97 97.7 07/22/17 08:00 2.0 I&O Intake and Output 07/23/17 07:00 Intake Total 290 ml Output Total 1450 ml Balance -1160 ml Intake Oral 0 ml IV Total 290 ml Output Urine Total 1350 ml Drainage Total 100 ml PATIENT HAS A ELAM: No General: Alert, Oriented X3, Cooperative, mild distress Abdomen: Normal bowel sounds, Soft, No tenderness, Other (BEVERLY's intact, drainage less blood starting to clear.) Labs Laboratory Tests Test 07/21/17 12:05 07/21/17 18:20 07/21/17 23:57 07/22/17 04:00 Glucose (Fingerstick) 138 mg/dL (70-99) 106 mg/dL (70-99) 124 mg/dL (70-99) Sodium Level 132 mmol/L (136-145) Potassium Level 4.1 mmol/L (3.5-5.1) Chloride Level 99 mmol/L (98-107) Carbon Dioxide Level 25 mmol/L (21-32) Anion Gap 8 (6-14) Blood Urea Nitrogen 8 mg/dL (8-26) Creatinine 0.7 mg/dL (0.7-1.3) Estimated GFR (Cockcroft-Gault) 124.9 Glucose Level 120 mg/dL (70-99) Calcium Level 7.6 mg/dL (8.5-10.1) Test 07/22/17 04:10 07/22/17 05:39 07/22/17 15:54 07/22/17 23:37 White Blood Count 18.0 x10^3/uL (4.0-11.0) Red Blood Count 3.03 x10^6/uL (4.30-5.70) Hemoglobin 8.8 g/dL (13.0-17.5) Hematocrit 27.1 % (39.0-53.0) Mean Corpuscular Volume 89 fL (79-100) Mean Corpuscular Hemoglobin 29 pg (25-35) Mean Corpuscular Hemoglobin Concent 33 g/dL (31-37) Red Cell Distribution Width 13.8 % (11.5-14.5) Platelet Count 439 x10^3/uL (140-400) Neutrophils (%) (Auto) 75 % (31-73) Lymphocytes (%) (Auto) 14 % (24-48) Monocytes (%) (Auto) 9 % (0-9) Eosinophils (%) (Auto) 2 % (0-3) Basophils (%) (Auto) 1 % (0-3) Neutrophils # (Auto) 13.4 x10^3uL (1.8-7.7) Lymphocytes # (Auto) 2.5 x10^3/uL (1.0-4.8) Monocytes # (Auto) 1.7 x10^3/uL (0.0-1.1) Eosinophils # (Auto) 0.3 x10^3/uL (0.0-0.7) Basophils # (Auto) 0.1 x10^3/uL (0.0-0.2) Phosphorus Level 4.4 mg/dL (2.6-4.7) Magnesium Level 2.0 mg/dL (1.8-2.4) Glucose (Fingerstick) 139 mg/dL (70-99) 117 mg/dL (70-99) 116 mg/dL (70-99) Test 07/23/17 02:30 07/23/17 07:35 White Blood Count 15.5 x10^3/uL (4.0-11.0) Red Blood Count 2.97 x10^6/uL (4.30-5.70) Hemoglobin 8.8 g/dL (13.0-17.5) Hematocrit 26.8 % (39.0-53.0) Mean Corpuscular Volume 90 fL (79-100) Mean Corpuscular Hemoglobin 30 pg (25-35) Mean Corpuscular Hemoglobin Concent 33 g/dL (31-37) Red Cell Distribution Width 13.8 % (11.5-14.5) Platelet Count 470 x10^3/uL (140-400) Neutrophils (%) (Auto) 69 % (31-73) Lymphocytes (%) (Auto) 19 % (24-48) Monocytes (%) (Auto) 8 % (0-9) Eosinophils (%) (Auto) 2 % (0-3) Basophils (%) (Auto) 1 % (0-3) Neutrophils # (Auto) 10.7 x10^3uL (1.8-7.7) Lymphocytes # (Auto) 3.0 x10^3/uL (1.0-4.8) Monocytes # (Auto) 1.3 x10^3/uL (0.0-1.1) Eosinophils # (Auto) 0.3 x10^3/uL (0.0-0.7) Basophils # (Auto) 0.1 x10^3/uL (0.0-0.2) Sodium Level 134 mmol/L (136-145) Potassium Level 4.1 mmol/L (3.5-5.1) Chloride Level 101 mmol/L (98-107) Carbon Dioxide Level 25 mmol/L (21-32) Anion Gap 8 (6-14) Blood Urea Nitrogen 6 mg/dL (8-26) Creatinine 0.8 mg/dL (0.7-1.3) Estimated GFR (Cockcroft-Gault) 107.1 BUN/Creatinine Ratio 8 (6-20) Glucose Level 122 mg/dL (70-99) Uric Acid 2.6 mg/dL (3.5-7.2) Calcium Level 8.2 mg/dL (8.5-10.1) Magnesium Level 2.0 mg/dL (1.8-2.4) Total Bilirubin 0.4 mg/dL (0.2-1.0) Aspartate Amino Transf (AST/SGOT) 24 U/L (15-37) Alanine Aminotransferase (ALT/SGPT) 63 U/L (16-63) Alkaline Phosphatase 64 U/L (46-116) Total Protein 6.5 g/dL (6.4-8.2) Albumin 2.3 g/dL (3.4-5.0) Albumin/Globulin Ratio 0.5 (1.0-1.7) Glucose (Fingerstick) 122 mg/dL (70-99) Laboratory Tests Test 07/22/17 15:54 07/22/17 23:37 07/23/17 02:30 07/23/17 07:35 Glucose (Fingerstick) 117 mg/dL (70-99) 116 mg/dL (70-99) 122 mg/dL (70-99) White Blood Count 15.5 x10^3/uL (4.0-11.0) Red Blood Count 2.97 x10^6/uL (4.30-5.70) Hemoglobin 8.8 g/dL (13.0-17.5) Hematocrit 26.8 % (39.0-53.0) Mean Corpuscular Volume 90 fL (79-100) Mean Corpuscular Hemoglobin 30 pg (25-35) Mean Corpuscular Hemoglobin Concent 33 g/dL (31-37) Red Cell Distribution Width 13.8 % (11.5-14.5) Platelet Count 470 x10^3/uL (140-400) Neutrophils (%) (Auto) 69 % (31-73) Lymphocytes (%) (Auto) 19 % (24-48) Monocytes (%) (Auto) 8 % (0-9) Eosinophils (%) (Auto) 2 % (0-3) Basophils (%) (Auto) 1 % (0-3) Neutrophils # (Auto) 10.7 x10^3uL (1.8-7.7) Lymphocytes # (Auto) 3.0 x10^3/uL (1.0-4.8) Monocytes # (Auto) 1.3 x10^3/uL (0.0-1.1) Eosinophils # (Auto) 0.3 x10^3/uL (0.0-0.7) Basophils # (Auto) 0.1 x10^3/uL (0.0-0.2) Sodium Level 134 mmol/L (136-145) Potassium Level 4.1 mmol/L (3.5-5.1) Chloride Level 101 mmol/L (98-107) Carbon Dioxide Level 25 mmol/L (21-32) Anion Gap 8 (6-14) Blood Urea Nitrogen 6 mg/dL (8-26) Creatinine 0.8 mg/dL (0.7-1.3) Estimated GFR (Cockcroft-Gault) 107.1 BUN/Creatinine Ratio 8 (6-20) Glucose Level 122 mg/dL (70-99) Uric Acid 2.6 mg/dL (3.5-7.2) Calcium Level 8.2 mg/dL (8.5-10.1) Magnesium Level 2.0 mg/dL (1.8-2.4) Total Bilirubin 0.4 mg/dL (0.2-1.0) Aspartate Amino Transf (AST/SGOT) 24 U/L (15-37) Alanine Aminotransferase (ALT/SGPT) 63 U/L (16-63) Alkaline Phosphatase 64 U/L (46-116) Total Protein 6.5 g/dL (6.4-8.2) Albumin 2.3 g/dL (3.4-5.0) Albumin/Globulin Ratio 0.5 (1.0-1.7) Problem List Problems Medical Problems: (1) Fever Status: Acute (2) Right lower quadrant abdominal pain Status: Acute Assessment/Plan Intraabdominal hematoma with infection WBC 15.5 improving Adv diet Awaiting ID recommendations on oral abx coverage when appropriate so patient can be D/c'd Will continue drains until day of discharge. Problems: JO ANN JUAREZ MD Jul 23, 2017 08:31
--- NOTE | 2017-07-23 08:56 | PDOC ---
PROGRESS NOTES Subjective Subjective c/c - f/u of Coagulopathy Objective Objective Vital Signs Date Time Temp Pulse Resp B/P (MAP) Pulse Ox O2 Delivery O2 Flow Rate FiO2 07/23/17 08:00 Room Air 07/23/17 07:00 97.7 89 20 131/70 (90) 97 97.7 07/22/17 08:00 2.0 Intake and Output 07/23/17 07:00 Intake Total 290 ml Output Total 1450 ml Balance -1160 ml Intake Oral 0 ml IV Total 290 ml Output Urine Total 1350 ml Drainage Total 100 ml Physical Exam General: Alert, Oriented X3 Neuro: Normal speech Psych/Mental Status: Mental status NL Assessment Assessment Problems Medical Problems: (1) Fever Status: Acute (2) Right lower quadrant abdominal pain Status: Acute IMPRESSION AND PLAN: 1. Coagulopathy - Elevated PT with a normal PTT on 07/13/2017. INR was only mildly elevated at 1.3. With his albumin level being only 2.7 on 07/14/2017, the etiology of elevated protime is most likely vitamin K deficiency from poor nutrition postoperatively and fatty liver disease. s/p vitamin K and FFP. INR improved to 1.4 on 07/16/2017. s/p another dose of vitamin K 10 mg subcutaneously 07/16/17. INR better at 1.2 on 07/17/17 Continue to monitor for bleeding. Hb stable 8.8. Drain shows bloody drainage. 2. Elevated liver function tests with elevated bilirubin of 1.6 on 07/14/2017, which is new. He has had a CT scan of the abdomen and pelvis on 07/14/2017, which revealed evidence of right lower quadrant hematoma. There is also evidence of fatty infiltration of the liver, which may be contributing to elevated liver function tests and possibly the mild coagulopathy. 3. Leukocytosis, reactive. Continue to monitor. Better at 15.5 4. Anemia postoperative and also due to hematoma. Continue to monitor. Hb stable 8.8 5. Increase pelvic fluid collection/abscess. s/p left gluteal drain, 07/19. Ecoli/GNR. ID following Comment Review of Relevant I have reviewed the following items jersey (where applicable) has been applied. Labs Laboratory Tests Test 07/21/17 12:05 07/21/17 18:20 07/21/17 23:57 07/22/17 04:00 Glucose (Fingerstick) 138 mg/dL (70-99) 106 mg/dL (70-99) 124 mg/dL (70-99) Sodium Level 132 mmol/L (136-145) Potassium Level 4.1 mmol/L (3.5-5.1) Chloride Level 99 mmol/L (98-107) Carbon Dioxide Level 25 mmol/L (21-32) Anion Gap 8 (6-14) Blood Urea Nitrogen 8 mg/dL (8-26) Creatinine 0.7 mg/dL (0.7-1.3) Estimated GFR (Cockcroft-Gault) 124.9 Glucose Level 120 mg/dL (70-99) Calcium Level 7.6 mg/dL (8.5-10.1) Test 07/22/17 04:10 07/22/17 05:39 07/22/17 15:54 07/22/17 23:37 White Blood Count 18.0 x10^3/uL (4.0-11.0) Red Blood Count 3.03 x10^6/uL (4.30-5.70) Hemoglobin 8.8 g/dL (13.0-17.5) Hematocrit 27.1 % (39.0-53.0) Mean Corpuscular Volume 89 fL (79-100) Mean Corpuscular Hemoglobin 29 pg (25-35) Mean Corpuscular Hemoglobin Concent 33 g/dL (31-37) Red Cell Distribution Width 13.8 % (11.5-14.5) Platelet Count 439 x10^3/uL (140-400) Neutrophils (%) (Auto) 75 % (31-73) Lymphocytes (%) (Auto) 14 % (24-48) Monocytes (%) (Auto) 9 % (0-9) Eosinophils (%) (Auto) 2 % (0-3) Basophils (%) (Auto) 1 % (0-3) Neutrophils # (Auto) 13.4 x10^3uL (1.8-7.7) Lymphocytes # (Auto) 2.5 x10^3/uL (1.0-4.8) Monocytes # (Auto) 1.7 x10^3/uL (0.0-1.1) Eosinophils # (Auto) 0.3 x10^3/uL (0.0-0.7) Basophils # (Auto) 0.1 x10^3/uL (0.0-0.2) Phosphorus Level 4.4 mg/dL (2.6-4.7) Magnesium Level 2.0 mg/dL (1.8-2.4) Glucose (Fingerstick) 139 mg/dL (70-99) 117 mg/dL (70-99) 116 mg/dL (70-99) Test 07/23/17 02:30 07/23/17 07:35 White Blood Count 15.5 x10^3/uL (4.0-11.0) Red Blood Count 2.97 x10^6/uL (4.30-5.70) Hemoglobin 8.8 g/dL (13.0-17.5) Hematocrit 26.8 % (39.0-53.0) Mean Corpuscular Volume 90 fL (79-100) Mean Corpuscular Hemoglobin 30 pg (25-35) Mean Corpuscular Hemoglobin Concent 33 g/dL (31-37) Red Cell Distribution Width 13.8 % (11.5-14.5) Platelet Count 470 x10^3/uL (140-400) Neutrophils (%) (Auto) 69 % (31-73) Lymphocytes (%) (Auto) 19 % (24-48) Monocytes (%) (Auto) 8 % (0-9) Eosinophils (%) (Auto) 2 % (0-3) Basophils (%) (Auto) 1 % (0-3) Neutrophils # (Auto) 10.7 x10^3uL (1.8-7.7) Lymphocytes # (Auto) 3.0 x10^3/uL (1.0-4.8) Monocytes # (Auto) 1.3 x10^3/uL (0.0-1.1) Eosinophils # (Auto) 0.3 x10^3/uL (0.0-0.7) Basophils # (Auto) 0.1 x10^3/uL (0.0-0.2) Sodium Level 134 mmol/L (136-145) Potassium Level 4.1 mmol/L (3.5-5.1) Chloride Level 101 mmol/L (98-107) Carbon Dioxide Level 25 mmol/L (21-32) Anion Gap 8 (6-14) Blood Urea Nitrogen 6 mg/dL (8-26) Creatinine 0.8 mg/dL (0.7-1.3) Estimated GFR (Cockcroft-Gault) 107.1 BUN/Creatinine Ratio 8 (6-20) Glucose Level 122 mg/dL (70-99) Uric Acid 2.6 mg/dL (3.5-7.2) Calcium Level 8.2 mg/dL (8.5-10.1) Magnesium Level 2.0 mg/dL (1.8-2.4) Total Bilirubin 0.4 mg/dL (0.2-1.0) Aspartate Amino Transf (AST/SGOT) 24 U/L (15-37) Alanine Aminotransferase (ALT/SGPT) 63 U/L (16-63) Alkaline Phosphatase 64 U/L (46-116) Total Protein 6.5 g/dL (6.4-8.2) Albumin 2.3 g/dL (3.4-5.0) Albumin/Globulin Ratio 0.5 (1.0-1.7) Glucose (Fingerstick) 122 mg/dL (70-99) Laboratory Tests Test 07/22/17 15:54 07/22/17 23:37 07/23/17 02:30 07/23/17 07:35 Glucose (Fingerstick) 117 mg/dL (70-99) 116 mg/dL (70-99) 122 mg/dL (70-99) White Blood Count 15.5 x10^3/uL (4.0-11.0) Red Blood Count 2.97 x10^6/uL (4.30-5.70) Hemoglobin 8.8 g/dL (13.0-17.5) Hematocrit 26.8 % (39.0-53.0) Mean Corpuscular Volume 90 fL (79-100) Mean Corpuscular Hemoglobin 30 pg (25-35) Mean Corpuscular Hemoglobin Concent 33 g/dL (31-37) Red Cell Distribution Width 13.8 % (11.5-14.5) Platelet Count 470 x10^3/uL (140-400) Neutrophils (%) (Auto) 69 % (31-73) Lymphocytes (%) (Auto) 19 % (24-48) Monocytes (%) (Auto) 8 % (0-9) Eosinophils (%) (Auto) 2 % (0-3) Basophils (%) (Auto) 1 % (0-3) Neutrophils # (Auto) 10.7 x10^3uL (1.8-7.7) Lymphocytes # (Auto) 3.0 x10^3/uL (1.0-4.8) Monocytes # (Auto) 1.3 x10^3/uL (0.0-1.1) Eosinophils # (Auto) 0.3 x10^3/uL (0.0-0.7) Basophils # (Auto) 0.1 x10^3/uL (0.0-0.2) Sodium Level 134 mmol/L (136-145) Potassium Level 4.1 mmol/L (3.5-5.1) Chloride Level 101 mmol/L (98-107) Carbon Dioxide Level 25 mmol/L (21-32) Anion Gap 8 (6-14) Blood Urea Nitrogen 6 mg/dL (8-26) Creatinine 0.8 mg/dL (0.7-1.3) Estimated GFR (Cockcroft-Gault) 107.1 BUN/Creatinine Ratio 8 (6-20) Glucose Level 122 mg/dL (70-99) Uric Acid 2.6 mg/dL (3.5-7.2) Calcium Level 8.2 mg/dL (8.5-10.1) Magnesium Level 2.0 mg/dL (1.8-2.4) Total Bilirubin 0.4 mg/dL (0.2-1.0) Aspartate Amino Transf (AST/SGOT) 24 U/L (15-37) Alanine Aminotransferase (ALT/SGPT) 63 U/L (16-63) Alkaline Phosphatase 64 U/L (46-116) Total Protein 6.5 g/dL (6.4-8.2) Albumin 2.3 g/dL (3.4-5.0) Albumin/Globulin Ratio 0.5 (1.0-1.7) Microbiology 07/18/17 Blood Culture - Final, Complete NO GROWTH AFTER 5 DAYS 07/19/17 Anaerobic/Aerobic Culture, Resulted Pending 07/19/17 Anaerobic Culture Result 1 (ASH), Resulted Pending 07/19/17 Aerobic Culture - Final, Resulted 07/19/17 Aerobic Culture Result 1 (ASH) - Final, Resulted 07/19/17 Aerobic Culture Result 2 (ASH) - Final, Resulted 07/19/17 Antimicrobic Susceptibility - Final, Resulted Medications Current Medications Sodium Chloride 2,460 ml @ 410 mls/hr Q6H IV Last administered on 07/13/17 10 :53; Start 07/13/17 at 10:24; Stop 07/13/17 at 16:23; Status DC Sodium Chloride 500 ml @ 1,000 mls/hr PRN Q30MIN PRN IV SEE COMMENTS Last administered on 07/14/17 16:51; Start 07/13/17 at 10:30 Ibuprofen (Motrin) 800 mg 1X ONCE PO Last administered on 07/13/17 10:54; Start 07/13/17 at 10:30; Stop 07/13/17 at 10:31; Status DC Ondansetron HCl (Zofran) 4 mg 1X ONCE IV Last administered on 07/13/17 10:54 ; Start 07/13/17 at 10:30; Stop 07/13/17 at 10:31; Status DC Morphine Sulfate 5 mg 1X ONCE IV ; Start 07/13/17 at 10:30; Stop 07/13/17 at 10 :59; Status DC Fentanyl Citrate (Fentanyl 2ml Vial) 50 mcg 1X ONCE IV Last administered on 11:27; Start 07/13/17 at 11:30; Stop 07/13/17 at 11:31; Status DC Acetaminophen (Tylenol) 1,000 mg 1X ONCE PO ; Start 07/13/17 at 12:45; Stop at 12:46; Status DC Acetaminophen (Tylenol) 1,000 mg 1X ONCE PO Last administered on 07/13/17 12: 27; Start 07/13/17 at 12:30; Stop 07/13/17 at 12:31; Status DC Iohexol (Omnipaque 300 Mg/ml) 75 ml 1X ONCE IV Last administered on 07/13/17 13:07; Start 07/13/17 at 13:30; Stop 07/13/17 at 13:31; Status DC Info (Do NOT chart on this entry -- for MONITORING) 1 each PRN DAILY PRN MC SEE COMMENTS; Start 07/13/17 at 13:15; Stop 07/14/17 at 16:29; Status DC Piperacillin Sod/ Tazobactam Sod 4.5 gm/Sodium Chloride 100 ml @ 200 mls/hr Q8HRS IV Last administered on 07/17/17 05:42; Start 07/13/17 at 22:00; Stop at 08:22; Status DC Piperacillin Sod/ Tazobactam Sod 4.5 gm/Sodium Chloride 100 ml @ 200 mls/hr 1X ONCE IV Last administered on 07/13/17 14:22; Start 07/13/17 at 15:00; Stop 07/13/17 at 15:29; Status DC Metronidazole 100 ml @ 100 mls/hr Q8HRS IV Last administered on 07/15/17 05: 38; Start 07/13/17 at 22:00; Stop 07/15/17 at 10:42; Status DC Fluconazole/ Sodium Chloride 200 ml @ 100 mls/hr Q24H IV Last administered on 07/22/17 17:03; Start 07/13/17 at 17:00 Metronidazole 100 ml @ 100 mls/hr 1X ONCE IV ; Start 07/13/17 at 14:45; Stop 07/13/17 at 15:44; Status DC Ondansetron HCl (Zofran) 4 mg PRN Q8HRS PRN IV NAUSEA/VOMITING Last administered on 07/14/17 08:21; Start 07/13/17 at 15:15; Stop 07/14/17 at 12:54 ; Status DC Fentanyl Citrate (Fentanyl 2ml Vial) 50 mcg PRN Q2HR PRN IV PAIN Last administered on 07/13/17 17:25; Start 07/13/17 at 15:15; Stop 07/14/17 at 15:14 ; Status DC Acetaminophen (Tylenol) 650 mg PRN Q4HRS PRN PO FEVER Last administered on 07/14 04:01; Start 07/13/17 at 15:15; Stop 07/14/17 at 15:14; Status DC Sodium Chloride 1,000 ml @ 125 mls/hr 1X ONCE IV ; Start 07/13/17 at 15:15; Stop 07/13/17 at 23:14; Status DC Ibuprofen (Motrin) 800 mg PRN Q6HRS PRN PO INFLAMMATION; Start 07/13/17 at 15: 15; Stop 07/14/17 at 20:41; Status DC Lidocaine/Sodium Bicarbonate (Buffered Lidocaine 1%) 20 ml STK-MED ONCE IJ ; Start 07/13/17 at 15:21; Stop 07/13/17 at 15:22; Status DC Midazolam HCl (Versed) 2 mg STK-MED ONCE .ROUTE ; Start 07/13/17 at 15:36; Stop 07/13/17 at 15:37; Status DC Lidocaine/Sodium Bicarbonate (Buffered Lidocaine 1%) 20 ml 1X ONCE IJ Last administered on 07/13/17 16:24; Start 07/13/17 at 16:30; Stop 07/13/17 at 16:31 ; Status DC Hydromorphone HCl (Dilaudid) 2 mg PRN Q2HR PRN IV PAIN SEVERE Last administered on 07/14/17 12:41; Start 07/13/17 at 19:30; Stop 07/14/17 at 16:30 ; Status DC Hydromorphone HCl (Dilaudid) 2 mg PRN Q1HR PRN IV PAIN SEVERE; Start 07/13/17 at 19:30; Stop 07/15/17 at 21:42; Status DC Dextrose/Lactated Ringer's 1,000 ml @ 150 mls/hr Q6H40M IV Last administered on 07/20/17 02:57; Start 07/14/17 at 09:00; Stop 07/20/17 at 09:00; Status DC Ondansetron HCl (Zofran) 8 mg PRN Q6HRS PRN IV NAUSEA/VOMITING (1ST CHOICE) Last administered on 07/23/17 02:26; Start 07/14/17 at 13:00 Bisacodyl (Dulcolax Supp) 10 mg PRN DAILY PRN [place] CONSTIPATION Last administered on 07/14/17 13:31; Start 07/14/17 at 13:00; Stop 07/20/17 at 09:00 ; Status DC Polyethylene Glycol (miraLAX PACKET) 17 gm DAILY PO Last administered on 16:48; Start 07/14/17 at 15:00; Stop 07/20/17 at 09:00; Status DC Iohexol (Omnipaque 300 Mg/ml) 75 ml 1X ONCE IV Last administered on 07/14/17 15:39; Start 07/14/17 at 14:45; Stop 07/14/17 at 14:46; Status DC Iohexol (Omnipaque 240 Mg/ml) 50 ml 1X ONCE PO Last administered on 07/14/17 14:45; Start 07/14/17 at 14:45; Stop 07/14/17 at 14:46; Status DC Info (Do NOT chart on this entry -- for MONITORING) 1 each PRN DAILY PRN MC SEE COMMENTS; Start 07/14/17 at 14:45; Stop 07/16/17 at 14:44; Status DC Phytonadione 10 mg/Sodium Chloride 51 ml @ 102 mls/hr 1X ONCE IV Last administered on 07/14/17 18:25; Start 07/14/17 at 18:15; Stop 07/14/17 at 18:44 ; Status DC Dexamethasone Sodium Phosphate (Decadron) 20 mg STK-MED ONCE .ROUTE ; Start at 19:13; Stop 07/14/17 at 19:14; Status DC Ondansetron HCl (Zofran) 4 mg STK-MED ONCE .ROUTE ; Start 07/14/17 at 19:13; Stop 07/14/17 at 19:14; Status DC Propofol 20 ml @ As Directed STK-MED ONCE IV ; Start 07/14/17 at 19:13; Stop at 19:14; Status DC Lidocaine HCl (Lidocaine Pf 2% Vial) 5 ml STK-MED ONCE .ROUTE ; Start 07/14/17 at 19:13; Stop 07/14/17 at 19:14; Status DC Midazolam HCl (Versed) 2 mg STK-MED ONCE .ROUTE ; Start 07/14/17 at 19:13; Stop 07/14/17 at 19:14; Status DC Fentanyl Citrate (Fentanyl 2ml Vial) 100 mcg STK-MED ONCE .ROUTE ; Start at 19:13; Stop 07/14/17 at 19:14; Status DC Bupivacaine HCl/ Epinephrine Bitart (Sensorcain-Mpf Epi 0.5%-1:[id number]) 30 ml STK -MED ONCE .ROUTE Last administered on 07/14/17 20:00; Start 07/14/17 at 19:32 ; Stop 07/14/17 at 19:33; Status DC Glycopyrrolate (Robinul) 1 mg STK-MED ONCE .ROUTE ; Start 07/14/17 at 20:22; Stop 07/14/17 at 20:23; Status DC Neostigmine Methylsulfate 5 mg STK-MED ONCE .ROUTE ; Start 07/14/17 at 20:22; Stop 07/14/17 at 20:23; Status DC Fentanyl Citrate (Fentanyl 2ml Vial) 100 mcg STK-MED ONCE .ROUTE ; Start at 20:27; Stop 07/14/17 at 20:28; Status DC Fentanyl Citrate 30 ml @ 0 mls/hr CONT PRN PRN IV PROTOCOL; Start 07/14/17 at 20:45; Stop 07/14/17 at 22:30; Status DC Naloxone HCl (Narcan) 0.4 mg PRN Q2MIN PRN IV SEE INSTRUCTIONS; Start 07/14/17 at 20:45 Sodium Chloride 1,000 ml @ 25 mls/hr Q24H IV Last administered on 07/15/17 22 :23; Start 07/14/17 at 20:37; Stop 07/16/17 at 18:03; Status DC Sevoflurane (Ultane) 90 ml STK-MED ONCE IH ; Start 07/14/17 at 20:59; Stop 07/14 at 21:00; Status DC Phenylephrine HCl 1 mg STK-MED ONCE IV ; Start 07/14/17 at 20:59; Stop 07/14/17 at 21:00; Status DC Promethazine HCl 12.5 mg/Sodium Chloride 50.5 ml @ 151.5 mls/ hr PRN Q6HRS PRN IV NAUSEA/VOMITING Last administered on 07/18/17 12:00; Start 07/14/17 at 21:45; Stop 07/20/17 at 09:00; Status DC Hydromorphone HCl 30 ml @ 0 mls/hr CONT PRN PRN IV PROTOCOL Last administered on 07/15/17 23:10; Start 07/14/17 at 22:00; Stop 07/17/17 at 06:45; Status DC Albumin Human 100 ml @ 100 mls/hr 1X ONCE IV Last administered on 07/14/17 23:37; Start 07/14/17 at 22:30; Stop 07/14/17 at 23:29; Status DC Potassium Chloride 50 ml @ 50 mls/hr 1X ONCE IV Last administered on 22:19; Start 07/14/17 at 22:30; Stop 07/14/17 at 23:29; Status DC Calcium Chloride 1000 mg/Sodium Chloride 60 ml @ 120 mls/hr 1X ONCE IV Last administered on 07/15/17 00:40; Start 07/14/17 at 23:00; Stop 07/14/17 at 23:29 ; Status DC Hydralazine HCl (Apresoline) 10 mg PRN Q6HRS PRN IVP ELEVATED BP, SEE COMMENTS Last administered on 07/16/17 22:15; Start 07/15/17 at 00:15 Albumin Human 500 ml @ 125 mls/hr 1X ONCE IV Last administered on 07/15/17 00:17; Start 07/15/17 at 00:30; Stop 07/15/17 at 04:29; Status DC Sodium Phosphate 20 mmol/Dextrose 256.6667 ml @ 64.167 m... 1X ONCE IV Last administered on 07/15/17 01:43; Start 07/15/17 at 01:30; Stop 07/15/17 at 05:29 ; Status DC Magnesium Sulfate/ Dextrose 50 ml @ 25 mls/hr 1X ONCE IV Last administered on 07/15/17 08:04; Start 07/15/17 at 07:30; Stop 07/15/17 at 09:29; Status DC Magnesium Sulfate/ Dextrose 50 ml @ 25 mls/hr 1X ONCE IV ; Start 07/15/17 at 13 :00; Stop 07/15/17 at 14:59; Status DC Lorazepam (Ativan) 0.25 mg PRN Q6HRS PRN IV ANXIETY / AGITATION Last administered on 07/23/17 02:27; Start 07/15/17 at 21:45 Prochlorperazine Edisylate (Compazine) 5 mg PRN Q6HRS PRN IV NAUSEA/VOMITING ( 2ND CHOICE) Last administered on 07/22/17 17:03; Start 07/16/17 at 11:30 Fentanyl Citrate (Fentanyl 2ml Vial) 25 mcg PRN Q3HRS PRN IV PAIN Last administered on 07/17/17 07:26; Start 07/16/17 at 11:30; Stop 07/17/17 at 21:01 ; Status DC Fentanyl Citrate (Fentanyl 2ml Vial) 50 mcg PRN Q3HRS PRN IV PAIN Last administered on 07/17/17 20:26; Start 07/16/17 at 11:30; Stop 07/17/17 at 21:01 ; Status DC Ketorolac Tromethamine (Toradol) 15 mg 1X ONCE IV Last administered on 12:09; Start 07/16/17 at 12:00; Stop 07/16/17 at 12:01; Status DC Phytonadione (Vitamin K Ampule) 10 mg 1X ONCE SQ Last administered on 16:38; Start 07/16/17 at 12:30; Stop 07/16/17 at 12:31; Status DC Diphenhydramine HCl (Benadryl) 25 mg 1X ONCE IVP Last administered on 13:53; Start 07/16/17 at 13:15; Stop 07/16/17 at 13:16; Status DC Acetaminophen (Tylenol) 650 mg PRN Q8HRS PRN PO FEVER Last administered on 07/22 08:15; Start 07/16/17 at 20:15 Meropenem 500 mg/ Sodium Chloride 50 ml @ 100 mls/hr Q8HRS IV Last administered on 07/21/17 13:10; Start 07/17/17 at 14:00; Stop 07/21/17 at 15:11 ; Status DC Potassium Chloride 50 ml @ 50 mls/hr Q1H IV ; Start 07/17/17 at 10:30; Stop at 12:29; Status Cancel Potassium Phosphate 10 mmol/ Sodium Chloride 103.3333 ml @ 51.667 m... Q2H IV Last administered on 07/17/17 14:36; Start 07/17/17 at 10:30; Stop 07/17/17 at 16:29; Status DC Fentanyl Citrate (Fentanyl 2ml Vial) 25 mcg PRN Q2HRS PRN IV MODERATE PAIN; Start 07/17/17 at 22:30 Fentanyl Citrate (Fentanyl 2ml Vial) 50 mcg PRN Q2HRS PRN IV SEVERE PAIN Last administered on 07/22/17 08:17; Start 07/17/17 at 22:30 Iohexol (Omnipaque 240 Mg/ml) 30 ml 1X ONCE PO Last administered on 07/18/17 12:13; Start 07/18/17 at 09:30; Stop 07/18/17 at 09:33; Status DC Iohexol (Omnipaque 300 Mg/ml) 75 ml 1X ONCE IV Last administered on 07/18/17 12:13; Start 07/18/17 at 09:30; Stop 07/18/17 at 09:33; Status DC Info (Do NOT chart on this entry -- for MONITORING) 1 each PRN DAILY PRN MC SEE COMMENTS; Start 07/18/17 at 09:45; Stop 07/20/17 at 09:44; Status DC Potassium Chloride 50 ml @ 50 mls/hr Q1H IV Last administered on 07/18/17 11: 00; Start 07/18/17 at 10:00; Stop 07/18/17 at 11:59; Status DC Ondansetron HCl (Zofran) 8 mg 1X STAT IV Last administered on 07/18/17 10:50 ; Start 07/18/17 at 10:26; Stop 07/18/17 at 10:30; Status DC Metronidazole 100 ml @ 100 mls/hr Q8HRS IV Last administered on 07/19/17 05: 38; Start 07/18/17 at 22:30; Stop 07/19/17 at 09:11; Status DC Info 1 each PRN DAILY PRN MC SEE COMMENTS Last administered on 07/22/17 11:25 ; Start 07/19/17 at 08:15 Vancomycin HCl 125 mg [id number] PO Last administered on 07/23/17 07:58; Start at 09:30 Lidocaine/Sodium Bicarbonate (Buffered Lidocaine 1%) 20 ml STK-MED ONCE IJ ; Start 07/19/17 at 12:57; Stop 07/19/17 at 12:58; Status DC Midazolam HCl (Versed) 5 mg STK-MED ONCE .ROUTE ; Start 07/19/17 at 12:57; Stop 07/19/17 at 12:58; Status DC Fentanyl Citrate (Fentanyl 5ml Vial) 250 mcg STK-MED ONCE .ROUTE ; Start at 12:58; Stop 07/19/17 at 12:59; Status DC Lidocaine/Sodium Bicarbonate (Buffered Lidocaine 1%) 20 ml 1X ONCE IJ Last administered on 07/19/17 14:06; Start 07/19/17 at 14:15; Stop 07/19/17 at 14:16 ; Status DC Midazolam HCl (Versed) 5 mg 1X ONCE IV Last administered on 07/19/17 14:07; Start 07/19/17 at 14:15; Stop 07/19/17 at 14:16; Status DC Fentanyl Citrate (Fentanyl 5ml Vial) 150 mcg 1X ONCE IV Last administered on 14:07; Start 07/19/17 at 14:00; Stop 07/19/17 at 14:11; Status DC Sodium Chloride 90 meq/Potassium Chloride 50 meq/ Potassium Phosphate 13.6 mmol/ Magnesium Sulfate 10 meq/ Calcium Gluconate 10 meq/ Multivitamins 10 ml/Chromium / Copper/Manganese/ Seleni/Zn 1 ml/ Total Parenteral Nutrition/Amino Acids/ Dextrose/ Fat Emulsion Intravenous 1,512 ml @ 63 mls/hr TPN CONT IV Last administered on 07/19/17 22:08; Start 07/19/17 at 22:00; Stop 07/20/17 at 21:59 ; Status DC Potassium Chloride 50 ml @ 50 mls/hr Q1H IV Last administered on 07/20/17 15: 09; Start 07/20/17 at 13:00; Stop 07/20/17 at 14:59; Status DC Magnesium Sulfate/ Dextrose 50 ml @ 25 mls/hr 1X ONCE IV Last administered on 07/20/17 14:00; Start 07/20/17 at 13:00; Stop 07/20/17 at 14:59; Status DC Sodium Chloride 90 meq/Potassium Chloride 70 meq/ Potassium Phosphate 13.6 mmol/ Magnesium Sulfate 12 meq/ Calcium Gluconate 10 meq/ Multivitamins 10 ml/Chromium / Copper/Manganese/ Seleni/Zn 1 ml/ Total Parenteral Nutrition/Amino Acids/ Dextrose/ Fat Emulsion Intravenous 1,512 ml @ 63 mls/hr TPN CONT IV Last administered on 07/20/17 23:06; Start 07/20/17 at 22:00; Stop 07/21/17 at 21:59 ; Status DC Sodium Chloride 90 meq/Potassium Chloride 70 meq/ Potassium Phosphate 13.6 mmol/ Magnesium Sulfate 12 meq/ Calcium Gluconate 10 meq/ Multivitamins 10 ml/Chromium / Copper/Manganese/ Seleni/Zn 1 ml/ Total Parenteral Nutrition/Amino Acids/ Dextrose/ Fat Emulsion Intravenous 1,400 ml @ 58.333 mls/ hr TPN CONT IV Last administered on 07/21/17 22:12; Start 07/21/17 at 22:00; Stop 07/22/17 at 21:59; Status DC Ceftriaxone Sodium 1 gm/ Sodium Chloride 50 ml @ 100 mls/hr Q24H IV Last administered on 07/22/17 16:31; Start 07/21/17 at 17:00 Metronidazole 100 ml @ 100 mls/hr Q8HRS IV Last administered on 07/23/17 05: 52; Start 07/21/17 at 22:00 Oxycodone/ Acetaminophen (Percocet 5/325) 1 tab PRN Q4HRS PRN PO MODERATE PAIN Last administered on 07/22/17 17:03; Start 07/22/17 at 11:00 Oxycodone/ Acetaminophen (Percocet 5/325) 2 tab PRN Q4HRS PRN PO SEVERE PAIN Last administered on 07/23/17 05:52; Start 07/22/17 at 11:00 Sodium Chloride 90 meq/Potassium Chloride 70 meq/ Potassium Phosphate 13.6 mmol/ Magnesium Sulfate 12 meq/ Calcium Gluconate 10 meq/ Multivitamins 10 ml/Chromium / Copper/Manganese/ Seleni/Zn 1 ml/ Total Parenteral Nutrition/Amino Acids/ Dextrose/ Fat Emulsion Intravenous 1,400 ml @ 58.333 mls/ hr TPN CONT IV Last administered on 07/22/17 20:22; Start 07/22/17 at 22:00; Stop 07/23/17 at 21:59 Active Scripts Active Oxycodone-Acetaminophen 5-325 (Oxycodone Hcl/Acetaminophen) 1 Each Tablet 1 Tab PO PRN Q4HRS PRN Reported Colace (Docusate Sodium) 100 Mg Capsule 100 Cap PO BID Polyethylene Glycol 3350 255 Gm Powder 17 Gm PO DAILY Atorvastatin Calcium 20 Mg Tablet 20 Mg PO HS Vitals/I & O Vital Sign - Last 24 Hours 07/22/17 07/22/17 07/22/17 07/22/17 11:00 11:02 15:00 17:03 Temp 98.1 99.7 98.1 99.7 Pulse 90 92 Resp 18 20 B/P (MAP) 116/70 (85) 140/56 (84) Pulse Ox 94 96 O2 Delivery Room Air Room Air Room Air Room Air 07/22/17 07/22/17 07/22/17 07/22/17 18:03 19:00 20:09 20:22 Temp 98.2 98.2 Pulse 94 Resp 19 20 B/P (MAP) 139/76 (97) Pulse Ox 94 96 O2 Delivery Room Air Room Air Room Air Room Air 07/22/17 07/23/17 07/23/17 07/23/17 23:00 02:26 03:00 05:52 Temp 98.4 97.7 98.4 97.7 Pulse 91 86 Resp 18 20 18 20 B/P (MAP) 142/81 (101) 151/84 (106) Pulse Ox 97 97 98 98 O2 Delivery Room Air Room Air Room Air Room Air 07/23/17 07/23/17 07/23/17 06:52 07:00 08:00 Temp 97.7 97.7 Pulse 89 Resp 20 20 B/P (MAP) 131/70 (90) Pulse Ox 98 97 O2 Delivery Room Air Room Air Room Air Intake and Output 07/22/17 07/22/17 07/23/17 15:00 23:00 07:00 Intake Total 290 ml Output Total 730 ml 720 ml Balance -730 ml -430 ml LIZBETH HOSKINS MD Jul 23, 2017 08:56
--- NOTE | 2017-07-23 10:28 | PDOC ---
PROGRESS NOTES Subjective Subjective feeling better, eating regular food Objective Objective Vital Signs Date Time Temp Pulse Resp B/P (MAP) Pulse Ox O2 Delivery O2 Flow Rate FiO2 07/23/17 08:00 Room Air 07/23/17 07:00 97.7 89 20 131/70 (90) 97 97.7 07/22/17 08:00 2.0 Intake and Output 07/23/17 07:00 Intake Total 290 ml Output Total 1450 ml Balance -1160 ml Intake Oral 0 ml IV Total 290 ml Output Urine Total 1350 ml Drainage Total 100 ml Physical Exam Abdomen: Normal bowel sounds, Soft, No tenderness, Other (BEVERLY's intact, drainage less blood starting to clear.) Heart: Normal S1, Normal S2 Extremities: No edema General: Alert, Oriented X3 Lungs: Clear to auscultation Neuro: Normal speech Psych/Mental Status: Mental status NL COMMENT drains lt+ rt lower abdomen Diagnosis Problem List Problems Medical Problems: (1) Fever Status: Acute (2) Right lower quadrant abdominal pain Status: Acute Assessment Assessment FINAL IMPRESSION: C Diff colitis 1. Fever.r/o abscess pelvic 2. Free fluid in the paracolic gutter.hematoma ? vs abscess 3. Status post recent laparoscopic appendectomy last week ,07/09/17 PLAN:IR placed drain for pelvic abscess, 2 drains present po vancomycin for c diff. full liquid diet wbc trending up ,now 23 E Coli in para colic fluid resistant to Zosyn, spoke with ID ,iv antibiotics changed.Rocephin. tpn for nutrition Problems: Plan Plan of Care Problems Medical Problems: (1) Fever Status: Acute (2) Right lower quadrant abdominal pain Status: Acute Comment Review of Relevant I have reviewed the following items jersey (where applicable) has been applied. Labs Laboratory Tests Test 07/22/17 15:54 07/22/17 23:37 07/23/17 02:30 07/23/17 07:35 Glucose (Fingerstick) 117 mg/dL (70-99) 116 mg/dL (70-99) 122 mg/dL (70-99) White Blood Count 15.5 x10^3/uL (4.0-11.0) Red Blood Count 2.97 x10^6/uL (4.30-5.70) Hemoglobin 8.8 g/dL (13.0-17.5) Hematocrit 26.8 % (39.0-53.0) Mean Corpuscular Volume 90 fL (79-100) Mean Corpuscular Hemoglobin 30 pg (25-35) Mean Corpuscular Hemoglobin Concent 33 g/dL (31-37) Red Cell Distribution Width 13.8 % (11.5-14.5) Platelet Count 470 x10^3/uL (140-400) Neutrophils (%) (Auto) 69 % (31-73) Lymphocytes (%) (Auto) 19 % (24-48) Monocytes (%) (Auto) 8 % (0-9) Eosinophils (%) (Auto) 2 % (0-3) Basophils (%) (Auto) 1 % (0-3) Neutrophils # (Auto) 10.7 x10^3uL (1.8-7.7) Lymphocytes # (Auto) 3.0 x10^3/uL (1.0-4.8) Monocytes # (Auto) 1.3 x10^3/uL (0.0-1.1) Eosinophils # (Auto) 0.3 x10^3/uL (0.0-0.7) Basophils # (Auto) 0.1 x10^3/uL (0.0-0.2) Sodium Level 134 mmol/L (136-145) Potassium Level 4.1 mmol/L (3.5-5.1) Chloride Level 101 mmol/L (98-107) Carbon Dioxide Level 25 mmol/L (21-32) Anion Gap 8 (6-14) Blood Urea Nitrogen 6 mg/dL (8-26) Creatinine 0.8 mg/dL (0.7-1.3) Estimated GFR (Cockcroft-Gault) 107.1 BUN/Creatinine Ratio 8 (6-20) Glucose Level 122 mg/dL (70-99) Uric Acid 2.6 mg/dL (3.5-7.2) Calcium Level 8.2 mg/dL (8.5-10.1) Magnesium Level 2.0 mg/dL (1.8-2.4) Total Bilirubin 0.4 mg/dL (0.2-1.0) Aspartate Amino Transf (AST/SGOT) 24 U/L (15-37) Alanine Aminotransferase (ALT/SGPT) 63 U/L (16-63) Alkaline Phosphatase 64 U/L (46-116) Total Protein 6.5 g/dL (6.4-8.2) Albumin 2.3 g/dL (3.4-5.0) Albumin/Globulin Ratio 0.5 (1.0-1.7) Microbiology 07/18/17 Blood Culture - Final, Complete NO GROWTH AFTER 5 DAYS 07/19/17 Anaerobic/Aerobic Culture, Resulted Pending 07/19/17 Anaerobic Culture Result 1 (ASH), Resulted Pending 07/19/17 Aerobic Culture - Final, Resulted 07/19/17 Aerobic Culture Result 1 (ASH) - Final, Resulted 07/19/17 Aerobic Culture Result 2 (ASH) - Final, Resulted 07/19/17 Antimicrobic Susceptibility - Final, Resulted Medications Current Medications Oxycodone/ Acetaminophen (Percocet 5/325) 1 tab PRN Q4HRS PRN PO MODERATE PAIN Last administered on 07/22/17 17:03; Start 07/22/17 at 11:00 Oxycodone/ Acetaminophen (Percocet 5/325) 2 tab PRN Q4HRS PRN PO SEVERE PAIN Last administered on 07/23/17 05:52; Start 07/22/17 at 11:00 Sodium Chloride 90 meq/Potassium Chloride 70 meq/ Potassium Phosphate 13.6 mmol/ Magnesium Sulfate 12 meq/ Calcium Gluconate 10 meq/ Multivitamins 10 ml/Chromium / Copper/Manganese/ Seleni/Zn 1 ml/ Total Parenteral Nutrition/Amino Acids/ Dextrose/ Fat Emulsion Intravenous 1,400 ml @ 58.333 mls/ hr TPN CONT IV Last administered on 07/22/17 20:22; Start 07/22/17 at 22:00; Stop 07/23/17 at 21:59 Vitals/I & O Vital Sign - Last 24 Hours 07/22/17 07/22/17 07/22/17 07/22/17 11:00 11:02 15:00 17:03 Temp 98.1 99.7 98.1 99.7 Pulse 90 92 Resp 18 20 B/P (MAP) 116/70 (85) 140/56 (84) Pulse Ox 94 96 O2 Delivery Room Air Room Air Room Air Room Air 07/22/17 07/22/17 07/22/17 07/22/17 18:03 19:00 20:09 20:22 Temp 98.2 98.2 Pulse 94 Resp 19 20 B/P (MAP) 139/76 (97) Pulse Ox 94 96 O2 Delivery Room Air Room Air Room Air Room Air 07/22/17 07/23/17 07/23/17 07/23/17 23:00 02:26 03:00 05:52 Temp 98.4 97.7 98.4 97.7 Pulse 91 86 Resp 18 20 18 20 B/P (MAP) 142/81 (101) 151/84 (106) Pulse Ox 97 97 98 98 O2 Delivery Room Air Room Air Room Air Room Air 07/23/17 07/23/17 07/23/17 06:52 07:00 08:00 Temp 97.7 97.7 Pulse 89 Resp 20 20 B/P (MAP) 131/70 (90) Pulse Ox 98 97 O2 Delivery Room Air Room Air Room Air Intake and Output 07/22/17 07/22/17 07/23/17 15:00 23:00 07:00 Intake Total 290 ml Output Total 730 ml 720 ml Balance -730 ml -430 ml JUAN A MEADE MD Jul 23, 2017 10:28
--- NOTE | 2017-07-23 10:52 | PDOC ---
Infectious Disease Note Subjective Subjective Tolerating soft diet Remains on TPN much better Denies abdominal pain, cramping, bloating, or N/V ROS ROS GEN: Denies fevers, chills, sweats HEENT: Denies blurred vision, sore throat CV: Denies chest pain RESP: Denies shortness of air, cough GI: Denies n/v/d NEURO: Denies confusion, dizziness MSK: Denies weakness, joint pain/swelling Vital Sign Vital Signs Vital Signs Date Time Temp Pulse Resp B/P (MAP) Pulse Ox O2 Delivery O2 Flow Rate FiO2 07/23/17 08:00 Room Air 07/23/17 07:00 97.7 89 20 131/70 (90) 97 97.7 07/22/17 08:00 2.0 Physical Exam PHYSICAL EXAM GENERAL: Lying down, NAD, looks well HEENT: OC/OP pink, dry NECK: Supple, no JVD, no LN LUNGS: Clear HEART: S1S2, no gallop, no murmur ABD: Soft, NT, + BS, RLQ & left gluteal BEVERLY drains, serosanguineous EXT: No edema, no cyanosis [employer] SELECTOR: Alert, 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, no focal neurologic deficit SKIN: No rash RIJ. (07/14). clean Labs Lab Laboratory Tests Test 07/22/17 15:54 07/22/17 23:37 07/23/17 02:30 07/23/17 07:35 Glucose (Fingerstick) 117 mg/dL (70-99) 116 mg/dL (70-99) 122 mg/dL (70-99) White Blood Count 15.5 x10^3/uL (4.0-11.0) Red Blood Count 2.97 x10^6/uL (4.30-5.70) Hemoglobin 8.8 g/dL (13.0-17.5) Hematocrit 26.8 % (39.0-53.0) Mean Corpuscular Volume 90 fL (79-100) Mean Corpuscular Hemoglobin 30 pg (25-35) Mean Corpuscular Hemoglobin Concent 33 g/dL (31-37) Red Cell Distribution Width 13.8 % (11.5-14.5) Platelet Count 470 x10^3/uL (140-400) Neutrophils (%) (Auto) 69 % (31-73) Lymphocytes (%) (Auto) 19 % (24-48) Monocytes (%) (Auto) 8 % (0-9) Eosinophils (%) (Auto) 2 % (0-3) Basophils (%) (Auto) 1 % (0-3) Neutrophils # (Auto) 10.7 x10^3uL (1.8-7.7) Lymphocytes # (Auto) 3.0 x10^3/uL (1.0-4.8) Monocytes # (Auto) 1.3 x10^3/uL (0.0-1.1) Eosinophils # (Auto) 0.3 x10^3/uL (0.0-0.7) Basophils # (Auto) 0.1 x10^3/uL (0.0-0.2) Sodium Level 134 mmol/L (136-145) Potassium Level 4.1 mmol/L (3.5-5.1) Chloride Level 101 mmol/L (98-107) Carbon Dioxide Level 25 mmol/L (21-32) Anion Gap 8 (6-14) Blood Urea Nitrogen 6 mg/dL (8-26) Creatinine 0.8 mg/dL (0.7-1.3) Estimated GFR (Cockcroft-Gault) 107.1 BUN/Creatinine Ratio 8 (6-20) Glucose Level 122 mg/dL (70-99) Uric Acid 2.6 mg/dL (3.5-7.2) Calcium Level 8.2 mg/dL (8.5-10.1) Magnesium Level 2.0 mg/dL (1.8-2.4) Total Bilirubin 0.4 mg/dL (0.2-1.0) Aspartate Amino Transf (AST/SGOT) 24 U/L (15-37) Alanine Aminotransferase (ALT/SGPT) 63 U/L (16-63) Alkaline Phosphatase 64 U/L (46-116) Total Protein 6.5 g/dL (6.4-8.2) Albumin 2.3 g/dL (3.4-5.0) Albumin/Globulin Ratio 0.5 (1.0-1.7) Micro 8/24 Escherichia coli Moderate growth AEROBIC RES 2 Final Escherichia coli Moderate growth SECOND MORPHOTYPE ANTIMICROBIAL SUSCEPTIBILITY Final Comment S = Susceptible; I = Intermediate; R = Resistant P = Positive; N = Negative MICS are expressed in micrograms per mL Antibiotic RSLT#1 RSLT#2 RSLT#3 RSLT#4 Amoxicillin/Clavulanic Acid S I Ampicillin R R Cefazolin R Cefepime S R Ceftriaxone S R Cefuroxime S R Ciprofloxacin R R Ertapenem S S Gentamicin S S Imipenem S S CONTINUED ON NEXT PAGE RUN DATE: 07/23/17 PAGE 2 RUN TIME: 813 [facility] [address] [place] [address] Jostin Ley M.D., [employer] SPEC: [id number] PATIENT: SARBJIT ZAVALA [id number] ( Continued) Procedure Result ANTIMICROBIAL SUSCEPTIBILITY Final (continued) Levofloxacin R R Piperacillin I R Tetracycline R R Tobramycin S I Trimethoprim/Sulfa S S Objective Assessment Fever - better Leukocytosis better RLQ complex fluid collection, s/p aspiration, coag blood, 07/13. E. coli -s/p diagnostic lap w/ evacuation of hematoma and RLQ drain placement, , Bacteroides and multiple GNR-no further work-up was done Increase pelvic fluid collection/abscess. s/p left gluteal drain, 07/19. Ecoli times 2 one res to Rocephin s/p lap appy, 07/09 Urinary retention s/p indwelling Reyes Ileus C. diff, 07/18 On TPN Plan Plan of Care D/c Rocephin Begin Bactrim and cont Flagyl for at least 10 days po Vanc likely will need for 4 weeks Discont fluconazole Monitor WBC and temp Will need repeat CT in 10 days CELENA CAR MD Jul 23, 2017 10:52
[2017-07-23 11:00] VITALS: BP 115/70
[2017-07-23] MEDS: metroNIDAZOLE 500 MG TABLET PO SCH ×2 (11:34→20:34)
[2017-07-23] MEDS: SMZ/TMP 800/160MG TABLET. PO SCH ×3 (11:34→20:34)
[2017-07-23 15:00] VITALS: BP 131/65
[2017-07-23 19:00] VITALS: BP 133/84
[2017-07-23 23:00] VITALS: BP 127/72
[2017-07-24 02:54] VITALS: BP 124/67
[2017-07-24 07:00] VITALS: BP 139/44
[2017-07-24] MEDS: oxyCODONE/APAP 5/325 1 TAB TABLET PO PRN ×2 (07:50→12:34)
[2017-07-24 08:20] LABS: ALBUMIN 2.6 g/dL (3.4-5.0); ALBUMIN/GLOBULIN RATIO 0.6 (1.0-1.7); CALCIUM 8.2 mg/dL (8.5-10.1); CREATININE 0.9 mg/dL (0.7-1.3); GFR 93.5; POTASSIUM 4.2 mmol/L (3.5-5.1); TOTAL BILIRUBIN 0.5 mg/dL (0.2-1.0); TOTAL PROTEIN 7.2 g/dL (6.4-8.2)
[2017-07-24 09:01] LABS: BASO # 0.1 x10^3/uL (0.0-0.2); BASO % 1 % (0-3); EOS % 2 % (0-3); HEMATOCRIT 28.5 % (39.0-53.0); HEMOGLOBIN 9.6 g/dL (13.0-17.5); LYMPH # 2.7 x10^3/uL (1.0-4.8); LYMPH % 17 % (24-48); MEAN CORPUSCULAR HEMOGLOBIN 30 pg (25-35); MEAN CORPUSCULAR HGB CONC 34 g/dL (31-37); MEAN CORPUSCULAR VOLUME 89 fL (79-100); MONO % 7 % (0-9); NEUT % 73 % (31-73); PLATELET COUNT 560 x10^3/uL (140-400); RED BLOOD COUNT 3.21 x10^6/uL (4.30-5.70); WHITE BLOOD COUNT 15.7 x10^3/uL (4.0-11.0)
--- NOTE | 2017-07-24 09:05 | PDOC ---
PROGRESS NOTES Subjective Subjective c/c - f/u of Coagulopathy Objective Objective Vital Signs Date Time Temp Pulse Resp B/P (MAP) Pulse Ox O2 Delivery O2 Flow Rate FiO2 07/24/17 08:00 Room Air 2.0 07/24/17 07:00 98.1 93 18 139/44 (75) 96 98.1 Physical Exam General: Alert, Oriented X3 Neuro: Normal speech Psych/Mental Status: Mental status NL Assessment Assessment Problems Medical Problems: (1) Fever Status: Acute (2) Right lower quadrant abdominal pain Status: Acute IMPRESSION AND PLAN: 1. Coagulopathy - Elevated PT with a normal PTT on 07/13/2017. INR was only mildly elevated at 1.3. With his albumin level being only 2.7 on 07/14/2017, the etiology of elevated protime is most likely vitamin K deficiency from poor nutrition postoperatively and fatty liver disease. s/p vitamin K and FFP. INR improved to 1.4 on 07/16/2017. s/p another dose of vitamin K 10 mg subcutaneously 07/16/17. INR better at 1.2 on 07/17/17 Continue to monitor for bleeding. Hb stable 8.8. Drain in place. Pain improved 2. Elevated liver function tests with elevated bilirubin of 1.6 on 07/14/2017, which is new. He has had a CT scan of the abdomen and pelvis on 07/14/2017, which revealed evidence of right lower quadrant hematoma. There is also evidence of fatty infiltration of the liver, which may be contributing to elevated liver function tests and possibly the mild coagulopathy. 3. Leukocytosis, reactive. Continue to monitor. Better at 15.5 4. Anemia postoperative and also due to hematoma. Continue to monitor. Hb stable 8.8 5. Increase pelvic fluid collection/abscess. s/p left gluteal drain, 07/19. Ecoli/GNR. ID following Comment Review of Relevant I have reviewed the following items jersey (where applicable) has been applied. Labs Laboratory Tests Test 07/22/17 15:54 07/22/17 23:37 07/23/17 02:30 07/23/17 07:35 Glucose (Fingerstick) 117 mg/dL (70-99) 116 mg/dL (70-99) 122 mg/dL (70-99) White Blood Count 15.5 x10^3/uL (4.0-11.0) Red Blood Count 2.97 x10^6/uL (4.30-5.70) Hemoglobin 8.8 g/dL (13.0-17.5) Hematocrit 26.8 % (39.0-53.0) Mean Corpuscular Volume 90 fL (79-100) Mean Corpuscular Hemoglobin 30 pg (25-35) Mean Corpuscular Hemoglobin Concent 33 g/dL (31-37) Red Cell Distribution Width 13.8 % (11.5-14.5) Platelet Count 470 x10^3/uL (140-400) Neutrophils (%) (Auto) 69 % (31-73) Lymphocytes (%) (Auto) 19 % (24-48) Monocytes (%) (Auto) 8 % (0-9) Eosinophils (%) (Auto) 2 % (0-3) Basophils (%) (Auto) 1 % (0-3) Neutrophils # (Auto) 10.7 x10^3uL (1.8-7.7) Lymphocytes # (Auto) 3.0 x10^3/uL (1.0-4.8) Monocytes # (Auto) 1.3 x10^3/uL (0.0-1.1) Eosinophils # (Auto) 0.3 x10^3/uL (0.0-0.7) Basophils # (Auto) 0.1 x10^3/uL (0.0-0.2) Sodium Level 134 mmol/L (136-145) Potassium Level 4.1 mmol/L (3.5-5.1) Chloride Level 101 mmol/L (98-107) Carbon Dioxide Level 25 mmol/L (21-32) Anion Gap 8 (6-14) Blood Urea Nitrogen 6 mg/dL (8-26) Creatinine 0.8 mg/dL (0.7-1.3) Estimated GFR (Cockcroft-Gault) 107.1 BUN/Creatinine Ratio 8 (6-20) Glucose Level 122 mg/dL (70-99) Uric Acid 2.6 mg/dL (3.5-7.2) Calcium Level 8.2 mg/dL (8.5-10.1) Magnesium Level 2.0 mg/dL (1.8-2.4) Total Bilirubin 0.4 mg/dL (0.2-1.0) Aspartate Amino Transf (AST/SGOT) 24 U/L (15-37) Alanine Aminotransferase (ALT/SGPT) 63 U/L (16-63) Alkaline Phosphatase 64 U/L (46-116) Total Protein 6.5 g/dL (6.4-8.2) Albumin 2.3 g/dL (3.4-5.0) Albumin/Globulin Ratio 0.5 (1.0-1.7) Test 07/23/17 12:08 07/24/17 05:30 Glucose (Fingerstick) 80 mg/dL (70-99) Sodium Level 131 mmol/L (136-145) Potassium Level 4.2 mmol/L (3.5-5.1) Chloride Level 98 mmol/L (98-107) Carbon Dioxide Level 25 mmol/L (21-32) Anion Gap 8 (6-14) Blood Urea Nitrogen 7 mg/dL (8-26) Creatinine 0.9 mg/dL (0.7-1.3) Estimated GFR (Cockcroft-Gault) 93.5 BUN/Creatinine Ratio 8 (6-20) Glucose Level 90 mg/dL (70-99) Calcium Level 8.2 mg/dL (8.5-10.1) Total Bilirubin 0.5 mg/dL (0.2-1.0) Aspartate Amino Transf (AST/SGOT) 27 U/L (15-37) Alanine Aminotransferase (ALT/SGPT) 57 U/L (16-63) Alkaline Phosphatase 72 U/L (46-116) Total Protein 7.2 g/dL (6.4-8.2) Albumin 2.6 g/dL (3.4-5.0) Albumin/Globulin Ratio 0.6 (1.0-1.7) Laboratory Tests Test 07/23/17 12:08 07/24/17 05:30 Glucose (Fingerstick) 80 mg/dL (70-99) Sodium Level 131 mmol/L (136-145) Potassium Level 4.2 mmol/L (3.5-5.1) Chloride Level 98 mmol/L (98-107) Carbon Dioxide Level 25 mmol/L (21-32) Anion Gap 8 (6-14) Blood Urea Nitrogen 7 mg/dL (8-26) Creatinine 0.9 mg/dL (0.7-1.3) Estimated GFR (Cockcroft-Gault) 93.5 BUN/Creatinine Ratio 8 (6-20) Glucose Level 90 mg/dL (70-99) Calcium Level 8.2 mg/dL (8.5-10.1) Total Bilirubin 0.5 mg/dL (0.2-1.0) Aspartate Amino Transf (AST/SGOT) 27 U/L (15-37) Alanine Aminotransferase (ALT/SGPT) 57 U/L (16-63) Alkaline Phosphatase 72 U/L (46-116) Total Protein 7.2 g/dL (6.4-8.2) Albumin 2.6 g/dL (3.4-5.0) Albumin/Globulin Ratio 0.6 (1.0-1.7) Microbiology 07/18/17 Blood Culture - Final, Complete NO GROWTH AFTER 5 DAYS 07/19/17 Anaerobic/Aerobic Culture, Resulted Pending 07/19/17 Anaerobic Culture Result 1 (ASH), Resulted Pending 07/19/17 Aerobic Culture - Final, Resulted 07/19/17 Aerobic Culture Result 1 (ASH) - Final, Resulted 07/19/17 Aerobic Culture Result 2 (ASH) - Final, Resulted 07/19/17 Antimicrobic Susceptibility - Final, Resulted Medications Current Medications Sodium Chloride 2,460 ml @ 410 mls/hr Q6H IV Last administered on 07/13/17 10 :53; Start 07/13/17 at 10:24; Stop 07/13/17 at 16:23; Status DC Sodium Chloride 500 ml @ 1,000 mls/hr PRN Q30MIN PRN IV SEE COMMENTS Last administered on 07/14/17 16:51; Start 07/13/17 at 10:30 Ibuprofen (Motrin) 800 mg 1X ONCE PO Last administered on 07/13/17 10:54; Start 07/13/17 at 10:30; Stop 07/13/17 at 10:31; Status DC Ondansetron HCl (Zofran) 4 mg 1X ONCE IV Last administered on 07/13/17 10:54 ; Start 07/13/17 at 10:30; Stop 07/13/17 at 10:31; Status DC Morphine Sulfate 5 mg 1X ONCE IV ; Start 07/13/17 at 10:30; Stop 07/13/17 at 10 :59; Status DC Fentanyl Citrate (Fentanyl 2ml Vial) 50 mcg 1X ONCE IV Last administered on 11:27; Start 07/13/17 at 11:30; Stop 07/13/17 at 11:31; Status DC Acetaminophen (Tylenol) 1,000 mg 1X ONCE PO ; Start 07/13/17 at 12:45; Stop at 12:46; Status DC Acetaminophen (Tylenol) 1,000 mg 1X ONCE PO Last administered on 07/13/17 12: 27; Start 07/13/17 at 12:30; Stop 07/13/17 at 12:31; Status DC Iohexol (Omnipaque 300 Mg/ml) 75 ml 1X ONCE IV Last administered on 07/13/17 13:07; Start 07/13/17 at 13:30; Stop 07/13/17 at 13:31; Status DC Info (Do NOT chart on this entry -- for MONITORING) 1 each PRN DAILY PRN MC SEE COMMENTS; Start 07/13/17 at 13:15; Stop 07/14/17 at 16:29; Status DC Piperacillin Sod/ Tazobactam Sod 4.5 gm/Sodium Chloride 100 ml @ 200 mls/hr Q8HRS IV Last administered on 07/17/17 05:42; Start 07/13/17 at 22:00; Stop at 08:22; Status DC Piperacillin Sod/ Tazobactam Sod 4.5 gm/Sodium Chloride 100 ml @ 200 mls/hr 1X ONCE IV Last administered on 07/13/17 14:22; Start 07/13/17 at 15:00; Stop 07/13/17 at 15:29; Status DC Metronidazole 100 ml @ 100 mls/hr Q8HRS IV Last administered on 07/15/17 05: 38; Start 07/13/17 at 22:00; Stop 07/15/17 at 10:42; Status DC Fluconazole/ Sodium Chloride 200 ml @ 100 mls/hr Q24H IV Last administered on 07/22/17 17:03; Start 07/13/17 at 17:00; Stop 07/23/17 at 10:49; Status DC Metronidazole 100 ml @ 100 mls/hr 1X ONCE IV ; Start 07/13/17 at 14:45; Stop 07/13/17 at 15:44; Status DC Ondansetron HCl (Zofran) 4 mg PRN Q8HRS PRN IV NAUSEA/VOMITING Last administered on 07/14/17 08:21; Start 07/13/17 at 15:15; Stop 07/14/17 at 12:54 ; Status DC Fentanyl Citrate (Fentanyl 2ml Vial) 50 mcg PRN Q2HR PRN IV PAIN Last administered on 07/13/17 17:25; Start 07/13/17 at 15:15; Stop 07/14/17 at 15:14 ; Status DC Acetaminophen (Tylenol) 650 mg PRN Q4HRS PRN PO FEVER Last administered on 07/14 04:01; Start 07/13/17 at 15:15; Stop 07/14/17 at 15:14; Status DC Sodium Chloride 1,000 ml @ 125 mls/hr 1X ONCE IV ; Start 07/13/17 at 15:15; Stop 07/13/17 at 23:14; Status DC Ibuprofen (Motrin) 800 mg PRN Q6HRS PRN PO INFLAMMATION; Start 07/13/17 at 15: 15; Stop 07/14/17 at 20:41; Status DC Lidocaine/Sodium Bicarbonate (Buffered Lidocaine 1%) 20 ml STK-MED ONCE IJ ; Start 07/13/17 at 15:21; Stop 07/13/17 at 15:22; Status DC Midazolam HCl (Versed) 2 mg STK-MED ONCE .ROUTE ; Start 07/13/17 at 15:36; Stop 07/13/17 at 15:37; Status DC Lidocaine/Sodium Bicarbonate (Buffered Lidocaine 1%) 20 ml 1X ONCE IJ Last administered on 07/13/17 16:24; Start 07/13/17 at 16:30; Stop 07/13/17 at 16:31 ; Status DC Hydromorphone HCl (Dilaudid) 2 mg PRN Q2HR PRN IV PAIN SEVERE Last administered on 07/14/17 12:41; Start 07/13/17 at 19:30; Stop 07/14/17 at 16:30 ; Status DC Hydromorphone HCl (Dilaudid) 2 mg PRN Q1HR PRN IV PAIN SEVERE; Start 07/13/17 at 19:30; Stop 07/15/17 at 21:42; Status DC Dextrose/Lactated Ringer's 1,000 ml @ 150 mls/hr Q6H40M IV Last administered on 07/20/17 02:57; Start 07/14/17 at 09:00; Stop 07/20/17 at 09:00; Status DC Ondansetron HCl (Zofran) 8 mg PRN Q6HRS PRN IV NAUSEA/VOMITING (1ST CHOICE) Last administered on 07/23/17 17:25; Start 07/14/17 at 13:00 Bisacodyl (Dulcolax Supp) 10 mg PRN DAILY PRN DE CONSTIPATION Last administered on 07/14/17 13:31; Start 07/14/17 at 13:00; Stop 07/20/17 at 09:00 ; Status DC Polyethylene Glycol (miraLAX PACKET) 17 gm DAILY PO Last administered on 16:48; Start 07/14/17 at 15:00; Stop 07/20/17 at 09:00; Status DC Iohexol (Omnipaque 300 Mg/ml) 75 ml 1X ONCE IV Last administered on 07/14/17 15:39; Start 07/14/17 at 14:45; Stop 07/14/17 at 14:46; Status DC Iohexol (Omnipaque 240 Mg/ml) 50 ml 1X ONCE PO Last administered on 07/14/17 14:45; Start 07/14/17 at 14:45; Stop 07/14/17 at 14:46; Status DC Info (Do NOT chart on this entry -- for MONITORING) 1 each PRN DAILY PRN MC SEE COMMENTS; Start 07/14/17 at 14:45; Stop 07/16/17 at 14:44; Status DC Phytonadione 10 mg/Sodium Chloride 51 ml @ 102 mls/hr 1X ONCE IV Last administered on 07/14/17 18:25; Start 07/14/17 at 18:15; Stop 07/14/17 at 18:44 ; Status DC Dexamethasone Sodium Phosphate (Decadron) 20 mg STK-MED ONCE .ROUTE ; Start at 19:13; Stop 07/14/17 at 19:14; Status DC Ondansetron HCl (Zofran) 4 mg STK-MED ONCE .ROUTE ; Start 07/14/17 at 19:13; Stop 07/14/17 at 19:14; Status DC Propofol 20 ml @ As Directed STK-MED ONCE IV ; Start 07/14/17 at 19:13; Stop at 19:14; Status DC Lidocaine HCl (Lidocaine Pf 2% Vial) 5 ml STK-MED ONCE .ROUTE ; Start 07/14/17 at 19:13; Stop 07/14/17 at 19:14; Status DC Midazolam HCl (Versed) 2 mg STK-MED ONCE .ROUTE ; Start 07/14/17 at 19:13; Stop 07/14/17 at 19:14; Status DC Fentanyl Citrate (Fentanyl 2ml Vial) 100 mcg STK-MED ONCE .ROUTE ; Start at 19:13; Stop 07/14/17 at 19:14; Status DC Bupivacaine HCl/ Epinephrine Bitart (Sensorcain-Mpf Epi 0.5%-[id number]) 30 ml STK -MED ONCE .ROUTE Last administered on 07/14/17t 20:00; Start 07/14/17 at 19:32 ; Stop 07/14/17 at 19:33; Status DC Glycopyrrolate (Robinul) 1 mg STK-MED ONCE .ROUTE ; Start 07/14/17 at 20:22; Stop 07/14/17 at 20:23; Status DC Neostigmine Methylsulfate 5 mg STK-MED ONCE .ROUTE ; Start 07/14/17 at 20:22; Stop 07/14/17 at 20:23; Status DC Fentanyl Citrate (Fentanyl 2ml Vial) 100 mcg STK-MED ONCE .ROUTE ; Start at 20:27; Stop 07/14/17 at 20:28; Status DC Fentanyl Citrate 30 ml @ 0 mls/hr CONT PRN PRN IV PROTOCOL; Start 07/14/17 at 20:45; Stop 07/14/17 at 22:30; Status DC Naloxone HCl (Narcan) 0.4 mg PRN Q2MIN PRN IV SEE INSTRUCTIONS; Start 07/14/17 at 20:45 Sodium Chloride 1,000 ml @ 25 mls/hr Q24H IV Last administered on 07/15/17t 22 :23; Start 07/14/17 at 20:37; Stop 07/16/17 at 18:03; Status DC Sevoflurane (Ultane) 90 ml STK-MED ONCE IH ; Start 07/14/17 at 20:59; Stop 07/14 at 21:00; Status DC Phenylephrine HCl 1 mg STK-MED ONCE IV ; Start 07/14/17 at 20:59; Stop 07/14/17 at 21:00; Status DC Promethazine HCl 12.5 mg/Sodium Chloride 50.5 ml @ 151.5 mls/ hr PRN Q6HRS PRN IV NAUSEA/VOMITING Last administered on 07/18/17 12:00; Start 07/14/17 at 21:45; Stop 07/20/17 at 09:00; Status DC Hydromorphone HCl 30 ml @ 0 mls/hr CONT PRN PRN IV PROTOCOL Last administered on 07/15/17 23:10; Start 07/14/17 at 22:00; Stop 07/17/17 at 06:45; Status DC Albumin Human 100 ml @ 100 mls/hr 1X ONCE IV Last administered on 07/14/17 23:37; Start 07/14/17 at 22:30; Stop 07/14/17 at 23:29; Status DC Potassium Chloride 50 ml @ 50 mls/hr 1X ONCE IV Last administered on 22:19; Start 07/14/17 at 22:30; Stop 07/14/17 at 23:29; Status DC Calcium Chloride 1000 mg/Sodium Chloride 60 ml @ 120 mls/hr 1X ONCE IV Last administered on 07/15/17 00:40; Start 07/14/17 at 23:00; Stop 07/14/17 at 23:29 ; Status DC Hydralazine HCl (Apresoline) 10 mg PRN Q6HRS PRN IVP ELEVATED BP, SEE COMMENTS Last administered on 07/16/17 22:15; Start 07/15/17 at 00:15 Albumin Human 500 ml @ 125 mls/hr 1X ONCE IV Last administered on 07/15/17 00:17; Start 07/15/17 at 00:30; Stop 07/15/17 at 04:29; Status DC Sodium Phosphate 20 mmol/Dextrose 256.6667 ml @ 64.167 m... 1X ONCE IV Last administered on 07/15/17 01:43; Start 07/15/17 at 01:30; Stop 07/15/17 at 05:29 ; Status DC Magnesium Sulfate/ Dextrose 50 ml @ 25 mls/hr 1X ONCE IV Last administered on 07/15/17 08:04; Start 07/15/17 at 07:30; Stop 07/15/17 at 09:29; Status DC Magnesium Sulfate/ Dextrose 50 ml @ 25 mls/hr 1X ONCE IV ; Start 07/15/17 at 13 :00; Stop 07/15/17 at 14:59; Status DC Lorazepam (Ativan) 0.25 mg PRN Q6HRS PRN IV ANXIETY / AGITATION Last administered on 07/23/17 20:35; Start 07/15/17 at 21:45 Prochlorperazine Edisylate (Compazine) 5 mg PRN Q6HRS PRN IV NAUSEA/VOMITING ( 2ND CHOICE) Last administered on 07/22/17 17:03; Start 07/16/17 at 11:30 Fentanyl Citrate (Fentanyl 2ml Vial) 25 mcg PRN Q3HRS PRN IV PAIN Last administered on 07/17/17 07:26; Start 07/16/17 at 11:30; Stop 07/17/17 at 21:01 ; Status DC Fentanyl Citrate (Fentanyl 2ml Vial) 50 mcg PRN Q3HRS PRN IV PAIN Last administered on 07/17/17 20:26; Start 07/16/17 at 11:30; Stop 07/17/17 at 21:01 ; Status DC Ketorolac Tromethamine (Toradol) 15 mg 1X ONCE IV Last administered on 12:09; Start 07/16/17 at 12:00; Stop 07/16/17 at 12:01; Status DC Phytonadione (Vitamin K Ampule) 10 mg 1X ONCE SQ Last administered on 16:38; Start 07/16/17 at 12:30; Stop 07/16/17 at 12:31; Status DC Diphenhydramine HCl (Benadryl) 25 mg 1X ONCE IVP Last administered on 13:53; Start 07/16/17 at 13:15; Stop 07/16/17 at 13:16; Status DC Acetaminophen (Tylenol) 650 mg PRN Q8HRS PRN PO FEVER Last administered on 07/22 08:15; Start 07/16/17 at 20:15 Meropenem 500 mg/ Sodium Chloride 50 ml @ 100 mls/hr Q8HRS IV Last administered on 07/21/17 13:10; Start 07/17/17 at 14:00; Stop 07/21/17 at 15:11 ; Status DC Potassium Chloride 50 ml @ 50 mls/hr Q1H IV ; Start 07/17/17 at 10:30; Stop at 12:29; Status Cancel Potassium Phosphate 10 mmol/ Sodium Chloride 103.3333 ml @ 51.667 m... Q2H IV Last administered on 07/17/17 14:36; Start 07/17/17 at 10:30; Stop 07/17/17 at 16:29; Status DC Fentanyl Citrate (Fentanyl 2ml Vial) 25 mcg PRN Q2HRS PRN IV MODERATE PAIN; Start 07/17/17 at 22:30 Fentanyl Citrate (Fentanyl 2ml Vial) 50 mcg PRN Q2HRS PRN IV SEVERE PAIN Last administered on 07/22/17 08:17; Start 07/17/17 at 22:30 Iohexol (Omnipaque 240 Mg/ml) 30 ml 1X ONCE PO Last administered on 07/18/17 12:13; Start 07/18/17 at 09:30; Stop 07/18/17 at 09:33; Status DC Iohexol (Omnipaque 300 Mg/ml) 75 ml 1X ONCE IV Last administered on 07/18/17 12:13; Start 07/18/17 at 09:30; Stop 07/18/17 at 09:33; Status DC Info (Do NOT chart on this entry -- for MONITORING) 1 each PRN DAILY PRN MC SEE COMMENTS; Start 07/18/17 at 09:45; Stop 07/20/17 at 09:44; Status DC Potassium Chloride 50 ml @ 50 mls/hr Q1H IV Last administered on 07/18/17 11: 00; Start 07/18/17 at 10:00; Stop 07/18/17 at 11:59; Status DC Ondansetron HCl (Zofran) 8 mg 1X STAT IV Last administered on 07/18/17 10:50 ; Start 07/18/17 at 10:26; Stop 07/18/17 at 10:30; Status DC Metronidazole 100 ml @ 100 mls/hr Q8HRS IV Last administered on 07/19/17 05: 38; Start 07/18/17 at 22:30; Stop 07/19/17 at 09:11; Status DC Info 1 each PRN DAILY PRN MC SEE COMMENTS Last administered on 07/22/17 11:25 ; Start 07/19/17 at 08:15; Stop 07/23/17 at 10:26; Status DC Vancomycin HCl 125 mg [id number] PO Last administered on 07/23/17 20:35; Start at 09:30 Lidocaine/Sodium Bicarbonate (Buffered Lidocaine 1%) 20 ml STK-MED ONCE IJ ; Start 07/19/17 at 12:57; Stop 07/19/17 at 12:58; Status DC Midazolam HCl (Versed) 5 mg STK-MED ONCE .ROUTE ; Start 07/19/17 at 12:57; Stop 07/19/17 at 12:58; Status DC Fentanyl Citrate (Fentanyl 5ml Vial) 250 mcg STK-MED ONCE .ROUTE ; Start at 12:58; Stop 07/19/17 at 12:59; Status DC Lidocaine/Sodium Bicarbonate (Buffered Lidocaine 1%) 20 ml 1X ONCE IJ Last administered on 07/19/17 14:06; Start 07/19/17 at 14:15; Stop 07/19/17 at 14:16 ; Status DC Midazolam HCl (Versed) 5 mg 1X ONCE IV Last administered on 07/19/17 14:07; Start 07/19/17 at 14:15; Stop 07/19/17 at 14:16; Status DC Fentanyl Citrate (Fentanyl 5ml Vial) 150 mcg 1X ONCE IV Last administered on 14:07; Start 07/19/17 at 14:00; Stop 07/19/17 at 14:11; Status DC Sodium Chloride 90 meq/Potassium Chloride 50 meq/ Potassium Phosphate 13.6 mmol/ Magnesium Sulfate 10 meq/ Calcium Gluconate 10 meq/ Multivitamins 10 ml/Chromium / Copper/Manganese/ Seleni/Zn 1 ml/ Total Parenteral Nutrition/Amino Acids/ Dextrose/ Fat Emulsion Intravenous 1,512 ml @ 63 mls/hr TPN CONT IV Last administered on 07/19/17 22:08; Start 07/19/17 at 22:00; Stop 07/20/17 at 21:59 ; Status DC Potassium Chloride 50 ml @ 50 mls/hr Q1H IV Last administered on 07/20/17 15: 09; Start 07/20/17 at 13:00; Stop 07/20/17 at 14:59; Status DC Magnesium Sulfate/ Dextrose 50 ml @ 25 mls/hr 1X ONCE IV Last administered on 07/20/17 14:00; Start 07/20/17 at 13:00; Stop 07/20/17 at 14:59; Status DC Sodium Chloride 90 meq/Potassium Chloride 70 meq/ Potassium Phosphate 13.6 mmol/ Magnesium Sulfate 12 meq/ Calcium Gluconate 10 meq/ Multivitamins 10 ml/Chromium / Copper/Manganese/ Seleni/Zn 1 ml/ Total Parenteral Nutrition/Amino Acids/ Dextrose/ Fat Emulsion Intravenous 1,512 ml @ 63 mls/hr TPN CONT IV Last administered on 07/20/17 23:06; Start 07/20/17 at 22:00; Stop 07/21/17 at 21:59 ; Status DC Sodium Chloride 90 meq/Potassium Chloride 70 meq/ Potassium Phosphate 13.6 mmol/ Magnesium Sulfate 12 meq/ Calcium Gluconate 10 meq/ Multivitamins 10 ml/Chromium / Copper/Manganese/ Seleni/Zn 1 ml/ Total Parenteral Nutrition/Amino Acids/ Dextrose/ Fat Emulsion Intravenous 1,400 ml @ 58.333 mls/ hr TPN CONT IV Last administered on 07/21/17 22:12; Start 07/21/17 at 22:00; Stop 07/22/17 at 21:59; Status DC Ceftriaxone Sodium 1 gm/ Sodium Chloride 50 ml @ 100 mls/hr Q24H IV Last administered on 07/22/17 16:31; Start 07/21/17 at 17:00; Stop 07/23/17 at 10:49 ; Status DC Metronidazole 100 ml @ 100 mls/hr Q8HRS IV Last administered on 07/23/17 05: 52; Start 07/21/17 at 22:00; Stop 07/23/17 at 10:49; Status DC Oxycodone/ Acetaminophen (Percocet 5/325) 1 tab PRN Q4HRS PRN PO MODERATE PAIN Last administered on 07/23/17 12:14; Start 07/22/17 at 11:00 Oxycodone/ Acetaminophen (Percocet 5/325) 2 tab PRN Q4HRS PRN PO SEVERE PAIN Last administered on 07/24/17 07:50; Start 07/22/17 at 11:00 Sodium Chloride 90 meq/Potassium Chloride 70 meq/ Potassium Phosphate 13.6 mmol/ Magnesium Sulfate 12 meq/ Calcium Gluconate 10 meq/ Multivitamins 10 ml/Chromium / Copper/Manganese/ Seleni/Zn 1 ml/ Total Parenteral Nutrition/Amino Acids/ Dextrose/ Fat Emulsion Intravenous 1,400 ml @ 58.333 mls/ hr TPN CONT IV Last administered on 07/22/17 20:22; Start 07/22/17 at 22:00; Stop 07/23/17 at 15:38; Status DC Trimethoprim/ Sulfamethoxazole (Bactrim Ds) 1 tab TID PO Last administered on 20:34; Start 07/23/17 at 11:00 Metronidazole (Flagyl) 500 mg Q12HR PO Last administered on 07/23/17 20:34; Start 07/23/17 at 11:00 Active Scripts Active Oxycodone-Acetaminophen 5-325 (Oxycodone Hcl/Acetaminophen) 1 Each Tablet 1 Tab PO PRN Q4HRS PRN Reported Colace (Docusate Sodium) 100 Mg Capsule 100 Cap PO BID Polyethylene Glycol 3350 255 Gm Powder 17 Gm PO DAILY Atorvastatin Calcium 20 Mg Tablet 20 Mg PO HS Vitals/I & O Vital Sign - Last 24 Hours 07/23/17 07/23/17 07/23/17 07/23/17 11:00 12:14 13:40 15:00 Temp 97.7 97.9 97.7 97.9 Pulse 95 101 Resp 20 20 B/P (MAP) 115/70 (85) 131/65 (87) Pulse Ox 97 97 97 98 O2 Delivery Room Air Room Air Room Air Room Air 07/23/17 07/23/17 07/23/17 07/23/17 18:15 19:00 19:15 20:00 Temp 98.1 98.1 Pulse 100 Resp 20 20 B/P (MAP) 133/84 (100) Pulse Ox 98 100 100 O2 Delivery Room Air Room Air Room Air Room Air 07/23/17 07/24/17 07/24/17 07/24/17 23:00 02:54 07:00 07:50 Temp 97.9 98.1 98.1 97.9 98.1 98.1 Pulse 88 72 93 Resp 18 18 18 B/P (MAP) 127/72 (90) 124/67 (86) 139/44 (75) Pulse Ox 97 99 96 O2 Delivery Room Air Room Air Room Air Room Air 07/24/17 08:00 O2 Delivery Room Air O2 Flow Rate 2.0 LIZBETH HOSKINS MD Jul 24, 2017 09:05
[2017-07-24] MEDS: metroNIDAZOLE 500 MG TABLET PO SCH (09:15)
[2017-07-24] MEDS: SMZ/TMP 800/160MG TABLET. PO SCH ×2 (09:15→15:15)
[2017-07-24] MEDS: VANCOMYCIN 125 MG/2.5 ML ORAL SOLUTION. PO SCH ×2 (09:15→12:34)
--- NOTE | 2017-07-24 09:34 | PDOC ---
Infectious Disease Note Subjective Subjective Tolerating diet No BM. Ambulating much better Denies abdominal pain, cramping, bloating, or N/V ROS ROS GEN: Denies fevers, chills, sweats HEENT: Denies blurred vision, sore throat CV: Denies chest pain RESP: Denies shortness of air, cough GI: Denies n/v/d NEURO: Denies confusion, dizziness MSK: Denies weakness, joint pain/swelling Vital Sign Vital Signs Vital Signs Date Time Temp Pulse Resp B/P (MAP) Pulse Ox O2 Delivery O2 Flow Rate FiO2 07/24/17 08:00 Room Air 2.0 07/24/17 07:00 98.1 93 18 139/44 (75) 96 98.1 Physical Exam PHYSICAL EXAM GENERAL: NAD, Alert HEENT: PERRL, OC/OP NECK: Supple, no JVD, no LN LUNGS: Clear HEART: S1S2, no gallop, no murmur ABD: Soft, NT, no organomegaly, no rebound. Occ bruising. 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: Alert, 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, no focal neurologic deficit SKIN: No rash IV: ok Labs Lab Laboratory Tests Test 07/23/17 12:08 07/24/17 05:30 07/24/17 06:00 Glucose (Fingerstick) 80 mg/dL (70-99) Sodium Level 131 mmol/L (136-145) Potassium Level 4.2 mmol/L (3.5-5.1) Chloride Level 98 mmol/L (98-107) Carbon Dioxide Level 25 mmol/L (21-32) Anion Gap 8 (6-14) Blood Urea Nitrogen 7 mg/dL (8-26) Creatinine 0.9 mg/dL (0.7-1.3) Estimated GFR (Cockcroft-Gault) 93.5 BUN/Creatinine Ratio 8 (6-20) Glucose Level 90 mg/dL (70-99) Calcium Level 8.2 mg/dL (8.5-10.1) Total Bilirubin 0.5 mg/dL (0.2-1.0) Aspartate Amino Transf (AST/SGOT) 27 U/L (15-37) Alanine Aminotransferase (ALT/SGPT) 57 U/L (16-63) Alkaline Phosphatase 72 U/L (46-116) Total Protein 7.2 g/dL (6.4-8.2) Albumin 2.6 g/dL (3.4-5.0) Albumin/Globulin Ratio 0.6 (1.0-1.7) White Blood Count 15.7 x10^3/uL (4.0-11.0) Red Blood Count 3.21 x10^6/uL (4.30-5.70) Hemoglobin 9.6 g/dL (13.0-17.5) Hematocrit 28.5 % (39.0-53.0) Mean Corpuscular Volume 89 fL (79-100) Mean Corpuscular Hemoglobin 30 pg (25-35) Mean Corpuscular Hemoglobin Concent 34 g/dL (31-37) Red Cell Distribution Width 14.0 % (11.5-14.5) Platelet Count 560 x10^3/uL (140-400) Neutrophils (%) (Auto) 73 % (31-73) Lymphocytes (%) (Auto) 17 % (24-48) Monocytes (%) (Auto) 7 % (0-9) Eosinophils (%) (Auto) 2 % (0-3) Basophils (%) (Auto) 1 % (0-3) Neutrophils # (Auto) 11.5 x10^3uL (1.8-7.7) Lymphocytes # (Auto) 2.7 x10^3/uL (1.0-4.8) Monocytes # (Auto) 1.1 x10^3/uL (0.0-1.1) Eosinophils # (Auto) 0.3 x10^3/uL (0.0-0.7) Basophils # (Auto) 0.1 x10^3/uL (0.0-0.2) Micro 07/19 Escherichia coli Moderate growth AEROBIC RES 2 Final Escherichia coli Moderate growth SECOND MORPHOTYPE ANTIMICROBIAL SUSCEPTIBILITY Final Comment S = Susceptible; I = Intermediate; R = Resistant P = Positive; N = Negative MICS are expressed in micrograms per mL Antibiotic RSLT#1 RSLT#2 RSLT#3 RSLT#4 Amoxicillin/Clavulanic Acid S I Ampicillin R R Cefazolin R Cefepime S R Ceftriaxone S R Cefuroxime S R Ciprofloxacin R R Ertapenem S S Gentamicin S S Imipenem S S CONTINUED ON NEXT PAGE RUN DATE: 07/23/17 PAGE 2 RUN TIME: 813 [facility] [address] [facility] [place] [address] Jostin Ley M.D., Auto Inspection Specialist SPEC: [id number] PATIENT: SARBJIT ZAVALA [id number] ( Continued) Procedure Result ANTIMICROBIAL SUSCEPTIBILITY Final (continued) Levofloxacin R R Piperacillin I R Tetracycline R R Tobramycin S I Trimethoprim/Sulfa S S Objective Assessment Fever - better Leukocytosis better RLQ complex fluid collection, s/p aspiration, coag blood, 07/13. E. coli -s/p diagnostic lap w/ evacuation of hematoma and RLQ drain placement, , Bacteroides and multiple GNR-no further work-up was done Increase pelvic fluid collection/abscess. s/p left gluteal drain, 07/19. Ecoli times 2 one res to Rocephin s/p lap appy, 07/09 Urinary retention s/p indwelling Reyes Ileus C. diff, 07/18 On TPN Plan Plan of Care Cont Bactrim/Flagyl for at least 10 days po Vanc likely will need for 4 weeks Will need repeat CT in 7 to 10 days Can F/u if needed in ID office [phone] CELENA CAR MD Jul 24, 2017 09:34
--- NOTE | 2017-07-24 10:03 | PDOC ---
FAMILIA STOVALL PLAYGROUND WORKER 07/24/17 1003: SURGICAL PROGRESS NOTE Subjective tolerating diet nursing reports only 15cc from drains overnight Vital Signs Vital Signs Date Time Temp Pulse Resp B/P (MAP) Pulse Ox O2 Delivery O2 Flow Rate FiO2 07/24/17 08:00 Room Air 2.0 07/24/17 07:00 98.1 93 18 139/44 (75) 96 98.1 General: Alert, Oriented X3, Cooperative, No acute distress Abdomen: Soft, Other (minimal drainage in drains ) Labs Laboratory Tests Test 07/22/17 15:54 07/22/17 23:37 07/23/17 02:30 07/23/17 07:35 Glucose (Fingerstick) 117 mg/dL (70-99) 116 mg/dL (70-99) 122 mg/dL (70-99) White Blood Count 15.5 x10^3/uL (4.0-11.0) Red Blood Count 2.97 x10^6/uL (4.30-5.70) Hemoglobin 8.8 g/dL (13.0-17.5) Hematocrit 26.8 % (39.0-53.0) Mean Corpuscular Volume 90 fL (79-100) Mean Corpuscular Hemoglobin 30 pg (25-35) Mean Corpuscular Hemoglobin Concent 33 g/dL (31-37) Red Cell Distribution Width 13.8 % (11.5-14.5) Platelet Count 470 x10^3/uL (140-400) Neutrophils (%) (Auto) 69 % (31-73) Lymphocytes (%) (Auto) 19 % (24-48) Monocytes (%) (Auto) 8 % (0-9) Eosinophils (%) (Auto) 2 % (0-3) Basophils (%) (Auto) 1 % (0-3) Neutrophils # (Auto) 10.7 x10^3uL (1.8-7.7) Lymphocytes # (Auto) 3.0 x10^3/uL (1.0-4.8) Monocytes # (Auto) 1.3 x10^3/uL (0.0-1.1) Eosinophils # (Auto) 0.3 x10^3/uL (0.0-0.7) Basophils # (Auto) 0.1 x10^3/uL (0.0-0.2) Sodium Level 134 mmol/L (136-145) Potassium Level 4.1 mmol/L (3.5-5.1) Chloride Level 101 mmol/L (98-107) Carbon Dioxide Level 25 mmol/L (21-32) Anion Gap 8 (6-14) Blood Urea Nitrogen 6 mg/dL (8-26) Creatinine 0.8 mg/dL (0.7-1.3) Estimated GFR (Cockcroft-Gault) 107.1 BUN/Creatinine Ratio 8 (6-20) Glucose Level 122 mg/dL (70-99) Uric Acid 2.6 mg/dL (3.5-7.2) Calcium Level 8.2 mg/dL (8.5-10.1) Magnesium Level 2.0 mg/dL (1.8-2.4) Total Bilirubin 0.4 mg/dL (0.2-1.0) Aspartate Amino Transf (AST/SGOT) 24 U/L (15-37) Alanine Aminotransferase (ALT/SGPT) 63 U/L (16-63) Alkaline Phosphatase 64 U/L (46-116) Total Protein 6.5 g/dL (6.4-8.2) Albumin 2.3 g/dL (3.4-5.0) Albumin/Globulin Ratio 0.5 (1.0-1.7) Test 07/23/17 12:08 07/24/17 05:30 07/24/17 06:00 Glucose (Fingerstick) 80 mg/dL (70-99) Sodium Level 131 mmol/L (136-145) Potassium Level 4.2 mmol/L (3.5-5.1) Chloride Level 98 mmol/L (98-107) Carbon Dioxide Level 25 mmol/L (21-32) Anion Gap 8 (6-14) Blood Urea Nitrogen 7 mg/dL (8-26) Creatinine 0.9 mg/dL (0.7-1.3) Estimated GFR (Cockcroft-Gault) 93.5 BUN/Creatinine Ratio 8 (6-20) Glucose Level 90 mg/dL (70-99) Calcium Level 8.2 mg/dL (8.5-10.1) Total Bilirubin 0.5 mg/dL (0.2-1.0) Aspartate Amino Transf (AST/SGOT) 27 U/L (15-37) Alanine Aminotransferase (ALT/SGPT) 57 U/L (16-63) Alkaline Phosphatase 72 U/L (46-116) Total Protein 7.2 g/dL (6.4-8.2) Albumin 2.6 g/dL (3.4-5.0) Albumin/Globulin Ratio 0.6 (1.0-1.7) White Blood Count 15.7 x10^3/uL (4.0-11.0) Red Blood Count 3.21 x10^6/uL (4.30-5.70) Hemoglobin 9.6 g/dL (13.0-17.5) Hematocrit 28.5 % (39.0-53.0) Mean Corpuscular Volume 89 fL (79-100) Mean Corpuscular Hemoglobin 30 pg (25-35) Mean Corpuscular Hemoglobin Concent 34 g/dL (31-37) Red Cell Distribution Width 14.0 % (11.5-14.5) Platelet Count 560 x10^3/uL (140-400) Neutrophils (%) (Auto) 73 % (31-73) Lymphocytes (%) (Auto) 17 % (24-48) Monocytes (%) (Auto) 7 % (0-9) Eosinophils (%) (Auto) 2 % (0-3) Basophils (%) (Auto) 1 % (0-3) Neutrophils # (Auto) 11.5 x10^3uL (1.8-7.7) Lymphocytes # (Auto) 2.7 x10^3/uL (1.0-4.8) Monocytes # (Auto) 1.1 x10^3/uL (0.0-1.1) Eosinophils # (Auto) 0.3 x10^3/uL (0.0-0.7) Basophils # (Auto) 0.1 x10^3/uL (0.0-0.2) Laboratory Tests Test 07/23/17 12:08 07/24/17 05:30 07/24/17 06:00 Glucose (Fingerstick) 80 mg/dL (70-99) Sodium Level 131 mmol/L (136-145) Potassium Level 4.2 mmol/L (3.5-5.1) Chloride Level 98 mmol/L (98-107) Carbon Dioxide Level 25 mmol/L (21-32) Anion Gap 8 (6-14) Blood Urea Nitrogen 7 mg/dL (8-26) Creatinine 0.9 mg/dL (0.7-1.3) Estimated GFR (Cockcroft-Gault) 93.5 BUN/Creatinine Ratio 8 (6-20) Glucose Level 90 mg/dL (70-99) Calcium Level 8.2 mg/dL (8.5-10.1) Total Bilirubin 0.5 mg/dL (0.2-1.0) Aspartate Amino Transf (AST/SGOT) 27 U/L (15-37) Alanine Aminotransferase (ALT/SGPT) 57 U/L (16-63) Alkaline Phosphatase 72 U/L (46-116) Total Protein 7.2 g/dL (6.4-8.2) Albumin 2.6 g/dL (3.4-5.0) Albumin/Globulin Ratio 0.6 (1.0-1.7) White Blood Count 15.7 x10^3/uL (4.0-11.0) Red Blood Count 3.21 x10^6/uL (4.30-5.70) Hemoglobin 9.6 g/dL (13.0-17.5) Hematocrit 28.5 % (39.0-53.0) Mean Corpuscular Volume 89 fL (79-100) Mean Corpuscular Hemoglobin 30 pg (25-35) Mean Corpuscular Hemoglobin Concent 34 g/dL (31-37) Red Cell Distribution Width 14.0 % (11.5-14.5) Platelet Count 560 x10^3/uL (140-400) Neutrophils (%) (Auto) 73 % (31-73) Lymphocytes (%) (Auto) 17 % (24-48) Monocytes (%) (Auto) 7 % (0-9) Eosinophils (%) (Auto) 2 % (0-3) Basophils (%) (Auto) 1 % (0-3) Neutrophils # (Auto) 11.5 x10^3uL (1.8-7.7) Lymphocytes # (Auto) 2.7 x10^3/uL (1.0-4.8) Monocytes # (Auto) 1.1 x10^3/uL (0.0-1.1) Eosinophils # (Auto) 0.3 x10^3/uL (0.0-0.7) Basophils # (Auto) 0.1 x10^3/uL (0.0-0.2) Problem List Problems Medical Problems: (1) Fever Status: Acute (2) Right lower quadrant abdominal pain Status: Acute Assessment/Plan remove drains dc planned FU 1 week Problems: JO ANN JUAREZ MD 07/24/17 1030: SURGICAL PROGRESS NOTE Assessment/Plan Improving. Agree with Narciso's assessment and plan. F/U [address] scan of the abd Problems: FAMILIA STOVALL APRN Jul 24, 2017 10:03 JO ANN JUAREZ MD Jul 24, 2017 10:30
--- NOTE | 2017-07-24 10:22 | PDOC ---
PROGRESS NOTES Subjective Subjective wanting to go home Objective Objective Vital Signs Date Time Temp Pulse Resp B/P (MAP) Pulse Ox O2 Delivery O2 Flow Rate FiO2 07/24/17 08:00 Room Air 2.0 07/24/17 07:00 98.1 93 18 139/44 (75) 96 98.1 Physical Exam Abdomen: Soft, Other (minimal drainage in drains ) Heart: Normal S1, Normal S2 Extremities: No edema General: Alert, Oriented X3, Cooperative, No acute distress Lungs: Clear to auscultation Neuro: Normal speech Psych/Mental Status: Mental status NL COMMENT drains lt+ rt lower abdomen Diagnosis Problem List Problems Medical Problems: (1) Fever Status: Acute (2) Right lower quadrant abdominal pain Status: Acute Assessment Assessment FINAL IMPRESSION: C Diff colitis 1. Fever.r/o abscess pelvic 2. Free fluid in the paracolic gutter.hematoma ? vs abscess 3. Status post recent laparoscopic appendectomy last week ,07/09/17 PLAN:spoke with surgery home today. d/c drains and central line. po bactrim+flagyl for 10 days liquid vanco for [address] scan in 1 week labs in 1 week. IR placed drain for pelvic abscess, 2 drains present po vancomycin for c diff. full liquid diet wbc trending up ,now 23 E Coli in para colic fluid resistant to Zosyn, spoke with ID ,iv antibiotics changed.Rocephin. tpn for nutrition Problems: Plan Plan of Care Problems Medical Problems: (1) Fever Status: Acute (2) Right lower quadrant abdominal pain Status: Acute Comment Review of Relevant I have reviewed the following items jersey (where applicable) has been applied. Labs Laboratory Tests Test 07/23/17 12:08 07/24/17 05:30 07/24/17 06:00 Glucose (Fingerstick) 80 mg/dL (70-99) Sodium Level 131 mmol/L (136-145) Potassium Level 4.2 mmol/L (3.5-5.1) Chloride Level 98 mmol/L (98-107) Carbon Dioxide Level 25 mmol/L (21-32) Anion Gap 8 (6-14) Blood Urea Nitrogen 7 mg/dL (8-26) Creatinine 0.9 mg/dL (0.7-1.3) Estimated GFR (Cockcroft-Gault) 93.5 BUN/Creatinine Ratio 8 (6-20) Glucose Level 90 mg/dL (70-99) Calcium Level 8.2 mg/dL (8.5-10.1) Total Bilirubin 0.5 mg/dL (0.2-1.0) Aspartate Amino Transf (AST/SGOT) 27 U/L (15-37) Alanine Aminotransferase (ALT/SGPT) 57 U/L (16-63) Alkaline Phosphatase 72 U/L (46-116) Total Protein 7.2 g/dL (6.4-8.2) Albumin 2.6 g/dL (3.4-5.0) Albumin/Globulin Ratio 0.6 (1.0-1.7) White Blood Count 15.7 x10^3/uL (4.0-11.0) Red Blood Count 3.21 x10^6/uL (4.30-5.70) Hemoglobin 9.6 g/dL (13.0-17.5) Hematocrit 28.5 % (39.0-53.0) Mean Corpuscular Volume 89 fL (79-100) Mean Corpuscular Hemoglobin 30 pg (25-35) Mean Corpuscular Hemoglobin Concent 34 g/dL (31-37) Red Cell Distribution Width 14.0 % (11.5-14.5) Platelet Count 560 x10^3/uL (140-400) Neutrophils (%) (Auto) 73 % (31-73) Lymphocytes (%) (Auto) 17 % (24-48) Monocytes (%) (Auto) 7 % (0-9) Eosinophils (%) (Auto) 2 % (0-3) Basophils (%) (Auto) 1 % (0-3) Neutrophils # (Auto) 11.5 x10^3uL (1.8-7.7) Lymphocytes # (Auto) 2.7 x10^3/uL (1.0-4.8) Monocytes # (Auto) 1.1 x10^3/uL (0.0-1.1) Eosinophils # (Auto) 0.3 x10^3/uL (0.0-0.7) Basophils # (Auto) 0.1 x10^3/uL (0.0-0.2) Microbiology 07/18/17 Blood Culture - Final, Complete NO GROWTH AFTER 5 DAYS 07/19/17 Anaerobic/Aerobic Culture, Resulted Pending 07/19/17 Anaerobic Culture Result 1 (ASH), Resulted Pending 07/19/17 Aerobic Culture - Final, Resulted 07/19/17 Aerobic Culture Result 1 (ASH) - Final, Resulted 07/19/17 Aerobic Culture Result 2 (ASH) - Final, Resulted 07/19/17 Antimicrobic Susceptibility - Final, Resulted Medications Current Medications Metronidazole (Flagyl) 500 mg Q12HR PO Last administered on 07/24/17 09:15; Start 07/23/17 at 11:00 Trimethoprim/ Sulfamethoxazole (Bactrim Ds) 1 tab TID PO Last administered on 09:15; Start 07/23/17 at 11:00 Vitals/I & O Vital Sign - Last 24 Hours 07/23/17 07/23/17 07/23/17 07/23/17 11:00 12:14 13:40 15:00 Temp 97.7 97.9 97.7 97.9 Pulse 95 101 Resp 20 20 B/P (MAP) 115/70 (85) 131/65 (87) Pulse Ox 97 97 97 98 O2 Delivery Room Air Room Air Room Air Room Air 07/23/17 07/23/17 07/23/17 07/23/17 18:15 19:00 19:15 20:00 Temp 98.1 98.1 Pulse 100 Resp 20 20 B/P (MAP) 133/84 (100) Pulse Ox 98 100 100 O2 Delivery Room Air Room Air Room Air Room Air 07/23/17 07/24/17 07/24/17 07/24/17 23:00 02:54 07:00 07:50 Temp 97.9 98.1 98.1 97.9 98.1 98.1 Pulse 88 72 93 Resp 18 18 18 B/P (MAP) 127/72 (90) 124/67 (86) 139/44 (75) Pulse Ox 97 99 96 O2 Delivery Room Air Room Air Room Air Room Air 07/24/17 08:00 O2 Delivery Room Air O2 Flow Rate 2.0 JUAN A MEADE MD Jul 24, 2017 10:21
[2017-07-24] MEDS ORDERED: METR500T PO (10:25)
[2017-07-24] MEDS ORDERED: VANC500V PO (10:25)
[2017-07-24] MEDS ORDERED: SULF-143 PO (10:25)
[2017-07-24 10:47] VITALS: BP 127/79
--- NOTE | 2017-07-24 14:44 | PDOC ---
Provider Note Provider Note Discharge summary dictated. #[id number] JUAN A MEADE MD Jul 24, 2017 14:44
--- NOTE | 2017-07-24 15:28 | DS ---
DATE OF DISCHARGE: 07/24/2017 DATE OF ADMISSION: 07/13/2017 DATE OF DISCHARGE: 07/24/2017 REASON FOR ADMISSION TO THE HOSPITAL: Abdominal pain, fever, pelvic abscess, status post recent appendectomy, laparoscopic. CONSULTATIONS: 1. Dr. Mcintosh. 2. Dr. Spicer. 3. Dr. Broderick Toledo. PROCEDURES DONE: 1. Diagnostic laparoscopy with evacuation of hematoma, right lower quadrant, placement of drain. 2. Placement of drain by Interventional Radiology from the left side. 3. CT scan x2. 4. FFP and vitamin K. HOSPITAL COURSE: The patient is a 41-year-old male patient recently had a laparoscopic appendectomy done 5 days ago, came with abdominal pain, fever. CT scan shows fluid in the paracolic gutter in the pelvic area. The patient was taken to surgery because he continues to have fever and abdominal pain. He had a diagnostic laparoscopy with evacuation of hematoma, right lower quadrant drain placement. A couple of days later, he continues to have fever, spiking fever and pain. Interventional Radiology placed another drain in the left side. Culture shows E. coli resistant to cephalosporins. The patient was put on meropenem and Flagyl. The patient also had coagulopathy with INR was high, was given vitamin K, FFP and was seen by Hematology, has history of alcohol drinking in the past. The patient also had fever at that time with elevated white count was found to have C. diff colitis. The patient was put on oral vancomycin, Flagyl IV and meropenem IV. Once condition stabilized, antibiotics changed to oral Bactrim, oral Flagyl, and p.o. vancomycin liquid. White count was coming down to 15,000 and feeling better, eating, has 2 drains. It was felt that he could be discharged home. DISCHARGE INSTRUCTIONS: The plan is to take antibiotics for 10 days, Bactrim and Flagyl, p.o. vancomycin for 4 weeks. He is going to do labs in [address] scan of the abdomen and pelvis in 7 days. He is going to surgical followup in 1 week and medical followup in 2 weeks. The patient is given time off from work for at least another 4 weeks. FINAL DIAGNOSES: 1. Pelvic abscess and hematoma secondary to recent appendectomy for ac appendicitis. 2. The patient had emergency appendectomy for acute appendicitis 5 days ago 3, C. diff colitis and hematoma, which was evacuated in the pelvic area with drains. JUAN A MEADE MD DR: JOSUE/nato JOB#: [id number] / [id number] NEREYDA
== END 2017-07-24 15:30 | disposition home or self-care (01) | DRG 856 ==
LOC: ER 10:05 → 6 SOUTH 13:28 → 1 WEST ICU 07-14 16:27 → 4 NORTH 07-17 15:40
PROVIDERS: ADMIT Internal Medicine; ATTEND Internal Medicine
PROC: 30233L1 Transfusion of Nonautologous Fresh Plasma into Peripheral Vein, Percutaneous Approach (ICD-10-PCS; 2017-07-13)
PROC: 30233K1 Transfusion of Nonautologous Frozen Plasma into Peripheral Vein, Percutaneous Approach (ICD-10-PCS; 2017-07-13)
PROC: 0W9J40Z Drainage of Pelvic Cavity with Drainage Device, Percutaneous Endoscopic Approach (ICD-10-PCS; 2017-07-14)
PROC: 0WCG4ZZ Extirpation of Matter from Peritoneal Cavity, Percutaneous Endoscopic Approach (ICD-10-PCS; principal; 2017-07-14 18:55)
DX: T81.4XXA Infection following a procedure, initial encounter (principal); K65.1 Peritoneal abscess; D68.9 Coagulation defect, unspecified; A04.7 Enterocolitis due to Clostridium difficile; K76.0 Fatty (change of) liver, not elsewhere classified; K56.7 Ileus, unspecified; K91.870 Postprocedural hematoma of a digestive system organ or structure following a digestive system procedure; J98.11 Atelectasis; B99.8 Other infectious disease; D64.9 Anemia, unspecified; E56.1 Deficiency of vitamin K; E78.00 Pure hypercholesterolemia, unspecified; F17.210 Nicotine dependence, cigarettes, uncomplicated; I10 Essential (primary) hypertension; S30.1XXA Contusion of abdominal wall, initial encounter; Z82.49 Family history of ischemic heart disease and other diseases of the circulatory system; Z90.49 Acquired absence of other specified parts of digestive tract; Z90.89 Acquired absence of other organs; R33.9 Retention of urine, unspecified; B96.20 Unspecified Escherichia coli [E. coli] as the cause of diseases classified elsewhere
CPT/HCPCS: 10022; 36415; 49406; 71010; 74000; 74177; 80048; 80053; 80076; 80307; 81001; 82962; 83605; 83735; 84100; 84145; 84478; 84550; 85007; 85025; 85027; 85246; 85610; 85730; 86850; 86900; 86901; 86927; 87040; 87071; 87075; 87186; 87205; 87324; 87641; 96361; 96365; 96375; 99152; 99153; A4215; C1729; C1894; G0480; J0360; J0610; J0696; J0780; J1100; J1170; J1200; J1450; J1885; J2060; J2185; J2250; J2370; J2405; J2543; J2550; J2704; J2710; J3010; J3430; J3475; J3480; J3490; J7030; J7040; J7060; J7120; P9017; P9045; P9046; Q9966; Q9967; 99285-25; G0479; J2001

== ENCOUNTER → 2017-07-31 | Outpatient (CLI) | payer OTHER ==
[2017-07-24 10:47] VITALS: BP 127/79
[~2017-07-31] MED LIST changes: +DOCU-109 PO; +IOHEXOL 240 MG/ML 50ML VIAL. ONE; +IOHEXOL 240 MG/ML 50ML VIAL. PO ONE; +IOHEXOL 300 MG/ML 75 ML VIAL IV ONE; +IOHEXOL 300 MG/ML 75 ML VIAL ONE; +METR500T PO; +POLY255P PO; +SULF-143 PO; +VANC500V PO
--- NOTE | 2017-07-31 16:11 | RAD ---
Indication abnormal sigmoid colon. Pelvic abscess. Right lower quadrant pain. Contrast imaging through the abdomen and pelvis was performed. Both oral and IV contrast were administered. The oral contrast did not reach the right colon at the time of the study. Approximately 75 cc of Omnipaque 300 was administered. Note is made of a previous exam 07/18/2017. Note is made of the interventional procedure. A fluid collection in the pelvis 07/19/2017. There is some minimal volume loss at the lung bases likely reflecting atelectasis or scar. Aeration of the lung bases has improved relative to the previous exam. The liver and spleen appear unremarkable and the gallbladder appears grossly normal. A small amount of fluid is seen adjacent to the tip of the liver but the amount of fluid is less. The pancreas adrenal glands and kidneys appear normal. A new or acute finding in the abdomen is not seen. There is no evidence of mechanical small bowel obstruction on today's study. In the pelvis clips are now seen, compatible with appendectomy, in the right abdomen. There is a fluid collection in the appendiceal bed measuring approximately 2.5 cm in greatest dimension. The larger fluid collections are seen in the adjacent right pelvis some containing air. These larger fluid collections measure approximately 5 cm in greatest dimension and 3.7 cm. Residual abscess is not excluded. IMPRESSION: Improved aeration of the lung bases. No evidence of mechanical small bowel obstruction. Fluid collections in the pelvis, some containing air. Residual or recurrent abscess is not excluded PQRS Compliance Statement: One or more of the following individualized dose reduction techniques were utilized for this examination: 1. Automated exposure control 2. Adjustment of the mA and/or kV according to patient size 3. Use of iterative reconstruction technique
== END | disposition home or self-care (01) ==
LOC: CT 11:22
PROVIDERS: ATTEND Internal Medicine
DX: K65.1 Peritoneal abscess (principal)
CPT/HCPCS: 74177; Q9966; Q9967

== ENCOUNTER → 2018-11-06 | Outpatient (CLI) | payer OTHER ==
[~2018-11-06] MED LIST changes: -HYDR-2758 PO; +HYDR-2761 PO; -IOHEXOL 240 MG/ML 50ML VIAL. ONE; -IOHEXOL 240 MG/ML 50ML VIAL. PO ONE; -IOHEXOL 300 MG/ML 75 ML VIAL IV ONE; -IOHEXOL 300 MG/ML 75 ML VIAL ONE; -POLY255P PO; +POLY255P11 PO
--- NOTE | 2018-11-06 16:35 | RAD ---
Ultrasound the left upper extremity HISTORY: Swelling forearm and wrist Ultrasound was used to evaluate the left distal forearm and wrist. A focal fluid collection is not identified. There is no mass or cyst identified. IMPRESSION: 1. No focal fluid collection or mass identified by ultrasound of the left wrist. Electronically signed by: Saad Dennis MD (11/06/2018 4:32 PM) [id number]
== END | disposition home or self-care (01) ==
LOC: US 15:52
PROVIDERS: ATTEND Family Medicine
DX: R22.32 Localized swelling, mass and lump, left upper limb (principal)
CPT/HCPCS: 76881